=== PATIENT | female | born 2000 | race Caucasian/White ===

== ENCOUNTER 2022-12-23 18:40 | Emergency (ER) | payer OTHER, SELFPAY ==
[2022-12-23 18:44] VITALS: BP 127/81; PULSE 98; RESP 16; TEMP 37.3; O2SAT 99; BMI 20.8
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
[2022-12-23] MEDS: Acetaminophen 325 MG TABLET 975 MG PO (21:08)
[2022-12-23] MEDS: Lidocaine 4 % Patch ADH..PATCH 1 PATCH TRANSDERMA (21:09)
[2022-12-23] MEDS: Ketorolac Tromethamine 15 MG/ML VIAL IM (21:09)
== END 2022-12-23 21:27 | disposition home or self-care (01) ==
PROVIDERS: Emergency Provider Student in an Organized Health Care Education/Training Program
DX: Z04.1 Encounter for examination and observation following transport accident (principal); M62.838 Other muscle spasm; M54.2 Cervicalgia
CPT/HCPCS: 96372; 99283; 99284; J1885

== ENCOUNTER 2023-02-25 17:28 | Emergency (ER) | payer OTHER, SELFPAY ==
[2023-02-25 17:32] VITALS: BP 150/100; PULSE 109; RESP 18; TEMP 36.8; O2SAT 97; BMI 19.0
--- NOTE | 2023-02-25 17:33 | ED.GENADULT ---
HPI - General Adult General Chief complaint: Arrhythmia/Palpitations Stated complaint: tachy, sick since Tuesday Time Seen by Provider: 02/25/23 21:18 Source: patient Mode of arrival: ambulatory Limitations: no limitations History of Present Illness HPI narrative: Patient is a 22 year old assigned female at with a history of POTS presenting to the emergency department today with vomiting. Patient states that over the last week she has had nausea and vomiting. Patient denies any dizziness, lightheadedness, abdominal pain, fever, chills, blurry vision, double vision, loss of vision, chest pain, difficulty breathing, shortness of breath, back pain, night sweats, pain with urination, increased urinary frequency, increased urinary urgency, blood in her urine or stool, syncope or a near syncopal episode, recent trauma or falls, bowel incontinence, bladder incontinence, bowel retention, bladder retention, or any other complaints at this time. Onset (ago): week(s) (1) Severity: mild Severity scale (1-10): 3 Relieving factors: none Exacerbating factors: none Associated symptoms: nausea/vomiting Treatments prior to arrival: none Related Data Previous Rx's Medication Instructions Recorded cyclobenzaprine 5 mg tablet 5 mg PO BEDTIME PRN muscle spasm 12/23/22 #4 tabs ketorolac 10 mg tablet 10 mg PO Q6H PRN pain 5 days #20 12/23/22 tabs ondansetron 4 mg disintegrating 4 mg PO Q8H 3 days #9 tabs 02/25/23 tablet Allergies Allergy/AdvReac Type Severity Reaction Status Date / Time beeswax Allergy Unknown Verified 02/25/23 17:36 haloperidol [From Haldol] Allergy Unknown Verified 02/25/23 17:36 honey Allergy Unknown Verified 02/25/23 17:36 Review of Systems Constitutional: Constitutional: Reports no additional constitutional complaints, Denies chills, Denies fever(s) and Denies night sweats Eyes: Eyes: Reports no additional eye complaints, Denies blurry vision, Denies change in vision, Denies diplopia, Denies eye discharge, Denies loss of vision and Denies eye pain ENT: Denies dizziness Cardiovascular: Cardiovascular: Reports no additional cardiovascular complaints, Denies chest pain, Denies lightheadedness, Denies Loss of Consciousness and Denies dyspnea Respiratory: Respiratory: Reports no additional respiratory complaints and Denies dyspnea Gastrointestinal: Gastrointestinal: Reports no additional gastrointestinal complaints, Denies abdominal pain, Denies melena, Denies hematochezia, Denies change in bowel habits, Denies change in stool character, Reports nausea and Reports vomiting Genitourinary: Genitourinary: Denies hematuria, Denies urinary frequency, Denies dysuria, Denies urinary incontinence, Denies urinary hesitancy and Denies urinary urgency Musculoskeletal: Musculoskeletal: Reports no additional musculoskeletal complaints, Denies numbness and Denies tingling Neurologic: Denies dizziness, Denies loss of vision, Denies numbness and Denies tingling Psychiatric: Psychiatric: Reports no additional psychiatric complaints Endocrine: Endocrine: Reports no additional endocrine complaints Hematologic/Lymphatic: Hematologic/Lymphatic: Reports no additional hematologic/lymphatic complaints Allergic/Immunologic: Allergic/Immunologic: Reports no additional allergic/immunologic complaints PMFSH Past Medical History Attestation statement: The following information was validated with the patient. Source: old records reviewed and nursing notes reviewed Social History Social History Alcohol intake: never Smoked in Last 30 Days: Yes Use of substances other than those prescribed or required for medical reasons: Yes Substance Use Type: Marijuana Advance Directives: No Advance Directives Information Provided: No Patient : No Physical Exam ED Vital Signs: Vital Signs - 24 hr 02/25/23 17:32 02/25/23 19:49 Temperature 98.2 F 97.9 F Pulse Rate 109 H 101 H Respiratory Rate 18 16 Blood Pressure 150/100 H 141/86 H Pulse Oximetry 97 99 Oxygen Delivery Method Room Air Room Air BMI result Body Mass Index 19.0 Const General: cooperative, no acute distress, alert and awake Nutritional Appearance: well nourished Orientation/consciousness: patient oriented x3 Limitations: no limitations HENMT Head: Yes normal to inspection and Yes atraumatic Ears: hearing grossly normal bilaterally and external ears normal General nose exam: Normal external nose present, no nasal discharge noted and no epistaxis Face and sinus: Yes normal facial exam, No abrasion and No laceration Mouth: Normal oral and palatal mucosa present, no drooling and no muffled voice Eyes General: appearance normal, both eyes and all related structures Periorbital: periorbital findings normal Eyelids: Yes eyelids normal Conjunctivae: conjunctivae normal Pupils: Equal, round and reactive pupils present EOM: EOMs intact bilaterally Neck Neck: Yes normal visual inspection, Yes full ROM and Yes no lymphadenopathy Chest Chest palpation & inspection: normal inspection of the chest Resp Effort & Inspection: normal respiratory effort and able to speak in complete sentences GI Inspection: Yes normal to inspection Palpation (GI): Soft to palpation, not firm, nontender and no guarding Neuro General: patient oriented x3 and moves all extremities Cranial nerves: Yes Equal, round and reactive pupils present Cognition (Neuro): normal cognition Motor exam (neuro): 5/5 motor strength present throughout Sensory Exam: Normal double simultaneous stimulation for sensation Coordination: [id number] test normal Extrem General: Yes normal to inspection, Yes full ROM and Yes capillary refill normal Psych Appearance: grossly normal Mental Status: mental status grossly normal Affect: normal affect Attitude: cooperative Thought process: Normal thought process present Thought content: Normal thought content present Insight: Good insight present (Psych) Course Course Course Narrative: This is a rapid medical exam: Additional HPI, ROS, PE not included below will be deferred to primary provider. Patient is a 22-year-old female presenting to the ED with nausea and vomiting for the past week. Also reports some diarrhea. States yesterday she developed palpitations and noted HR to get up to 170. States was recently treated with Macrobid for a UTI and also stating that she has mold in her house. Patient mildly tachycardic in triage at 115. Also complains of shortness of breath, slight chest pain and dizziness. Plan: EKG, labs, UA, swab for flu/covid Medications Administered Discontinued Medications Generic Name Dose Route Start Last Admin Trade Name Jv PRN Reason Stop Dose Admin Ondansetron HCl 4 mg 02/25/23 21:32 02/25/23 21:54 Ondansetron Odt 4 Mg Tab.Rapdis TRANSLINGU 02/25/23 21:33 4 mg ONCE ONE Administration Medical Decision Making Medical Decision Making [facility] Narrative: Patient is a 22 year old assigned female at with a history of POTS presenting to the emergency department today with nausea and vomiting. Patient's physical exam was unremarkable. Patient's blood work was unremarkable. Patient's urine showed a possible infection however, patient has no urinary complaints, will await culture before initiating treatment. Patient's EKG was unremarkable. I explained my physical exam findings as well as all test results to the patient. I answered all questions asked by the patient. Patient received ODT Zofran which she stated helped her symptoms significantly. I stressed the importance of the patient taking her medication as prescribed. I stressed the importance of the patient following up with her primary care provider. I stressed the importance of the patient returning to the emergency department immediately if her symptoms were to worsen or if she were to develop any dizziness, shortness of breath, difficulty breathing, chest pain, blurry vision, loss of vision, nausea, vomiting, abdominal pain, fever, chills, back pain, or any other complaints. Patient verbalized agreement and understanding with this treatment plan and discharge. Differential Diagnosis Differential Diagnoses: The differential diagnosis associated with the presentation includes Viral illness Nausea Vomiting Admission/Observation Consideration of admission/observation: Escalation of care including admission/observation considered Patient would have been admitted to the hospital had her work up had any findings where hospital admission was appropriate and her clinical presentation warranted hospital admission. Lab Data [facility] Lab Attestation statement: I reviewed the patient's lab results. My interpretation of these studies and their corresponding values is that they are grossly normal with the exception of the urine as explained in the [facility] Rationale portion of this note. 02/25/23 17:51 02/25/23 17:51 Labs: Lab Results 02/25/23 02/25/23 Range/Units 17:51 19:47 WBC 9.6 (4.8-10.8) X10*3/uL RBC 5.26 (4.20-5.50) X10*6/uL Hgb 15.6 (12.0-16.0) g/dl Hct 44.8 (37.0-47.0) % MCV 85.2 (80.0-98.0) fL MCH 29.7 (27.0-33.0) pg MCHC 34.8 (31.0-35.0) g/dl RDW 11.9 (11.0-16.0) % Plt Count 403 H (160-400) X10*3/uL MPV 9.5 (9.4-12.3) fL Immature Gran % (Auto) 0.2 (0.0-0.4) % Neut % (Auto) 62.8 (45-73) % Lymph % (Auto) 26.3 (20-40) % [place] % (Auto) 7.1 (2-11) % Eos % (Auto) 3.0 (0-4) % Baso % (Auto) 0.6 (0-2) % Lymph # (Auto) 2.5 (1.2-4.9) X10*3/uL [place] # (Auto) 0.7 (0.1-1.2) X10*3/uL Eos # (Auto) 0.3 (0.0-0.4) X10*3/uL Baso # (Auto) 0.1 (0.0-0.2) X10*3/uL Abs Immat Gran (auto) 0.02 (0.00-0.03) X10*3/uL Absolute Neuts (auto) 6.1 (2.0-8.3) x10*3/uL Absolute Nucleated RBC 0.000 (0.0-0.012) X10*3/uL Nucleated RBC % (auto) 0.0 (0.0-0.2) /100WBC Sodium 139 (135-145) mmol/L Potassium 3.3 (3.3-5.1) mmol/L Chloride 106 (96-108) mmol/L Carbon Dioxide 20 L (22-29) mmol/L Anion Gap 16 (12-20) BUN 17 H (9-16) mg/dL Creatinine 0.75 (0.5-1.4) mg/dL Estim Creat Clear Calc 96.0 Estimated GFR > 60 Random Glucose 106 (60-115) mg/dL Calcium 9.9 (8.4-10.2) mg/dL Total Bilirubin 0.8 (0.0-1.0) mg/dL AST 21 (5-31) U/L ALT 18 (0-31) U/L Alkaline Phosphatase 75 (39-117) U/L Total Protein 8.2 H (6.5-8.0) g/dL Albumin 5.0 (3.5-5.0) g/dL Beta HCG, Quant < 2 mIU/mL Urine Color Yellow Urine Appearance Clear Urine pH 6.0 (5.0-9.0) Ur Specific [place] >= 1.030 H (1.005-1.025) Urine Protein 30 (1+) H (Neg-Trace) mg/dL Urine Glucose (UA) Negative (Negative) mg/dL Urine Ketones >=160 (Negative) mg/dL Urine Blood Moderate (2+) H (Negative) Urine Nitrite Negative (Negative) Ur Leukocyte Esterase Negative (Negative) Urine RBC 11-20 H (0-2) /HPF Urine WBC 0-5 (0-5) /HPF Ur Squamous Epith Cells 6-10 (0-2) /HPF Urine Bacteria Trace (None Seen) Hyaline Casts 0-2 (0-2) /LPF COVID-19 (MARIBELL) Negative (Negative) COVID-19 Clin Com See Note Influenza Type A (BIJU) Negative (Negative) Influenza Type B (BIJU) Negative (Negative) Influenza A & B Note See Note Independent Interpretation I performed an independent interpretation of an: EKG Interpretation: Vent. Rate: 096 BPM Atrial Rate: 096 BPM P-R Int: 118 ms QRS Dur: 094 ms QT Int: 346 ms P-R-T Axes: 076 081 -09 degrees QTc Int: 437 ms Normal sinus rhythm with sinus arrhythmia Incomplete right bundle branch block ST & T wave abnormality, consider inferior ischemia Abnormal ECG No previous ECGs available DD/ 1745 Discharge Plan Discharge Clinical Impression: Nausea & vomiting Patient Disposition: Home, Self-Care Instructions: Acute Nausea and Vomiting (ED) Additional Instructions: Follow up with your primary care provider. Return to the emergency department immediately if your symptoms worsen or if you develop any dizziness, shortness of breath, difficulty breathing, chest pain, blurry vision, loss of vision, nausea, vomiting, abdominal pain, fever, chills, back pain, or any other complaints. Prescriptions: New ondansetron 4 mg tablet,disintegrating 4 mg PO Q8H 3 Days Qty: 9 0RF No Action cyclobenzaprine 5 mg tablet 5 mg PO BEDTIME PRN (Reason: muscle spasm) Qty: 4 0RF ketorolac 10 mg tablet 10 mg PO Q6H PRN (Reason: pain) 5 Days Qty: 20 0RF Rx Instructions: Patient received Toradol in the emergency room. Referrals: [facility] [place] [facility] [Provider Group] (Call to establish and follow up with a primary care provider. If you already have a primary care provider, please follow up with them.) [facility] [place] [facility] [Provider Group] (Call to establish and follow up with a primary care provider. If you already have a primary care provider, please follow up with them.) [facility] [Provider Group] (Call to establish and follow up with a primary care provider. If you already have a primary care provider, please follow up with them.) Stand Alone Forms: Work/School Release Interventions: ED Discharge Assessment Last Done: 02/25/23 22:01 Discharge Date/Time: 02/25/23 22:02 Print Language: Estonian
--- NOTE | 2023-02-25 17:35 | ECG_ITS ---
Test Reason : palpitations Blood Pressure : / mmHG Vent. Rate : 096 BPM Atrial Rate : 096 BPM P-R Int : 118 ms QRS Dur : 094 ms QT Int : 346 ms P-R-T Axes : 076 081 -09 degrees QTc Int : 437 ms Normal sinus rhythm with sinus arrhythmia Incomplete right bundle branch block ST & T wave abnormality, consider inferior ischemia Abnormal ECG No previous ECGs available Referred By: Chiqui Wynn Electronically Signed By:TONA HOWE MD
[2023-02-25 18:09] LABS: MANUAL DIFF FLAG NO
[2023-02-25 18:11] LABS: Basophils Absolute Auto 0.1 X10*3/uL (0.0-0.2); Basophils Percent Auto 0.6 % (0-2); Eosinophils Absolute Auto 0.3 X10*3/uL (0.0-0.4); Hematocrit 44.8 % (37.0-47.0); Hemoglobin 15.6 g/dl (12.0-16.0); Imm Gran Abs Auto 0.02 X10*3/uL (0.00-0.03); Imm Gran Pct Auto 0.2 % (0.0-0.4); Lymphocytes Absolute Auto 2.5 X10*3/uL (1.2-4.9); Lymphocytes Percent Auto 26.3 % (20-40); Mean Corpuscular HGB Conc 34.8 g/dl (31.0-35.0); Mean Corpuscular Hemoglobin 29.7 pg (27.0-33.0); Mean Corpuscular Volume 85.2 fL (80.0-98.0); Mean Platelet Volume 9.5 fL (9.4-12.3); Monocytes Absolute Auto 0.7 X10*3/uL (0.1-1.2); Monocytes Percent Auto 7.1 % (2-11); Neutrophils Absolute Auto 6.1 x10*3/uL (2.0-8.3); Neutrophils Percent Auto 62.8 % (45-73); Platelet Count 403 X10*3/uL (160-400); Red Blood Count 5.26 X10*6/uL (4.20-5.50); Red Cell Distribution Width 11.9 % (11.0-16.0); White Blood Count 9.6 X10*3/uL (4.8-10.8)
[2023-02-25 18:33] LABS: Alanine Aminotransferase 18 U/L (0-31); Alkaline Phosphatase 75 U/L (39-117); Anion Gap 16 (12-20); Aspartate Amino Transferase 21 U/L (5-31); Bilirubin Total 0.8 mg/dL (0.0-1.0); Blood Urea Nitrogen 17 mg/dL (9-16); Calcium 9.9 mg/dL (8.4-10.2); Carbon Dioxide 20 mmol/L (22-29); Chloride 106 mmol/L (96-108); Estimated Glomerular Filt Rate > 60; Glucose Random 106 mg/dL (60-115); Potassium 3.3 mmol/L (3.3-5.1); Sodium 139 mmol/L (135-145); Total Protein 8.2 g/dL (6.5-8.0)
[2023-02-25 18:38] LABS: COVID-19 Test Negative (Negative); IDNOW Serial# 08D9AD1C; IDNOW Serial# BCCEAD1C; Influenza A Negative (Negative); Influenza B2 Negative (Negative)
[2023-02-25 18:40] LABS: HCG Quantitative < 2 mIU/mL
[2023-02-25 19:49] VITALS: BP 141/86; PULSE 101; RESP 16; TEMP 36.6; O2SAT 99
[2023-02-25 19:55] LABS: Appearance Urine Clear; Color Urine Yellow; Glucose Urine UA Negative (Negative); Leukocyte Esterase Urine Negative (Negative); Nitrite Urine Negative (Negative); Specific Gravity - Urine >= 1.030 (1.005-1.025); UMIC TRIGGER UACC YES; Urine Blood Moderate (2+) (Negative); Urine Ketones >=160 mg/dL (Negative); Urine Protein 30 (1+) mg/dL (Neg-Trace)
[2023-02-25 20:07] LABS: Bacteria Urine Trace (None Seen); Hyaline Casts Urine 0-2 /LPF (0-2); WBC Urine 0-5 /HPF (0-5)
[2023-02-25 20:48] VITALS: PULSE 87
--- NOTE | 2023-02-25 20:58 | PC.NURSE ---
Assumed care of pt, pt lying on stretcher, no acute distress at this time. Denies CP. Pt endorsing intermittent N/V/D x 5 days with 5 hours of palpitations. Continuing plan of care.
[2023-02-25] MEDS: Ondansetron ODT 4 MG TAB.RAPDIS TRANSLINGU (21:54)
== END 2023-02-25 22:02 | disposition home or self-care (01) ==
PROVIDERS: Registered Nurse Emergency; Emergency Provider Emergency Medicine
DX: I49.9 Cardiac arrhythmia, unspecified (principal); R00.0 Tachycardia, unspecified; R11.2 Nausea with vomiting, unspecified; Z11.52 Encounter for screening for COVID-19; Z20.822 Contact with and (suspected) exposure to COVID-19; Z79.899 Other long term (current) drug therapy
CPT/HCPCS: 36415; 80053; 81001; 81003; 84702; 85025; 87502; 87635; 93005; 99283; 99285

== ENCOUNTER 2023-05-22 22:01 | Emergency (ER) | payer OTHER, SELFPAY ==
[2023-05-22 22:15] VITALS: BP 120/75; PULSE 85; RESP 14; TEMP 36.8; O2SAT 97; BMI 18.9
[2023-05-22 22:32] LABS: MANUAL DIFF FLAG NO
[2023-05-22 22:34] LABS: Basophils Percent Auto 0.6 % (0-2); Eosinophils Absolute Auto 0.6 X10*3/uL (0.0-0.4); Eosinophils Percent Auto 9.2 % (0-4); Hematocrit 38.5 % (37.0-47.0); Imm Gran Abs Auto 0.01 X10*3/uL (0.00-0.03); Imm Gran Pct Auto 0.1 % (0.0-0.4); Lymphocytes Absolute Auto 2.8 X10*3/uL (1.2-4.9); Mean Corpuscular HGB Conc 33.8 g/dl (31.0-35.0); Mean Corpuscular Hemoglobin 29.5 pg (27.0-33.0); Mean Corpuscular Volume 87.3 fL (80.0-98.0); Mean Platelet Volume 9.6 fL (9.4-12.3); Monocytes Absolute Auto 0.5 X10*3/uL (0.1-1.2); Monocytes Percent Auto 6.6 % (2-11); Neutrophils Absolute Auto 2.9 x10*3/uL (2.0-8.3); Neutrophils Percent Auto 42.5 % (45-73); Platelet Count 319 X10*3/uL (160-400); Red Blood Count 4.41 X10*6/uL (4.20-5.50); Red Cell Distribution Width 12.9 % (11.0-16.0); White Blood Count 6.9 X10*3/uL (4.8-10.8)
[2023-05-22 22:35] LABS: Appearance Urine Turbid; Color Urine RED; Glucose Urine UA Negative (Negative); Leukocyte Esterase Urine Negative (Negative); Nitrite Urine Positive (Negative); PH 6.5 (5.0-9.0); Specific Gravity - Urine >= 1.030 (1.005-1.025); UMIC TRIGGER UACC YES; Urine Blood Moderate (2+) (Negative); Urine Ketones Trace mg/dL (Negative); Urine Protein 100 (2+) mg/dL (Neg-Trace)
[2023-05-22 22:42] LABS: UPreg QC Valid YES; Urine Pregnancy NEGATIVE (NEGATIVE)
[2023-05-22 22:45] LABS: Anion Gap 11 (12-20); Blood Urea Nitrogen 15 mg/dL (9-16); Calcium 9.6 mg/dL (8.4-10.2); Carbon Dioxide 25 mmol/L (22-29); Chloride 109 mmol/L (96-108); Creatinine Clr Calc Pharmacy 81.6; Estimated Glomerular Filt Rate > 60; Glucose Random 89 mg/dL (60-115); Potassium 3.3 mmol/L (3.3-5.1); Sodium 142 mmol/L (135-145)
[2023-05-22 22:46] LABS: Bacteria Urine 2+ (None Seen); Hyaline Casts Urine 0-2 /LPF (0-2); RBC Urine >20 /HPF (0-2); UACC Culture Trigger YES
[2023-05-22 23:46] VITALS: BP 114/67; PULSE 69; RESP 18; O2SAT 98
[2023-05-23] VITALS: BP 112/62; PULSE 62; RESP 18
--- NOTE | 2023-05-23 00:06 | ED.FEMALEGU ---
HPI - Female Genitourinary General Chief complaint: Vaginal Bleeding Stated complaint: Heavy bleeding Time Seen by Provider: 05/22/23 23:45 Source: patient Mode of arrival: ambulatory Limitations: no limitations History of Present Illness HPI Narrative: 22-year-old female with a history of POTS, fibromyalgia, chronic fatigue who presents emergency department for evaluation of abdominal pain, vaginal bleeding, and dizziness. Patient states that she occasionally has irregular menses, but over the last 6 months she has had regular menstrual periods and her last months menstrual period was normal pain. She states that she started to have vaginal bleeding yesterday and this was 5 days later than expected. She states that today she had increased vaginal bleeding larger than usual. She states that over the past 6 hours she soaked through 1 pad per hour. She also complained of significant cramping in her lower abdominal area. She felt lightheaded and dizzy. She took naproxen with no relief for symptoms. She was concerned about the severity for bleeding so she came to the emergency department for evaluation. Related Data Previous Rx's Medication Instructions Recorded cyclobenzaprine 5 mg tablet 5 mg PO BEDTIME PRN muscle spasm 12/23/22 #4 tabs ketorolac 10 mg tablet 10 mg PO Q6H PRN pain 5 days #20 12/23/22 tabs ondansetron 4 mg disintegrating 4 mg PO Q8H 3 days #9 tabs 02/25/23 tablet ondansetron 4 mg disintegrating 4 mg PO Q6-8H PRN nausea and 05/23/23 tablet vomiting #14 tabs Allergies Allergy/AdvReac Type Severity Reaction Status Date / Time beeswax Allergy Unknown Verified 02/25/23 17:36 haloperidol [From Haldol] Allergy Unknown Verified 02/25/23 17:36 honey Allergy Unknown Verified 02/25/23 17:36 Review of Systems Review of Systems: Yes all other systems are reviewed and are negative [facility] Past Medical History [facility] Narrative: Social history: She denies tobacco, alcohol and drug use Social History Social History Alcohol intake: never Smoked in Last 30 Days: Yes Use of substances other than those prescribed or required for medical reasons: Yes Substance Use Type: Marijuana Substance Use Frequency: Chronic Longstanding Advance Directives: No Advance Directives Information Provided: No Patient : No Physical Exam Vital Signs: Vital Signs: Last Vital Signs Temp 98.2 F 05/22/23 22:15 Pulse 69 05/22/23 23:46 Resp 18 05/22/23 23:46 BP 114/67 05/22/23 23:46 Pulse Ox 98 05/22/23 23:46 O2 Del Method Room Air 05/22/23 22:15 BMI result Body Mass Index 18.9 Vital signs were normal Exam: General: Awake, alert in no distress Head: Normocephalic, atraumatic EENT: PERRL, Lids normal, sclera normal, conjunctiva normal, nose normal , ears normal, throat without erythema or exudates Neck: Supple, no adenopathy Lung: breath sounds symmetric, no wheezing, rales or rhonchi Chest: symmetric movement, nontender Heart: regular rate and rhythm, normal S1, S2 no murmurs or rubs Abdomen: soft, moderate suprapubic tenderness, no rebound, no voluntary or involuntary guarding Back: no vertebral tenderness, no CVAT Extremities: no deformities, moves all extremities symmetrically Neuro: Awake, alert, oriented, normal speech, moves all extremities symmetrically Psych: Pleasant, cooperative Medications Administered Discontinued Medications Generic Name Dose Route Start Last Admin Trade Name Freq PRN Reason Stop Dose Admin Sodium Chloride 1,000 mls @ 999 mls/hr 05/23/23 00:05 05/23/23 00:45 Ns IV 05/23/23 01:05 Infused .Q1H1M STA Infusion Ketorolac Tromethamine 15 mg 05/23/23 00:05 05/23/23 00:19 Ketorolac Tromethamine 15 Mg/Ml Vial IVPUSH 05/23/23 00:06 15 mg ONCE STA Administration Ondansetron HCl 4 mg 05/23/23 00:05 05/23/23 00:18 Ondansetron Hcl 4 Mg/2 Ml Vial IVPUSH 05/23/23 00:06 4 mg ONCE ONE Administration Medical Decision Making Medical Decision Making MDM Narrative: 22-year-old female with a history of POTS, fibromyalgia, chronic fatigue who presents emergency department for evaluation of abdominal pain, vaginal bleeding, and dizziness. Patient states that her menstrual period was approximately 5 days late and she had normal bleeding yesterday but today she had unusual large amount of bleeding and was soaking through 1 menstrual pad per hour for the past 6 hours. She felt lightheaded and dizzy and had increased abdominal cramping. Vital signs were normal. Examination did reveal suprapubic tenderness otherwise was unremarkable Differential diagnosis includes but is not limited to vaginal bleeding secondary to , miscarriage, menstrual bleeding, menstrual pain, anemia, electrolyte abnormalities Following evaluation was ordered: CBC, BMP, urine test, urinalysis. Patient was treated with the following: Normal saline x1 L, Toradol 15 mg IV and Zofran 4 mg IV 00:11 My interpretation patient's laboratory evaluation as follows: CBC was normal with an H&H of 13 and 38.5 which is reassuring. BNP was normal . Urine test was negative. Urinalysis was positive for blood and positive for nitrates. Microscopic revealed greater than 20 RBCs, 11-20 WBCs, 11-20 squamous cells and 2+ bacteria-this is not a clean-catch specimen. Patient's laboratory evaluation is reassuring so she has not significantly anemic. Patient's symptoms and presentation are consistent with menstrual bleeding and menstrual cramps. 01:49 Patient is feeling significantly better and will be discharged home with prescription for Zofran ODT to 6 hours as needed for nausea and vomiting and she was advised to continue taking naproxen. Admission/Observation Consideration of admission/observation: Escalation of care including admission/observation considered Lab Data MDM Lab Attestation statement: I reviewed the patient's lab results. 05/22/23 22:26 05/22/23 22:26 Labs: Lab Results 05/22/23 05/22/23 Range/Units 22:26 22:27 WBC 6.9 (4.8-10.8) X10*3/uL RBC 4.41 (4.20-5.50) X10*6/uL Hgb 13.0 (12.0-16.0) g/dl Hct 38.5 (37.0-47.0) % MCV 87.3 (80.0-98.0) fL MCH 29.5 (27.0-33.0) pg MCHC 33.8 (31.0-35.0) g/dl RDW 12.9 (11.0-16.0) % Plt Count 319 (160-400) X10*3/uL MPV 9.6 (9.4-12.3) fL Immature Gran % (Auto) 0.1 (0.0-0.4) % Neut % (Auto) 42.5 L (45-73) % Lymph % (Auto) 41.0 H (20-40) % Mcdonald % (Auto) 6.6 (2-11) % Eos % (Auto) 9.2 H (0-4) % Baso % (Auto) 0.6 (0-2) % Lymph # (Auto) 2.8 (1.2-4.9) X10*3/uL Mcdonald # (Auto) 0.5 (0.1-1.2) X10*3/uL Eos # (Auto) 0.6 H (0.0-0.4) X10*3/uL Baso # (Auto) 0.0 (0.0-0.2) X10*3/uL Abs Immat Gran (auto) 0.01 (0.00-0.03) X10*3/uL Absolute Neuts (auto) 2.9 (2.0-8.3) x10*3/uL Absolute Nucleated RBC 0.000 (0.0-0.012) X10*3/uL Nucleated RBC % (auto) 0.0 (0.0-0.2) /100WBC Sodium 142 (135-145) mmol/L Potassium 3.3 (3.3-5.1) mmol/L Chloride 109 H (96-108) mmol/L Carbon Dioxide 25 (22-29) mmol/L Anion Gap 11 L (12-20) BUN 15 (9-16) mg/dL Creatinine 0.88 (0.5-1.4) mg/dL Estim Creat Clear Calc 81.6 Estimated GFR > 60 Random Glucose 89 (60-115) mg/dL Calcium 9.6 (8.4-10.2) mg/dL Urine Color RED Urine Appearance Turbid Urine pH 6.5 (5.0-9.0) Ur Specific [place] >= 1.030 H (1.005-1.025) Urine Protein 100 (2+) H (Neg-Trace) mg/dL Urine Glucose (UA) Negative (Negative) mg/dL Urine Ketones Trace (Negative) mg/dL Urine Blood Moderate (2+) H (Negative) Urine Nitrite Positive H (Negative) Ur Leukocyte Esterase Negative (Negative) Urine RBC >20 H (0-2) /HPF Urine WBC 11-20 H (0-5) /HPF Ur Squamous Epith Cells 11-20 (0-2) /HPF Urine Bacteria 2+ (None Seen) Hyaline Casts 0-2 (0-2) /LPF Urine Test NEGATIVE (NEGATIVE) Prescription Management I considered prescription management with: Other (Antiemetics) Discharge Plan Discharge Clinical Impression: Vaginal bleeding, Abdominal pain Patient Disposition: Home, Self-Care Additional Instructions: Your blood counts were normal which is reassuring. Your test was negative Continue taking naproxen as prescribed by your provider or you can take ibuprofen 200 mg pills, 2 pills every 6 hours as needed for abdominal pain. Take Zofran ODT 4 mg pills, 1 pill dissolved in your mouth every 8 hours as needed for nausea and vomiting. Follow-up with your doctor in 2 days. Please return to the emergency department if your symptoms get worse or if you develop any symptoms that are concerning to you. Prescriptions: New ondansetron 4 mg tablet,disintegrating 4 mg PO Q6-8H PRN (Reason: nausea and vomiting) Qty: 14 0RF No Action cyclobenzaprine 5 mg tablet 5 mg PO BEDTIME PRN (Reason: muscle spasm) Qty: 4 0RF ketorolac 10 mg tablet 10 mg PO Q6H PRN (Reason: pain) 5 Days Qty: 20 0RF Rx Instructions: Patient received Toradol in the emergency room. ondansetron 4 mg tablet,disintegrating 4 mg PO Q8H 3 Days Qty: 9 0RF
[2023-05-23] MEDS: 0.9 % Sodium Chloride 1,000 ML 999 ML IV (00:18)
[2023-05-23] MEDS: ondansetron HCL 4 MG/2 ML VIAL IVPUSH (00:18)
[2023-05-23] MEDS: Ketorolac Tromethamine 15 MG/ML VIAL IVPUSH (00:19)
== END 2023-05-23 01:58 | disposition home or self-care (01) ==
PROVIDERS: Emergency Provider Emergency Medicine Emergency Medical Services
DX: N93.9 Abnormal uterine and vaginal bleeding, unspecified (principal); R10.9 Unspecified abdominal pain; R42 Dizziness and giddiness
CPT/HCPCS: 36415; 80048; 81001; 81025; 85025; 87086; 96374; 96375; 99284; 99285; J1885; J2405

== ENCOUNTER 2024-02-12 12:06 | Emergency (ER) | payer OTHER, SELFPAY ==
--- NOTE | ~2024-02-12 | XR_ITS ---
EXAMINATION: XR FOOT AND ANKLE, RIGHT CLINICAL INFORMATION: Trauma COMPARISON: None available. TECHNIQUE: 3 views of right foot 2 views of the right ankle FINDINGS: No acute visible fracture or dislocation. Ankle mortise is symmetric. Joint space and alignment are maintained. Soft tissues are unremarkable. XR/XR foot RT min 3V IMPRESSION: No acute visible fracture or dislocation. Electronically signed by: Sam Cao MD 02/12/2024 12:58 PM EDT
--- NOTE | ~2024-02-12 | XR_ITS ---
EXAMINATION: XR FOOT AND ANKLE, RIGHT CLINICAL INFORMATION: Trauma COMPARISON: None available. TECHNIQUE: 3 views of right foot 2 views of the right ankle FINDINGS: No acute visible fracture or dislocation. Ankle mortise is symmetric. Joint space and alignment are maintained. Soft tissues are unremarkable. XR/XR ankle RT min 3V IMPRESSION: No acute visible fracture or dislocation. Electronically signed by: Sam Cao MD 02/12/2024 12:58 PM EDT
[2024-02-12 12:17] VITALS: BP 123/63; PULSE 88; RESP 16; TEMP 36.5; O2SAT 99; BMI 20.3
--- NOTE | 2024-02-12 12:17 | ED_ITS ---
HPI - Extremity Injury (Lower) General Chief Complaint: Extremity Injury, Lower Stated Complaint: R ankle inj Time Seen by Provider: 02/12/24 12:35 Source: patient Mode of arrival: wheelchair Limitations: no limitations History of Present Illness ED Provider: Maite Webb PA-C HPI Narrative: 23 yo female with history of hypermobility presents to the ER for evaluation of right ankle pain after she rolled today while hiking. She reports that she stepped off a platform, in her right ankle rolled outward, causing her to land with all of her weight onto the the side of the ankle. She heard a pop. She has been able to partially bear weight with putting her weight on her toes. She has pain with dorsiflexion and plantar flexion. She states she immediately started developing bruising to the outside of the ankle. No other injuries. complaint: ankle injury Onset (ago): hour(s) Type of Injury: inversion Place: street/outdoors Severity: severe Relieving factors: immobilization and rest Exacerbating factors: weight bearing, movement and palpation Context: walking Associated symptoms: snap/pop sensation and able to partially bear weight Other symptoms: none Related Data Previous Rx's ?Medication ?Instructions ?Recorded cyclobenzaprine 5 mg tablet 5 mg PO BEDTIME PRN muscle spasm 12/23/22 #4 tabs ketorolac 10 mg tablet 10 mg PO Q6H PRN pain 5 days #20 12/23/22 tabs ondansetron 4 mg disintegrating 4 mg PO Q8H 3 days #9 tabs 02/25/23 tablet ondansetron 4 mg disintegrating 4 mg PO Q6-8H PRN nausea and 05/23/23 tablet vomiting #14 tabs Allergies Allergy/AdvReac Type Severity Reaction Status Date / Time beeswax Allergy Unknown Verified 02/12/24 12:19 haloperidol [From Haldol] Allergy Unknown Verified 02/12/24 12:19 honey Allergy Unknown Verified 02/12/24 12:19 Penicillins Allergy Difficulty Verified 02/12/24 12:19 Swallowing Review of Systems Review of Systems: Yes all other systems are reviewed and are negative [facility] Social History Social History Alcohol intake: never Substance Use Type: Marijuana Advance Directives: No Advance Directives Information Provided: Yes Physical Exam Vital Signs: Vital Signs: Last Vital Signs Temp 97.7 F 02/12/24 13:29 Pulse 88 02/12/24 13:29 Resp 16 02/12/24 13:29 BP 123/63 02/12/24 13:29 Pulse Ox 99 02/12/24 13:29 O2 Del Method Room Air 02/12/24 13:29 BMI result Body Mass Index 20.3 Appearance: Alert. Oriented X3. No acute distress. HEENT: normal inspection CVS: Normal heart rate and rhythm. Pulses normal. Respiratory: No respiratory distress. Skin: Skin warm and dry. Normal skin color. Normal skin turgor. No rashes. Extremities: Right lateral ankle with mild generalized swelling, early ecchymosis between the lateral malleolus and the 5th metatarsal with associated tenderness. Pain with plantar flexion and dorsiflexion. Nontender medial malleolus. Foot is warm and well perfused with 2+ DP pulses. No calf tenderness. Achilles tendon is intact Neuro: Oriented X 3. No motor deficit. No sensory deficit. Gait not tested due to pain Course Course Course Narrative: This is a Rapid Medical Examination (RME) performed by Naman Joseph PA-C in triage. Full HPI, ROS, assessment and treatment plan per primary provider in the Main ED. 23 yo female here for eval of right ankle/foot pain after stepping off of a rock and rolling her right ankle while hiking at 0930 today. admits to hearing pop . able to ambulate back to her car. Plan: xr Medical Decision Making Medical Decision Making MDM Narrative: 23-year-old female with history of hypermobility presents to the ER for evaluation of right ankle pain and swelling, bruising after she heard a pop while she stepped off a platform while hiking today. Able to partially bear weight since. Exam. She has no rash we intact. X-ray today does not show any acute fractures. Will treat for ankle sprain. She states she can not use crutches because of her hypermobility and it tends to ?pop out? her shoulders. She is asking for a walking boot. We discussed symptomatic care of sprains including rest, ice, compression, elevation, NSAIDs for pain control. Encouraged outpatient follow-up with her PCP. Stable for discharge home. Differential Diagnosis Differential Diagnoses: The differential diagnosis associated with the presentation includes Ankle sprain, ankle strain, ligamentous injury, ankle fracture Independent Interpretation I performed an independent interpretation of an: Plain X-Ray Interpretation: No evidence of acute fracture, normal appearance of the ankle mortise Radiology Impression Discussion of test interpretation with radiology: I have reviewed the radiologist's reading. Independent Historian Clinical information obtained from an independent historian. History obtained from or confirmed by: Friend External Record Review External record reviewed: Outpatient record and Prior outpatient labs Prescription Management I considered prescription management with: Pain Medication Chronic Conditions Patient?s care impacted by: Other (Hypermobility) Critical Care Time Critical Care Time Critical Care Time: No Discharge Plan Discharge Clinical Impression: Ankle sprain and strain Patient Disposition: Home, Self-Care Instructions: Ankle Sprain (DC) Additional Instructions: Your x-ray today was normal. Rest your ankle and elevate your foot when possible. Recommend QUINTIN wrap for support and compression. Use ice several times per day for the next 48 hours. Wear the walking boot as needed You may bear weight as tolerated. Take Motrin and/or Tylenol as needed for pain. Follow up with your doctor as needed. Prescriptions: No Action cyclobenzaprine 5 mg tablet 5 mg PO BEDTIME PRN (Reason: muscle spasm) Qty: 4 0RF ketorolac 10 mg tablet 10 mg PO Q6H PRN (Reason: pain) 5 Days Qty: 20 0RF Rx Instructions: Patient received Toradol in the emergency room. ondansetron 4 mg tablet,disintegrating 4 mg PO Q8H 3 Days Qty: 9 0RF ondansetron 4 mg tablet,disintegrating 4 mg PO Q6-8H PRN (Reason: nausea and vomiting) Qty: 14 0RF Referrals: o-Carina,Sandra, NEWSP[employer]LIST [Primary Care Provider] - Stand Alone Forms: Work/School Release Interventions: ED Discharge Assessment Last Done: 02/12/24 13:29 Discharge Date/Time: 02/12/24 13:30 Print Language: Scottish
[2024-02-12 13:29] VITALS: BP 123/63; PULSE 88; RESP 16; TEMP 36.5; O2SAT 99
== END 2024-02-12 13:30 | disposition home or self-care (01) ==
PROVIDERS: Emergency Provider Emergency Medicine; PCP Nurse Practitioner Family
DX: S93.401A Sprain of unspecified ligament of right ankle, initial encounter (principal); X50.1XXA Overexertion from prolonged static or awkward postures, initial encounter; Y93.89 Activity, other specified; Y92.89 Other specified places as the place of occurrence of the external cause; Y99.8 Other external cause status
CPT/HCPCS: 73610; 73630; 99283

== ENCOUNTER 2024-05-07 17:37 | Emergency (ER) | payer OTHER, SELFPAY ==
--- NOTE | ~2024-05-07 | CT_ITS ---
CLINICAL HISTORY: new seizures CT head without contrast Comparison: None Findings: No intra-axial mass, midline shift, hydrocephalus, or acute hemorrhage. No significant atrophy-like change or white matter disease. There is no sinus or mastoid fluid. Symmetric irregular appearance of the bilateral lens, may be related to motion artifact, nonspecific. There is no acute fracture. IMPRESSION: 1. No acute intracranial findings This document has been electronically signed by: Rene Conklin MD on 05/07/2024 20:51:49
[2024-05-07 18:12] VITALS: BP 102/72; PULSE 72; RESP 18; TEMP 36.9; O2SAT 100
--- NOTE | 2024-05-07 18:12 | ED_ITS ---
HPI - General Adult General Chief complaint: Seizure Stated complaint: seizure at 1710 Time Seen by Provider: 05/07/24 20:46 Source: patient and family Mode of arrival: ambulatory Limitations: no limitations History of Present Illness ED Provider: HPI narrative: Patient with history of seizures during childhood family history of seizures in the father side comes here for 5 months having seizures off and on lasting only for few minutes with fluttering of the eyes and increased tone in upper extremity patient's has a feeling of having seizure few minutes before tried to sit down no tongue bite no significant anxiety no sleep deprivation no use of Wellbutrin no Tramadol Related Data Previous Rx's ?Medication ?Instructions ?Recorded cyclobenzaprine 5 mg tablet 5 mg PO BEDTIME PRN muscle spasm 12/23/22 #4 tabs ketorolac 10 mg tablet 10 mg PO Q6H PRN pain 5 days #20 12/23/22 tabs ondansetron 4 mg disintegrating 4 mg PO Q8H 3 days #9 tabs 02/25/23 tablet ondansetron 4 mg disintegrating 4 mg PO Q6-8H PRN nausea and 05/23/23 tablet vomiting #14 tabs levetiracetam 500 mg tablet 500 mg PO BID #60 tabs 05/07/24 (Keppra) Allergies Allergy/AdvReac Type Severity Reaction Status Date / Time beeswax Allergy Unknown Verified 05/07/24 18:14 haloperidol [From Haldol] Allergy Unknown Verified 05/07/24 18:14 honey Allergy Unknown Verified 05/07/24 18:14 montelukast Allergy Unknown Verified 05/07/24 18:14 Penicillins Allergy Difficulty Verified 05/07/24 18:14 Swallowing Review of Systems 2 Review of Systems: Yes all other systems are reviewed and are negative [facility] Social History Social History Alcohol intake: never Substance Use Type: Marijuana Advance Directives: No Advance Directives Information Provided: Yes Do you have a plan to hurt others: No Plan Physical Exam ED Vital Signs: Vital Signs - 24 hr 05/07/24 18:12 05/07/24 20:52 Temperature 98.5 F 98.6 F Pulse Rate 72 62 Respiratory Rate 18 14 Blood Pressure 102/72 108/63 Pulse Oximetry 100 99 Oxygen Delivery Method Room Air Room Air BMI result Body Mass Index 20.0 Appearance: Alert. Oriented X3. No acute distress. Eyes: PERRLA, No Nystagmus ENT: Pharynx normal. Oral Mucosa moist no tongue bite Neck: Normal inspection. Neck supple. CVS: Normal heart rate and rhythm. Pulses normal. Respiratory: No respiratory distress. Equal air entry bilateral, no wheezing/rales/rhonchi Abdomen: Soft and nontender. Bowel sounds are present, no mass palpable, no CVA tenderness Skin: Skin warm and dry. Normal skin color. Normal skin turgor. Extremities: No lower extremity edema. No calf tenderness Neuro: Oriented X 3. No motor deficit. Course Course Course Narrative: This is a rapid medical exam performed by Noe Wynn NP: Additional HPI, ROS, PE not included below will be deferred to primary provider. Patient is a 23-year-old female presenting to the ED with complaint of witnessed seizure at home around 5pm tonight. States has been having seizures since having Covid 4-5 mos ago. Has not seen a neurologist yet, was referred to the ED by PCP. Plan: labs, viral serology Medications Administered Discontinued Medications Generic Name Dose Route Start Last Admin Trade Name Freq PRN Reason Stop Dose Admin Levetiracetam 500 mg 05/07/24 21:28 05/07/24 21:42 Levetiracetam 500 Mg Tablet PO 05/07/24 21:29 500 mg ONCE ONE Administration Medical Decision Making Lab Data [facility] Lab Attestation statement: I reviewed the patient's lab results. 05/07/24 18:47 05/07/24 18:47 Labs: Lab Results 05/07/24 Range/Units 18:47 WBC 6.7 (4.8-10.8) X10*3/uL RBC 4.29 (4.20-5.50) X10*6/uL Hgb 13.0 (12.0-16.0) g/dl Hct 38.1 (37.0-47.0) % MCV 88.8 (80.0-98.0) fL MCH 30.3 (27.0-33.0) pg MCHC 34.1 (31.0-35.0) g/dl RDW 12.4 (11.0-16.0) % Plt Count 281 (160-400) X10*3/uL MPV 9.2 L (9.4-12.3) fL Immature Gran % (Auto) 0.1 (0.0-0.4) % Neut % (Auto) 43.6 L (45-73) % Lymph % (Auto) 41.0 H (20-40) % Terrell % (Auto) 7.6 (2-11) % Eos % (Auto) 7.3 H (0-4) % Baso % (Auto) 0.4 (0-2) % Lymph # (Auto) 2.8 (1.2-4.9) X10*3/uL Terrell # (Auto) 0.5 (0.1-1.2) X10*3/uL Eos # (Auto) 0.5 H (0.0-0.4) X10*3/uL Baso # (Auto) 0.0 (0.0-0.2) X10*3/uL Abs Immat Gran (auto) 0.01 (0.00-0.03) X10*3/uL Absolute Neuts (auto) 2.9 (2.0-8.3) x10*3/uL Absolute Nucleated RBC 0.000 (0.0-0.012) X10*3/uL Nucleated RBC % (auto) 0.0 (0.0-0.2) /100WBC PT 10.7 L (10.9-12.4) SEC INR 0.9 (0.9-1.1) Sodium 141 (135-145) mmol/L Potassium 4.3 D (3.3-5.1) mmol/L Chloride 106 (96-108) mmol/L Carbon Dioxide 25 (22-29) mmol/L Anion Gap 14 (12-20) BUN 12 (9-16) mg/dL Creatinine 0.74 (0.5-1.4) mg/dL Estim Creat Clear Calc 101.6 Estimated GFR > 60 Random Glucose 78 (60-115) mg/dL Calcium 9.4 (8.4-10.2) mg/dL Magnesium 1.9 (1.6-2.6) mg/dL Total Bilirubin 0.2 (0.0-1.0) mg/dL AST 28 (5-31) U/L ALT 21 (0-31) U/L Alkaline Phosphatase 66 (39-117) U/L Total Protein 7.2 (6.5-8.0) g/dL Albumin 4.2 (3.5-5.0) g/dL TSH 1.95 (0.32-4.0) uIU/mL Beta HCG, Quant < 2 mIU/mL Ethyl Alcohol < 10 mg/dL Influenza Type A (PCR) NEGATIVE (Negative) Influenza Type B (PCR) NEGATIVE (Negative) RSV RNA Qual (PCR) NEGATIVE (Negative) SARS-CoV-2 RNA (RT-PCR) NEGATIVE (Negative) Independent Interpretation I performed an independent interpretation of an: CT Scan Interpretation: nad Radiology Impression Discussion of test interpretation with radiology: I have reviewed the radiologist's reading. Discharge Plan Discharge Clinical Impression: New onset seizure Patient Disposition: Home, Self-Care Instructions: New-Onset Seizure in Adults (ED) Additional Instructions: Likely you have seizure disorder Start taking Keppra 500 mg twice daily Follow up with neurologist for further management Do not drive until cleared by neurologist Prescriptions: New levetiracetam [Keppra] 500 mg tablet 500 mg PO BID Qty: 60 2RF No Action cyclobenzaprine 5 mg tablet 5 mg PO BEDTIME PRN (Reason: muscle spasm) Qty: 4 0RF ketorolac 10 mg tablet 10 mg PO Q6H PRN (Reason: pain) 5 Days Qty: 20 0RF Rx Instructions: Patient received Toradol in the emergency room. ondansetron 4 mg tablet,disintegrating 4 mg PO Q8H 3 Days Qty: 9 0RF ondansetron 4 mg tablet,disintegrating 4 mg PO Q6-8H PRN (Reason: nausea and vomiting) Qty: 14 0RF Referrals: Aashish Gilman MD [Physician] - 1 week Print Language: Spanish
[2024-05-07 18:51] LABS: MANUAL DIFF FLAG NO
[2024-05-07 18:53] LABS: Basophils Percent Auto 0.4 % (0-2); Eosinophils Absolute Auto 0.5 X10*3/uL (0.0-0.4); Eosinophils Percent Auto 7.3 % (0-4); Hematocrit 38.1 % (37.0-47.0); Imm Gran Abs Auto 0.01 X10*3/uL (0.00-0.03); Imm Gran Pct Auto 0.1 % (0.0-0.4); Lymphocytes Absolute Auto 2.8 X10*3/uL (1.2-4.9); Mean Corpuscular HGB Conc 34.1 g/dl (31.0-35.0); Mean Corpuscular Hemoglobin 30.3 pg (27.0-33.0); Mean Corpuscular Volume 88.8 fL (80.0-98.0); Mean Platelet Volume 9.2 fL (9.4-12.3); Monocytes Absolute Auto 0.5 X10*3/uL (0.1-1.2); Monocytes Percent Auto 7.6 % (2-11); Neutrophils Absolute Auto 2.9 x10*3/uL (2.0-8.3); Neutrophils Percent Auto 43.6 % (45-73); Platelet Count 281 X10*3/uL (160-400); Red Blood Count 4.29 X10*6/uL (4.20-5.50); Red Cell Distribution Width 12.4 % (11.0-16.0); White Blood Count 6.7 X10*3/uL (4.8-10.8)
[2024-05-07 18:58] LABS: INTERNATIONAL NORM RATIO 0.9 (0.9-1.1); Prothrombin Time 10.7 SEC (10.9-12.4)
[2024-05-07 19:06] LABS: Alanine Aminotransferase 21 U/L (0-31); Albumin Level 4.2 g/dL (3.5-5.0); Anion Gap 14 (12-20); Aspartate Amino Transferase 28 U/L (5-31); Bilirubin Total 0.2 mg/dL (0.0-1.0); Blood Urea Nitrogen 12 mg/dL (9-16); Calcium 9.4 mg/dL (8.4-10.2); Carbon Dioxide 25 mmol/L (22-29); Chloride 106 mmol/L (96-108); Creatinine Clr Calc Pharmacy 101.6; Estimated Glomerular Filt Rate > 60; Ethanol < 10 mg/dL; Glucose Random 78 mg/dL (60-115); Magnesium 1.9 mg/dL (1.6-2.6); Potassium 4.3 mmol/L (3.3-5.1); Sodium 141 mmol/L (135-145); Total Protein 7.2 g/dL (6.5-8.0)
[2024-05-07 19:24] LABS: Alkaline Phosphatase 66 U/L (39-117)
[2024-05-07 19:35] LABS: HCG Quantitative < 2 mIU/mL; TSH reflex Free T4 1.95 uIU/mL (0.32-4.0)
[2024-05-07 19:39] LABS: Influenza A PCR NEGATIVE (Negative); Influenza B PCR NEGATIVE (Negative); Resp Syncy Virus RNA Qual PCR NEGATIVE (Negative); SARS COV2 PCR INHOUSE NEGATIVE (Negative)
[2024-05-07 20:52] VITALS: BP 108/63; PULSE 62; RESP 14; TEMP 37; O2SAT 99
--- NOTE | 2024-05-07 20:53 | MHC.EDTECH ---
Seizure pads places on bed railing, patients vitals updated and patient placed on cardiac catheterization technician. Call hand given to pt
[2024-05-07] MEDS: levETIRAcetam 500 MG TABLET PO (21:42)
[2024-05-07 21:57] VITALS: BP 99/64; PULSE 62; RESP 18; TEMP 36.7; O2SAT 99
== END 2024-05-07 22:09 | disposition home or self-care (01) ==
PROVIDERS: Registered Nurse Emergency; Emergency Provider Internal Medicine; PCP Nurse Practitioner Family
DX: G40.909 Epilepsy, unspecified, not intractable, without status epilepticus (principal); Z03.818 Encounter for observation for suspected exposure to other biological agents ruled out
CPT/HCPCS: 0241U; 70450; 80053; 80307; 83735; 84443; 84702; 85025; 85610; 99284

== ENCOUNTER → 2024-05-07 18:15 | Outpatient (BNV) | payer OTHER, SELFPAY | PROVIDERS: Emergency Provider Internal Medicine; PCP Nurse Practitioner Family; Visit Provider Radiology Diagnostic Radiology | DX: R56.9 Unspecified convulsions (principal) | CPT/HCPCS: 70450 ==

== ENCOUNTER 2024-07-06 12:26 | Emergency (ER) | payer OTHER, SELFPAY ==
--- NOTE | ~2024-07-06 | XR_ITS ---
EXAMINATION: XR WRIST 1-2 VIEWS RIGHT HISTORY: dog bite anterior wrist COMPARISON: There are no prior studies available for comparison. FINDINGS: Four views of the right wrist including a scaphoid view are submitted. Osseous mineralization is normal. There is no fracture or dislocation. The joint spaces are preserved. The soft tissues are unremarkable. XR/XR wrist RT 2V IMPRESSION: Unremarkable examination of the right wrist. Electronically signed by: Juni Andersen MD 07/06/2024 01:05 PM EDT
--- NOTE | 2024-07-06 12:29 | ED.ANIMALBIT ---
HPI - Animal Bite General Chief Complaint: Animal Bite Stated Complaint: Dog bite, hand numbness Time Seen by Provider: 07/06/24 15:45 Source: patient Mode of arrival: ambulatory Limitations: no limitations History of Present Illness ED Provider: Jason Colby HPI narrative: 23 yold female presents to the ED for bite on right forearm. Patient states Dog is uptodate with his rabies vaccine. patient states she is uptodate with tdap. Patient denies any numbness, tingling, or paralysis of right forearm. patient. Patient states dog bit her due to her trying to discpline dog( telling dog not to do something) Related Data Previous Rx's ?Medication ?Instructions ?Recorded cyclobenzaprine 5 mg tablet 5 mg PO BEDTIME PRN muscle spasm 12/23/22 #4 tabs ketorolac 10 mg tablet 10 mg PO Q6H PRN pain 5 days #20 12/23/22 tabs ondansetron 4 mg disintegrating 4 mg PO Q8H 3 days #9 tabs 02/25/23 tablet ondansetron 4 mg disintegrating 4 mg PO Q6-8H PRN nausea and 05/23/23 tablet vomiting #14 tabs levetiracetam 500 mg tablet 500 mg PO BID #60 tabs 05/07/24 (Keppra) metronidazole 500 mg tablet 500 mg PO BID 7 days #14 tabs 07/06/24 sulfamethoxazole 800 1 tab PO Q12H 7 days #14 tabs 07/06/24 mg-trimethoprim 160 mg tablet (Bactrim DS) Allergies Allergy/AdvReac Type Severity Reaction Status Date / Time beeswax Allergy Unknown Verified 07/06/24 12:33 haloperidol [From Haldol] Allergy Unknown Verified 07/06/24 12:33 honey Allergy Unknown Verified 07/06/24 12:33 montelukast Allergy Unknown Verified 07/06/24 12:33 Penicillins Allergy Difficulty Verified 07/06/24 12:33 Swallowing Review of Systems Review of Systems: dog bite right fore arm Yes all other systems are reviewed and are negative [facility] Social History Social History Alcohol intake: never Substance Use Type: Marijuana Advance Directives: No Advance Directives Information Provided: No Do you have a plan to hurt others: No Plan Physical Exam ED Vital Signs: Vital Signs - 24 hr 07/06/24 12:30 Temperature 98.0 F Pulse Rate 77 Respiratory Rate 18 Blood Pressure 96/46 L Pulse Oximetry 95 Oxygen Delivery Method Room Air BMI result Body Mass Index 20.0 Const General: cooperative, healthy appearing, comfortable, no acute distress, well developed, alert, awake and Physically active Orientation/consciousness: patient oriented x3 [facility] Head: Yes normal to inspection, Yes No palpable skull fracture present, Yes normocephalic and Yes atraumatic Ears: hearing grossly normal bilaterally, external ears normal, TM's normal bilaterally, TM normal on the right, TM normal on the left, EAC's normal, mastoids normal and no periauricular adenopathy Throat: Yes posterior oropharynx normal, Yes tonsils normal and Yes uvula midline Eyes General: appearance normal, both eyes and all related structures Neck Neck: Yes normal visual inspection, Yes full ROM, Yes no lymphadenopathy, Yes no meningeal signs, Yes trachea midline, Yes supple, No anterior neck swelling and No tender Chest Chest palpation & inspection: normal inspection of the chest and normal palpation of entire chest wall Resp Effort & Inspection: normal respiratory effort and able to speak in complete sentences Auscultation: clear to auscultation bilaterally Cardio Jugular venous distension: no JVD Heart sounds: S1 normal heart sound present and S2 normal heart sound present GI Inspection: Yes normal to inspection Palpation (GI): Soft to palpation, not firm, nontender, no guarding and not rigid General: Yes no CVA tenderness Back/Spine/Pelvis Back: no CVA tenderness and No back tenderness Skin General skin exam: no rashes or lesions noted, elasticity normal and turgor normal Neuro General: patient oriented x3, gait normal, tone normal, moves all extremities, Normal light touch and pain sensation, no meningeal signs, no focal motor deficits, CN's II-XI intact bilaterally and normal sensation to monofilament Extrem General: Yes normal to inspection, Yes full ROM and Yes capillary refill normal Elbow/forearm/wrist images: 1. small puncture wound. negative for active bleeding. negative for signs of tendon nerve injury. no muscle exposure or ecchymosis. rest of extremity is normal. motor, neuro, and vascular exam is intact. 2. small puncture wound. negative for active bleeding. negative for signs of tendon nerve injury. no muscle exposure or ecchymosis. rest of extremity is normal. motor, neuro, and vascular exam is intact. 3. small puncture wound. negative for active bleeding. negative for signs of tendon nerve injury. no muscle exposure or ecchymosis. rest of extremity is normal. motor, neuro, and vascular exam is intact. 4. small puncture wound. negative for active bleeding. negative for signs of tendon nerve injury. no muscle exposure or ecchymosis. rest of extremity is normal. motor, neuro, and vascular exam is intact. Psych Appearance: grossly normal, well kempt and not disheveled Course Course Course Narrative: This is a rapid medical exam performed by Noe Wynn NP: Additional HPI, ROS, PE not included below will be deferred to primary provider. Patient is a 23-year-old right hand dominant female presenting with complaint of dog bite to right wrist. Patient states it was her dog, who is UTD on vaccinations. Last Tdap 3 yrs ago. States she is unable to move her wrist but can move all fingers. Two puncture wounds to anterior wrist. Medications Administered Discontinued Medications Generic Name Dose Route Start Last Admin Trade Name Freq PRN Reason Stop Dose Admin Ibuprofen 400 mg 07/06/24 12:57 07/06/24 13:01 Ibuprofen 400 Mg Tablet PO 07/06/24 12:58 400 mg ONCE ONE Administration Medical Decision Making Medical Decision Making [facility] Narrative: 20-year-old female presents to ED for dog bite to the forearm. Patient's dog is up-to-date with rabies and patient had some up-to-date with tetanus. Patient will be discharged with antibiotics. Patient informed to be compliant with antibiotics to prevent infection. Patient has anaphylaxis reaction to penicillin. We will discharge with antibiotic. Presently no signs of cellulitis, compartment syndrome, DVT, lymphangitis, fracture, dislocation, osteomyelitis, or necrotizing fasciitis. Patient explained worrisome signs and informed to return to the ED immediately Differential Diagnosis Differential Diagnoses: The differential diagnosis associated with the presentation includes (Dog) Admission/Observation Consideration of admission/observation: Escalation of care including admission/observation considered Independent Historian Clinical information obtained from an independent historian. History obtained from or confirmed by: Spouse (Partner) and Other (Patient) Prescription Management I considered prescription management with: Antibiotic Discharge Plan Discharge Clinical Impression: Dog bite Patient Disposition: Home, Self-Care Instructions: Animal Bite (ED) Additional Instructions: Recommend follow-up with primary care provider. Return to the ED immediately pain redness, bluish black discoloration, fever, chills, pus discharge, foul odor, or any other concerning symptoms. EXAMINATION: XR WRIST 1-2 VIEWS RIGHT HISTORY: dog bite anterior wrist COMPARISON: There are no prior studies available for comparison. FINDINGS: Four views of the right wrist including a scaphoid view are submitted. Osseous mineralization is normal. There is no fracture or dislocation. The joint spaces are preserved. The soft tissues are unremarkable. XR/XR wrist RT 2V IMPRESSION: Unremarkable examination of the right wrist. Electronically signed by: Juni Andersen MD 07/06/2024 01:05 PM EDT RP Prescriptions: New sulfamethoxazole-trimethoprim [Bactrim DS] 800-160 mg tablet 1 tab PO Q12H 7 Days Qty: 14 0RF metronidazole 500 mg tablet 500 mg PO BID 7 Days Qty: 14 0RF No Action cyclobenzaprine 5 mg tablet 5 mg PO BEDTIME PRN (Reason: muscle spasm) Qty: 4 0RF ketorolac 10 mg tablet 10 mg PO Q6H PRN (Reason: pain) 5 Days Qty: 20 0RF Rx Instructions: Patient received Toradol in the emergency room. ondansetron 4 mg tablet,disintegrating 4 mg PO Q8H 3 Days Qty: 9 0RF ondansetron 4 mg tablet,disintegrating 4 mg PO Q6-8H PRN (Reason: nausea and vomiting) Qty: 14 0RF levetiracetam [Keppra] 500 mg tablet 500 mg PO BID Qty: 60 2RF Stand Alone Forms: Work/School Release Interventions: ED Discharge Assessment Last Done: 07/06/24 16:51 Discharge Date/Time: 07/06/24 16:52 Print Language: Romansh
[2024-07-06 12:30] VITALS: BP 96/46; PULSE 77; RESP 18; TEMP 36.7; O2SAT 95
[2024-07-06] MEDS: Ibuprofen 400 MG TABLET PO (13:01)
--- OUTSIDE RECORDS SUMMARY | 2024-07-06 16:49 | XMS_ITS | Clinical Summary ---
Author Organization [address] [facility] Address [address] [place] [address] Phone Care Team Providers Care Automobile Technician Name Role Phone Sandra Ridley Primary Care Provider [phone] Allergies Active Allergy Reactions Criticality Noted Date Comments Bee Venom Protein (Honey Bee) 07/04/2024 Grape Anaphylaxis,Hives,It chin g,Dermatitis,Rash High 09/10/2022 Red only Haloperidol Unknown High 06/09/2022 Honey Anaphylaxis,Hives High 03/05/2019 Montelukast 06/09/2022 Penicillins Hives,Shortness of breath High 10/10/2023 Medications albuterol 1.25 mg/3 mL nebulizer solution PLEASE SEE ATTACHED FOR DETAILED DIRECTIONS Active Ventolin HFA 90 mcg/actuation inhaler TAKE 2 PUFFS BY MOUTH EVERY 6 HOURS NEEDED Active calcium carbonate 1,500 mg (600 mg elemental calcium) tablet 1 tablet with meals Orally Twice a day for 30 day(s) Active cetirizine (ZyrTEC) 5 mg tablet TAKE 1-2 TABLETS BY MOUTH EVERY DAY Active cholecalciferol (VITAMIN D-3) 125 mcg (5,000 unit) capsule Take 1 capsule (5,000 Units total) by mouth daily. 024 Active EPINEPHrine (EPIPEN) 0.3 mg/0.3 mL injection INJECT 1 PEN INTRAMUSCULARLY ONCE IF NEEDED Active escitalopram (LEXAPRO) 20 mg tablet 025 Active fluticasone propionate (FLONASE) 50 mcg/actuation nasal spray USE 2 SPRAYS IN NOSTRILS DAILY X1 WEEK THEN 1-2 SPRAYS DAILY. USE LOWEST POSSIBLE DOSE AFTER WEEK 1 Active folic acid (FOLVITE) 400 mcg tablet Take 1 tablet (0.4 mg total) by mouth 1 (one) time each day. Active hydrOXYzine pamoate (VISTARIL) 50 mg capsule TAKE 1 CAPSULE BY MOUTH THREE TIMES A DAY FOR 30 DAYS NEEDED FOR ANXIETY Active levETIRAcetam (KEPPRA) 500 mg tablet Active meloxicam (MOBIC) 15 mg tablet Take 1 tablet (15 mg total) by mouth 1 (one) time each day. with food Active metoclopramide (REGLAN) 5 mg tablet TAKE 1 TABLET BY MOUTH AT BEDTIME FOR NAUSEA AND VOMITING Active midodrine (PROAMATINE) 2.5 mg tablet TAKE 1/2 (ONE-HALF) TABLET BY MOUTH 2 TO 3 TIMES A WEEK TOLERATED. Active multivitamin tablet Take 1 tablet by mouth 1 (one) time each day. Active naproxen (NAPROSYN) 500 mg tablet Take 1 tablet (500 mg total) by mouth every 12 (twelve) hours if needed. for pain Active traZODone (DESYREL) 50 mg tablet TAKE 1/2 (ONE-HALF) TABLET BY MOUTH ONCE DAILY DIRECTED AT BEDTIME Active Vitamins B Complex tablet Take 1 tablet by mouth 1 (one) time each day. Active zinc gluconate 30 mg tablet 1 tablet (30 mg total) 1 (one) time each day at the same time. Active magnesium, amino acid chelate, 133 mg tablet Take 1 tablet (133 mg total) by mouth 2 (two) times a day. Active ondansetron ODT (ZOFRAN-ODT) 8 mg disintegrating tablet Dissolve 1 tablet (8 mg total) on top of the tongue every 8 (eight) hours if needed for nausea or vomiting. 60 tablet 6 Active metoclopramide (REGLAN) 5 mg tablet Take 1 tablet (5 mg total) by mouth 4 (four) times a day. 120 each 11 025 Active DOCOSAHEXAENOIC ACID ORAL 1 capsule. 2024 Discontinued famotidine (PEPCID) 20 mg tablet Take 1 tablet (20 mg total) by mouth 1 (one) time each day. 024 2024 Discontinued omeprazole (PriLOSEC) [address] capsule Take 1 capsule (20 mg total) by mouth 1 (one) time each day. 024 2024 Discontinued ondansetron (ZOFRAN) 8 mg tablet TAKE 1 TABLET BY MOUTH THREE TIMES DAILY NEEDED FOR NAUSEA AND VOMITING 2024 Discontinued simethicone (MYLICON) 80 mg chewable tablet every 6 hours. 07/04 Discontinued Encounters Date Type Department Care Team Description 07/04/2024 9:40 AM EDT Consult Gastroenterology [facility] [address] [id number] Wilfrido Rai PA Nausea and vomiting, unspecified vomiting type (Primary Dx); Decreased appetite; Gastroparesis; Kevin-Danlos syndrome; Dysphagia, unspecified type 04/16/2024 Telephone Gastroenterology [facility] [address] [id number] Tom Brothers MD Appointment from Last 3 Months Family History Medical History Relation Name Comments Esophageal cancer Father's Brother Relation Name Status Comments Father's Brother Alive Social History Tobacco Use Types Packs/Day Years Used Date Smoking Tobacco: Never Smokeless Tobacco: Never Tobacco Cessation:Counseling Given: Not Answered Alcohol Use Standard Drinks/Week Comments Not Currently 0 (1 standard drink = 0.6 oz pur e alcohol) Comments Unknown Sex and Gender Information Value Date Recorded Sex Assigned at Not on file Legal Sex Female 10:32 PM EST Gender Identity Not on file Sexual Orientation Not on file Obstetrics History Last Filed Vital Signs Vital Sign Reading Time Taken Comments Blood Pressure 114/60 07/04/2024 9:45 AM EDT Pulse 92 07/04/2024 9:45 AM EDT Temperature - - Respiratory Rate - - Oxygen Saturation - - Inhaled Oxygen Concentration - - Weight 57.6 kg (127 lb) 07/04/2024 9:45 AM EDT Height 165.1 cm (5' 5 ) 07/04/2024 9:45 AM EDT Body Mass Index 21.13 07/04/2024 9:45 AM EDT Plan of Treatment Health Maintenance Due Date Last Done Comments Gonorrhea/Chlamydia Screening 2000 Meningococcal B Vacine (1 of 2 - Standard) 2016 DTaP,Tdap,and Td Vaccines (1 - Tdap) 12/26/2019 Hepatitis A Vaccines (1 of 2 - Risk 2-dose series) 12/26/2019 Hepatitis B Vaccines (1 of 3 - 19+ 3-dose series) 12/26/2019 Pneumococcal Vaccine: Pediatrics (0 to 5 Years) and At-Risk Patients (6 to 64 Years) (1 of 2 - PCV) 12/26/2019 Cervical Cancer Screening: Pap Smear 2021 Cholesterol Screening (Lipid Panel) 05/24/2023 Depression Screening 05/24/2023 HIV Screening 05/24/2023 Hepatitis C Screening 05/24/2023 Social Influencers of Health Screening 05/24/2023 COVID-19 Vaccine ( season) 2023 04/04/2021, 07/03/2020, 06/11/2020 Influenza Vaccine (#1) 2023 , 03/05/2020, 02/04/2020, Additional history exists Meningococcal ACWY Vaccine Completed 01/02/2018 HPV Vaccines Completed 09/15/2018, 02/24, 01/02/2018 HIB Vaccines Aged Out No longer eligi ble based on patient's age to complete this topic IPV Vaccines Aged Out No longer eligi ble based on patient's age to complete this topic MMR Vaccines Aged Out No longer eligi ble based on patient's age to complete this topic RSV Immunization Patients Under 20 months Aged Out No longer eligible based on patient's age to complete this topic Varicella Vaccines Aged Out No longer eligible based on patient's age to complete this topic Insurance [facility] [place] [address] Care Teams Automobile Technician Relationship Specialty Start Date End Date Sandra Ridley [address] [facility] [address] [place] [id number] PCP - General Family Medicine 03/05/24
--- OUTSIDE RECORDS SUMMARY | 2024-07-06 16:49 | XMS_ITS ---
Author Organization [facility] Address [address] [place] [address] Care Team Providers Care Senior Oracle Developer Name Role Phone SCOTT BRONSON Unavailable Allergies Allergen (clinical drug ingredient) Drug/Non Drug Allergy documented on EMR Reaction Allergy Type Onset Date Status amoxicillin / clavulanate Augmentin anaphylaxis Drug Allergy Active Bees Wax shortness of breath Drug Allergy Active Honey anaphylaxis Drug Allergy Activ e Bee Sting anaphylaxis Allergy Active Reason For Referral Reason eval and treat Diagnosis 1 Medication refill (Z 76.0) Referral Organization [facility] Referring Provider First Name SCOTT Referring Provider Last Name ULI Dale Referring Provider Speciality Family Med icine Referred Provider Specialty Family Pract ice Referral Priority Routine Referral Appointment Date 12/01/2023 REASON FOR VISIT Prescription Refill, Patient requesting service from promotional campaign rx_refill Social History Tobacco Use: Social History Observation Description Date Details (start date - stop date) Current Smoker NA - NA Tobacco Control (Standard) Question Answer Notes Tobacco use: Current smoker How many cigarettes a day do you smoke? 6-10 Vital Signs Height 65 in 12/01/2023 Weight 120 lbs 12/01/2023 BMI 19.97 kg/m2 12/01/2023 Patient Reported Low Blood P resurePatient Reported Low Temperature Encounters Encounter Location Date Provider Diagnosis [facility] [address] [place] [address] 12/01/2023 SCOTT BRONSON Prediabetes R73.03 and Medication refill Z76.0 Assessments Encounter Date Diagnosis (ICD Code) Assessment Notes Treatment Notes Treatment Clinical Notes Section Notes 12/01/2023 Prediabetes (ICD-10 - R73.03) 12/01/2023 Medication refill (ICD-10 - Z76.0) TREATMENT PLAN: MEDICATION DENIED UNABLE TO LOCATE RECORDS Your medication refill request has been denied as we couldn't find documentation confirming your current usage of this medication. To expedite approval, please provide documentation from your prescribing physician outlining your need, supporting test results, and the pharmacy details. Once received, we can provide a limited supply until you're able to consult your regular physician. 12/01/2023 Other Follow the treatment plan as indicated by the provider. Take any medications as prescribed. If you have any questions about your prescription, ask the pharmacist. Call 911 anytime you think you may need emergency care. For example, call if:You have severe trouble breathing.You have a seizure.Call your doctor now or seek immediate medical care if:You have trouble breathing.You have a fever with a stiff neck or a severe headache.You have pain or pressure in your chest or belly.You have a fever or cough that returns after getting better.You feel very sleepy, dizzy, or confused.You are not urinating.You have severe muscle pain.You have severe weakness, or you are unsteady.You have medical conditions that are getting worse.Watch closely for changes in your health, and be sure to contact your doctor if:You do not get better as expected.You are having a problem with your medicine., Prediabetes: Care Instructions material was published You participated in a Fasttrack Rx request, considered an asynchronous visit where you provide your symptoms and medical history, and a treatment plan is formulated based on your submission. A treatment plan and patient education were provided based on your submission. If symptoms persist or worsen, you should seek in-person care or call 911 immediately for further evaluation. Plan Of Treatment Treatment Notes Assessment Notes Medication refill TREATMENT PLAN: MEDICATION DENIED UNABLE TO LOCATE RECORDS Your medication refill request has been denied as we couldn't find documentation confirming your current usage of this medication. To expedite approval, please provide documentation from your prescribing physician outlining your need, supporting test results, and the pharmacy details. Once received, we can provide a limited supply until you're able to consult your regular physician. Other Follow the treatment plan as indicated by the provider. Take any medications as prescribed. If you have any questions about your prescription, ask the pharmacist. Call 911 anytime you think you may need emergency care. For example, call if:You have severe trouble breathing.You have a seizure.Call your doctor now or seek immediate medical care if:You have trouble breathing.You have a fever with a stiff neck or a severe headache.You have pain or pressure in your chest or belly.You have a fever or cough that returns after getting better.You feel very sleepy, dizzy, or confused.You are not urinating.You have severe muscle pain.You have severe weakness, or you are unsteady.You have medical conditions that are getting worse.Watch closely for changes in your health, and be sure to contact your doctor if:You do not get better as expected.You are having a problem with your medicine., Prediabetes: Care Instructions material was published Referrals Referral Date Details 12/01/2023 12/01/2023, eval and treat Next Appt Details Follow Up: PCP, 2W, Reason: Progress Notes * Rosaline ALVESOB: [birth year] (22 yo F)Acc No.[id number]:12/01/2023 Patient:?Abby ALVES Provider:?SCOTT BRONSON MD :2000???Age:22 Y???Sex:Female D ate:12/01/2023 Phone: Address:[address] [place], [place] [id number] Subjective: * Chief Complaints: * ???Prescription RefillPatien t requesting service from promotional campaign rx_refill * HPI: ???TeleHealth Complaint History:? Reason for visit:. ? Allergies: Augmentin: Anaphylaxis? ?and Honey: Anaphylaxis? ?and Beeswax: Hives and shortness of breath? and Bee Sting: Anaphylaxis Medication RequestRequested: ? Bhupendra alvarez cgm, 14 day, 90 days Reason: ? Pre-diabetes How Long: ? 2 months Side Effects: Prescriber: ? Dr. Morgan. * ROS:?All Other Systems:?Review of Systems (ROS)?See HPI for details.? * Medical History:? * Surgical History:?Denies Pas t Surgical History * Hospitalization/Major Diagno stic Procedure:?Denies Past Hospitalization * Family History:? Type 2 diabetes : Grandparent? and Depression : Parent? and Chronic fatigue : Aunt. * Social History:?Tobacco Use:?Tobacco Control (Standard)?Tobacco use:?Current smoker,?How many cigarettes a day do you smoke??6-10.?Drugs/Alcohol:?Do you drink alcohol?: No. * Medications:? * Allergies:?Augmentin: anaphy laxisHoney: anaphylaxisBees Wax: shortness of breathBee Sting: anaphylaxisno[Allergies Verified] Objective: * Vitals:?Ht: 65 in, Wt:120lbs , BMI:19.97Index. Patient Reported Low Blood Presure Patient Reported Low Temperature. * Physical Examination:?Asynchronous visit, unable to assess. Assessment: * Assessment: 1.?Prediabetes - R73.03 (Cynthia zarate)???2.?Medication refill - Z76.0??? Plan: * Treatment: 2.?Others? Notes: Follow the treatment plan as indicated by the provider. Take any medications as prescribed. If you have any questions about your prescription, ask the pharmacist. [id number] you think you may need emergency care. For example, call if:You have severe trouble breathing.You have a seizure.Call your doctor nowor seek immediate medical care if:You have trouble breathing.You have a fever with a stiff neck or a severe headache.You have pain or pressure in your chest or belly.You have a fever or cough that returns after getting better.You feel very sleepy, dizzy, or confused.You are not urinating.You have severe muscle pain.You have severe weakness, or you are unsteady.You have medical conditions that are getting worse.Watch closely for changes in your health, and be sure to contact your doctor if:You do not get better as expected.You are having a problem with your medicine., Prediabetes: Care Instructions material was published?? Clinical Notes:You participated in a Fasttrack Rx request, considered an asynchronous visit where you provide your symptoms and medical history, and a treatment plan is formulated based on your submission. A treatment plan and patient education were provided based on your submission. If symptoms persist or worsen, you should seek in-person care or call 911 immediately for further evaluation. ?? * Procedure Codes:?S9088 SERVI PANCHO PROV AN [facility] CARE CENTERMPFEE Merchant / CC Processing [id number] Office Visit, Est Pt., Level 3, delivered asynchronous, Modifiers: GQ * Follow Up:?PCP, 2W * Billing Information: * Visit Code:? * Procedure Codes:? S9088 SERVICES [facility]. MPFEE Merchant / CC Processing Fee. [id number] Office Visit, Est Pt., Level 3, delivered asynchronous. Modifiers: GQ * Sign off status: Completed true * Provider:?SCOTT BRONSON MD Da te:?12/01/2023 Generated for Printi ng/Sedag/eTransmitting on:?07/06/2024 04:49 PM EDT History and Physical Notes * HPI (History of Present Illness) Category Sub-Category Detail Notes Category Not es TeleHealth Complaint History Allergies: Augmentin: Anaphylaxis and Honey: Anaphylaxis and Beeswax: Hives and shortness of breath and Bee Sting: Anaphylaxis Medication RequestRequested: Freestyle antonio cgm, 14 day, 90 days Reason: Pre-diabetes How Lon months Side Effects: Prescriber: Dr. Morgan Physical Examination Category Sub-Category Detail Notes Section Note s Asynchronous vi sit, unable to assess Consultation Request Notes Referral Date Referring Provider Referred Provider Not es 12/01/2023 SCOTT BRONSON eval and treat
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
--- OUTSIDE RECORDS SUMMARY | 2024-07-06 16:50 | XMS_ITS | Patient Health Record ---
Author Organization [facility] Address [address] [place] [address] Care Team Providers Care Legal Practice Manager Name Role Phone SCOTT BRONSON Unavailable [phone] Allergies Allergen (clinical drug ingredient) Drug/Non Drug Allergy documented on EMR Reaction Allergy Type Onset Date Status amoxicillin / clavulanate Augmentin anaphylaxis Drug Allergy Active Bees Wax shortness of breath Drug Allergy Active Honey anaphylaxis Drug Allergy Activ e Bee Sting anaphylaxis Allergy Active Reason For Referral Reason eval and treat Diagnosis 1 Medication refill (Z 76.0) Referral Organization [facility] Referring Provider First Name SCOTT Referring Provider Last Name ULI Dale Referring Provider Speciality Family Med icine Referred Provider Specialty Family Pract ice Referral Priority Routine Referral Appointment Date 12/01/2023 Social History Tobacco Use: Social History Observation Description Date Details (start date - stop date) Current Smoker NA - NA Tobacco Control (Standard) Question Answer Notes Tobacco use: Current smoker How many cigarettes a day do you smoke? 6-10 Vital Signs Height 65 in 12/01/2023 Patient Reported Low Blood Presure Patient Reported Low Temperature Weight 120 lbs 12/01/2023 Patient Reported Low Blood Presure Patient Reported Low Temperature BMI 19.97 kg/m2 12/01/2023 Patient Reported Low Blood Presure Patient Reported Low Temperature Encounters Encounter Location Date Provider Diagnosis [facility] [address] [place] [address] 12/01/2023 SCOTT BRONSON Prediabetes R73.03 and Medication [...] immediately for further evaluation. Plan Of Treatment No Information Insurance Providers Payer Name Payer Address Payer Phone Subscriber Number Group Number Insured Name Patient Relationship to Insured Coverage Start Date Coverage End Date [employer] of [place] [address] [place] [id number] Abby Alves Self - patient is the insured Medical (General) History Medical History History ICD Code Postural orthostatic tachycardia syndrom e 2020 Chronic fatigue syndrome 2018 Hypermobile 2018 Fibromyalgia 2019 Asthma 2006 Depression 2012 Generalized anxiety disorder 2012 Borderline Personality disorder 2017
--- OUTSIDE RECORDS SUMMARY | 2024-07-06 16:50 | XMS_ITS | Encounter Summary ---
Author Organization [facility] Address [address] [place] [address] Care Team Providers Care Worker'S Compensation Claims Examiner Name Role Phone Sandra Ridley Primary Care Provider [phone] Reason for Visit * Reason Comments Establish Care Nausea Vomiting Encounter Details Date Type Department Care Team (Late st Contact Info) Description 07/04/2024 9:40 AM EDT Consult Gastroenterology - [place] [address] [place] [id number] Wilfrido Rai PA [address] [place] [address] Nausea and vomiting, unspecified vomiting type (Primary Dx); Decreased appetite; Gastroparesis; Kevin-Danlos syndrome; Dysphagia, unspecified type Social History Tobacco Use Types Packs/Day Years [...] on file Sexual Orientation Not on file documented as of this encounter Last Filed Vital Signs Vital Sign Reading [...] Mass Index 21.13 07/04/2024 9:45 AM EDT documented in this encounter Patient Instructions * Attachments The following attachments cannot be sent through Care Everywhere. * Dysphagia: General Info ([place]err[place]ian) * Swallowing: Exercises ([place]) * VFSS: Videofluorographic Swallowing Study ([place]) * Gastroparesis ([place]ian) * Nausea and Vomiting ([place]ian) documented in this encounter Ordered Prescriptions Prescription Sig Dispense Quantity Refills Last Filled Start Date End Date metoclopramide (REGLAN) 5 mg tablet Take 1 tablet (5 mg total) by mouth 4 (four) times a day. 120 each 11 07/04/2024 ondansetron ODT (ZOFRAN-ODT) 8 mg disintegrating tablet Dissolve 1 tablet (8 mg total) on top of the tongue every 8 (eight) hours if needed for nausea or vomiting. 60 tablet 6 07/04/2024 documented in this encounter Progress Notes * RADHA Meneses - 07/04/2024 9:40 AM EDT Patient seen for further discussion regarding nausea, vomiting, decreased appetite, dysphagia and gastroparesis. Patient remarks that she has had issues with food intake since childhood and has had anumber of studies to further evaluate her gastric issues. States that she did have a gastric emptying study performed in 2020 and has been rxd reglan that she takes twice daily. States that she may eat 1-2 meals or snacks daily. Patient also is having issues with swallowing and will be scheduled for a barium swallow- states that the issues with swallowing have been oing for a couple of years. Patient will be informed of results and may need to be considered for any egd. Patient will continue with medications as directed for the reglan and zofran. Patient to contact office with any questions or concerns. * RADHA Meneses - 07/04/2024 9:40 AM EDT CONSULT REQUEST: Abby Alves is a 23 y.o. female referred by Sandra Ridley, SAFETY SEALER for evaluation of nausea, vomiting, decreased appetite dysphagia as well as gastroparesis HPI: 23-year-old female seen for further discussion regarding nausea, vomiting, decreased appetite, dysphagia and gastroparesis. Is accompanied by her boyfriend. Patient remarks that she has had issues with food intake since childhood and has had a number of studies over the years to further evaluate her gastric issues as well as issues with her appetite. States that she did have a gastric emptying study performed in 2020 and has been rxd reglan that she takes twice daily. States that she may eat 1-2 meals or snacks daily. Patient also is having issues with swallowing and will be scheduled for a barium swallow- states that the issues with swallowing have been going for a couple of years. Patient will be informed of results and may need to be considered for any egd. Patient will continue with medications as directed for the reglan and zofran. Patient to contact office with any questions or concerns. ROS: GENERAL: No malaise, significant weight loss or fever HEENT: No changes in hearing or vision, nose bleeds or swallowing problems NECK: No lumps, goiter, pain or significant neck swelling RESPIRATORY: No cough, wheezing or shortness of breath CARDIOVASCULAR: No chest pain, leg swelling or palpitations GI: Positive for decreased appetite, dysphagia, gastroparesis, nausea and vomiting, dyspepsia colon, gastric, esophageal cancer MUSCULOSKELETAL: No joint pain or swelling, back pain, or muscle pain. SKIN: No lesions, rash or itching The remainder of the review of systems is reviewed and negative. PAST MEDICAL HISTORY: There is no problem list on file for this patient. PAST SURGICAL HISTORY: No past surgical history on file. SOCIAL HISTORY: Social History Tobacco Use Smoking status: Never Smokeless tobacco: Never Vaping Use Vaping status: Every Day Substance Use Topics Alcohol use: Not Currently Drug use: Yes Types: Marijuana/Cannabis FAMILY HISTORY: Family History Problem Relation Name Age of Onset Esophageal cancer Father's Brother Family History is negative for colon, gastric, esophageal cancer in first and second degree relatives MEDICATIONS: Outpatient Medications Marked as Taking for the 07/04/24 encounter (Consult) with RADHA Meneses Medication Sig Dispense Refill albuterol 1.25 mg/3 mL nebulizer solution PLEASE SEE ATTACHED FOR DETAILED DIRECTIONS calcium carbonate 1,500 mg (600 mg elemental calcium) tablet 1 tablet with meals Orally Twice a dayfor 30 day(s) cetirizine (ZyrTEC) 5 mg tablet TAKE 1-2 TABLETS BY MOUTH EVERY DAY cholecalciferol (VITAMIN D-3) 125 mcg (5,000 unit) capsule Take 1 capsule (5,000 Units total) by mouth daily. EPINEPHrine (EPIPEN) 0.3 mg/0.3 mL injection INJECT 1 PEN INTRAMUSCULARLY ONCE IF NEEDED escitalopram (LEXAPRO) 20 mg tablet fluticasone propionate (FLONASE) 50 mcg/actuation nasal spray USE 2 SPRAYS IN NOSTRILS DAILY X1 WEEK THEN 1-2 SPRAYS DAILY. USE LOWEST POSSIBLE DOSE AFTER WEEK 1 folic acid (FOLVITE) 400 mcg tablet Take 1 tablet (0.4 mg total) by mouth 1 (one) time each day. hydrOXYzine pamoate (VISTARIL) 50 mg capsule TAKE 1 CAPSULE BY MOUTH THREE TIMES A DAY FOR 30 DAYS NEEDED FOR ANXIETY levETIRAcetam (KEPPRA) 500 mg tablet magnesium, amino acid chelate, 133 mg tablet Take 1 tablet (133 mg total) by mouth 2 (two) times a day. meloxicam (MOBIC) 15 mg tablet Take 1 tablet (15 mg total) by mouth 1 (one) time each day. with food metoclopramide (REGLAN) 5 mg tablet TAKE 1 TABLET BY MOUTH AT BEDTIME FOR NAUSEA AND VOMITING midodrine (PROAMATINE) 2.5 mg tablet TAKE 1/2 (ONE-HALF) TABLET BY MOUTH 2 TO 3 TIMES A WEEK TOLERATED. multivitamin tablet Take 1 tablet by mouth 1 (one) time each day. naproxen (NAPROSYN) 500 mg tablet Take 1 tablet (500 mg total) by mouth every 12 (twelve) hours if needed. for pain traZODone (DESYREL) 50 mg tablet TAKE 1/2 (ONE-HALF) TABLET BY MOUTH ONCE DAILY DIRECTED AT BEDTIME Ventolin HFA 90 mcg/actuation inhaler TAKE 2 PUFFS BY MOUTH EVERY 6 HOURS NEEDED Vitamins B Complex tablet Take 1 tablet by mouth 1 (one) time each day. zinc gluconate 30 mg tablet 1 tablet (30 mg total) 1 (one) time each day at the same time. [DISCONTINUED] DOCOSAHEXAENOIC ACID ORAL 1 capsule. [DISCONTINUED] famotidine (PEPCID) 20 mg tablet Take 1 tablet (20 mg total) by mouth 1 (one) time each day. [DISCONTINUED] omeprazole (PriLOSEC) [address] capsule Take 1 capsule (20 mg total) by mouth 1 (one)time each day. [DISCONTINUED] ondansetron (ZOFRAN) 8 mg tablet TAKE 1 TABLET BY MOUTH THREE TIMES DAILY NEEDED FOR NAUSEA AND VOMITING [DISCONTINUED] simethicone (MYLICON) 80 mg chewable tablet every 6 hours. ALLERGIES: @ALL@ PHYSICAL EXAM: Visit Vitals BP 114/60 Pulse 92 Ht 1.651 m (65 ) Wt 57.6 kg (127 lb) BMI 21.13 kg/m?? Smoking Status Never BSA 1.63 m?? APPEARANCE: Alert and in no acute distress EYES: PERRLA, conjunctiva and sclera normal. NECK: Neck supple, no adenopathy HEART: RRR with normal S1 and S2, no murmurs appreciated LUNG: clear to auscultation LYMPH NODES: grossly normal ABDOMEN: Soft, nontender, normal active bowel sound throughout, no organomegaly RECTAL: Exam deferred EXTREMITIES: Extremities warm and well perfused NEURO: Awake, alert and oriented x 3 SKIN: Skin color, texture, turgor normal. LABS: No results found for: WBC , HGB , HCT , MCV , PLT , NA , K , CL , CO2 , GLUCOSE , BUN , CREATININE , CALCIUM , PROT , ALBUMIN , BILITOT , AST , ALT , URICACID , PHOS , MG , ALKPHOS , EGFR No results found for: SEDRATE , CRP , IRON , FERRITIN , CDIFFTOX , HPYLORI , STOOLCX , LIPASE , APTT , PT , INR , CELIAC , TTGIGA , GLIADINIGA , OCCULTBLD , CALPROTECTIN IMAGING: DR AVALOS [facility] Diagnostic Imaging Department [address] [place] [address] [id number] Patient: ABBY ALVES/Age/Sex: 2000 - - F Unit#: [id number] Location/Status: SPER/REG ER Mnemonic/Ordering Site: [facility] Ordering Physician: JENN SOMMER DR Chest PORTABLE - 11/24/22 - 1634 Report Status:Signed History: Dyspnea. Comparison: No comparison imaging at this institution. Findings: Portable AP upright chest at 4:30 PM. The cardiomediastinal silhouette, hilar contours and pulmonary vascularity are within normal limits. The lungs are fully expanded and clear. The costophrenic angles are sharp. Impression: Clear lungs. [id number] Dictating Physician: DHRUV RUDOLPH MD Electronically Signed by: DHRUV RUDOLPH MD Dic Date/Time: 11/24/221709 Sign date/Time: 11/24/221713 IMPRESSION: 1. Nausea and vomiting, unspecified vomiting type 2. Decreased appetite 3. Gastroparesis 4. Kevin-Danlos syndrome 5. Dysphagia, unspecified type PLAN: 1. Nausea and vomiting, decreased appetite, history of gastroparesis, dysphagia, Kevin-Danlos syndrome Patient states that she is had issues with her digestive system since she was a child. Had been evaluated for failure to thrive when she was a youngster and has not ever had a good appetite. She states that she has nausea and vomiting quite frequently because she has upset stomach and does not feellike eating. Had been diagnosed with gastroparesis in 2020 and was taking Reglan once or twice a day. She is aware that the Reglan needs to be taken before each meal or snack and see if that will help increase her appetite. She does have some issues with swallowing solids or she at least has a globus sensation and we willbe scheduling a barium swallow for further evaluation. At some point patient may also need to have an endoscopy for further evaluation. Patient is aware to contact office with any questions or concerns Total time of today's encounter is 48 minutes in preparing to see the patient, reviewing labs, diagnostic studies as well as other provider notes, documenting in charting, creating an HPI, performinga medically appropriate exam, counseling patient at length in regards to decreased appetite, heartburn, nausea and vomiting, gastroparesis, dysphagia as well as prescribing medication. There was documentation in EMR after visit. None of which time was spent performing separately billable proceduresor ancillary services. Many thanks for allowing us to participate in patient's care No orders of the defined types were placed in this encounter. None RADHA Meneses cc: Khai, Sandra, SAFETY SEALER Answers submitted by the patient for this visit: Abdominal Pain Questionnaire (Submitted on 07/03/2024) Chief Complaint: Abdominal pain Chronicity: chronic Onset: more than 1 year ago Onset quality: undetermined Frequency: 2 to 4 times per day Episode duration: 4 Hours Progression since onset: waxing and waning Pain location: generalized abdominal region Pain - numeric: 7/10 Pain quality: aching, cramping, a sensation of fullness Radiates to: pelvis anorexia: Yes arthralgias: Yes constipation: Yes diarrhea: Yes dysuria: No fever: No flatus: No frequency: Yes headaches: Yes hematochezia: No hematuria: No melena: No myalgias: Yes nausea: Yes weight loss: Yes vomiting: Yes Aggravated by: certain positions, eating Relieved by: certain positions, recumbency, vomiting documented in this encounter Plan of Treatment Not on file documented as of this encounter Visit Diagnoses Diagnosis Nausea and vomiting, unspecified vomiting type- Primary Decreased appetite Anorexia Gastroparesis Kevin-Danlos syndrome Dysphagia, unspecified type documented in this encounter Discontinued Medications Medication Sig Discontinue Reason Start Date End Da te omeprazole (PriLOSEC) [address] capsule Take 1 capsule (20 mg total) by mouth 1 (one) time each day. 04/14/2024 07/04/2024 ondansetron (ZOFRAN) 8 mg tablet TAKE 1 TABLET BY MOUTH THREE TIMES DAILY NEEDED FOR NAUSEA AND VOMITING 04/17/2024 07/04/2024 simethicone (MYLICON) 80 mg chewable tablet every 6 hours. 07/04/2024 DOCOSAHEXAENOIC ACID ORAL 1 capsule. 07/04/2024 famotidine (PEPCID) 20 mg tablet Take 1 tablet (20 mg total) by mouth 1 (one) time each day. 07/20/2023 07/04/2024 documented as of this encounter Historical Medications * This list may reflect changes made after this encounter. magnesium, amino acid chelate, 133 mg tablet Take 1 tablet (133 mg total) by mouth 2 (two) times a day. zinc gluconate 30 mg tablet 1 tablet (30 mg total) 1 (one) time each day at the same time. Vitamins B Complex tablet Take 1 tablet by mouth 1 (one) time each day. 02/04/2024 traZODone (DESYREL) 50 mg tablet TAKE 1/2 (ONE-HALF) TABLET BY MOUTH ONCE DAILY DIRECTED AT BEDTIME 06/13/2024 naproxen (NAPROSYN) 500 mg tablet Take 1 tablet (500 mg total) by mouth every 12 (twelve) hours if needed. for pain 06/17/2024 multivitamin tablet Take 1 tablet by mouth 1 (one) time each day. 04/14/2024 midodrine (PROAMATINE) 2.5 mg tablet TAKE 1/2 (ONE-HALF) TABLET BY MOUTH 2 TO 3 TIMES A WEEK TOLERATED. 03/30/2024 metoclopramide (REGLAN) 5 mg tablet TAKE 1 TABLET BY MOUTH AT BEDTIME FOR NAUSEA AND VOMITING 02/05/2024 meloxicam (MOBIC) 15 mg tablet Take 1 tablet (15 mg total) by mouth 1 (one) time each day. with food 07/12/2023 levETIRAcetam (KEPPRA) 500 mg tablet 06/05/2024 hydrOXYzine pamoate (VISTARIL) 50 mg capsule TAKE 1 CAPSULE BY MOUTH THREE TIMES A DAY FOR 30 DAYS NEEDED FOR ANXIETY folic acid (FOLVITE) 400 mcg tablet Take 1 tablet (0.4 mg total) by mouth 1 (one) time each day. 04/14/2024 fluticasone propionate (FLONASE) 50 mcg/actuation nasal spray USE 2 SPRAYS IN NOSTRILS DAILY X1 WEEK THEN 1-2 SPRAYS DAILY. USE LOWEST POSSIBLE DOSE AFTER WEEK 1 escitalopram (LEXAPRO) 20 mg tablet 06/12/2024 EPINEPHrine (EPIPEN) 0.3 mg/0.3 mL injection INJECT 1 PEN INTRAMUSCULARLY ONCE IF NEEDED cholecalciferol (VITAMIN D-3) 125 mcg (5,000 unit) capsule Take 1 capsule (5,000 Units total) by mouth daily. 11/16/2023 cetirizine (ZyrTEC) 5 mg tablet TAKE 1-2 TABLETS BY MOUTH EVERY DAY 06/12/2023 calcium carbonate 1,500 mg (600 mg elemental calcium) tablet 1 tablet with meals Orally Twice a day for 30 day(s) Ventolin HFA 90 mcg/actuation inhaler TAKE 2 PUFFS BY MOUTH EVERY 6 HOURS NEEDED 01/18/2024 albuterol 1.25 mg/3 mL nebulizer solution PLEASE SEE ATTACHED FOR DETAILED DIRECTIONS 01/18/2024 simethicone (MYLICON) 80 mg chewable tablet every 6 hours. 07/04 25 ondansetron (ZOFRAN) 8 mg tablet TAKE 1 TABLET BY MOUTH THREE TIMES DAILY NEEDED FOR NAUSEA AND VOMITING 04/17/2024 07/05/19 25 omeprazole (PriLOSEC) [address] capsule Take 1 capsule (20 mg total) by mouth 1 (one) time each day. 04/14/2024 0 25 famotidine (PEPCID) 20 mg tablet Take 1 tablet (20 mg total) by mouth 1 (one) time each day. 07/20/2023 0 25 DOCOSAHEXAENOIC ACID ORAL 1 capsule. 07/05/19 25 added in this encounter Care Teams Worker'S Compensation Claims Examiner Relationship Specialty Start Date End Date [place] [address] [facility] [address] [place] [id number] PCP - General Family Medicine 03/05/24 documented as of this encounter
--- OUTSIDE RECORDS SUMMARY | 2024-07-06 16:50 | XMS_ITS | Patient Health Record ---
Author Organization [facility] Address [address] [place] [address] Care Team Providers Care Showroom Manager Name Role Phone JEANCARLOS STILES Unavailable [phone] Allergies No Known Allergies Reason For Referral No Information Medications Medication SIG (Take, Route, Frequency, Duration) Notes Start Date End Date Status Simethicone 80 MG 1 tablet after meals and at bedtime as needed Orally Four times a day Active Vitamin D3 1.25 MG (20743 UT) 1 capsule Orally for 30 day(s) Active Tranexamic Acid 650 MG 2 tablets Orally three times daily for 5 days 09/15/2021 Active Zinc Gluconate 30 MG 1 tablet Orally Once a day for 30 day(s) Active Symbicort 160-4.5 MCG/ACT 2 puffs Inhalation Not-Takin g Kyleena 19.5 MG as directed Intrauterine Inserted 02/25/2020 - removed 01/2021 due to severe cramping (at [facility]) 02/25/2020 Not-Taking [place] 3 1000 MG 1 capsule Orally Once a day for 30 day(s) Active EpiPen Active Multi Vitamin - 1 tablet Orally Once a day for 30 day(s) Active hydrOXYzine HCl 50 MG 1 tablet as needed Orally Active Albuterol Sulfate HFA 1 puff as needed Inhalation prn Active FLUoxetine HCl 20 MG 1 capsule Orally bid Active Calcium 600 MG 1 tablet with meals Orally Twice a day for 30 day(s) Active Social History Tobacco Use: Social History Observation Description Date Details (start date - stop date) Never Smoker NA - NA Tobacco Use/Smoking Question Answer Notes Are you a nonsmoker Alcohol Screen (Audit-C) Question Answer Notes Did you have a drink containing alcohol in the p ast year? No Points 0 Interpretation Negative Problems Problem Type SNOMED Code ICD Code Onset Dates Problem Status W/U Status Risk Notes Problem Major depression, single episode (99249218) Major depressive disorder, single episode, unspecified (F32.9) Active confirmed Problem Anxiety disorder (660450080) Anxiety disorder, unspecified (F41.9) Active confirmed Problem Posttraumatic stress disorder (43723264) Post-traumatic stress disorder, chronic (F43.12) Active confirmed Problem Migraine with aura (7908921) Migraine with aura, not intractable, with status migrainosus (G43.101) Active confirmed Problem Uncomplicated asthma (disorder) (634605640) Unspecified asthma, uncomplicated (J45.909) Active confirmed Problem Fibromyalgia (315721130) Fibromyalgia (M79.7) Active confirmed Problem Abnormal uterine bleeding (30178780200884) Abnormal uterine and vaginal bleeding, unspecified (N93.9) Active confirmed Problem Chronic fatigue syndrome (disorder) (95512483) Chronic fatigue, unspecified (R53.82) Active confirmed Plan Of Treatment Pending Test Test Name Order Date Test, Urine 02/25/2020 Test, Urine 09/15/2021 ULTRASOUND: PELVIC W/TRANSVAGINAL 2019 Insurance Providers Payer Name Payer Address Payer Phone Subscriber Number Group Number Insured Name Patient Relationship to Insured Coverage Start Date Coverage End Date [facility] [address] [address] [place] [address] [id number] CHRIS AGARWAL Self - patient is the insured Medical (General) History Medical History History ICD Code Unspecified asthma, uncomplicated J45.90 9 Encounter for screening for depression Z 13.31 Anxiety disorder, unspecified F41.9 Migraine with aura, not intractable, wit h status migrainosus G43.101 Surgical History Surgery Date(Month/Year) Tonsils and Adenoids 2007
--- OUTSIDE RECORDS SUMMARY | 2024-07-06 16:50 | XMS_ITS ---
Author Name [facility] Organization Unknown Care Team Organization Name Specialty Phone Email Start Date End Da te [facility] NO PROVIDER Primary Care 05/15/2023 [facility]
[2024-07-06 16:51] VITALS: BP 96/46; PULSE 77; RESP 18; TEMP 36.7; O2SAT 95
== END 2024-07-06 16:52 | disposition home or self-care (01) ==
PROVIDERS: Emergency Provider Emergency Medicine; PCP Nurse Practitioner Family
DX: S51.851A Open bite of right forearm, initial encounter (principal); M25.531 Pain in right wrist; W54.0XXA Bitten by dog, initial encounter; Y93.9 Activity, unspecified; Y92.9 Unspecified place or not applicable; Y99.8 Other external cause status
CPT/HCPCS: 73100; 99283

== ENCOUNTER → 2024-07-06 12:49 | Outpatient (BNV) | payer OTHER, SELFPAY | PROVIDERS: Visit Provider Radiology Diagnostic Radiology | DX: M25.531 Pain in right wrist (principal); W54.0XXA Bitten by dog, initial encounter | CPT/HCPCS: 73100 ==

== ENCOUNTER 2024-10-04 23:38 | Emergency (ER) | payer OTHER, SELFPAY ==
--- NOTE | 2024-10-04 | ECG_ITS ---
Test Reason : NAUSEA/VOMITING Blood Pressure : */* mmHG Vent. Rate : 58 BPM Atrial Rate : * BPM P-R Int : * ms QRS Dur : 102 ms QT Int : 424 ms P-R-T Axes : * 77 60 degrees QTcB Int : 416 ms Normal sinus rhythm Nonspecific ST abnormality Abnormal ECG When compared with ECG of 25-Feb-2023 17:45, Vent. rate has decreased by 38 bpm Incomplete right bundle branch block is no longer Present T wave inversion no longer evident in Inferior leads Referred By: Generic ED Physician Electronically Signed By: ELVI SANDOVAL MD
[2024-10-04 23:39] VITALS: BP 120/67; PULSE 82; RESP 17; TEMP 37.1; O2SAT 98; BMI 18.9
[2024-10-05 00:05] LABS: MANUAL DIFF FLAG NO
[2024-10-05 00:11] VITALS: BP 94/54; PULSE 64; RESP 16; TEMP 36.9; O2SAT 98
[2024-10-05 00:12] LABS: Basophils Absolute Auto 0.1 X10*3/uL (0.0-0.2); Basophils Percent Auto 0.7 % (0-2); Eosinophils Absolute Auto 0.5 X10*3/uL (0.0-0.4); Eosinophils Percent Auto 6.3 % (0-4); Hematocrit 36.2 % (37.0-47.0); Hemoglobin 12.3 g/dl (12.0-16.0); Imm Gran Abs Auto 0.02 X10*3/uL (0.00-0.03); Imm Gran Pct Auto 0.3 % (0.0-0.4); Lymphocytes Absolute Auto 3.2 X10*3/uL (1.2-4.9); Lymphocytes Percent Auto 41.9 % (20-40); Mean Corpuscular Hemoglobin 30.5 pg (27.0-33.0); Mean Corpuscular Volume 89.8 fL (80.0-98.0); Mean Platelet Volume 10.1 fL (9.4-12.3); Monocytes Absolute Auto 0.6 X10*3/uL (0.1-1.2); Monocytes Percent Auto 8.1 % (2-11); Neutrophils Absolute Auto 3.3 x10*3/uL (2.0-8.3); Neutrophils Percent Auto 42.7 % (45-73); Platelet Count 299 X10*3/uL (160-400); Red Blood Count 4.03 X10*6/uL (4.20-5.50); Red Cell Distribution Width 12.5 % (11.0-16.0); White Blood Count 7.7 X10*3/uL (4.8-10.8)
[2024-10-05 00:22] LABS: Appearance Urine Cloudy; Color Urine Dark Yellow; Glucose Urine UA Negative (Negative); Leukocyte Esterase Urine Trace (Negative); Nitrite Urine Negative (Negative); Specific Gravity - Urine >= 1.030 (1.005-1.025); UMIC TRIGGER UACC YES; Urine Blood Small (1+) (Negative); Urine Ketones 15 mg/dL (Negative); Urine Protein Trace mg/dL (Neg-Trace)
[2024-10-05 00:24] VITALS: BP 112/53; PULSE 65
[2024-10-05 00:25] VITALS: BP 104/63; BP 119/78; PULSE 62; PULSE 71
[2024-10-05 00:27] LABS: Alanine Aminotransferase 16 U/L (0-31); Albumin Level 4.2 g/dL (3.5-5.0); Alkaline Phosphatase 60 U/L (39-117); Anion Gap 10 (12-20); Aspartate Amino Transferase 24 U/L (5-31); Bilirubin Total 0.4 mg/dL (0.0-1.0); Blood Urea Nitrogen 11 mg/dL (9-16); Carbon Dioxide 26 mmol/L (22-29); Chloride 109 mmol/L (96-108); Creatinine Clr Calc Pharmacy 87.6; Estimated Glomerular Filt Rate > 60; Glucose Random 104 mg/dL (60-115); Lipase 18 U/L (8-78); Magnesium 1.9 mg/dL (1.6-2.6); Potassium 3.5 mmol/L (3.3-5.1); Sodium 141 mmol/L (135-145); Total Protein 6.5 g/dL (6.5-8.0)
--- NOTE | 2024-10-05 00:27 | MHC.EDTECH ---
This pct just assumed care of Patient ,ekg taken and was read by Provider ,Orthostatics vitals taken ,urine sample collected and sent to lab ,Patient boy friend at bedside .
[2024-10-05 00:28] LABS: Troponin-I High Sensitivity < 2.7 ng/L (<3.5-17.0)
--- OUTSIDE RECORDS SUMMARY | 2024-10-05 00:33 | XMS_ITS | Clinical Summary ---
Author Organization [facility] Address [address] [place] [address] Phone Care Team Providers Care Vp Securities Name Role Phone Sandra Ridley Primary Care Provider [phone] Allergies Active Allergy Reactions Criticality Noted Date Comments Bee Venom Protein (Honey Bee) 07/04/2024 Grape Anaphylaxis,Hives,It chin g,Dermatitis,Rash High 09/10/2022 Red only Haloperidol Unknown High 06/09/2022 Honey Anaphylaxis,Hives High 03/05/2019 Montelukast 06/09/2022 Penicillins Hives,Shortness of breath High 10/10/2023 Medications albuterol 1.25 mg/3 mL nebulizer solution PLEASE SEE ATTACHED FOR DETAILED DIRECTIONS 01/18/20 24 Active Ventolin HFA 90 mcg/actuation inhaler TAKE 2 PUFFS BY MOUTH EVERY 6 HOURS NEEDED 01/18/20 24 Active calcium carbonate 1,500 mg (600 mg elemental calcium) tablet 1 tablet with meals Orally Twice a day for 30 day(s) Active cetirizine (ZyrTEC) 5 mg tablet TAKE 1-2 TABLETS BY MOUTH EVERY DAY 06/12/19 24 Active cholecalciferol (VITAMIN D-3) 125 mcg (5,000 unit) capsule Take 1 capsule (5,000 Units total) by mouth daily. 11/16/19 24 Active EPINEPHrine (EPIPEN) 0.3 mg/0.3 mL injection INJECT 1 PEN INTRAMUSCULARLY ONCE IF NEEDED Active escitalopram (LEXAPRO) 20 mg tablet 06/12/19 25 Active fluticasone propionate (FLONASE) 50 mcg/actuation nasal spray USE 2 SPRAYS IN NOSTRILS DAILY X1 WEEK THEN 1-2 SPRAYS DAILY. USE LOWEST POSSIBLE DOSE AFTER WEEK 1 Active folic acid (FOLVITE) 400 mcg tablet Take 1 tablet (0.4 mg total) by mouth 1 (one) time each day. 04/14/20 24 Active hydrOXYzine pamoate (VISTARIL) 50 mg capsule TAKE 1 CAPSULE BY MOUTH THREE TIMES A DAY FOR 30 DAYS NEEDED FOR ANXIETY Active levETIRAcetam (KEPPRA) 500 mg tablet 06/05/19 25 Active meloxicam (MOBIC) 15 mg tablet Take 1 tablet (15 mg total) by mouth 1 (one) time each day. with food 07/12/19 24 Active metoclopramide (REGLAN) 5 mg tablet TAKE 1 TABLET BY MOUTH AT BEDTIME FOR NAUSEA AND VOMITING 02/05/20 24 Active midodrine (PROAMATINE) 2.5 mg tablet TAKE 1/2 (ONE-HALF) TABLET BY MOUTH 2 TO 3 TIMES A WEEK TOLERATED. 03/30/20 24 Active multivitamin tablet Take 1 tablet by mouth 1 (one) time each day. 04/14/20 24 Active naproxen (NAPROSYN) 500 mg tablet Take 1 tablet (500 mg total) by mouth every 12 (twelve) hours if needed. for pain 06/17/19 25 Active traZODone (DESYREL) 50 mg tablet TAKE 1/2 (ONE-HALF) TABLET BY MOUTH ONCE DAILY DIRECTED AT BEDTIME 06/13/19 25 Active Vitamins B Complex tablet Take 1 tablet by mouth 1 (one) time each day. 02/04/20 24 Active zinc gluconate 30 mg tablet 1 [...] for nausea or vomiting. 60 tablet 6 07/05/19 25 Active metoclopramide (REGLAN) 5 mg tablet Take 1 tablet (5 mg total) by mouth 4 (four) times a day. 120 each 11 07/05/19 25 Active Family History Medical History Relation Name Comments [...] Done Comments Gonorrhea/Chlamydia Screening 2000 Meningococcal B Vaccine (1 of 2 - Standard) 2016 DTaP,Tdap,and Td Vaccines (1 - Tdap) 12/26/2019 Hepatitis B Vaccines (1 of 3 [...] season) 2023 04/04/2021, 07/03/2020, 06/11/2020 Influenza Vaccine (Season Ended) 2024 02/10/2021, 03/05/2020, 02/04/2020, Additional history exists Meningococcal ACWY Vaccine Completed 01/02/2018 HPV Vaccines Completed 09/15/2018, 02/24, 01/02/2018 HIB Vaccines Aged Out No longer eligi ble based on patient's age to complete this topic Hepatitis A Vaccines Aged Out No long er eligible based on patient's age to complete [...] patient's age to complete this topic Insurance [facility] Care Teams Vp Securities Relationship Specialty Start Date End Date Sandra Ridley [address] [place] [address] PCP - General Family Medicine 03/05/24
[2024-10-05 00:37] LABS: Bacteria Urine 2+ (None Seen); Hyaline Casts Urine 0-2 /LPF (0-2); RBC Urine 0-2 /HPF (0-2); Squamous Epithelial Cell Urine >20 /HPF (0-2); WBC Urine 0-5 /HPF (0-5)
--- NOTE | 2024-10-05 00:54 | ED.NAVMDI ---
HPI - Nausea/Vomiting/Diarrhea General Chief complaint: Nausea/Vomiting/Diarrhea Stated complaint: BP low Time Seen by Provider: 10/05/24 00:14 Source: patient Mode of arrival: ambulatory Limitations: no limitations History of Present Illness ED Provider: joaquin quintana np HPI Narrative: Patient is a 23-year-old female who presents emergency department for evaluation. She reports a history of POTS, states over the past week she has felt that her symptoms have been occurring in a greater intensity which is not uncommon for her. Typically she experiences dizziness, presyncope, nausea, vomiting, palpitations. This evening at approximately 23:30 she reports that she awoke from sleep and was feeling ?foggy and out of it?, significant other decided to the sister to check her blood pressure, it was low at 90/54. She was feeling palpitations at that time had nausea and then had a single episode of vomiting. Checked her blood pressure just following and states blood pressure 103/70. Upon arrival to the emergency department, she reports that she is actually feeling much improved, states her symptoms have almost completely resolved which ?always happens?. She was however concerned that she was feeling foggy and out of it? and felt better to seek evaluation in the emergency department. She denies any recent head injury, fevers or chills, neck pain or neck stiffness, chest pain, shortness of breath, numbness or tingling of the extremities, genitourinary symptoms, concern for Related Data Previous Rx's ?Medication ?Instructions ?Recorded cyclobenzaprine 5 mg tablet 5 mg PO BEDTIME PRN muscle spasm 12/23/22 #4 tabs ketorolac 10 mg tablet 10 mg PO Q6H PRN pain 5 days #20 12/23/22 tabs ondansetron 4 mg disintegrating 4 mg PO Q8H 3 days #9 tabs 02/25/23 tablet ondansetron 4 mg disintegrating 4 mg PO Q6-8H PRN nausea and 05/23/23 tablet vomiting #14 tabs levetiracetam 500 mg tablet 500 mg PO BID #60 tabs 05/07/24 (Keppra) metronidazole 500 mg tablet 500 mg PO BID 7 days #14 tabs 07/06/24 sulfamethoxazole 800 1 tab PO Q12H 7 days #14 tabs 07/06/24 mg-trimethoprim 160 mg tablet (Bactrim DS) Allergies Allergy/AdvReac Type Severity Reaction Status Date / Time beeswax Allergy Unknown Verified 10/04/24 23:41 haloperidol [From Haldol] Allergy Unknown Verified 10/04/24 23:41 honey Allergy Unknown Verified 10/04/24 23:41 montelukast Allergy Unknown Verified 10/04/24 23:41 Penicillins Allergy Difficulty Verified 10/04/24 23:41 Swallowing Review of Systems Review of Systems: Yes all other systems are reviewed and are negative [facility] Past Medical History Attestation statement: The following information was validated with the patient. Source: old records reviewed Social History Social History Alcohol intake: never Smoked in Last 30 Days: No Use of substances other than those prescribed or required for medical reasons: No Substance Use Type: Marijuana Advance Directives: No Do you have a plan to hurt others: No Plan Patient : No Physical Exam Vital Signs: Vital Signs: Last Vital Signs Temp 98.4 F 10/05/24 00:11 Pulse 71 10/05/24 00:25 Resp 16 10/05/24 00:11 BP 119/78 10/05/24 00:25 Pulse Ox 98 10/05/24 00:11 O2 Del Method Room Air 10/05/24 00:11 BMI result Body Mass Index 18.9 Appearance: Alert.?Oriented to person, place and time. No acute distress.?Normal affect. Eyes: Pupils equal, round and reactive to light.? EOMI. No nystagmus ENT: Pharynx normal.?? Neck: Normal inspection.? Neck supple.??No nuchal rigidity CVS: Heart sounds normal. Normal heart rate and rhythm.? Pulses normal.?? Respiratory: No respiratory distress.? Lung sounds clear to auscultation bilaterally?? Abdomen: Soft and non-tender. Normoactive bowel sounds. No CVA tenderness? Skin: Skin warm and dry.? Normal skin color.? Extremities: No lower extremity edema.? No calf ttp? Neuro: Moves all extremities spontaneously. Sensation intact bilaterally. No focal neuro deficits. Ambulates with normal steady gait. Medical Decision Making Medical Decision Making MDM Narrative: Patient is a 23-year-old female with reported past medical history of seizure disorder as a child, hypermobility, POTS, gastroparesis who presents emergency department for evaluation. As per HPI she awoke during the night feeling ?foggy and out of it? was experiencing symptoms that are typical for her with her POTS; palpitations, nausea, an episode of vomiting, and had low blood pressure. By arrival to emergency department her symptoms have resolved. She is feeling otherwise at her baseline. She denies any nausea is not interested in receiving any antiemetics. She arrived normotensive, without tachycardia, no respiratory distress. She is afebrile. She is speaking clear full sentences. She is a benign abdominal examination. She has no focal neurological deficits. Serum labs were obtained from nursing triage CBC is without leukocytosis, has no significant anemia or thrombocytopenia. No significant electrolyte derangement. No NOHEMI. High sensitive troponin below detectable limits. LFTs and lipase are normal. HCG is negative. Urinalysis is concentrated but without group helping signs of infection, there squamous epithelial cells present and 2+ urine bacteria she is without symptoms I suspect this is urogenital contamination. She is tolerating oral intake, feel she is stable for discharge home at this time. Differential Diagnosis Differential Diagnoses: The differential diagnosis associated with the presentation includes (POTS, gastroenteritis, viral syndrome, arrhythmia, anemia, electrolyte derangement) Admission/Observation Consideration of admission/observation: Escalation of care including admission/observation considered Lab Data MDM Lab Attestation statement: I reviewed the patient's lab results. (See narrative above) 10/04/24 23:50 10/04/24 23:50 Labs: Lab Results 10/04/24 10/05/24 Range/Units 23:50 00:15 WBC 7.7 (4.8-10.8) X10*3/uL RBC 4.03 L (4.20-5.50) X10*6/uL Hgb 12.3 (12.0-16.0) g/dl Hct 36.2 L (37.0-47.0) % MCV 89.8 (80.0-98.0) fL MCH 30.5 (27.0-33.0) pg MCHC 34.0 (31.0-35.0) g/dl RDW 12.5 (11.0-16.0) % Plt Count 299 (160-400) X10*3/uL MPV 10.1 (9.4-12.3) fL Immature Gran % (Auto) 0.3 (0.0-0.4) % Neut % (Auto) 42.7 L (45-73) % Lymph % (Auto) 41.9 H (20-40) % [place] % (Auto) 8.1 (2-11) % Eos % (Auto) 6.3 H (0-4) % Baso % (Auto) 0.7 (0-2) % Lymph # (Auto) 3.2 (1.2-4.9) X10*3/uL [place] # (Auto) 0.6 (0.1-1.2) X10*3/uL Eos # (Auto) 0.5 H (0.0-0.4) X10*3/uL Baso # (Auto) 0.1 (0.0-0.2) X10*3/uL Abs Immat Gran (auto) 0.02 (0.00-0.03) X10*3/uL Absolute Neuts (auto) 3.3 (2.0-8.3) x10*3/uL Absolute Nucleated RBC 0.000 (0.0-0.012) X10*3/uL Nucleated RBC % (auto) 0.0 (0.0-0.2) /100WBC Sodium 141 (135-145) mmol/L Potassium 3.5 (3.3-5.1) mmol/L Chloride 109 H (96-108) mmol/L Carbon Dioxide 26 (22-29) mmol/L Anion Gap 10 L (12-20) BUN 11 (9-16) mg/dL Creatinine 0.81 (0.5-1.4) mg/dL Estim Creat Clear Calc 87.6 Estimated GFR > 60 Random Glucose 104 (60-115) mg/dL Calcium 9.0 (8.4-10.2) mg/dL Magnesium 1.9 (1.6-2.6) mg/dL Total Bilirubin 0.4 (0.0-1.0) mg/dL AST 24 (5-31) U/L ALT 16 (0-31) U/L Alkaline Phosphatase 60 (39-117) U/L Troponin I High Sens < 2.7 (<3.5-17.0) ng/L Total Protein 6.5 (6.5-8.0) g/dL Albumin 4.2 (3.5-5.0) g/dL Lipase 18 (8-78) U/L Beta HCG, Quant < 2 mIU/mL Urine Color Dark Yellow Urine Appearance Cloudy Urine pH 5.0 (5.0-9.0) Ur Specific [place] >= 1.030 H (1.005-1.025) Urine Protein Trace (Neg-Trace) mg/dL Urine Glucose (UA) Negative (Negative) mg/dL Urine Ketones 15 (Negative) mg/dL Urine Blood Small (1+) H (Negative) Urine Nitrite Negative (Negative) Ur Leukocyte Esterase Trace H (Negative) Urine RBC 0-2 (0-2) /HPF Urine WBC 0-5 (0-5) /HPF Ur Squamous Epith Cells >20 (0-2) /HPF Urine Bacteria 2+ (None Seen) Hyaline Casts 0-2 (0-2) /LPF Independent Interpretation I performed an independent interpretation of an: EKG Independent Historian Clinical information obtained from an independent historian. History obtained from or confirmed by: Spouse External Record Review External record reviewed: Outpatient record Chronic Conditions Patient?s care impacted by: Other (See narrative above) Discharge Plan Discharge Clinical Impression: Palpitations, Dizziness Patient Disposition: Home, Self-Care Instructions: Heart Palpitations (ED), Dizziness (ED) Additional Instructions: Workup today was very reassuring, your symptoms had essentially resolved by the time you were in the emergency department. Your blood work today was very reassuring. Does not show signs of an infection, anemia, electrolyte abnormalities, abnormal kidney function, abnormal liver function. testing is negative. It is recommended that you follow-up with your PCP/director of clinical education. You may return back to emergency department any new or worsening symptoms or concerns. Prescriptions: No Action sulfamethoxazole-trimethoprim [Bactrim DS] 800-160 mg tablet 1 tab PO Q12H 7 Days Qty: 14 0RF metronidazole 500 mg tablet 500 mg PO BID 7 Days Qty: 14 0RF cyclobenzaprine 5 mg tablet 5 mg PO BEDTIME PRN (Reason: muscle spasm) Qty: 4 0RF ketorolac 10 mg tablet 10 mg PO Q6H PRN (Reason: pain) 5 Days Qty: 20 0RF Rx Instructions: Patient received Toradol in the emergency room. ondansetron 4 mg tablet,disintegrating 4 mg PO Q8H 3 Days Qty: 9 0RF ondansetron 4 mg tablet,disintegrating 4 mg PO Q6-8H PRN (Reason: nausea and vomiting) Qty: 14 0RF levetiracetam [Keppra] 500 mg tablet 500 mg PO BID Qty: 60 2RF Referrals: Madison-Carina,Sandra, [facility] [Primary Care Provider] - Print Language: Sami
[2024-10-05 01:08] LABS: HCG Quantitative < 2 mIU/mL
[2024-10-05 02:09] VITALS: BP 95/53; PULSE 66; RESP 16; TEMP 37.2; O2SAT 97
[2024-10-05 02:18] VITALS: BP 95/53; PULSE 66; RESP 16; TEMP 37.2; O2SAT 97
== END 2024-10-05 02:18 | disposition home or self-care (01) ==
PROVIDERS: Nurse Practitioner Family; Emergency Provider Emergency Medicine; PCP Nurse Practitioner Family
DX: R00.2 Palpitations (principal); R11.2 Nausea with vomiting, unspecified; R42 Dizziness and giddiness; G90.A Postural orthostatic tachycardia syndrome [POTS]
CPT/HCPCS: 36415; 80053; 81001; 83690; 83735; 84484; 84702; 85025; 93005; 99283; 99285

== ENCOUNTER → 2024-10-04 | Outpatient (BNV) | payer OTHER, SELFPAY | PROVIDERS: Emergency Provider Emergency Medicine; PCP Nurse Practitioner Family; Visit Provider Internal Medicine Cardiovascular Disease | DX: R94.31 Abnormal electrocardiogram [ECG] [EKG] (principal); R11.2 Nausea with vomiting, unspecified | CPT/HCPCS: 93010 ==

== ENCOUNTER 2024-10-07 20:12 | Emergency (ER) | payer OTHER, SELFPAY ==
--- NOTE | ~2024-10-07 | XR_ITS ---
CLINICAL HISTORY: pain after hiking 3 view, pelvis and left hip Comparison: None Findings: No displaced fracture or dislocation of the left hip. No displaced fracture of the imaged pelvis bifrontal radiographs. Foci of sclerosis appear nonaggressive and likely due to bone islands including left acetabulum. No radiopaque retained foreign body. IMPRESSION: No acute fracture or dislocation. This document has been electronically signed by: Aden Posadas MD on 10/07/2024 21:22:16
--- NOTE | 2024-10-07 20:25 | ED_ITS ---
HPI - Extremity Injury (Lower) General Chief Complaint: Extremity Problem Stated Complaint: left hip pain Time Seen by Provider: 10/07/24 21:49 History of Present Illness ED Provider: Giovanna RANDLE Narrative: The patient is a 23-year-old female who says that she has a history of Kevin- Danlos syndrome. She in her boyfriend went on an uphill hike on [place] today. This was at around 3:00 PM in the afternoon today. She was apparently walking up hill on gravel and had her cane with her. There was no injury during the hike but afterwards she started to experience a great deal of pain in her left hip. She has had similar pain in the past which she has a attributed to her Kevin-Danlos syndrome. However she says that the pain is worse than usual and therefore came to the emergency room. No fever, sweats, chills. No injury. She feels the pain primarily in her left groin. She has no abdominal pain however. She is quite certain that she is not . She recently had a miscarriage and she is currently menstruating. She is not on any control. She uses condoms and spermicide for contraception. Related Data Previous Rx's ?Medication ?Instructions ?Recorded cyclobenzaprine 5 mg tablet 5 mg PO BEDTIME PRN muscle spasm 12/23/22 #4 tabs ketorolac 10 mg tablet 10 mg PO Q6H PRN pain 5 days #20 12/23/22 tabs ondansetron 4 mg disintegrating 4 mg PO Q8H 3 days #9 tabs 02/25/23 tablet ondansetron 4 mg disintegrating 4 mg PO Q6-8H PRN nausea and 05/23/23 tablet vomiting #14 tabs levetiracetam 500 mg tablet 500 mg PO BID #60 tabs 05/07/24 (Keppra) metronidazole 500 mg tablet 500 mg PO BID 7 days #14 tabs 07/06/24 sulfamethoxazole 800 1 tab PO Q12H 7 days #14 tabs 07/06/24 mg-trimethoprim 160 mg tablet (Bactrim DS) acetaminophen 325 mg capsule 650 mg (2 x 325 mg) PO Q6H PRN 10/07/24 pain #14 caps cyclobenzaprine 5 mg tablet 5 mg PO TID PRN muscle spasm #12 10/07/24 tabs ibuprofen 400 mg tablet 400 mg PO Q6H PRN pain #14 tabs 10/07/24 Allergies Allergy/AdvReac Type Severity Reaction Status Date / Time beeswax Allergy Unknown Verified 10/07/24 20:27 haloperidol [From Haldol] Allergy Unknown Verified 10/07/24 20:27 honey Allergy Unknown Verified 10/07/24 20:27 montelukast Allergy Unknown Verified 10/07/24 20:27 Penicillins Allergy Difficulty Verified 10/07/24 20:27 Swallowing Review of Systems Review of Systems: Yes all other systems are reviewed and are negative [facility] Social History Social History Alcohol intake: never Substance Use Type: Marijuana Advance Directives: No Advance Directives Information Provided: Yes Physical Exam Vital Signs: Vital Signs: Last Vital Signs Temp 98.2 F 10/07/24 23:07 Pulse 58 10/07/24 23:07 Resp 14 10/07/24 23:07 BP 92/51 L 10/07/24 23:07 Pulse Ox 97 10/07/24 23:07 O2 Del Method Room Air 10/07/24 23:07 BMI result Body Mass Index 18.9 Const: Other: The patient is awake and alert in his not appear in obvious distress. HEENT: Other: Face is symmetrical, mucous membranes moist Eyes: General: appearance normal, both eyes and all related structures Resp: Effort & Inspection: normal respiratory effort Auscultation: clear to auscultation bilaterally Cardio: Rate: regular rate Rhythm: regular rhythm Heart sounds: S1 normal heart sound present and S2 normal heart sound present GI: Other: The abdomen is flat, soft, nontender. Back/Spine/Pelvis: Other: No midline vertebral tenderness in the back. Skin: Other: Skin is dry and unremarkable Neuro: Other: The patient is awake and alert with a normal mental status. Cranial nerves are intact. She seems to have intact strength and sensation in her extremities. Extrem: Other: The patient has good pulses in both feet. I am able to put the hips and knees through an excellent range of motion bilaterally. Course Course Course Narrative: Cortney Barragan APRN This is a rapid medical exam. Deferred additional HPI, ROS, PE to primary provider. 23 yo female Kevin danslow syndrome, POTS, seizure disorder on keppra here with complaints of left hip pain after going on a hike today. Will check x- rays. 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 She developed left pain/groin pain after going for a short hike up [facility] [place]. Clinically the patient looks fairly well. A hip x-ray has been ordered at triage that is negative. Clinically my suspicion for an acutely dangerous process is very low. She will be discharged with a prescriptions for acetaminophen, ibuprofen, and cyclobenzaprine. She should follow up with her PCP. Discharge Plan Discharge Clinical Impression: Acute pain of left hip Patient Disposition: Home, Self-Care Additional Instructions: Please take the medications prescribed as needed for pain. No driving on cyclobenzaprine. Please take it easy over the next couple of days. My hope is that you will feel better soon. Please follow up soon with your regular doctor if not improving. Return to the emergency room if significantly worse. Prescriptions: New ibuprofen 400 mg tablet 400 mg PO Q6H PRN (Reason: pain) Qty: 14 0RF cyclobenzaprine 5 mg tablet 5 mg PO TID PRN (Reason: muscle spasm) Qty: 12 0RF acetaminophen 325 mg capsule 650 mg PO Q6H PRN (Reason: pain) Qty: 14 0RF No Action sulfamethoxazole-trimethoprim [Bactrim DS] 800-160 mg tablet 1 tab PO Q12H 7 Days Qty: 14 0RF metronidazole 500 mg tablet 500 mg PO BID 7 Days Qty: 14 0RF cyclobenzaprine 5 mg tablet 5 mg PO BEDTIME PRN (Reason: muscle spasm) Qty: 4 0RF ketorolac 10 mg tablet 10 mg PO Q6H PRN (Reason: pain) 5 Days Qty: 20 0RF Rx Instructions: Patient received Toradol in the emergency room. ondansetron 4 mg tablet,disintegrating 4 mg PO Q8H 3 Days Qty: 9 0RF ondansetron 4 mg tablet,disintegrating 4 mg PO Q6-8H PRN (Reason: nausea and vomiting) Qty: 14 0RF levetiracetam [Keppra] 500 mg tablet 500 mg PO BID Qty: 60 2RF Referrals: Sandra Ridley, [employer] [Primary Care Provider] - (Left hip pain) Interventions: ED Discharge Assessment Last Done: 10/07/24 23:07 Discharge Date/Time: 10/07/24 23:20 Print Language: Mongolian
[2024-10-07 20:26] VITALS: BP 104/56; PULSE 68; RESP 14; TEMP 36.7; O2SAT 98; BMI 18.9
[2024-10-07] MEDS: Acetaminophen 325 MG TABLET 975 MG PO (22:10)
[2024-10-07] MEDS: Ketorolac Tromethamine 30 MG/ML VIAL 20 MG IM (22:10)
[2024-10-07 23:07] VITALS: BP 92/51; PULSE 58; RESP 14; TEMP 36.8; O2SAT 97
== END 2024-10-07 23:20 | disposition home or self-care (01) ==
PROVIDERS: Emergency Provider Emergency Medicine; PCP Nurse Practitioner Family
DX: M25.552 Pain in left hip (principal)
CPT/HCPCS: 73502; 96361; 96374; 99283; 99284; J1885

== ENCOUNTER → 2024-10-07 20:27 | Outpatient (BNV) | payer OTHER, SELFPAY | PROVIDERS: Emergency Provider Emergency Medicine; PCP Nurse Practitioner Family; Visit Provider Radiology Neuroradiology | DX: M25.552 Pain in left hip (principal) | CPT/HCPCS: 73502 ==

== ENCOUNTER 2024-10-14 20:16 | Emergency (ER) | payer OTHER, SELFPAY ==
--- NOTE | ~2024-10-14 | XR_ITS ---
CLINICAL HISTORY: coughing. 1 view chest x-ray Comparison: None provided Findings: The lungs are clear. Heart size is normal. No acute fracture. IMPRESSION: 1. No acute findings. This document has been electronically signed by: Ewa Celaya MD on 10/14/2024 21:43:16
[2024-10-14 20:40] VITALS: BP 109/64; PULSE 77; RESP 16; TEMP 36.7; O2SAT 99; BMI 17.8
--- NOTE | 2024-10-14 21:05 | ED_ITS ---
HPI - General Adult General Chief complaint: Upper Respiratory Symptoms Stated complaint: sob since last 10/10 went to /[facility] not working Time Seen by Provider: 10/14/24 23:49 Source: patient Mode of arrival: ambulatory Limitations: no limitations History of Present Illness ED Provider: Talita Baxter PA-C HPI narrative: Patient is a 23 year old assigned female at with a history of asthma presenting to the emergency department today with continued coughing and requesting a nebulizer refill. Patient states that she has had a cough since 10/10/2024 and was prescribed an antibiotic and steroids on 10/13/2024 but she was not given a refill of her home nebulizer medication. Patient denies any dizziness, lightheadedness, abdominal pain, nausea, vomiting, fever, chills, blurry vision, double vision, loss of vision, chest pain, difficulty breathing, shortness of breath, back pain, night sweats, pain with urination, increased urinary frequency, increased urinary urgency, blood in her urine or stool, syncope or a near syncopal episode, recent trauma or falls, bowel incontinence, bladder incontinence, or any other complaints at this time. Relieving factors: none Exacerbating factors: none Associated symptoms: cough Treatments prior to arrival: other (Azithromycin + Prednisone) Related Data Previous Rx's ?Medication ?Instructions ?Recorded cyclobenzaprine 5 mg tablet 5 mg PO BEDTIME PRN muscle spasm 12/23/22 #4 tabs ketorolac 10 mg tablet 10 mg PO Q6H PRN pain 5 days #20 12/23/22 tabs ondansetron 4 mg disintegrating 4 mg PO Q8H 3 days #9 tabs 02/25/23 tablet ondansetron 4 mg disintegrating 4 mg PO Q6-8H PRN naus ea and 05/23/23 tablet vomiting #14 tabs levetiracetam 500 mg tablet 500 mg PO BID #60 tabs (Keppra) metronidazole 500 mg tablet 500 mg PO BID 7 days #14 t abs 07/06/24 sulfamethoxazole 800 1 tab PO Q12H 7 days #14 tab s 07/06/24 mg-trimethoprim 160 mg tablet (Bactrim DS) acetaminophen 325 mg capsule 650 mg (2 x 325 mg) PO Q6 H PRN 10/07/24 pain #14 caps cyclobenzaprine 5 mg tablet 5 mg PO TID PRN muscle spa sm #12 10/07/24 tabs ibuprofen 400 mg tablet 400 mg PO Q6H PRN pain #14 t abs 10/07/24 albuterol sulfate 0.63 mg/3 mL 0.63 mg (3 mL) inhalati on Q8H PRN 10/14/24 solution for nebulization shortness of breath or wheez ing #90 mL Allergies Allergy/AdvReac Type Severity Reaction Status Date / Time beeswax Allergy Unknown Verified 10/14/24 20:45 haloperidol (From Haldol) Allergy Unknown Verified 10/14/24 20:45 honey Allergy Unknown Verified 10/14/24 20:45 montelukast Allergy Unknown Verified 10/14/24 20:45 Penicillins Allergy Difficulty Verified 10/14/24 20:45 Swallowing Review of Systems Constitutional: Constitutional: Reports no additional constitutional complaints, Denies chills, Denies fever(s) and Denies night sweats Eyes: Eyes: Reports no additional eye complaints, Denies blurry vision, Denies change in vision, Denies diplopia, Denies eye discharge, Denies loss of vision and Denies eye pain ENT: Denies dizziness Cardiovascular: Cardiovascular: Reports no additional cardiovascular complaints, Denies chest pain, Denies lightheadedness, Denies Loss of Consciousness and Denies dyspnea Respiratory: Respiratory: Reports no additional respiratory complaints, Reports cough and Denies dyspnea Gastrointestinal: Gastrointestinal: Reports no additional gastrointestinal complaints, Denies abdominal pain, Denies melena, Denies hematochezia, Denies change in bowel habits and Denies change in stool character Genitourinary: Genitourinary: Denies hematuria, Denies urinary frequency, Denies dysuria, Denies urinary incontinence, Denies urinary hesitancy and Denies urinary urgency Musculoskeletal: Musculoskeletal: Reports no additional musculoskeletal complaints, Denies numbness and Denies tingling Neurologic: Denies dizziness, Denies loss of vision, Denies numbness and Denies tingling Psychiatric: Psychiatric: Reports no additional psychiatric complaints Endocrine: Endocrine: Reports no additional endocrine complaints Hematologic/Lymphatic: Hematologic/Lymphatic: Reports no additional hematologic/lymphatic complaints Allergic/Immunologic: Allergic/Immunologic: Reports no additional allergic/immunologic complaints PMFSH Past Medical History Attestation statement: The following information was validated with the patient. Source: old records reviewed and nursing notes reviewed Social History Social History Alcohol intake: never Substance Use Type: Marijuana Advance Directives: No Advance Directives Information Provided: No Do you have a plan to hurt others: No Plan Physical Exam ED Vital Signs: Vital Signs - 24 hr 10/14/24 20:40 10/15/24 00:10 Temperature 98.1 F Pulse Rate 77 68 Respiratory Rate 16 16 Blood Pressure 109/64 Pulse Oximetry 99 Oxygen Delivery Method Room Air BMI result Body Mass Index 17.8 Const General: cooperative, no acute distress, alert and awake Nutritional Appearance: well nourished Orientation/consciousness: patient oriented x3 HENMT Head: Yes normal to inspection and Yes atraumatic Ears: hearing grossly normal bilaterally and external ears normal General nose exam: Normal external nose present, no nasal discharge noted and no epistaxis Face and sinus: Yes normal facial exam, No abrasion and No laceration Mouth: Normal oral and palatal mucosa present, no drooling and no muffled voice Eyes General: appearance normal, both eyes and all related structures Periorbital: periorbital findings normal Eyelids: Yes eyelids normal Conjunctivae: conjunctivae normal Pupils: Equal, round and reactive pupils present EOM: EOMs intact bilaterally Neck Neck: Yes normal visual inspection, Yes full ROM and Yes no lymphadenopathy Resp Effort & Inspection: normal respiratory effort and able to speak in complete sentences Neuro General: patient oriented x3, moves all extremities and CN's II-XI intact bilaterally Cranial nerves: Yes Equal, round and reactive pupils present Cognition (Neuro): normal cognition Extrem General: Yes normal to inspection, Yes full ROM and Yes capillary refill normal Psych Appearance: grossly normal Mental Status: mental status grossly normal Affect: normal affect Attitude: cooperative Thought process: Normal thought process present Thought content: Normal thought content present Insight: Good insight present (Psych) Course Course Course Narrative: RME: 22 year female presents to ED coughing with wheezing and congestion. Patient tested negative for COVID flu at urgent care. Patient given Z-Berto and prednisone but still symptomatic. Chest x-ray steroids ordered. positive wheezing Medications Administered Discontinued Medications Generic Name Dose Route Start Last Admin Trade Name Freq PRN Reason Stop Dose Admin Albuterol/Ipratropium 3 ml 10/15/24 00:04 10/15/24 00:06 Albuterol/Iprat 2.5/0.5mg 3 Ml Ampul.Neb INHALE 10/15/24 00:05 3 ml ONCE ONE Administration Medical Decision Making Medical Decision Making [facility] Narrative: Patient is a 23 year old assigned female at with a history of asthma presenting to the emergency department today with continued coughing and requesting a nebulizer refill. Patient's physical exam was unremarkable. Patient's COVID-19, influenza, and RSV testing was negative. Patient's chest x- ray showed no acute process. I explained my physical exam findings as well as all test results to the patient. I answered all questions asked by the patient. Patient received a breathing treatment which she stated helped her symptoms. I stressed the importance of the patient taking her medication as directed (either prescribed or as the over the counter packaging recommends). I stressed the importance of the patient following up with her primary care provider. I stressed the importance of the patient returning to the emergency department immediately if her symptoms were to worsen or if she were to develop any dizziness, shortness of breath, difficulty breathing, chest pain, blurry vision, loss of vision, nausea, vomiting, abdominal pain, fever, chills, back pain, or any other complaints. Patient verbalized agreement and understanding with this treatment plan and discharge. Differential Diagnosis Differential Diagnoses: The differential diagnosis associated with the presentation includes Asthma exacerbation Cough Admission/Observation Consideration of admission/observation: Escalation of care including admission/observation considered Patient would have been admitted to the hospital had her work up had any findings where hospital admission was appropriate and her clinical presentation warranted hospital admission. Lab Data [facility] Lab Attestation statement: I reviewed the patient's lab results. My interpretation of these results are in the [facility] Rationale portion of this note. Labs: Lab Results 10/14/24 Range/Units 22:40 Influenza Type A (PCR) NEGATIVE (Negative) Influenza Type B (PCR) NEGATIVE (Negative) RSV RNA Qual (PCR) NEGATIVE (Negative) SARS-CoV-2 RNA (RT-PCR) NEGATIVE (Negative) S. pyogenes GrpA BIJU Negative (Negative) Independent Interpretation I performed an independent interpretation of an: Plain X-Ray Interpretation: My interpretation is in agreement with the radiologist's impression of this imaging study. CLINICAL HISTORY: coughing. 1 view chest x-ray Comparison: None provided Findings: The lungs are clear. Heart size is normal. No acute fracture. IMPRESSION: 1. No acute findings. This document has been electronically signed by: Ewa Celaya MD on 10/14/2024 21:43:16 Dictated By: Ewa Celaya MD Signed By: Electronically signed by Ewa Celaya MD 10/14/24 [id number] Radiology Impression Discussion of test interpretation with radiology: I have reviewed the radiologist's reading. Discharge Plan Discharge Clinical Impression: Asthma exacerbation Qualifiers: Asthma severity: mild Asthma persistence: unspecified Qualified Code(s): J45.901 - Unspecified asthma with (acute) exacerbation Patient Disposition: Home, Self-Care Instructions: Asthma (DC) Additional Instructions: Your chest x-ray showed no evidence of pneumonia. Continue taking your medication as previously prescribed. Follow up with your primary care provider. Return to the emergency department immediately if your symptoms worsen or if you develop any numbness, tingling, dizziness, shortness of breath, difficulty breathing, chest pain, blurry vision, loss of vision, nausea, vomiting, abdominal pain, fever, chills, back pain, or any other complaints. Please see the information below about our Patient Portal. If you are not yet enrolled in the [facility] Patient Portal, you will receive an enrollment email invitation following your visit to any [facility] setting. You may also self-enroll in the Patient Portal by visiting our website: [email or web address] The following information is required to access the Patient Portal: - Your [facility] Medical Record Number - Your personal home email address (must match what is in your electronic medical record, Registration staff can assist with this) - Name - Date of Capabilities of the Patient Portal: - Message some providers - View upcoming appointments - Access your health summary, medical history, and visit history - View current conditions and allergies - View procedure and lab results - View your medications, including guidelines, side effects, and precautions - Complete pre-appointment questionnaires requested by your provider - Ready summary reports of your office visits and procedures To access the Patient Portal Mobile Quan, follow these directions: - Search [employer] in the Quan Store or [employer] Store - Download the Quan - Search for [facility] - Enter your login/password Prescriptions: New albuterol sulfate 0.63 mg/3 mL solution for nebulization 0.63 mg inhalation Q8H PRN (Reason: shortness of breath or wheezing) Qty: 90 0RF No Action sulfamethoxazole-trimethoprim [Bactrim DS] 800-160 mg tablet 1 tab PO Q12H 7 Days Qty: 14 0RF metronidazole 500 mg tablet 500 mg PO BID 7 Days Qty: 14 0RF ibuprofen 400 mg tablet 400 mg PO Q6H PRN (Reason: pain) Qty: 14 0RF cyclobenzaprine 5 mg tablet 5 mg PO TID PRN (Reason: muscle spasm) Qty: 12 0RF acetaminophen 325 mg capsule 650 mg PO Q6H PRN (Reason: pain) Qty: 14 0RF cyclobenzaprine 5 mg tablet 5 mg PO BEDTIME PRN (Reason: muscle spasm) Qty: 4 0RF ketorolac 10 mg tablet 10 mg PO Q6H PRN (Reason: pain) 5 Days Qty: 20 0RF Rx Instructions: Patient received Toradol in the emergency room. ondansetron 4 mg tablet,disintegrating 4 mg PO Q8H 3 Days Qty: 9 0RF ondansetron 4 mg tablet,disintegrating 4 mg PO Q6-8H PRN (Reason: nausea and vomiting) Qty: 14 0RF levetiracetam [Keppra] 500 mg tablet 500 mg PO BID Qty: 60 2RF Referrals: o-Carina,Sandra, OPERATIONS VOCATIONAL INSTRUCTOR [Primary Care Provider, Nursing] Print Language: Latvian
[2024-10-14 23:06] LABS: IDNOW Serial# 55D5AD1C; Strep A Nucleic Acid Negative (Negative)
[2024-10-14 23:23] LABS: Influenza A PCR NEGATIVE (Negative); Influenza B PCR NEGATIVE (Negative); Resp Syncy Virus RNA Qual PCR NEGATIVE (Negative); SARS COV2 PCR INHOUSE NEGATIVE (Negative)
[2024-10-15] MEDS: Albuterol/Iprat 2.5/0.5MG 3 ML AMPUL.NEB INHALE (00:06)
[2024-10-15 00:10] VITALS: PULSE 68; RESP 16; O2SAT 98
[2024-10-15 00:25] VITALS: BP 101/51; PULSE 76; RESP 16; O2SAT 96
[2024-10-15 00:31] VITALS: BP 107/56; PULSE 76; RESP 16; TEMP 36.6; O2SAT 98
[2024-10-15 00:32] VITALS: BP 107/56; PULSE 76; RESP 16; TEMP 36.6; O2SAT 98
== END 2024-10-15 00:32 | disposition home or self-care (01) ==
PROVIDERS: Emergency Provider Emergency Medicine Emergency Medical Services; PCP Nurse Practitioner Family
DX: J45.901 Unspecified asthma with (acute) exacerbation (principal); R06.02 Shortness of breath; R05.9 Cough, unspecified; Z03.818 Encounter for observation for suspected exposure to other biological agents ruled out
CPT/HCPCS: 0241U; 71045; 87651; 99284

== ENCOUNTER → 2024-10-14 21:03 | Outpatient (BNV) | payer OTHER, SELFPAY | PROVIDERS: PCP Nurse Practitioner Family; Visit Provider Student in an Organized Health Care Education/Training Program | DX: R05.9 Cough, unspecified (principal) | CPT/HCPCS: 71045 ==

== ENCOUNTER 2024-10-20 19:08 | Emergency (ER) | payer OTHER, SELFPAY ==
--- NOTE | 2024-10-20 19:10 | ED.GENADULT ---
HPI - General Adult General Chief complaint: Nausea/Vomiting/Diarrhea Stated complaint: dr sent in for dehydration symptoms Time Seen by Provider: 10/20/24 21:17 Related Data Previous Rx's ?Medication ?Instructions ?Recorded cyclobenzaprine 5 mg tablet 5 mg PO BEDTIME PRN muscle spasm 12/23/22 #4 tabs ketorolac 10 mg tablet 10 mg PO Q6H PRN pain 5 days #20 12/23/22 tabs ondansetron 4 mg disintegrating 4 mg PO Q8H 3 days #9 tabs 02/25/23 tablet ondansetron 4 mg disintegrating 4 mg PO Q6-8H PRN nausea and 05/23/23 tablet vomiting #14 tabs levetiracetam 500 mg tablet 500 mg PO BID #60 tabs 05/07/24 (Keppra) metronidazole 500 mg tablet 500 mg PO BID 7 days #14 tabs 07/06/24 sulfamethoxazole 800 1 tab PO Q12H 7 days #14 tabs 07/06/24 mg-trimethoprim 160 mg tablet (Bactrim DS) acetaminophen 325 mg capsule 650 mg (2 x 325 mg) PO Q6H PRN 10/07/24 pain #14 caps cyclobenzaprine 5 mg tablet 5 mg PO TID PRN muscle spasm #12 10/07/24 tabs ibuprofen 400 mg tablet 400 mg PO Q6H PRN pain #14 tabs 10/07/24 albuterol sulfate 0.63 mg/3 mL 0.63 mg (3 mL) inhalation Q8H PRN 10/14/24 solution for nebulization shortness of breath or wheezing #90 mL Allergies Allergy/AdvReac Type Severity Reaction Status Date / Time beeswax Allergy Unknown Verified 10/20/24 19:15 haloperidol (From Haldol) Allergy Unknown Verified 10/20/24 19:15 honey Allergy Unknown Verified 10/20/24 19:15 montelukast Allergy Unknown Verified 10/20/24 19:15 Penicillins Allergy Difficulty Verified 10/20/24 19:15 Swallowing PMFSH Social History Social History Alcohol intake: never Smoked in Last 30 Days: Yes Use of substances other than those prescribed or required for medical reasons: Yes Substance Use Type: Marijuana Advance Directives: No Advance Directives Information Provided: No Patient : No Physical Exam ED Vital Signs: Vital Signs - 24 hr 10/20/24 19:11 10/20/24 19:44 10/20/24 20:00 Temperature 98.2 F 98.2 F 97.3 F Pulse Rate 78 78 80 Respiratory Rate 20 20 16 Blood Pressure 123/61 123/61 92/50 L Pulse Oximetry 98 98 97 Oxygen Delivery Method Room Air Room Air Room Air BMI result Body Mass Index 17.8 Course Course Course Narrative: Cortney Barragan APRN This is a rapid medical exam. Deferred additional HPI, ROS, PE to primary provider. 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 Also chest heaviness x 2 hours. LMP 2 weeks ago. Will obtain labs, UA, EKG. VSS Medical Decision Making Medical Decision Making MDM Narrative: pt eloped Lab Data 10/20/24 19:34 10/20/24 19:34 Labs: Lab Results 10/20/24 10/20/24 10/20/24 Range/Units 19:34 20:37 20:38 WBC 10.2 (4.8-10.8) X10*3/uL RBC 4.03 L (4.20-5.50) X10*6/uL Hgb 12.4 (12.0-16.0) g/dl Hct 35.5 L (37.0-47.0) % MCV 88.1 (80.0-98.0) fL MCH 30.8 (27.0-33.0) pg MCHC 34.9 (31.0-35.0) g/dl RDW 12.9 (11.0-16.0) % Plt Count 313 (160-400) X10*3/uL MPV 9.9 (9.4-12.3) fL Immature Gran % (Auto) 0.6 H (0.0-0.4) % Neut % (Auto) 50.5 (45-73) % Lymph % (Auto) 37.8 (20-40) % [place] % (Auto) 6.5 (2-11) % Eos % (Auto) 4.2 H (0-4) % Baso % (Auto) 0.4 (0-2) % Lymph # (Auto) 3.8 (1.2-4.9) X10*3/uL [place] # (Auto) 0.7 (0.1-1.2) X10*3/uL Eos # (Auto) 0.4 (0.0-0.4) X10*3/uL Baso # (Auto) 0.0 (0.0-0.2) X10*3/uL Abs Immat Gran (auto) 0.06 H (0.00-0.03) X10*3/uL Absolute Neuts (auto) 5.1 (2.0-8.3) x10*3/uL Absolute Nucleated RBC 0.000 (0.0-0.012) X10*3/uL Nucleated RBC % (auto) 0.0 (0.0-0.2) /100WBC Sodium 143 (135-145) mmol/L Potassium 3.3 (3.3-5.1) mmol/L Chloride 106 (96-108) mmol/L Carbon Dioxide 30 H (22-29) mmol/L Anion Gap 10 L (12-20) BUN 21 H (9-16) mg/dL Creatinine 0.69 (0.5-1.4) mg/dL Estim Creat Clear Calc 97.1 Estimated GFR > 60 Random Glucose 86 (60-115) mg/dL Calcium 8.7 (8.4-10.2) mg/dL Total Bilirubin 0.2 (0.0-1.0) mg/dL Direct Bilirubin < 0.2 (0.0-0.5) mg/dL AST 23 (5-31) U/L ALT 22 (0-31) U/L Alkaline Phosphatase 59 (39-117) U/L Troponin I High Sens < 2.7 (<3.5-17.0) ng/L Total Protein 5.9 L (6.5-8.0) g/dL Albumin 3.9 (3.5-5.0) g/dL Lipase 47 (8-78) U/L Urine Color Yellow Urine Appearance Turbid Urine pH 7.0 (5.0-9.0) Ur Specific [place] >= 1.030 H (1.005-1.025) Urine Protein Trace (Neg-Trace) mg/dL Urine Glucose (UA) Negative (Negative) mg/dL Urine Ketones Trace (Negative) mg/dL Urine Blood Negative (Negative) Urine Nitrite Negative (Negative) Ur Leukocyte Esterase Trace H (Negative) Urine RBC 0-2 (0-2) /HPF Urine WBC 6-10 H (0-5) /HPF Ur Squamous Epith Cells 6-10 (0-2) /HPF Urine Bacteria 3+ (None Seen) Hyaline Casts 3-5 (0-2) /LPF Urine Test NEGATIVE (NEGATIVE) Discharge Plan Discharge Clinical Impression: Dehydration Patient Disposition: Left W/O Completing Treatment Prescriptions: No Action sulfamethoxazole-trimethoprim [Bactrim DS] 800-160 mg tablet 1 tab PO Q12H 7 Days Qty: 14 0RF metronidazole 500 mg tablet 500 mg PO BID 7 Days Qty: 14 0RF ibuprofen 400 mg tablet 400 mg PO Q6H PRN (Reason: pain) Qty: 14 0RF cyclobenzaprine 5 mg tablet 5 mg PO TID PRN (Reason: muscle spasm) Qty: 12 0RF acetaminophen 325 mg capsule 650 mg PO Q6H PRN (Reason: pain) Qty: 14 0RF albuterol sulfate 0.63 mg/3 mL solution for nebulization 0.63 mg inhalation Q8H PRN (Reason: shortness of breath or wheezing) Qty: 90 0RF cyclobenzaprine 5 mg tablet 5 mg PO BEDTIME PRN (Reason: muscle spasm) Qty: 4 0RF ketorolac 10 mg tablet 10 mg PO Q6H PRN (Reason: pain) 5 Days Qty: 20 0RF Rx Instructions: Patient received Toradol in the emergency room. ondansetron 4 mg tablet,disintegrating 4 mg PO Q8H 3 Days Qty: 9 0RF ondansetron 4 mg tablet,disintegrating 4 mg PO Q6-8H PRN (Reason: nausea and vomiting) Qty: 14 0RF levetiracetam [Keppra] 500 mg tablet 500 mg PO BID Qty: 60 2RF Discharge Date/Time: 10/20/24 21:48
[2024-10-20 19:11] VITALS: BP 123/61; PULSE 78; RESP 20; TEMP 36.8; O2SAT 98; BMI 17.8
--- NOTE | 2024-10-20 19:12 | ECG_ITS ---
Test Reason : chest heaviness Blood Pressure : */* mmHG Vent. Rate : 72 BPM Atrial Rate : 72 BPM P-R Int : 122 ms QRS Dur : 96 ms QT Int : 402 ms P-R-T Axes : 66 66 33 degrees QTcB Int : 440 ms Normal sinus rhythm with sinus arrhythmia Low voltage QRS Incomplete right bundle branch block Borderline ECG When compared with ECG of 05-Oct-2024 00:02, Nonspecific T wave abnormality now evident in Anterior leads Referred By: Cortney Barragan Electronically Signed By: BAILEE OLSEN
[2024-10-20 19:44] VITALS: BP 123/61; PULSE 78; RESP 20; TEMP 36.8; O2SAT 98
--- OUTSIDE RECORDS SUMMARY | 2024-10-20 19:48 | XMS_ITS | Clinical Summary ---
Author Organization [address] [facility] Address [address] [place] [address] Phone Care Team Providers Care Industrial Engineering Manager Name Role Phone Sandra Ridley Primary Care Provider [phone] Allergies Active Allergy Reactions Criticality Noted Date [...] 07/04/2024 9:45 AM EDT Plan of Treatment Upcoming Encounters Date Type Department Care Team (Late st Contact Info) Description 12/10/2024 2:40 PM EDT Consult Gastroenterology - [address] [facility] [address] [place] [id number] Lizzette Padgett PA [address] [facility] [address] [place] [address] Health Maintenance Due Date Last Done Comments [...] patient's age to complete this topic Insurance [facility] Care Teams Industrial Engineering Manager Relationship Specialty Start Date End Date [place]-Sandra Lim [address] [place] [address] PCP - General Family Medicine 03/05/24
[2024-10-20 19:50] LABS: MANUAL DIFF FLAG NO
[2024-10-20 20:00] VITALS: BP 92/50; PULSE 80; RESP 16; TEMP 36.3; O2SAT 97
[2024-10-20 20:04] LABS: Alanine Aminotransferase 22 U/L (0-31); Albumin Level 3.9 g/dL (3.5-5.0); Alkaline Phosphatase 59 U/L (39-117); Anion Gap 10 (12-20); Aspartate Amino Transferase 23 U/L (5-31); Bilirubin Direct < 0.2 mg/dL (0.0-0.5); Bilirubin Total 0.2 mg/dL (0.0-1.0); Blood Urea Nitrogen 21 mg/dL (9-16); Calcium 8.7 mg/dL (8.4-10.2); Carbon Dioxide 30 mmol/L (22-29); Chloride 106 mmol/L (96-108); Creatinine Clr Calc Pharmacy 97.1; Estimated Glomerular Filt Rate > 60; Glucose Random 86 mg/dL (60-115); Lipase 47 U/L (8-78); Potassium 3.3 mmol/L (3.3-5.1); Sodium 143 mmol/L (135-145); Total Protein 5.9 g/dL (6.5-8.0)
[2024-10-20 20:10] LABS: Basophils Percent Auto 0.4 % (0-2); Eosinophils Absolute Auto 0.4 X10*3/uL (0.0-0.4); Eosinophils Percent Auto 4.2 % (0-4); Hematocrit 35.5 % (37.0-47.0); Hemoglobin 12.4 g/dl (12.0-16.0); Imm Gran Abs Auto 0.06 X10*3/uL (0.00-0.03); Imm Gran Pct Auto 0.6 % (0.0-0.4); Lymphocytes Absolute Auto 3.8 X10*3/uL (1.2-4.9); Lymphocytes Percent Auto 37.8 % (20-40); Mean Corpuscular HGB Conc 34.9 g/dl (31.0-35.0); Mean Corpuscular Hemoglobin 30.8 pg (27.0-33.0); Mean Corpuscular Volume 88.1 fL (80.0-98.0); Mean Platelet Volume 9.9 fL (9.4-12.3); Monocytes Absolute Auto 0.7 X10*3/uL (0.1-1.2); Monocytes Percent Auto 6.5 % (2-11); Neutrophils Absolute Auto 5.1 x10*3/uL (2.0-8.3); Neutrophils Percent Auto 50.5 % (45-73); Platelet Count 313 X10*3/uL (160-400); Red Blood Count 4.03 X10*6/uL (4.20-5.50); Red Cell Distribution Width 12.9 % (11.0-16.0); White Blood Count 10.2 X10*3/uL (4.8-10.8)
[2024-10-20 20:12] LABS: Troponin-I High Sensitivity < 2.7 ng/L (<3.5-17.0)
[2024-10-20 20:52] LABS: UPreg QC Valid YES; Urine Pregnancy NEGATIVE (NEGATIVE)
[2024-10-20 20:52] LABS: Appearance Urine Turbid; Color Urine Yellow; Glucose Urine UA Negative (Negative); Leukocyte Esterase Urine Trace (Negative); Nitrite Urine Negative (Negative); Specific Gravity - Urine >= 1.030 (1.005-1.025); UMIC TRIGGER UACC YES; Urine Blood Negative (Negative); Urine Ketones Trace mg/dL (Negative); Urine Protein Trace mg/dL (Neg-Trace)
[2024-10-20 20:58] LABS: Bacteria Urine 3+ (None Seen); RBC Urine 0-2 /HPF (0-2); UACC Culture Trigger YES
--- NOTE | 2024-10-20 21:44 | PC.NURSE ---
While with another patient, this patient reported to r and d lab technician that she did not want to wait anymore and was seen leaving the department. Dr black
== END 2024-10-20 21:48 | disposition left against medical advice (07) ==
PROVIDERS: Nurse Practitioner Family; Emergency Provider Internal Medicine; PCP Nurse Practitioner Family
DX: E86.0 Dehydration (principal); R11.2 Nausea with vomiting, unspecified; I49.8 Other specified cardiac arrhythmias; I45.10 Unspecified right bundle-branch block; Q79.60 Ehlers-Danlos syndrome, unspecified; R10.2 Pelvic and perineal pain; Z79.899 Other long term (current) drug therapy
CPT/HCPCS: 36415; 80048; 80076; 81001; 81025; 83690; 84484; 85025; 87086; 93005; 99283; 99284

== ENCOUNTER → 2024-10-20 19:12 | Outpatient (BNV) | payer OTHER, SELFPAY | PROVIDERS: Emergency Provider Internal Medicine; PCP Nurse Practitioner Family; Visit Provider Internal Medicine | DX: I45.10 Unspecified right bundle-branch block (principal); I49.9 Cardiac arrhythmia, unspecified | CPT/HCPCS: 93010 ==

== ENCOUNTER 2024-10-27 18:00 | Emergency (ER) | payer OTHER, SELFPAY ==
--- NOTE | ~2024-10-27 | US_ITS ---
CLINICAL HISTORY: right pelvic pain, torsion vs TOA --- Additional Notes or Special Instructions: hx cysts US pelvis transabdominal and transvaginal Doppler Comparison: None provided Findings: Transvaginal and transabdominal scanning performed. Anteverted uterus is 7.1 cm length. Normal myometrium. No endometrial lesion, 7 mm thickness. Right ovary 4.3 x 2.1 x 1.7 cm. Left ovary 3.5 x 2.4 x 1.9 cm. Complex left ovarian cyst measuring 1.3 x 1 x 1.3 cm, avascular likely hemorrhagic cyst. Normal color Doppler of both ovaries. Trace free fluid. IMPRESSION: No evidence of ovarian torsion. Suspect ruptured left ovarian hemorrhagic cyst with trace free pelvic fluid. This document has been electronically signed by: Rene Conklin MD on 10/27/2024 20:34:34
--- NOTE | 2024-10-27 18:03 | ED_ITS ---
HPI - General Adult General Chief complaint: Urogenital-Female Stated complaint: vaginal discharge.fever,cramping Time Seen by Provider: 10/27/24 18:56 Source: patient Limitations: no limitations History of Present Illness ED Provider: Charlene Romano PA-C HPI narrative: 23-year-old female with a history of ovarian cysts presents with abdominal cramping x3 days. Patient states she had a miscarriage on July 07. Over the past 3 days, she has developed pelvic cramping, right greater than left, with the associated white ?stringy? discharge. Denies dysuria, hematuria, history of kidney stones. Denies nausea or vomiting. Patient states she had a low-grade temperature at home today of 100.2. Denies risk for STD. Related Data Previous Rx's ?Medication ?Instructions ?Recorded cyclobenzaprine 5 mg tablet 5 mg PO BEDTIME PRN muscle spasm 12/23/22 #4 tabs ketorolac 10 mg tablet 10 mg PO Q6H PRN pain 5 days #20 12/23/22 tabs ondansetron 4 mg disintegrating 4 mg PO Q8H 3 days #9 tabs 02/25/23 tablet ondansetron 4 mg disintegrating 4 mg PO Q6-8H PRN naus ea and 05/23/23 tablet vomiting #14 tabs levetiracetam 500 mg tablet 500 mg PO BID #60 tabs (Keppra) metronidazole 500 mg tablet 500 mg PO BID 7 days #14 t abs 07/06/24 sulfamethoxazole 800 1 tab PO Q12H 7 days #14 tab s 07/06/24 mg-trimethoprim 160 mg tablet (Bactrim DS) acetaminophen 325 mg capsule 650 mg (2 x 325 mg) PO Q6 H PRN 10/07/24 pain #14 caps cyclobenzaprine 5 mg tablet 5 mg PO TID PRN muscle spa sm #12 10/07/24 tabs ibuprofen 400 mg tablet 400 mg PO Q6H PRN pain #14 t abs 10/07/24 albuterol sulfate 0.63 mg/3 mL 0.63 mg (3 mL) inhalati on Q8H PRN 10/14/24 solution for nebulization shortness of breath or wheez ing #90 mL ketorolac 10 mg tablet 10 mg PO Q6H PRN pain #20 ta bs 10/27/24 Allergies Allergy/AdvReac Type Severity Reaction Status Date / Time beeswax Allergy Unknown Verified 10/27/24 18:06 haloperidol (From Haldol) Allergy Unknown Verified 10/27/24 18:06 honey Allergy Unknown Verified 10/27/24 18:06 montelukast Allergy Unknown Verified 10/27/24 18:06 Penicillins Allergy Difficulty Verified 10/27/24 18:06 Swallowing Review of Systems 2 Review of Systems: Yes all other systems are reviewed and are negative Constitutional: Constitutional: Denies fatigue and Reports fever(s) Cardiovascular: Cardiovascular: Denies chest pain and Denies dyspnea Respiratory: Respiratory: Denies cough and Denies dyspnea Gastrointestinal: Gastrointestinal: Reports abdominal pain, Denies nausea and Denies vomiting Genitourinary: Genitourinary: Denies dysuria, Reports pelvic pain, Reports vaginal discharge and Denies vaginal odor Musculoskeletal: Musculoskeletal: Denies back pain Endocrine: Endocrine: Denies fatigue PMFSH Past Medical History Attestation statement: The following information was validated with the patient. Social History Social History Alcohol intake: never Smoked in Last 30 Days: No Use of substances other than those prescribed or required for medical reasons: No Substance Use Type: Marijuana Advance Directives: No Advance Directives Information Provided: No Physical Exam ED Vital Signs: Vital Signs - 24 hr 10/27/24 18:04 10/27/24 19:28 Temperature 98.4 F 98.8 F Pulse Rate 81 72 Respiratory Rate 18 13 Blood Pressure 122/78 111/60 Pulse Oximetry 97 98 Oxygen Delivery Method Room Air Room Air BMI result Body Mass Index 18.5 Const Other: Alert Orientation/consciousness: patient oriented x3 Resp Effort & Inspection: normal respiratory effort Cardio Other: Normal peripheral perfusion GI Other: Abdomen is soft, nondistended, mild tenderness across bilateral pelvic region, right greater than left Other: Normal external genitalia, cervix is pink and non friable, scant amount of white, textured discharge noted no smell, no CMT no adnexal tenderness Skin Other: Warm dry no rash Neuro General: patient oriented x3, gait normal, no focal motor deficits and CN's II- XI intact bilaterally Psych Other: Cooperative Course Course Course Narrative: RME performed by Talita Baxter, PA-C. Patient is a 23 year old assigned female at presenting to the emergency department with lower abdominal cramping, fever, and vaginal discharge. Patient states that she had a miscarriage in June. Detailed physical exam and review of systems are deferred to the virtual assistant for advertisers. Labs ordered. Patient placed back in the waiting room pending room availability and results. Medications Administered Discontinued Medications Generic Name Dose Route Start Last Admin Trade Name Jv PRN Reason Stop Dose Admin Ketorolac Tromethamine 15 mg 10/27/24 19:24 10/27/24 19:49 Ketorolac Tromethamine 15 Mg/Ml Vial IM 10/27/24 19:25 15 mg ONCE ONE Administration Medical Decision Making Medical Decision Making MDM Narrative: 23-year-old female with a history of ovarian cysts presents with abdominal cramping x3 days. Patient states she had a miscarriage on July 07. Over the past 3 days, she has developed pelvic cramping, right greater than left, with the associated white ?stringy? discharge. Denies dysuria, hematuria, history of kidney stones. Denies nausea or vomiting. Patient states she had a low-grade temperature at home today of 100.2. Denies risk for STD. No chronic issues History: Per patient I have considered the following differential diagnoses: Ectopic, torsion, TOA, retained products of conception, endometritis, Plan: I am most concerned for torsion, the patient does have a history of ovarian cysts, her pain is colicky in nature at this time. We will obtain a transvaginal ultrasound. Given Toradol for her discomfort. Screening labs were already obtained, her serum quant is 7, also considering ectopic, although I would think her quant would be higher. She has been having irregular periods since her miscarriage. The miscarriage was several months ago, retained products of conception would be less likely, with the new discharge, I am considering other potential infections, IE TOA versus endometritis, she does state she had a low-grade temperature today. I have independently reviewed the following tests: Labs: No leukocytosis, not anemic, no electrolyte abnormality, quant 7, urine not infected, Transvaginal ultrasound:Findings: Transvaginal and transabdominal scanning performed. Anteverted uterus is 7.1 cm length. Normal myometrium. No endometrial lesion, 7 mm thickness. Right ovary 4.3 x 2.1 x 1.7 cm. Left ovary 3.5 x 2.4 x 1.9 cm. Complex left ovarian cyst measuring 1.3 x 1 x 1.3 cm, avascular likely hemorrhagic cyst. Normal color Doppler of both ovaries. Trace free fluid. IMPRESSION: No evidence of ovarian torsion. Suspect ruptured left ovarian hemorrhagic cyst with trace free pelvic fluid. Lab Data 10/27/24 18:21 10/27/24 18:21 Labs: Lab Results 10/27/24 Range/Units 18:21 WBC 10.5 (4.8-10.8) X10*3/uL RBC 4.05 L (4.20-5.50) X10*6/uL Hgb 12.6 (12.0-16.0) g/dl Hct 36.0 L (37.0-47.0) % MCV 88.9 (80.0-98.0) fL MCH 31.1 (27.0-33.0) pg MCHC 35.0 (31.0-35.0) g/dl RDW 13.0 (11.0-16.0) % Plt Count 255 (160-400) X10*3/uL MPV 9.5 (9.4-12.3) fL Immature Gran % (Auto) 0.3 (0.0-0.4) % Neut % (Auto) 62.5 (45-73) % Lymph % (Auto) 26.5 (20-40) % [place] % (Auto) 5.6 (2-11) % Eos % (Auto) 4.6 H (0-4) % Baso % (Auto) 0.5 (0-2) % Lymph # (Auto) 2.8 (1.2-4.9) X10*3/uL [place] # (Auto) 0.6 (0.1-1.2) X10*3/uL Eos # (Auto) 0.5 H (0.0-0.4) X10*3/uL Baso # (Auto) 0.1 (0.0-0.2) X10*3/uL Abs Immat Gran (auto) 0.03 (0.00-0.03) X10*3/uL Absolute Neuts (auto) 6.5 (2.0-8.3) x10*3/uL Absolute Nucleated RBC 0.000 (0.0-0.012) X10*3/uL Nucleated RBC % (auto) 0.0 (0.0-0.2) /100WBC Sodium 141 (135-145) mmol/L Potassium 4.2 D (3.3-5.1) mmol/L Chloride 109 H (96-108) mmol/L Carbon Dioxide 23 (22-29) mmol/L Anion Gap 13 (12-20) BUN 18 H (9-16) mg/dL Creatinine 0.80 (0.5-1.4) mg/dL Estim Creat Clear Calc 87.1 Estimated GFR > 60 Random Glucose 86 (60-115) mg/dL Calcium 8.9 (8.4-10.2) mg/dL Magnesium 2.0 (1.6-2.6) mg/dL Total Bilirubin 0.3 (0.0-1.0) mg/dL AST 21 (5-31) U/L ALT 14 (0-31) U/L Alkaline Phosphatase 60 (39-117) U/L Total Protein 6.6 (6.5-8.0) g/dL Albumin 4.2 (3.5-5.0) g/dL Beta HCG, Quant 7 mIU/mL Urine Color Dark Yellow Urine Appearance Clear Urine pH 5.5 (5.0-9.0) Ur Specific [place] >= 1.030 H (1.005-1.025) Urine Protein 30 (1+) H (Neg-Trace) mg/dL Urine Glucose (UA) Negative (Negative) mg/dL Urine Ketones Trace (Negative) mg/dL Urine Blood Trace H (Negative) Urine Nitrite Negative (Negative) Ur Leukocyte Esterase Negative (Negative) Urine RBC 0-2 (0-2) /HPF Urine WBC 6-10 H (0-5) /HPF Ur Squamous Epith Cells 6-10 (0-2) /HPF Urine Bacteria Trace (None Seen) Hyaline Casts 3-5 (0-2) /LPF Discharge Plan Discharge Clinical Impression: Ruptured ovarian cyst, Vaginitis Patient Disposition: Home, Self-Care Instructions: Ovarian Cyst (ED), Vaginal Discharge (ED) Additional Instructions: The ultrasound revealed that you ruptured a small hemorrhagic ovarian cysts. You need to follow up with your police communications operator. They will likely repeat the ultrasound within the next 2 weeks. Call to make an appointment. Your screening labs were overall normal, you were not . You do have several vaginal cultures pending, they should result by tomorrow. If you were found to have an infection, you will be contacted by one of the providers at our facility, and a prescription will be sent to your pharmacy. Use the ketorolac as needed for your abdominal discomfort. Take it with food. Prescriptions: New ketorolac 10 mg tablet 10 mg PO Q6H PRN (Reason: pain) Qty: 20 0RF Rx Instructions: maximum total duration of 5 days from all oral, intranasal, or parenteral formulations. The patient received an intramuscular dose of Toradol here in the emergency room No Action sulfamethoxazole-trimethoprim [Bactrim DS] 800-160 mg tablet 1 tab PO Q12H 7 Days Qty: 14 0RF metronidazole 500 mg tablet 500 mg PO BID 7 Days Qty: 14 0RF ibuprofen 400 mg tablet 400 mg PO Q6H PRN (Reason: pain) Qty: 14 0RF cyclobenzaprine 5 mg tablet 5 mg PO TID PRN (Reason: muscle spasm) Qty: 12 0RF acetaminophen 325 mg capsule 650 mg PO Q6H PRN (Reason: pain) Qty: 14 0RF albuterol sulfate 0.63 mg/3 mL solution for nebulization 0.63 mg inhalation Q8H PRN (Reason: shortness of breath or wheezing) Qty: 90 0RF cyclobenzaprine 5 mg tablet 5 mg PO BEDTIME PRN (Reason: muscle spasm) Qty: 4 0RF ketorolac 10 mg tablet 10 mg PO Q6H PRN (Reason: pain) 5 Days Qty: 20 0RF Rx Instructions: Patient received Toradol in the emergency room. ondansetron 4 mg tablet,disintegrating 4 mg PO Q8H 3 Days Qty: 9 0RF ondansetron 4 mg tablet,disintegrating 4 mg PO Q6-8H PRN (Reason: nausea and vomiting) Qty: 14 0RF levetiracetam [Keppra] 500 mg tablet 500 mg PO BID Qty: 60 2RF Print Language: Slovak
[2024-10-27 18:04] VITALS: BP 122/78; PULSE 81; RESP 18; TEMP 36.9; O2SAT 97; BMI 18.5
[2024-10-27 18:27] LABS: MANUAL DIFF FLAG NO
[2024-10-27 18:28] LABS: Hematocrit 36.0 % (37.0-47.0); Hemoglobin 12.6 g/dl (12.0-16.0); Imm Gran Abs Auto 0.03 X10*3/uL (0.00-0.03); Imm Gran Pct Auto 0.3 % (0.0-0.4); Lymphocytes Absolute Auto 2.8 X10*3/uL (1.2-4.9); Mean Corpuscular HGB Conc 35.0 g/dl (31.0-35.0); Mean Corpuscular Hemoglobin 31.1 pg (27.0-33.0); Mean Corpuscular Volume 88.9 fL (80.0-98.0); NRBC Abs Auto 0.000 X10*3/uL (0.0-0.012); NRBC Pct Auto 0.0 /100WBC (0.0-0.2); Platelet Count 255 X10*3/uL (160-400); Red Blood Count 4.05 X10*6/uL (4.20-5.50); White Blood Count 10.5 X10*3/uL (4.8-10.8)
[2024-10-27 18:30] LABS: Appearance Urine Clear; Glucose Urine UA Negative (Negative); PH 5.5 (5.0-9.0); Specific Gravity - Urine >= 1.030 (1.005-1.025); UMIC TRIGGER UACC YES
[2024-10-27 18:45] LABS: UACC Culture Trigger YES
[2024-10-27 18:52] LABS: Alanine Aminotransferase 14 U/L (0-31); Albumin Level 4.2 g/dL (3.5-5.0); Alkaline Phosphatase 60 U/L (39-117); Anion Gap 13 (12-20); Aspartate Amino Transferase 21 U/L (5-31); Blood Urea Nitrogen 18 mg/dL (9-16); Calcium 8.9 mg/dL (8.4-10.2); Carbon Dioxide 23 mmol/L (22-29); Chloride 109 mmol/L (96-108); Creatinine Clr Calc Pharmacy 87.1; Estimated Glomerular Filt Rate > 60; Magnesium 2.0 mg/dL (1.6-2.6); Potassium 4.2 mmol/L (3.3-5.1); Sodium 141 mmol/L (135-145); Total Protein 6.6 g/dL (6.5-8.0)
[2024-10-27 19:28] VITALS: BP 111/60; PULSE 72; RESP 13; TEMP 37.1; O2SAT 98
[2024-10-27 22:42] VITALS: BP 107/67; PULSE 62; RESP 18; TEMP 36.8; O2SAT 99
[2024-10-27 22:51] VITALS: BP 107/67; PULSE 62; RESP 18; TEMP 36.8; O2SAT 99
[2024-10-28 09:27] LABS: Bacterial Vaginosis PCR NEGATIVE (Negative); Candida Group PCR NOT DETECTED (Not Detect); Candida glab krusei PCR NOT DETECTED (Not Detect); Trichomonas vaginalis PCR NOT DETECTED (Not Detect)
[2024-10-28 09:59] LABS: CT PCR NOT DETECTED (Not Detect.); NG PCR NOT DETECTED (Not Detect.)
== END 2024-10-27 22:52 | disposition home or self-care (01) ==
PROVIDERS: Physician Assistant Medical; Emergency Provider Emergency Medicine; PCP Nurse Practitioner Family
DX: N83.8 Other noninflammatory disorders of ovary, fallopian tube and broad ligament (principal); N76.0 Acute vaginitis; R10.2 Pelvic and perineal pain; N94.89 Other specified conditions associated with female genital organs and menstrual cycle; R10.9 Unspecified abdominal pain
CPT/HCPCS: 36415; 76830; 76856; 80053; 81001; 81515; 83735; 84702; 85025; 87086; 87491; 87591; 93975; 96372; 99284; J1885

== ENCOUNTER → 2024-10-27 19:24 | Outpatient (BNV) | payer OTHER, SELFPAY | PROVIDERS: PCP Nurse Practitioner Family; Visit Provider Radiology Diagnostic Radiology | DX: R10.2 Pelvic and perineal pain (principal) | CPT/HCPCS: 76830; 76856 ==

== ENCOUNTER 2024-11-08 17:37 | Emergency (ER) | payer OTHER, SELFPAY ==
--- NOTE | ~2024-11-08 | XR_ITS ---
CLINICAL HISTORY: ? dislocation 4 view left wrist Comparison: CR/SR - XR WRIST 1-2 VIEWS RIGHT - 07/06/24 12:55 EDT Findings: No fractures. On the AP view, the pisiform appears low in position. No significant arthritic change or erosions. No radiopaque foreign body. IMPRESSION: No evidence of acute fracture. On the AP view, the pisiform appears low in position. Clinical correlation is recommended to exclude pisiform subluxation/dislocation. Further evaluation by MRI or CT as indicated. This document has been electronically signed by: Alvaro Maurice MD on 11/08/2024 18:25:47
[2024-11-08 17:47] VITALS: BP 101/63; PULSE 78; RESP 16; TEMP 36.6; O2SAT 97; BMI 18.1
--- NOTE | 2024-11-08 17:47 | ED_ITS ---
<Statement entered by Maurizio Bearden MD - 11/14/24 23:26> Duplicate chart HPI - General Adult General Chief complaint: Extremity Injury, Upper Stated complaint: left wrist injury Time Seen by Provider: 11/08/24 19:52 Related Data Previous Rx's ?Medication ?Instructions ?Recorded cyclobenzaprine 5 mg tablet 5 mg PO BEDTIME PRN muscle spasm 12/23/22 #4 tabs ketorolac 10 mg tablet 10 mg PO Q6H PRN pain 5 days #20 12/23/22 tabs ondansetron 4 mg disintegrating 4 mg PO Q8H 3 days #9 tabs 02/25/23 tablet ondansetron 4 mg disintegrating 4 mg PO Q6-8H PRN naus ea and 05/23/23 tablet vomiting #14 tabs levetiracetam 500 mg tablet 500 mg PO BID #60 tabs (Keppra) metronidazole 500 mg tablet 500 mg PO BID 7 days #14 t abs 07/06/24 sulfamethoxazole 800 1 tab PO Q12H 7 days #14 tab s 07/06/24 mg-trimethoprim 160 mg tablet (Bactrim DS) acetaminophen 325 mg capsule 650 mg (2 x 325 mg) PO Q6 H PRN 10/07/24 pain #14 caps cyclobenzaprine 5 mg tablet 5 mg PO TID PRN muscle spa sm #12 10/07/24 tabs ibuprofen 400 mg tablet 400 mg PO Q6H PRN pain #14 t abs 10/07/24 albuterol sulfate 0.63 mg/3 mL 0.63 mg (3 mL) inhalati on Q8H PRN 10/14/24 solution for nebulization shortness of breath or wheez ing #90 mL ketorolac 10 mg tablet 10 mg PO Q6H PRN pain #20 ta bs 10/27/24 ibuprofen 400 mg tablet 400 mg PO Q8H PRN pain #30 t abs 11/08/24 Allergies Allergy/AdvReac Type Severity Reaction Status Date / Time beeswax Allergy Unknown Verified 11/09/24 09:53 haloperidol (From Haldol) Allergy Unknown Verified 11/09/24 09:53 honey Allergy Unknown Verified 11/09/24 09:53 montelukast Allergy Unknown Verified 11/09/24 09:53 Penicillins Allergy Difficulty Verified 11/09/24 09:53 Swallowing PMFSH Social History Social History Alcohol intake: never Substance Use Type: Marijuana Advance Directives: No Advance Directives Information Provided: Yes Do you have a plan to hurt others: No Plan Physical Exam ED Vital Signs: BMI result Body Mass Index 18.1 Course Course Course Narrative: This is a rapid medical exam performed by Noe Wynn NP: Additional HPI, ROS, PE not included below will be deferred to primary provider. 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 States it popped out the other day, has been having pain since. Plan: xray Medications Administered Discontinued Medications Generic Name Dose Route Start Last Admin Trade Name Freq PRN Reason Stop Dose Admin Ketorolac Tromethamine 30 mg 11/08/24 20:00 11/08/24 20:34 Ketorolac Tromethamine 30 Mg/Ml Vial IM 11/08/24 20:01 30 mg ONCE ONE Administration Discharge Plan Discharge Clinical Impression: Sprain and strain of wrist Patient Disposition: Home, Self-Care Instructions: Wrist Sprain (ED) Additional Instructions: Take Tylenol/Motrin for pain wear the splint for support No fracture or dislocation seen Prescriptions: New ibuprofen 400 mg tablet 400 mg PO Q8H PRN (Reason: pain) Qty: 30 0RF No Action sulfamethoxazole-trimethoprim [Bactrim DS] 800-160 mg tablet 1 tab PO Q12H 7 Days Qty: 14 0RF metronidazole 500 mg tablet 500 mg PO BID 7 Days Qty: 14 0RF ibuprofen 400 mg tablet 400 mg PO Q6H PRN (Reason: pain) Qty: 14 0RF cyclobenzaprine 5 mg tablet 5 mg PO TID PRN (Reason: muscle spasm) Qty: 12 0RF acetaminophen 325 mg capsule 650 mg PO Q6H PRN (Reason: pain) Qty: 14 0RF albuterol sulfate 0.63 mg/3 mL solution for nebulization 0.63 mg inhalation Q8H PRN (Reason: shortness of breath or wheezing) Qty: 90 0RF ketorolac 10 mg tablet 10 mg PO Q6H PRN (Reason: pain) Qty: 20 0RF Rx Instructions: maximum total duration of 5 days from all oral, intranasal, or parenteral formulations. The patient received an intramuscular dose of Toradol here in the emergency room cyclobenzaprine 5 mg tablet 5 mg PO BEDTIME PRN (Reason: muscle spasm) Qty: 4 0RF ketorolac 10 mg tablet 10 mg PO Q6H PRN (Reason: pain) 5 Days Qty: 20 0RF Rx Instructions: Patient received Toradol in the emergency room. ondansetron 4 mg tablet,disintegrating 4 mg PO Q8H 3 Days Qty: 9 0RF ondansetron 4 mg tablet,disintegrating 4 mg PO Q6-8H PRN (Reason: nausea and vomiting) Qty: 14 0RF levetiracetam [Keppra] 500 mg tablet 500 mg PO BID Qty: 60 2RF Interventions: ED Discharge Assessment Last Done: 11/08/24 20:36 Discharge Date/Time: 11/08/24 20:37 Print Language: Cymraes
--- NOTE | 2024-11-08 20:04 | ED.EXTPRO ---
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 2 days ago since then been having pain at the base of the wrist no swelling no other injuries Related Data Previous Rx's ?Medication ?Instructions ?Recorded cyclobenzaprine 5 mg tablet 5 mg PO BEDTIME PRN muscle spasm 12/23/22 #4 tabs ketorolac 10 mg tablet 10 mg PO Q6H PRN pain 5 days #20 12/23/22 tabs ondansetron 4 mg disintegrating 4 mg PO Q8H 3 days #9 tabs 02/25/23 tablet ondansetron 4 mg disintegrating 4 mg PO Q6-8H PRN nausea and 05/23/23 tablet vomiting #14 tabs levetiracetam 500 mg tablet 500 mg PO BID #60 tabs 05/07/24 (Keppra) metronidazole 500 mg tablet 500 mg PO BID 7 days #14 tabs 07/06/24 sulfamethoxazole 800 1 tab PO Q12H 7 days #14 tabs 07/06/24 mg-trimethoprim 160 mg tablet (Bactrim DS) acetaminophen 325 mg capsule 650 mg (2 x 325 mg) PO Q6H PRN 10/07/24 pain #14 caps cyclobenzaprine 5 mg tablet 5 mg PO TID PRN muscle spasm #12 10/07/24 tabs ibuprofen 400 mg tablet 400 mg PO Q6H PRN pain #14 tabs 10/07/24 albuterol sulfate 0.63 mg/3 mL 0.63 mg (3 mL) inhalation Q8H PRN 10/14/24 solution for nebulization shortness of breath or wheezing #90 mL ketorolac 10 mg tablet 10 mg PO Q6H PRN pain #20 tabs 10/27/24 ibuprofen 400 mg tablet 400 mg PO Q8H PRN pain #30 tabs 11/08/24 Allergies Allergy/AdvReac Type Severity Reaction Status Date / Time beeswax Allergy Unknown Verified 11/08/24 17:48 haloperidol (From Haldol) Allergy Unknown Verified 11/08/24 17:48 honey Allergy Unknown Verified 11/08/24 17:48 montelukast Allergy Unknown Verified 11/08/24 17:48 Penicillins Allergy Difficulty Verified 11/08/24 17:48 Swallowing Review of Systems Review of Systems: Yes all other systems are reviewed and are negative [facility] Social History Social History Alcohol intake: never Smoked in Last 30 Days: Yes Use of substances other than those prescribed or required for medical reasons: Yes Substance Use Type: Marijuana Advance Directives: No Advance Directives Information Provided: No Do you have a plan to hurt others: No Plan Patient : No Physical Exam Vital Signs: Vital Signs: Last Vital Signs Temp 97.8 F 11/08/24 17:47 Pulse 78 11/08/24 17:47 Resp 16 11/08/24 17:47 BP 101/63 11/08/24 17:47 Pulse Ox 97 11/08/24 17:47 O2 Del Method Room Air 11/08/24 17:47 BMI result Body Mass Index 18.1 Extrem: Hand/finger images:  1. Diffuse tenderness without any obvious deformity neurovascular intact Medical Decision Making Medical Decision Making MDM Narrative: Patient with clinically left wrist sprain will give her a wrist splint and ibuprofen for pain x-ray showed possible pisiform bone displacement patient does not have any significant pain at the location Independent Interpretation I performed an independent interpretation of an: Plain X-Ray Radiology Impression Discussion of test interpretation with radiology: I have reviewed the radiologist's reading. Discharge Plan Discharge Clinical Impression: Sprain and strain of wrist Patient Disposition: Home, Self-Care Instructions: Wrist Sprain (ED) Additional Instructions: Take Tylenol/Motrin for pain wear the splint for support No fracture or dislocation seen Prescriptions: New ibuprofen 400 mg tablet 400 mg PO Q8H PRN (Reason: pain) Qty: 30 0RF No Action sulfamethoxazole-trimethoprim [Bactrim DS] 800-160 mg tablet 1 tab PO Q12H 7 Days Qty: 14 0RF metronidazole 500 mg tablet 500 mg PO BID 7 Days Qty: 14 0RF ibuprofen 400 mg tablet 400 mg PO Q6H PRN (Reason: pain) Qty: 14 0RF cyclobenzaprine 5 mg tablet 5 mg PO TID PRN (Reason: muscle spasm) Qty: 12 0RF acetaminophen 325 mg capsule 650 mg PO Q6H PRN (Reason: pain) Qty: 14 0RF albuterol sulfate 0.63 mg/3 mL solution for nebulization 0.63 mg inhalation Q8H PRN (Reason: shortness of breath or wheezing) Qty: 90 0RF ketorolac 10 mg tablet 10 mg PO Q6H PRN (Reason: pain) Qty: 20 0RF Rx Instructions: maximum total duration of 5 days from all oral, intranasal, or parenteral formulations. The patient received an intramuscular dose of Toradol here in the emergency room cyclobenzaprine 5 mg tablet 5 mg PO BEDTIME PRN (Reason: muscle spasm) Qty: 4 0RF ketorolac 10 mg tablet 10 mg PO Q6H PRN (Reason: pain) 5 Days Qty: 20 0RF Rx Instructions: Patient received Toradol in the emergency room. ondansetron 4 mg tablet,disintegrating 4 mg PO Q8H 3 Days Qty: 9 0RF ondansetron 4 mg tablet,disintegrating 4 mg PO Q6-8H PRN (Reason: nausea and vomiting) Qty: 14 0RF levetiracetam [Keppra] 500 mg tablet 500 mg PO BID Qty: 60 2RF Print Language: Luxembourgish
--- OUTSIDE RECORDS SUMMARY | 2024-11-08 20:05 | XMS_ITS | Patient Health Record ---
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 [employer] Name Role Phone JEANCARLOS STILES Unavailable [phone] Allergies No Known Allergies Reason For Referral No Information Medications Medication SIG (Take, Route, Frequency, Duration) Notes Start Date End Date Status Simethicone 80 MG 1 tablet after meals and at bedtime as needed Orally Four times a day Active Vitamin D3 1.25 MG (71996 UT) 1 capsule Orally; Duration: 30 day(s) Active Tranexamic Acid 650 MG 2 tablets Orally three times daily; Duration: 5 days 09/15/2021 Active Zinc Gluconate 30 MG 1 tablet Orally Once a day; Duration: 30 day(s) Active Symbicort 160-4.5 MCG/ACT 2 puffs Inhalation Not-Takin g Kyleena 19.5 MG as directed Intrauterine Inserted 02/25/2020 - removed 01/2021 due to severe cramping (at [facility]) 02/25/2020 Not-Taking [place] 3 1000 MG 1 capsule Orally Once a day; Duration: 30 day(s) Active EpiPen Active Multi Vitamin - 1 tablet Orally Once a day; Duration: 30 day(s) Active hydrOXYzine HCl 50 MG 1 tablet as needed Orally Active Albuterol Sulfate HFA 1 puff as needed Inhalation prn Active FLUoxetine HCl 20 MG 1 capsule Orally bid Active Calcium 600 MG 1 tablet with meals Orally Twice a day; Duration: 30 day(s) Active Social History Tobacco Use: [...] Risk Notes Problem Major depression, single episode (73322160) Major depressive disorder, single episode, unspecified (F32.9) Active confirmed Problem Anxiety disorder (213821184) Anxiety disorder, unspecified (F41.9) Active confirmed Problem Posttraumatic stress disorder (91338502) Post-traumatic stress disorder, chronic (F43.12) Active confirmed Problem Migraine with aura (0561822) Migraine with aura, not intractable, with status migrainosus (G43.101) Active confirmed Problem Uncomplicated asthma (disorder) (608736225) Unspecified asthma, uncomplicated (J45.909) Active confirmed Problem Fibromyalgia (511719747) Fibromyalgia (M79.7) Active confirmed Problem Abnormal uterine bleeding (56630858186655) Abnormal uterine and vaginal bleeding, unspecified (N93.9) Active confirmed Problem Chronic fatigue syndrome (disorder) (38187879) Chronic fatigue, unspecified (R53.82) Active confirmed Plan Of Treatment Pending Test Test Name Order Date Test, Urine 02/25/2020 Test, Urine 09/15/2021 ULTRASOUND: PELVIC W/TRANSVAGINAL 2019 Insurance Providers Payer Name Payer Address Payer Phone Subscriber Number Group Number Insured Name Patient Relationship to Insured Coverage Start Date Coverage End Date [facility] [address] [address] [place] [id number] CHRIS AGARWAL Self - patient is the insured Medical (General) History Medical History History ICD Code Unspecified asthma, uncomplicated J45.90 9 Encounter for screening for depression Z 13.31 Anxiety disorder, unspecified F41.9 Migraine with aura, not intractable, wit h status migrainosus G43.101 Surgical History Surgery Date(Month/Year) Tonsils and Adenoids 2007
--- OUTSIDE RECORDS SUMMARY | 2024-11-08 20:05 | XMS_ITS | Clinical Summary ---
Author Organization [facility] Address [address] [place] [address] Phone Care Team Providers Care Ui Application Developer Name Role Phone Sandra Ridley Primary Care Provider [phone] Allergies Active Allergy Reactions Criticality Noted Date [...] EDT Consult Gastroenterology - [address] [facility] [address] [place] [id number] Lizzette Padgett PA [address] [place] [address] Health Maintenance Due Date Last Done Comments Gonorrhea/Chlamydia Screening 2000 Meningococcal B Vaccine (1 of 2 - Standard) 2016 DTaP,Tdap,and Td Vaccines (1 - Tdap) 12/26/2019 Hepatitis B Vaccines (1 of 3 - 19+ 3-dose series) 12/26/2019 Pneumococcal Vaccine: Pediatrics (0 to 5 Years) and At-Risk Patients (6 to 49 Years) (1 of 2 - PCV) 12/26/2019 Cervical Cancer Screening: Pap Smear 2021 Cholesterol Screening (Lipid Panel) 05/24/2023 HIV Screening 05/24/2023 Hepatitis C Screening 05/24/2023 Social Influencers of Health Screening 05/24/2023 COVID-19 Vaccine ( season) 2023 04/04/2021, 07/03/2020, 06/11/2020 Depression Screening 04/25/2024 Influenza Vaccine (#1) 2024 , 03/05/2020, 02/04/2020, Additional history exists Meningococcal [...] patient's age to complete this topic Insurance [facility] Care Teams Ui Application Developer Relationship Specialty Start Date End Date [place]-Sandra Lim [address] [place] [address] PCP - General Family Medicine 03/05/24
--- OUTSIDE RECORDS SUMMARY | 2024-11-08 20:05 | XMS_ITS | Patient Health Record ---
Author Organization [facility] Address [address] [place] [address] Care Team Providers Care Felt Carbonizer Name Role Phone SCOTT BRONSON Unavailable [phone] Allergies Allergen (clinical drug ingredient) Drug/Non Drug Allergy documented on EMR Reaction Allergy Type Onset Date Status amoxicillin / clavulanate Augmentin anaphylaxis Drug Allergy Active Bees Wax shortness of breath Drug Allergy Active Honey anaphylaxis Drug Allergy Activ e Bee Sting anaphylaxis Allergy Active Reason For Referral Reason eval and treat Diagnosis 1 Medication refill (Z 76.0) Referral Organization [facility] Referring Provider First [...] Temperature Encounters Encounter Location Date Provider Diagnosis [facility] [address] [place] [address] 12/01/2023 SCOTT BRONSON Prediabetes R73.03 and Medication [...] of [place] [address] [place] [address] [id number] Abby Alves Self - patient is the insured Medical (General) History Medical History History ICD Code Postural orthostatic tachycardia syndrom e 2020 Chronic fatigue syndrome 2018 Hypermobile 2018 Fibromyalgia 2019 Asthma 2006 Depression 2012 Generalized anxiety disorder 2012 Borderline Personality disorder 2017
--- OUTSIDE RECORDS SUMMARY | 2024-11-08 20:05 | XMS_ITS ---
Author Name [facility] Organization Unknown Care Team Organization Name Specialty Phone Email Start Date End Da te [facility] NO PROVIDER Primary Care 05/15/2023 [facility]23 [facility]
--- OUTSIDE RECORDS SUMMARY | 2024-11-08 20:05 | XMS_ITS | Data Portability ---
Author Organization [place] [facility], [address] Address [address] [place] [address] Assessment No assessment recorded. Plan of Treatment Reminders Order Date Submit Date Provider Last Modified By Organization Details Last Modified Time Details Appointments None recorded. Lab None recorded. Referral emergency medicine referral 2022 023 [email or web address] [facility], [address] [place], [address], 18:59:30 Procedures None recorded. Surgeries None recorded. Imaging None recorded. Medication Orders None recorded. Patient TargetsNo targets recorded. Patient Instructions Encounter Date Encounter Id Patient Instructions Last Modified By Organization Details Last Modified Time 02/15/2023 [id number] Your history and physical exam suggests that you may have a fracture in your hand and or wrist. Since xrays are not available today at [facility] you are being referred to the Emergency Department for xrays and potential splinting. [facility] ER has been advised of your impending arrival. Go directly to [facility] ER after leaving [facility]. Not available 02/15/2023 18:53:49 Reason for Referral Emergency Medicine Referral for Pain of right wrist r/o right hand/wrist fracture Referring Physician: Nuvia Wellington, Urgent Care, Encounter Date: 02/15/2023 Problems Name Problem SNOMED Code Status Onset Date Resolution Date Notes Provider Name and Address Organization Details Recorded Time Anxiety 85161194 Active Katty Mabel null, [place] - [facility] 17:57:02 Asthma 718771070 Active Katty Mabel null, PA - [facility] 10/24/202 3 17:57:15 Postural orthostatic tachycardia syndrome 789123436 Active Katty Mabel null, PA - [facility] 3 17:58:07 Chronic fatigue syndrome 18270897 Active Katty Mabel null, PA - [facility] 3 17:58:24 Fibromyalgia 382760970 Active Katty Mabel null, [facility] - [facility] [...] saturation in Arterial blood by Pulse oximetry Heart rate Respiratory rate Body temperature Systolic And Diastolic Provider Name and Address Organization Details Last Updated DateTime 165.1 cm 21.3 kg/m2 55319.8 2 g 99 % 99 % 77 /min 15 /min 98.8 [degF] 117/65 mm[Hg] Katty Monroe PA - [facility] 18:57:00 Social History Question Answer Notes LastModified by Audioairat ion Details LastModified Time Tobacco Smoking Status Never Smoker Katty cee [place] - [facility] 02/15/2023 18:00:44 Which Illicit Or Recreational Drugs Have You Used? Marijuana Information not available 02/15/2023 Have You Had A Flu Shot This Season? No Information not available 02/15/2023 Have You Had Direct Contact, Or Contact During Intimacy, With Monkeypox Rash, Scabs, Or Body Fluids From A Person With Monkeypox? No Information not available 02/15/2023 What Was The Date Of Your Most Recent Tobacco Screening? 02/15/2023 Information not available 02/15/2023 Have You Recently Traveled Abroad? No Information not available 02/15/2023 Sex: Unknown Functional Status Question Answer Note LastModified by Organizat ion Details LastModified Time Do you use any illicit or recreational drugs? Yes Information not available 02/15/2023 Do you or have you ever used any other forms of tobacco or nicotine? Yes Information not available 02/15/2023 What is your level of alcohol consumption? None Information not available 02/15/2023 Do you or have you ever used e-cigarettes or vape? Current user of electronic cigarettes Information not available 02/15/2023 Mental Status None recorded. Family History Relationship [...] SNOMED-CT Code Diagnosis ICD10 Code Diagnosis Note [id number] [place] [address] [place] [address] 02/15/2023 17:31:38 02/15/2023 18:59:30 Pain of right wrist 4054293131 53011 M25.531 Pain in right hand 78706 56849 89453 M79.641 Health Concerns Section Related Observation LastModified by Organization Detai ls LastModified Time None Recorded Concern Status LastModified by Organization Details LastModified Time None Recorded Advance Directives Directive None Recorded Payers Insurance Date Sequence Insurance Name Policy Number Policy Duffy Covered Member ID Duffy Member ID Guarantor Name 11/14/2023 1 [facility] [id number] Abby Alves [id number] Abby Alves Notes Date Note Type Note Provider Name [...] Nuvia Wellington MD [address] [place], [address], [place] - [facility] 02/15/2023 19:16:43 OBGyn Episode No OBEpisode recorded.
[2024-11-08 20:36] VITALS: BP 101/63; PULSE 78; RESP 16; TEMP 36.6; O2SAT 97
== END 2024-11-08 20:37 | disposition home or self-care (01) ==
PROVIDERS: Emergency Provider Internal Medicine
DX: S63.502A Unspecified sprain of left wrist, initial encounter (principal); Q79.60 Ehlers-Danlos syndrome, unspecified; M25.532 Pain in left wrist; X50.9XXA Other and unspecified overexertion or strenuous movements or postures, initial encounter; Y93.9 Activity, unspecified; Y92.9 Unspecified place or not applicable; Y99.9 Unspecified external cause status
CPT/HCPCS: 73100; 96372; 99284; J1885

== ENCOUNTER → 2024-11-08 17:48 | Outpatient (BNV) | payer OTHER, SELFPAY | PROVIDERS: Visit Provider Nuclear Medicine | DX: M25.532 Pain in left wrist (principal) | CPT/HCPCS: 73100 ==

== ENCOUNTER 2024-11-09 09:45 | Emergency (ER) | payer OTHER, SELFPAY ==
[2024-11-09 09:52] VITALS: BP 103/66; PULSE 66; RESP 16; TEMP 36.3; O2SAT 98; BMI 19.0
--- NOTE | 2024-11-09 10:05 | ED.EXTPRO ---
HPI - Extremity Problem General Chief complaint: Extremity Injury, Upper Stated complaint: thumb is numb Time Seen by Provider: 11/09/24 09:58 Source: patient Mode of arrival: ambulatory Limitations: no limitations History of Present Illness ED Provider: joaquin quintana np HPI Narrative: Patient is a 20-year-old female who presents emergency department for evaluation. She reports an injury to her left wrist a couple of days ago. Was seen in the emergency department last night had an x-ray performed and was advised that she had a sprain. She states that she has been wearing the splint as provided. She awoke today and her left thumb has pins and needles sensation Related Data Previous Rx's ?Medication ?Instructions ?Recorded cyclobenzaprine 5 mg tablet 5 mg PO BEDTIME PRN muscle spasm 12/23/22 #4 tabs ketorolac 10 mg tablet 10 mg PO Q6H PRN pain 5 days #20 12/23/22 tabs ondansetron 4 mg disintegrating 4 mg PO Q8H 3 days #9 tabs 02/25/23 tablet ondansetron 4 mg disintegrating 4 mg PO Q6-8H PRN nausea and 05/23/23 tablet vomiting #14 tabs levetiracetam 500 mg tablet 500 mg PO BID #60 tabs 05/07/24 (Keppra) metronidazole 500 mg tablet 500 mg PO BID 7 days #14 tabs 07/06/24 sulfamethoxazole 800 1 tab PO Q12H 7 days #14 tabs 07/06/24 mg-trimethoprim 160 mg tablet (Bactrim DS) acetaminophen 325 mg capsule 650 mg (2 x 325 mg) PO Q6H PRN 10/07/24 pain #14 caps cyclobenzaprine 5 mg tablet 5 mg PO TID PRN muscle spasm #12 10/07/24 tabs ibuprofen 400 mg tablet 400 mg PO Q6H PRN pain #14 tabs 10/07/24 albuterol sulfate 0.63 mg/3 mL 0.63 mg (3 mL) inhalation Q8H PRN 10/14/24 solution for nebulization shortness of breath or wheezing #90 mL ketorolac 10 mg tablet 10 mg PO Q6H PRN pain #20 tabs 10/27/24 ibuprofen 400 mg tablet 400 mg PO Q8H PRN pain #30 tabs 11/08/24 Allergies Allergy/AdvReac Type Severity Reaction Status Date / Time beeswax Allergy Unknown Verified 11/09/24 09:53 haloperidol (From Haldol) Allergy Unknown Verified 11/09/24 09:53 honey Allergy Unknown Verified 11/09/24 09:53 montelukast Allergy Unknown Verified 11/09/24 09:53 Penicillins Allergy Difficulty Verified 11/09/24 09:53 Swallowing Review of Systems Review of Systems: Yes all other systems are reviewed and are negative [facility] Past Medical History Attestation statement: The following information was validated with the patient. Source: old records reviewed Social History Social History Alcohol intake: never Substance Use Type: Marijuana Do you have a plan to hurt others: No Plan Physical Exam Exam: Exam: Appearance: Alert.?Oriented to person, place and time. No acute distress.?Normal affect. CVS: Heart sounds normal. Normal heart rate and rhythm.? Pulses normal.?? Respiratory: No respiratory distress.? Lung sounds clear to auscultation bilaterally?? Skin: Skin warm and dry.? Normal skin color.? No rashes or lesions Extremities: No lower extremity edema.? Mild decreased AROM to the left wrist. 2+ radial pulse. Neuro: Moves all extremities spontaneously. Sensation intact bilaterally. Ambulates with normal steady gait. Vital Signs: Vital Signs: Last Vital Signs Temp 97.4 F 11/09/24 09:52 Pulse 66 11/09/24 09:52 Resp 16 11/09/24 09:52 BP 103/66 11/09/24 09:52 Pulse Ox 98 11/09/24 09:52 O2 Del Method Room Air 11/09/24 09:52 BMI result Body Mass Index 19.0 Medical Decision Making Medical Decision Making MDM Narrative: Patient is a 22-year-old female presents emergency department for evaluation of numbness to the left thumb as per HPI in the setting of a recent sprain. Extremity is neurovascularly intact distally on evaluation. There is no erythema or warmth. No deformity. Has full range of motion to the thumb. No snuffbox tenderness to suggest scaphoid fracture. Suspect that this is secondary to inflammation resulting in pressure on the radial nerve. She has not used any anti-inflammatories. I have suggested the use of this. Who additional paresthesias. With a severe that she is stable for discharge, outpatient follow-up PCP. Differential Diagnosis Differential Diagnoses: The differential diagnosis associated with the presentation includes (See narrative above) Independent Historian Clinical information obtained from an independent historian. History obtained from or confirmed by: Spouse External Record Review External record reviewed: Outpatient record Prescription Management I considered prescription management with: Pain Medication (Acetaminophen/ibuprofen) Discharge Plan Discharge Clinical Impression: Sprain and strain of wrist Patient Disposition: Home, Self-Care Instructions: Wrist Sprain (ED) Additional Instructions: Be sure to rest over the next few days. Apply ice for 10-15 minutes 4-6 times daily. Wear the wrist splint as previously provided. You can take ibuprofen 200 mg, 3 tablets (600mg) every 6-8 hours as needed for pain, in addition to Tylenol 500 mg, 2 tablets (1,000mg) every 4-6 hours as needed for pain, but not to exceed 3 doses daily (3,000mg).? Prescriptions: No Action sulfamethoxazole-trimethoprim [Bactrim DS] 800-160 mg tablet 1 tab PO Q12H 7 Days Qty: 14 0RF metronidazole 500 mg tablet 500 mg PO BID 7 Days Qty: 14 0RF ibuprofen 400 mg tablet 400 mg PO Q6H PRN (Reason: pain) Qty: 14 0RF cyclobenzaprine 5 mg tablet 5 mg PO TID PRN (Reason: muscle spasm) Qty: 12 0RF acetaminophen 325 mg capsule 650 mg PO Q6H PRN (Reason: pain) Qty: 14 0RF albuterol sulfate 0.63 mg/3 mL solution for nebulization 0.63 mg inhalation Q8H PRN (Reason: shortness of breath or wheezing) Qty: 90 0RF ketorolac 10 mg tablet 10 mg PO Q6H PRN (Reason: pain) Qty: 20 0RF Rx Instructions: maximum total duration of 5 days from all oral, intranasal, or parenteral formulations. The patient received an intramuscular dose of Toradol here in the emergency room cyclobenzaprine 5 mg tablet 5 mg PO BEDTIME PRN (Reason: muscle spasm) Qty: 4 0RF ketorolac 10 mg tablet 10 mg PO Q6H PRN (Reason: pain) 5 Days Qty: 20 0RF Rx Instructions: Patient received Toradol in the emergency room. ondansetron 4 mg tablet,disintegrating 4 mg PO Q8H 3 Days Qty: 9 0RF ondansetron 4 mg tablet,disintegrating 4 mg PO Q6-8H PRN (Reason: nausea and vomiting) Qty: 14 0RF levetiracetam [Keppra] 500 mg tablet 500 mg PO BID Qty: 60 2RF ibuprofen 400 mg tablet 400 mg PO Q8H PRN (Reason: pain) Qty: 30 0RF Referrals: Physician,Unknown J [Primary Care Provider, Medical] Print Language: Faroese
[2024-11-09 10:25] VITALS: BP 103/66; PULSE 66; RESP 16; TEMP 36.3; O2SAT 98
--- OUTSIDE RECORDS SUMMARY | 2024-11-09 10:37 | XMS_ITS | Clinical Summary ---
Author Organization [facility] Address [email or web address] [facility] [address] [place] [id number] Phone Care Team Providers Care Sales Contracts Analyst Name Role Phone Sandra Guadalupe BOTTLE CAPPER Primary Care Provider [phone] Allergies Active Allergy Reactions Criticality Noted Date Comments Amoxicillin-Pot Clavulanate Hives,Shortness Of Breath High 10/10/2023 Bee Pollen Hives,Itching,Shortn ess Of Breath,Throat Tightness High 06/09/2022 Haloperidol 06/09/2022 Honey Hives 03/05/2019 Montelukast 06/09/2022 Medications therapeutic multivitamin tablet Take 1 tablet by mouth daily. Active ibuprofen (ADVIL,MOTRIN) 200 MG tablet Take 400 mg by mouth every 6 (six) hours as needed for pain (specific location in comments). Active ARNICA TOP by Topical (Top) route. Active hydrOXYzine (ATARAX) 50 MG tablet Take 50 mg by mouth daily as needed. Active EPINEPHrine 0.3 mg/0.3 mL auto-injector 3 Active escitalopram oxalate (LEXAPRO) 10 MG tablet Take 10 mg by mouth daily. 4 Active omega 1-fse-ghu-fish oil 1,000 mg (250 mg-750 mg)/5 mL Liqd 1 capsule. Active ondansetron (ZOFRAN-ODT) 4 MG disintegrating tablet TAKE 1 TABLET BY MOUTH EVERY 6-8 HOURS NEEDED FOR NAUSEA/VOMITIN G 4 Active cholecalciferol (VITAMIN D3) 5,000 unit capsuleIndications :Vitamin D deficiency, unspecified take 1 capsule by mouth every day 90 capsule 1 4 Active albuterol (ACCUNEB) 1.25 mg/3 mL nebulizer solution USE 3 ML (1 VIAL) INHALATION 3 TIMES A DAY NEEDED FOR WHEEZING 3 mL 4 Active SYMBICORT 160-4.5 mcg/actuation inhaler USE 2 PUFFS INHALATION 2 TIMES A DAY 10.2 g 4 Active albuterol 90 mcg/actuation inhaler Inhale 2 puffs into the lungs every 6 (six) hours as needed. 6.7 g 2 4 Active Active Problems Problem Noted Date Diagnosed Date Vitamin D insufficiency 10/10/2023 Assessment & Plan (10/16/2023 8:30 PM EDT): Continue daily supplementation to keep it in optimal range: 40-45 ng/ml. Nausea 06/09/2023 Assessment & Plan (06/12/2023 7:07 PM EST): Keep diary of symptoms and modifiers to look for patterns and triggers. Eat well-balanced nutritionally diet in 4-6 smaller meals daily no longer than 3 hours apart. Follow-up with PCP and shipping helper if not better or worse Underweight 06/09/2023 Assessment & Plan (06/12/2023 7:10 PM EST): I have explained to her importance of achieving optimal body weight for her height in reducing the risk of infection (s) and achieving maximal bone density by the age of 30. 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 Remember to take it always with food. Favor topical over oral preparations. I have previously educated her that taking 2 different nonsteroidal anti- inflammatory medications increases risk of complications/side effects such as esophageal, gastric, duodenal or intestinal bleed, electrolyte abnormalities, renal dysfunction etc. Assessment & Plan (06/12/2023 7:06 PM EST): Take the lowest dose, with least frequency, for shortest time. Remember to take it always with food. Favor topical over oral preparations. I had a few minutes discussion regarding naproxen and ibuprofen on the list of her medications & educated her not to take both medications but stick with naproxen 440 mg that she prefers for acute pain because it works better. I explained to her that taking 2 different nonsteroidal anti-inflammatory medications increases risk of complications/side effects such as esophageal, gastric, duodenal or intestinal bleed, electrolyte abnormalities, renal dysfunction etc. Assessment & Plan (08/10/2020 8:25 PM EDT): Take the lowest dose, with least frequency, for shortest time. Remember to take it always with food. Favor topical over oral preparations. SSRI (selective serotonin re uptake inhibitor) causing adverse effect in therapeutic use 08/04/2020 Assessment & Plan (08/10/2020 8:25 PM EDT): Monitor for mood swings, increased muscle rigidity and temperature intolerance. Carpal tunnel syndrome of left wrist 08/04/2020 Assessment & Plan (08/10/2020 8:23 PM EDT): Avoid prolonged work particularly repetitive motion. Use supportive wrist for nighttime and extended activities. Raynaud's disease without gangrene 02/04/2020 Assessment & Plan (10/16/2023 8:28 PM EDT): Keep warm, dress in layers. Optimize stress management strategies. Avoid vasoconstrictors in OTC products for cold/flu and sinus. Assessment & Plan (06/12/2023 7:09 PM EST): Keep warm, dress in layers. Optimize stress management strategies. Avoid vasoconstrictors in OTC products for cold/flu and sinus. Assessment & Plan (08/10/2020 8:22 PM EDT): Keep warm, dress in layers. Optimize stress management strategies. Avoid vasoconstrictors in OTC products for cold/flu and sinus. Assessment & Plan (04/04/2020 8:07 AM EST): Keep warm, dress in layers. Optimize stress management strategies. Avoid vasoconstrictors in OTC products for cold/flu and sinus. Assessment & Plan (02/05/2020 8:46 PM EDT): Keep warm, dress in layers. Optimize stress management strategies. Avoid vasoconstrictors in OTC products for cold/flu and sinus. Weight loss 06/06/2019 Assessment & Plan (06/06/2019 12:45 PM EST): Despite regular , well balanced nutritionally meals Abby lost 18 lbs since last visit on 03/05/19. Consider GI/ tar pot man/ dietitian consult Other insomnia 06/06/2019 Assessment & Plan (06/12/2023 7:08 PM EST): Due to ongoing problems with getting asleep & keeping asleep despite using melatonin 1- 5 mg nightly & following sleep hygiene Listen to relaxation tapes nightly and every time she wakes up x 3-4 mths. Consider formal sleep study particularly if waking up gasping for air. Assessment & Plan (08/10/2020 8:23 PM EDT): Due to ongoing problems with getting asleep & keeping asleep despite using melatonin 1- 5 mg nightly & following sleep hygiene Suggest carefully increasing nightly dose of fluoxetine from 20 mg to 30 mg if no contraindications by ticket clerk Consider formal sleep study Assessment & Plan (06/06/2019 1:03 PM EST): Due to ongoing problems with getting asleep & keeping asleep despite using melatonin 1- 5 mg nightly & following sleep hygiene Suggest carefully increasing nightly dose of fluoxetine from 20 mg to 30 mg if no contraindications by ticket clerk Consider formal sleep study Chronic fatigue 03/05/2019 Assessment & Plan (04/04/2020 8:10 AM EST): Balance rest and activity. Proper hydration. Well-balanced nutritionally diet. Sleep hygiene. Keep up-to-date with age-appropriate screenings and preventive strategies. Regular hobbies/favorite activities. Assessment & Plan (02/05/2020 8:50 PM EDT): Balance rest and activity. Proper hydration. Well-balanced nutritionally diet. Sleep hygiene. Keep up-to-date with age-appropriate screenings and preventive strategies. Regular hobbies/favorite activities. Assessment & Plan (07/02/2019 6:29 PM EDT): Balance rest and activity. Proper hydration. Well-balanced nutritionally diet. Sleep hygiene. Keep up-to-date with age-appropriate screenings and preventive strategies. Regular hobbies/favorite activities. Assessment & Plan (03/05/2019 5:57 PM EST): Balance rest and activity. Proper hydration. Well-balanced nutritionally diet. Sleep hygiene. Keep up-to-date with age-appropriate screenings and preventive strategies. Regular hobbies/favorite activities. Mild intermittent asthma 03/05/2019 Assessment & Plan (04/07/2020 11:20 PM EST): Avoid known triggers. Renew albuterol and Symbicort as prescribed. Assessment & Plan (03/05/2019 5:58 PM EST): Continue Maddy, Symbicort as prescribed. Avoid known allergens. Arthralgia of multiple sites 03/05/2019 Assessment & Plan (10/16/2023 8:28 PM EDT): To make sure that she did not progress to any major systemic rheumatic diseases I took the liberty of new set of lab work today and have reassured her that she has little to support diagnosis of hypermobile Kevin-Danlos syndrome- 3/9 Beighton score. Continue regular topical Arnica, warm packs and avoid falls, injuries, overuse. Gentle, regular stretching, ROM, and muscle strengthening exercises preceded by warm packs. Call if worse or with questions. Keep diary of dizzy spells and modifying factors. Take pictures of swollen joints if persist for longer than 48 hours call the office for evaluation. Due to diffuse exquisite tenderness in all fibromyalgia tender points I diagnosed her with fibromayalgia and provided her with literature on it. She is asked to read book written by Dr Doug phillips addressing management strategies for patients with fibromyalgia utilizing mindfulness approach. Due to her young age and sensitivity to medications I suggested her to focus on nonpharmacologic measures first. In case her efforts are insufficient we may need to consider low-dose prescription medication such as gabapentin or carefully amitriptyline versus Lyrica. We discussed the diagnosis of fibromyalgia, its natural history, and treatment. Specifically, we discussed that treatment requires many interventions and recognition that we are often unable to get patients completely pain free. Management of fibromyalgia requires patient engagement to address any underlying depression, anxiety, or sleep disorder. Further, patients are encouraged to engage in regular physical activity. Some studies have suggested that Hong Chi is effective. Other physical activity may including water-based aerobics, regular walking, biking, yoga, Pilates etc. I have encouraged her to continue working hard to achieve optimal body weight that is very important in developing optimal bone density and brain function. Assessment & Plan (06/12/2023 7:03 PM EST): To make sure that she did not progress to any major systemic rheumatic diseases I took the liberty of new set of lab work today and have reassured her that she has little to support diagnosis of hypermobile Kevin-Danlos syndrome- 3/9 Beighton score. Continue regular topical Arnica, warm packs and avoid falls, injuries, overuse. Gentle, regular stretching, ROM, and muscle strengthening exercises preceded by warm packs. Call if worse or with questions. Keep diary of dizzy spells and modifying factors. Take pictures of swollen joints if persist for longer than 48 hours call the office for evaluation. Due to diffuse exquisite tenderness in all fibromyalgia tender points I diagnosed her with fibromayalgia and provided her with literature on it. She is asked to read book written by Dr Doug phillips addressing management strategies for patients with fibromyalgia utilizing mindfulness approach. Due to her young age and sensitivity to medications I suggested her to focus on nonpharmacologic measures first. In case her efforts are insufficient we may need to consider low-dose prescription medication such as gabapentin or carefully amitriptyline versus Lyrica. We discussed the diagnosis of fibromyalgia, its natural history, and treatment. Specifically, we discussed that treatment requires many interventions and recognition that we are often unable to get patients completely pain free. Management of fibromyalgia requires patient engagement to address any underlying depression, anxiety, or sleep disorder. Further, patients are encouraged to engage in regular physical activity. Some studies have suggested that Hong Chi is effective. Other physical activity may including water-based aerobics, regular walking, biking, yoga, Pilates etc. I have encouraged her to continue working hard to achieve optimal body weight that is very important in developing optimal bone density and brain function. Assessment & Plan (08/10/2020 8:25 PM EDT): Continue regular topical Arnica, warm packs and avoid falls, injuries, overuse. Gentle, regular stretching, ROM, and muscle strengthening exercises preceded by warm packs. Call if worse or with questions. Keep diary of dizzy spells and modifying factors. Take pictures of swollen joints if persist for longer than 48 hours call the office for evaluation. Due to diffuse exquisite tenderness in all fibromyalgia tender points I diagnosed her with fibromayalgia and provided her with literature on it. She is asked to read book written by Dr Doug Silverio [employer] [facility] addressing management strategies for patients with fibromyalgia utilizing mindfulness approach. Due to her young age and sensitivity to medications I suggested her to focus on nonpharmacologic measures first. In case her efforts are insufficient we may need to consider low-dose prescription medication such as gabapentin or carefully amitriptyline versus Lyrica. We discussed the diagnosis of fibromyalgia, its natural history, and treatment. Specifically, we discussed that treatment requires many interventions and recognition that we are often unable to get patients completely pain free. Management of fibromyalgia requires patient engagement to address any underlying depression, anxiety, or sleep disorder. Further, patients are encouraged to engage in regular physical activity. Some studies have suggested that Hong Chi is effective. Other physical activity may including water-based aerobics, regular walking, biking, yoga, Pilates etc. I have encouraged her to continue working hard to achieve optimal body weight that is very important in developing optimal bone density and brain function. Assessment & Plan (04/04/2020 8:09 AM EST): Continue regular topical Arnica, warm packs and avoid falls, injuries, overuse. Gentle, regular stretching, ROM, and muscle strengthening exercises preceded by warm packs. Call if worse or with questions. Keep diary of dizzy spells and modifying factors. Take pictures of swollen joints if persist for longer than 48 hours call the office for evaluation. Due to diffuse exquisite tenderness in all 18/18 fibromyalgia tender points I diagnosed her with fibromayalgia and provided her with literature on it. She is asked to read book written by Dr Doug phillips addressing management strategies for patients with fibromyalgia utilizing mindfulness approach. Due to her young age and sensitivity to medications I suggested her to focus on nonpharmacologic measures first. In case her efforts are insufficient we may need to consider low-dose prescription medication such as gabapentin or carefully amitriptyline versus Lyrica. We discussed the diagnosis of fibromyalgia, its natural history, and treatment. Specifically, we discussed that treatment requires many interventions and recognition that we are often unable to get patients completely pain free. Management of fibromyalgia requires patient engagement to address any underlying depression, anxiety, or sleep disorder. Further, patients are encouraged to engage in regular physical activity. Some studies have suggested that Hong Chi is effective. Other physical activity may including water-based aerobics, regular walking, biking, yoga, Pilates etc. I congratulated her on working hard to achieve optimal body weight that is very important in developing optimal bone density and brain function. Assessment & Plan (02/05/2020 8:49 PM EDT): Continue regular topical Arnica, warm packs and avoid falls, injuries, overuse. Gentle, regular stretching, ROM, and muscle strengthening exercises preceded by warm packs. Call if worse or with questions. Keep diary of dizzy spells and modifying factors. Take pictures of swollen joints if persist for longer than 48 hours call the office for evaluation. Due to diffuse exquisite tenderness in all 18/18 fibromyalgia tender points I diagnosed her with fibromayalgia and provided her with literature on it. She is asked to read book written by Dr Doug phillips addressing management strategies for patients with fibromyalgia utilizing mindfulness approach. Due to her young age and sensitivity to medications I suggested her to focus on nonpharmacologic measures first. In case her efforts are insufficient we may need to consider low-dose prescription medication such as gabapentin or carefully amitriptyline versus Lyrica. We discussed the diagnosis of fibromyalgia, its natural history, and treatment. Specifically, we discussed that treatment requires many interventions and recognition that we are often unable to get patients completely pain free. Management of fibromyalgia requires patient engagement to address any underlying depression, anxiety, or sleep disorder. Further, patients are encouraged to engage in regular physical activity. Some studies have suggested that Hong Chi is effective. Other physical activity may including water-based aerobics, regular walking, biking, yoga, Pilates etc. I congratulated her on working hard to achieve optimal body weight that is very important in developing optimal bone density and brain function. Assessment & Plan (07/02/2019 6:29 PM EDT): Continue regular topical Arnica, warm packs and avoid falls, injuries, overuse. Gentle, regular stretching, ROM, and muscle strengthening exercises preceded by warm packs. Call if worse or with questions. Keep diary and take pictures of swollen joints if persist for longer than 48 hours call the office for evaluation. Due to diffuse exquisite tenderness in all fibromyalgia tender points I diagnosed her with fibromayalgia and provided her with literature on it. She is asked to read book written by Dr Doug Silverio [employer] [facility] addressing management strategies for patients with fibromyalgia utilizing mindfulness approach. Due to her young age and sensitivity to medications I suggested her to focus on nonpharmacologic measures first. In case her efforts are insufficient we may need to consider low-dose prescription medication such as gabapentin or carefully amitriptyline versus Lyrica. We discussed the diagnosis of fibromyalgia, its natural history, and treatment. Specifically, we discussed that treatment requires many interventions and recognition that we are often unable to get patients completely pain free. Management of fibromyalgia requires patient engagement to address any underlying depression, anxiety, or sleep disorder. Further, patients are encouraged to engage in regular physical activity. Some studies have suggested that Hong Chi is effective. Other physical activity may including water-based aerobics, regular walking, biking, yoga, Pilates etc. Assessment & Plan (03/05/2019 6:03 PM EST): Continue regular topical Arnica, warm packs and avoid falls, injuries, overuse. Gentle, regular stretching, ROM, and muscle strengthening exercises preceded by warm packs. Call if worse or with questions. Keep diary and take pictures of swollen joints if persist for longer than 48 hours call the office for evaluation. Due to diffuse exquisite tenderness in all fibromyalgia tender points I diagnosed her with fibromayalgia and provided her with literature on it. She is asked to read book written by Dr Doug Silverio [employer] [facility] addressing management strategies for patients with fibromyalgia utilizing mindfulness approach. Due to her young age and sensitivity to medications I suggested her to focus on nonpharmacologic measures first. In case her efforts are insufficient we may need to consider low-dose prescription medication such as gabapentin or carefully amitriptyline versus Lyrica. We discussed the diagnosis of fibromyalgia, its natural history, and treatment. Specifically, we discussed that treatment requires many interventions and recognition that we are often unable to get patients completely pain free. Management of fibromyalgia requires patient engagement to address any underlying depression, anxiety, or sleep disorder. Further, patients are encouraged to engage in regular physical activity. Some studies have suggested that Hong Chi is effective. Other physical activity may including water-based aerobics, regular walking, biking, yoga, Pilates etc. Fever 03/05/2019 Assessment & Plan (03/05/2019 5:58 PM EST): Keep a diary of fevers with accompanying symptoms and modifiers and bring it for review at next office visit. May consider getting blood work if symptoms persist over 48-72 hours. Anxiety 03/05/2019 Assessment & Plan (08/10/2020 8:24 PM EDT): Continue anxiety management strategies as educated by psychotherapist. Deep breathing techniques, regular meditation. Avoid triggering situations. Assessment & Plan (04/04/2020 8:08 AM EST): Continue anxiety management strategies as educated by psychotherapist. Deep breathing techniques, regular meditation. Avoid triggering situations. Assessment & Plan (07/02/2019 6:29 PM EDT): Continue anxiety management strategies as educated by psychotherapist. Deep breathing techniques, regular meditation. Avoid triggering situations. Assessment & Plan (03/05/2019 5:55 PM EST): Continue anxiety management strategies as educated by psychotherapist. Deep breathing techniques, regular meditation. Avoid triggering situations. PTSD (post-traumatic stress disorder) 03/05/2019 Assessment & Plan (06/12/2023 7:09 PM EST): Continue strategies as educated in personal psychotherapy and avoid triggering events. Assessment & Plan (02/05/2020 8:46 PM EDT): Continue strategies as educated in personal psychotherapy and avoid triggering events. Assessment & Plan (06/06/2019 12:47 PM EST): Continue strategies as educated in personal psychotherapy and avoid triggering events. Assessment & Plan (03/05/2019 5:59 PM EST): Continue strategies as educated in personal psychotherapy and avoid triggering events. Other acne 03/05/2019 Assessment & Plan (02/05/2020 8:50 PM EDT): See armoured corps officer for exploring other therapeutic options both oral and topical. Assessment & Plan (07/02/2019 6:29 PM EDT): See armoured corps officer for exploring other therapeutic options both oral and topical. Assessment & Plan (03/05/2019 5:58 PM EST): See armoured corps officer for exploring other therapeutic options both oral and topical. Immunizations Immunization Administration Dates Next Due COVID-19 (Pre-02/14) Pfizer Vaccine, mRNA, PF ,06/11/2020 Influenza Quadrivalent Preservative Free IM 01/23 Social History Tobacco Use Types Packs/Day Years Used Date Smoking Tobacco: Former Smokeless Tobacco: Never Comments:rarely in the past, vaped tobacco and CDB in the past Alcohol Use Standard Drinks/Week Comments Never 0 (1 standard drink = 0.6 oz pur e alcohol) Education Answer Date Recorded Are you interested in more education? Not on chichi e 08/20/2022 Are you concerned about learning? Not on file 08/20/2022 No 08/20/2022 No 08/20/2022 Digital Access Answer Date Recorded No 09/21/2022 No 09/21/2022 Reliable internet access at home? Not on file 09/21/2022 Device with a working camera? Not on file Intimate Partner Violence Answer Date R ecorded Are you denied basic needs s uch as food, clothing, or medical care? No 02/29/2024 In the past 12 months have y ou been in a relationship with a person who hurts, threatens, or tries to control you? No 02/29/2024 Are you denied basic needs s uch as food, clothing, or medical care? No 02/29/2024 In the past 12 months have y ou been in a relationship with a person who hurts, threatens, or tries to control you? No 02/29/2024 Comments Unknown Sex and Gender Information Value Date Recorded Sex Assigned at Female 05/01/2022 4:14 PM EST Legal Sex Female 11:10 AM EDT Gender Identity Female 05/01/2022 4:14 PM EST Sexual Orientation Bisexual 05/01/2022 4: 14 PM EST Last Filed Vital Signs Vital Sign Reading Time Taken Comments Blood Pressure 105/68 02/29/2024 9:10 PM EST Pulse 71 02/29/2024 9:10 PM EST Temperature 36.6 C (97.9 F) 02/29/2024 9:10 PM EST Respiratory Rate 18 02/29/2024 9:10 PM EST Oxygen Saturation 97% 02/29/2024 9:10 PM EST Inhaled Oxygen Concentration - - Weight 55.3 kg (122 lb) 02/29/2024 7:41 PM EST Height 165.1 cm (5' 5 ) 02/29/2024 7:41 PM EST Body Mass Index 20.3 02/29/2024 7:41 PM EST Plan of Treatment Health Maintenance Due Date Last Done Comments Adult Td,Tdap Booster 2000 DEPRESSION SCREENING 2012 SMOKING Hx and SMOKELESS TOBACCO SCREENING 2013 CHLAMYDIA SCREENING 2016 HEPATITIS C SCREENING 2018 HIV ONE-TIME SCREENING (18-6 5 YEARS) 2018 PNEUMOCOCCAL VACCINES (0-49 years) (1 of 2 - PCV) 12/26/2019 PAP SMEAR 2021 COVID-19 VACCINE (4 - 2023-2 5 season) 2023 04/04/2021, 07/03/2020, 06/11/2020 MENINGOCOCCAL VACCINES (ACWY) Completed 01/02/2018 MENINGOCOCCAL VACCINES (B) Completed 03/14, 01/02/2018 HPV VACCINES Completed 09/15/2018, 03/14/2018, 01/02/2018 HEPATITIS A VACCINES Aged Out No long er eligible based on patient's age to complete this topic HIB VACCINES Aged Out No longer eligi ble based on patient's age to complete this topic Medical Devices Not on file Insurance [employer] [address] [place], [place] [address] Care Teams Sales Contracts Analyst Relationship Specialty Start Date End Date Sandra Guadalupe NP [address] [place] [address] [email or web address] medical [email or web address] PCP - General Nurse Practitioner 02/29/24 Additional Source Comments The information contained in this document represents components of the legal health record. It is not the complete legal health record.[facility]
--- OUTSIDE RECORDS SUMMARY | 2024-11-09 10:37 | XMS_ITS | Patient Health Record ---
Author Organization [facility] Address [address] [place] [address] Care Team Providers Care Environmental Science Technician Name Role Phone SCOTT BRONSON Unavailable [phone] Allergies Allergen (clinical drug ingredient) Drug/Non Drug Allergy documented on EMR Reaction Allergy Type Onset Date Status amoxicillin / clavulanate Augmentin anaphylaxis Drug Allergy Active Bees Wax shortness of breath Drug Allergy Active Honey anaphylaxis Drug Allergy Activ e Bee Sting anaphylaxis Allergy Active Reason For Referral Reason eval and treat Diagnosis 1 Medication refill (Z 76.0) Referral Organization [facility] Referring Provider First [...] Temperature Encounters Encounter Location Date Provider Diagnosis [facility] [address] [place] [address] 12/01/2023 SCOTT BRONSON Prediabetes R73.03 and Medication [...] of [place] [address] [place] [address] [id number] Abby Alves Self - patient is the insured Medical (General) History Medical History History ICD Code Postural orthostatic tachycardia syndrom e 2020 Chronic fatigue syndrome 2018 Hypermobile 2018 Fibromyalgia 2019 Asthma 2006 Depression 2012 Generalized anxiety disorder 2012 Borderline Personality disorder 2017
--- OUTSIDE RECORDS SUMMARY | 2024-11-09 10:37 | XMS_ITS | Clinical Summary ---
Author Organization [address] [facility] Address [address] [place] [address] Phone Care Team Providers Care Scientific Photographer Name Role Phone Sandra Ridley Primary Care Provider [phone] Allergies Active Allergy Reactions Criticality Noted Date [...] EDT Consult Gastroenterology - [address] [facility] [address] [place] [id number] Lizzette Padgett PA [address] [place] [address] Health Maintenance Due Date Last Done Comments [...] patient's age to complete this topic Insurance [facility] Care Teams Scientific Photographer Relationship Specialty Start Date End Date [place]-S[place] Lim [address] [place] [address] PCP - General Family Medicine 03/05/24
--- OUTSIDE RECORDS SUMMARY | 2024-11-09 10:38 | XMS_ITS | Patient Health Record ---
Author Organization [facility] Address [address] [facility] [facility] [address] [place] [address] Care Team Providers Care Cardiac Technician Name Role Phone JEANCARLOS STILES Unavailable [phone] Allergies No Known Allergies Reason For Referral No Information Medications Medication SIG (Take, Route, Frequency, Duration) Notes Start Date End Date Status Simethicone 80 MG 1 tablet after meals and at bedtime as needed Orally Four times a day Active Vitamin D3 1.25 MG (53289 UT) 1 capsule Orally; Duration: 30 day(s) [...] severe cramping (at [facility]) 02/25/2020 Not-Taking [place] 3 1000 MG 1 capsule Orally Once [...] Risk Notes Problem Major depression, single episode (02602615) Major depressive disorder, single episode, unspecified (F32.9) Active confirmed Problem Anxiety disorder (661680391) Anxiety disorder, unspecified (F41.9) Active confirmed Problem Posttraumatic stress disorder (03430953) Post-traumatic stress disorder, chronic (F43.12) Active confirmed Problem Migraine with aura (7501042) Migraine with aura, not intractable, with status migrainosus (G43.101) Active confirmed Problem Uncomplicated asthma (disorder) (389364714) Unspecified asthma, uncomplicated (J45.909) Active confirmed Problem Fibromyalgia (280013921) Fibromyalgia (M79.7) Active confirmed Problem Abnormal uterine bleeding (17461142833281) Abnormal uterine and vaginal bleeding, unspecified (N93.9) Active confirmed Problem Chronic fatigue syndrome (disorder) (83482470) Chronic fatigue, unspecified (R53.82) Active confirmed Plan Of Treatment Pending Test Test Name Order Date Test, Urine 02/25/2020 Test, Urine 09/15/2021 ULTRASOUND: PELVIC W/TRANSVAGINAL 2019 Insurance Providers Payer Name Payer Address Payer Phone Subscriber Number Group Number Insured Name Patient Relationship to Insured Coverage Start Date Coverage End Date [facility] [address] [address] [place] [id number] CHRIS AGARWAL Self - patient is the insured Medical (General) History Medical History History ICD Code Unspecified asthma, uncomplicated J45.90 9 Encounter for screening for depression Z 13.31 Anxiety disorder, unspecified F41.9 Migraine with aura, not intractable, wit h status migrainosus G43.101 Surgical History Surgery Date(Month/Year) Tonsils and Adenoids 2007
== END 2024-11-09 10:25 | disposition home or self-care (01) ==
PROVIDERS: Emergency Provider Emergency Medicine
DX: M79.645 Pain in left finger(s) (principal); S63.502D Unspecified sprain of left wrist, subsequent encounter; S66.912D Strain of unspecified muscle, fascia and tendon at wrist and hand level, left hand, subsequent encounter; X58.XXXD Exposure to other specified factors, subsequent encounter
CPT/HCPCS: 99282

== ENCOUNTER 2024-11-15 17:54 | Emergency (ER) | payer OTHER, SELFPAY ==
--- NOTE | 2024-11-15 | ECG_ITS ---
Test Reason : cp Blood Pressure : */* mmHG Vent. Rate : 89 BPM Atrial Rate : 89 BPM P-R Int : 124 ms QRS Dur : 80 ms QT Int : 328 ms P-R-T Axes : 74 94 4 degrees QTcB Int : 399 ms Normal sinus rhythm Possible Left atrial enlargement Rightward axis Low voltage QRS Nonspecific ST and T wave abnormality Abnormal ECG When compared with ECG of 20-Oct-2024 19:38, Incomplete right bundle branch block is no longer Present Referred By: Generic ED Physician Electronically Signed By: Alberto Amezcua
--- NOTE | ~2024-11-15 | XR_ITS ---
CLINICAL HISTORY: CP 2 view chest x-ray Comparison: CR - XR CHEST 1V - 10/14/24 21:14 EDT Findings: The lungs are clear. Heart size is normal. No acute fracture. IMPRESSION: 1. No acute findings. This document has been electronically signed by: Rafael Ruiz MD on 11/15/2024 19:01:08
[2024-11-15 18:12] VITALS: BP 112/68; PULSE 99; RESP 16; TEMP 36.7; O2SAT 97; BMI 18.6
--- NOTE | 2024-11-15 18:15 | ED_ITS ---
HPI - Chest Pain General Chief Complaint: Chest Pain Stated Complaint: Chest pain / sharp pain into left shoulder Time Seen by Provider: 11/15/24 20:09 Source: patient Mode of arrival: ambulatory Limitations: no limitations History of Present Illness ED Provider: DR. Lozada HPI narrative: 23-year-old female came in for evaluation of chest pain that is started 2 weeks ago pain was intermittent now is becoming constant pain localized to the left side chest pain, radiates toward the left shoulder and left side of the neck. Pain described as constant sharp pain localized to the left chest wall, increased with movement and taking a deep breath, no recent travel, recent prolonged immobilization, no lower extremity swelling or tenderness, no fever no chills, no family history of coronary artery disease at young ages. Patient has smoked vape and trying to quit, smokes marijuana daily. Related Data Previous Rx's ?Medication ?Instructions ?Recorded cyclobenzaprine 5 mg tablet 5 mg PO BEDTIME PRN muscle spasm 12/23/22 #4 tabs ketorolac 10 mg tablet 10 mg PO Q6H PRN pain 5 days #20 12/23/22 tabs ondansetron 4 mg disintegrating 4 mg PO Q8H 3 days #9 tabs 02/25/23 tablet ondansetron 4 mg disintegrating 4 mg PO Q6-8H PRN naus ea and 05/23/23 tablet vomiting #14 tabs levetiracetam 500 mg tablet 500 mg PO BID #60 tabs (Keppra) metronidazole 500 mg tablet 500 mg PO BID 7 days #14 t abs 07/06/24 sulfamethoxazole 800 1 tab PO Q12H 7 days #14 tab s 07/06/24 mg-trimethoprim 160 mg tablet (Bactrim DS) acetaminophen 325 mg capsule 650 mg (2 x 325 mg) PO Q6 H PRN 10/07/24 pain #14 caps cyclobenzaprine 5 mg tablet 5 mg PO TID PRN muscle spa sm #12 10/07/24 tabs ibuprofen 400 mg tablet 400 mg PO Q6H PRN pain #14 t abs 10/07/24 albuterol sulfate 0.63 mg/3 mL 0.63 mg (3 mL) inhalati on Q8H PRN 10/14/24 solution for nebulization shortness of breath or wheez ing #90 mL ketorolac 10 mg tablet 10 mg PO Q6H PRN pain #20 ta bs 10/27/24 ibuprofen 400 mg tablet 400 mg PO Q8H PRN pain #30 t abs 11/08/24 Allergies Allergy/AdvReac Type Severity Reaction Status Date / Time beeswax Allergy Unknown Verified 11/15/24 18:14 haloperidol (From Haldol) Allergy Unknown Verified 11/15/24 18:14 honey Allergy Unknown Verified 11/15/24 18:14 montelukast Allergy Unknown Verified 11/15/24 18:14 Penicillins Allergy Difficulty Verified 11/15/24 18:14 Swallowing Review of Systems 2 Review of Systems: All other systems are reviewed and are negative Constitutional: Reports as per HPI and Reports no additional constitutional complaints Eyes: Reports as per HPI and Reports no additional eye complaints Reports system reviewed and no additional complaints, except as documented Cardiovascular: Reports as per HPI and Reports no additional cardiovascular complaints Respiratory: Reports as per HPI and Reports no additional respiratory complaints Gastrointestinal: Reports as per HPI and Reports no additional gastrointestinal complaints Genitourinary: Reports no additional female genitourinary complaints Musculoskeletal: Reports no additional musculoskeletal complaints Skin/Breast: Reports system reviewed and no additional complaints, except as docu Psychiatric: Reports no additional psychiatric complaints Endocrine: Reports no additional endocrine complaints Hematologic/Lymphatic: Reports no additional hematologic/lymphatic complaints Allergic/Immunologic: Reports no additional allergic/immunologic complaints Reports system reviewed and no additional complaints, except as documented and Reports Abnormal speech present [facility] Social History Social History Alcohol intake: never Substance Use Type: Marijuana Advance Directives: No Advance Directives Information Provided: Yes Do you have a plan to hurt others: No Plan Physical Exam 2 Vital Signs: Vital Signs: Last Vital Signs Temp 98.1 F 11/15/24 18:12 Pulse 99 11/15/24 18:12 Resp 16 11/15/24 18:12 BP 112/68 11/15/24 18:12 Pulse Ox 97 11/15/24 18:12 O2 Del Method Room Air 11/15/24 18:12 BMI result Body Mass Index 18.6 Vital signs have been reviewed and appear to be correct. Blood pressure elevated. Heart rate normal. Respiratory rate normal. Temperature normal. Oxygen saturation normal. Appearance: Alert. Oriented X3. No acute distress. Head: Normal external exam. Normocephalic. Atraumatic. No Marques signs noted. No raccoon eyes noted Eyes: PERRLA. EOMI. Conjunctiva and sclera normal. Eyelids normal. ENT: TM's Normal. Pharynx normal. Uvula midline. Moist mucous membranes. No trismus noted. No drooling noted. No muffled voice noted. Neck: Normal inspection. Neck supple. FROM. No adenopathy. Thyroid Normal. No meningeal signs. No neck mass noted. CVS: Normal heart rate and rhythm. Heart sound normal. No murmurs noted. Pulses normal throughout. Respiratory: No respiratory distress. Painless inspiration. Breath sounds normal. No wheezes/rales/rhonchi noted. Reproducible tenderness to the left costophrenic area, no swelling, no redness, no step-off. No accessory muscle usage noted or decreased air movement noted. Abdomen: Soft and nontender. Bowel sounds normal in all 4 quadrants. No distention noted. No organomegaly noted. No visible injury noted. Back: No CVA tenderness. Full range of motion noted. Skin: Skin warm and dry. Normal skin color. Normal skin turgor. No rashes/lesions/lacerations noted. Extremities: No lower extremity edema. Extremities exhibit normal range of motion. Extremities nontender. Neuro: Oriented X 3. Cranial nerve exam: II-XII are grossly intact No motor deficit. No sensory deficit. Reflexes normal. Course Course Course Narrative: This is an RME: Additional HPI, ROS, PE not included below will be deferred to primary provider. RME assessment and note performed by: Jessica Simms PA-C This is a 80-ad[age]-pgm-female, with a history of POTS, who presents emergency department with concerns of sided chest pain, and left shoulder pain for the last 2 weeks. This has been intermittent up until today. Pain worsens with deep inspiration. Plan: Labs, EKG, chest x-ray, further ER evaluation needed. Reevaluation(s) Reevaluation #1: 23-year-old female with chest pain, low risk for ACS with negative troponin, no risk for pulmonary embolism with negative D-dimer. In light of left chest wall no reproducible tenderness. The most likely diagnosis is costochondritis, patient was instructed to apply heating pad to the tender area, NSAIDs if needed. Time: 20:33 Medical Decision Making Differential Diagnosis Differential Diagnoses: The differential diagnosis associated with the presentation includes (ACS, pulmonary embolism, pneumonia, pneumothorax, pleural effusion, electrolyte derangement, severe anemia, chest wall pain, costochondritis.) Admission/Observation Consideration of admission/observation: Escalation of care including admission/observation considered Lab Data MDM Lab Attestation statement: I reviewed the patient's lab results. 11/15/24 19:06 11/15/24 19:06 Labs: Lab Results 11/15/24 11/15/24 Range/Units 19:06 19:07 WBC 6.9 (4.8-10.8) X10*3/uL RBC 4.10 L (4.20-5.50) X10*6/uL Hgb 12.7 (12.0-16.0) g/dl Hct 37.4 (37.0-47.0) % MCV 91.2 (80.0-98.0) fL MCH 31.0 (27.0-33.0) pg MCHC 34.0 (31.0-35.0) g/dl RDW 12.8 (11.0-16.0) % Plt Count 342 D (160-400) X10*3/uL MPV 9.5 (9.4-12.3) fL Immature Gran % (Auto) 0.7 H (0.0-0.4) % Neut % (Auto) 51.0 (45-73) % Lymph % (Auto) 34.7 (20-40) % [place] % (Auto) 6.1 (2-11) % Eos % (Auto) 7.2 H (0-4) % Baso % (Auto) 0.3 (0-2) % Lymph # (Auto) 2.4 (1.2-4.9) X10*3/uL [place] # (Auto) 0.4 (0.1-1.2) X10*3/uL Eos # (Auto) 0.5 H (0.0-0.4) X10*3/uL Baso # (Auto) 0.0 (0.0-0.2) X10*3/uL Abs Immat Gran (auto) 0.05 H (0.00-0.03) X10*3/uL Absolute Neuts (auto) 3.5 (2.0-8.3) x10*3/uL Absolute Nucleated RBC 0.000 (0.0-0.012) X10*3/uL Nucleated RBC % (auto) 0.0 (0.0-0.2) /100WBC PT 10.7 L (10.9-12.4) SEC INR 0.9 (0.9-1.1) D-Dimer High Sensitivty < 150 NG/ML Sodium 142 (135-145) mmol/L Potassium 4.1 (3.3-5.1) mmol/L Chloride 107 (96-108) mmol/L Carbon Dioxide 24 (22-29) mmol/L Anion Gap 15 (12-20) BUN 21 H (9-16) mg/dL Creatinine 0.83 (0.5-1.4) mg/dL Estim Creat Clear Calc 84.3 Estimated GFR > 60 Random Glucose 82 (60-115) mg/dL Calcium 8.9 (8.4-10.2) mg/dL Total Bilirubin 0.2 (0.0-1.0) mg/dL Direct Bilirubin < 0.2 (0.0-0.5) mg/dL AST 23 (5-31) U/L ALT 16 (0-31) U/L Alkaline Phosphatase 70 (39-117) U/L Troponin I High Sens < 2.7 (<3.5-17.0) ng/L Total Protein 7.0 (6.5-8.0) g/dL Albumin 4.5 (3.5-5.0) g/dL Beta HCG, Quant < 2 mIU/mL Influenza Type A (PCR) NEGATIVE (Negative) Influenza Type B (PCR) NEGATIVE (Negative) RSV RNA Qual (PCR) NEGATIVE (Negative) SARS-CoV-2 RNA (RT-PCR) NEGATIVE (Negative) Independent Interpretation I performed an independent interpretation of an: EKG (Normal sinus rhythm at 89 beats per minutes with normal intervals, no ST-T changes.) and Plain X-Ray (Chest: No acute intrathoracic pathology.) Radiology Impression Discussion of test interpretation with radiology: I have reviewed the radiologist's reading. Discharge Plan Discharge Clinical Impression: Costalchondritis Patient Disposition: Home, Self-Care Instructions: Costochondritis (ED) Prescriptions: No Action sulfamethoxazole-trimethoprim [Bactrim DS] 800-160 mg tablet 1 tab PO Q12H 7 Days Qty: 14 0RF metronidazole 500 mg tablet 500 mg PO BID 7 Days Qty: 14 0RF ibuprofen 400 mg tablet 400 mg PO Q6H PRN (Reason: pain) Qty: 14 0RF cyclobenzaprine 5 mg tablet 5 mg PO TID PRN (Reason: muscle spasm) Qty: 12 0RF acetaminophen 325 mg capsule 650 mg PO Q6H PRN (Reason: pain) Qty: 14 0RF albuterol sulfate 0.63 mg/3 mL solution for nebulization 0.63 mg inhalation Q8H PRN (Reason: shortness of breath or wheezing) Qty: 90 0RF ketorolac 10 mg tablet 10 mg PO Q6H PRN (Reason: pain) Qty: 20 0RF Rx Instructions: maximum total duration of 5 days from all oral, intranasal, or parenteral formulations. The patient received an intramuscular dose of Toradol here in the emergency room cyclobenzaprine 5 mg tablet 5 mg PO BEDTIME PRN (Reason: muscle spasm) Qty: 4 0RF ketorolac 10 mg tablet 10 mg PO Q6H PRN (Reason: pain) 5 Days Qty: 20 0RF Rx Instructions: Patient received Toradol in the emergency room. ondansetron 4 mg tablet,disintegrating 4 mg PO Q8H 3 Days Qty: 9 0RF ondansetron 4 mg tablet,disintegrating 4 mg PO Q6-8H PRN (Reason: nausea and vomiting) Qty: 14 0RF levetiracetam [Keppra] 500 mg tablet 500 mg PO BID Qty: 60 2RF ibuprofen 400 mg tablet 400 mg PO Q8H PRN (Reason: pain) Qty: 30 0RF Referrals: Ed Mejía MD [Primary Care Provider, Primary Care] Print Language: [place]ican
[2024-11-15 19:11] LABS: MANUAL DIFF FLAG NO
[2024-11-15 19:13] LABS: Hematocrit 37.4 % (37.0-47.0); Hemoglobin 12.7 g/dl (12.0-16.0); Imm Gran Abs Auto 0.05 X10*3/uL (0.00-0.03); Imm Gran Pct Auto 0.7 % (0.0-0.4); Lymphocytes Absolute Auto 2.4 X10*3/uL (1.2-4.9); Mean Corpuscular HGB Conc 34.0 g/dl (31.0-35.0); Mean Corpuscular Hemoglobin 31.0 pg (27.0-33.0); Mean Corpuscular Volume 91.2 fL (80.0-98.0); NRBC Abs Auto 0.000 X10*3/uL (0.0-0.012); NRBC Pct Auto 0.0 /100WBC (0.0-0.2); Platelet Count 342 X10*3/uL (160-400); Red Blood Count 4.10 X10*6/uL (4.20-5.50); White Blood Count 6.9 X10*3/uL (4.8-10.8)
[2024-11-15 19:20] LABS: INTERNATIONAL NORM RATIO 0.9 (0.9-1.1); Prothrombin Time 10.7 SEC (10.9-12.4)
[2024-11-15 19:25] LABS: Alanine Aminotransferase 16 U/L (0-31); Albumin Level 4.5 g/dL (3.5-5.0); Alkaline Phosphatase 70 U/L (39-117); Anion Gap 15 (12-20); Aspartate Amino Transferase 23 U/L (5-31); Blood Urea Nitrogen 21 mg/dL (9-16); Calcium 8.9 mg/dL (8.4-10.2); Carbon Dioxide 24 mmol/L (22-29); Chloride 107 mmol/L (96-108); Creatinine Clr Calc Pharmacy 84.3; Estimated Glomerular Filt Rate > 60; Potassium 4.1 mmol/L (3.3-5.1); Sodium 142 mmol/L (135-145); Total Protein 7.0 g/dL (6.5-8.0)
[2024-11-15 19:31] LABS: Troponin-I High Sensitivity < 2.7 ng/L (<3.5-17.0)
[2024-11-15 19:48] LABS: Resp Syncy Virus RNA Qual PCR NEGATIVE (Negative); SARS COV2 PCR INHOUSE NEGATIVE (Negative)
--- OUTSIDE RECORDS SUMMARY | 2024-11-15 20:09 | XMS_ITS | Clinical Summary ---
Author Organization 175 [facility] Address [address] [place] [address] Phone Care Team Providers Care Golf Cart Assembler Name Role Phone Sandra Ridley Primary Care Provider [phone] Allergies Active Allergy Reactions Criticality Noted Date [...] EDT Consult Gastroenterology - [address] [facility] [address] [place] [id number] Lizzette Padgett PA [address] [place] [address] Health Maintenance Due Date Last Done Comments [...] patient's age to complete this topic Insurance [facility] Care Teams Golf Cart Assembler Relationship Specialty Start Date End Date [place] Lim [address] [place] [address] PCP - General Family Medicine 03/05/24
--- OUTSIDE RECORDS SUMMARY | 2024-11-15 20:09 | XMS_ITS | Data Portability ---
Author Organization [facility], [address] [place] [address] Assessment No assessment recorded. Plan of Treatment Reminders Order Date Submit Date Provider Last Modified By Organization Details Last Modified Time Details Appointments None recorded. Lab None recorded. Referral emergency medicine referral 2022 023 [email or web address] [facility] Emergency Department, [address] [place], [address], 18:59:30 Procedures None recorded. Surgeries None recorded. Imaging None recorded. Medication Orders None recorded. Patient TargetsNo targets recorded. Patient Instructions Encounter Date Encounter Id Patient Instructions Last Modified By Organization Details Last Modified Time 02/15/2023 [id number] Your history and physical exam suggests that you may have a fracture in your hand and or wrist. Since xrays are not available today at [facility] you are being referred to the Emergency Department for xrays and potential splinting. [facility] ER has been advised of your impending arrival. Go directly to [facility] ER after leaving [facility]. [email or web address] Not available 02/15/2023 18:53:49 Reason for Referral Emergency Medicine Referral for Pain of right wrist r/o right hand/wrist fracture Referring Physician: Nuvia Wellington, Urgent Care, Encounter Date: 02/15/2023 Problems Name Problem SNOMED Code Status Onset Date Resolution Date Notes Provider Name and Address Organization Details Recorded Time Anxiety 40476078 Active Katty Mabel null, [place] - [facility] 17:57:02 Asthma 707271351 Active Katty Mabel null, PA - [facility] 10/24/202 3 17:57:15 Postural orthostatic tachycardia syndrome 264197672 Active Katty Mabel null, PA - [facility] 3 17:58:07 Chronic fatigue syndrome 77087180 Active Katty Mabel null, PA - [facility] 3 17:58:24 Fibromyalgia 013195237 Active Katty Mabel null, [facility] - [facility] [...] Last Updated DateTime 165.1 cm 21.3 kg/m2 93040.8 2 g 99 % 99 % 6 77 /min 15 /min 98.8 [degF] 117/65 mm[Hg] Katty Monroe PA - [facility] 18:57:00 Social History Question Answer Notes LastModified by Organizat ion Details LastModified Time Tobacco Smoking Status Never Smoker Kattykamla cee, [place] - [facility] 02/15/2023 18:00:44 Which [...] SNOMED-CT Code Diagnosis ICD10 Code Diagnosis Note [id number] Nuvia Wellington [place] [address] [place] [address] 02/15/2023 17:31:38 02/15/2023 18:59:30 Pain of right wrist 4872601860 13159 M25.531 Pain in right hand 67020 11701 94829 M79.641 Health Concerns Section Related Observation LastModified by Organization Detai ls LastModified Time None Recorded Concern Status LastModified by Organization Details LastModified Time None Recorded Advance Directives Directive None Recorded Payers Insurance Date Sequence Insurance Name Policy Number Policy Duffy Covered Member ID Duffy Member ID Guarantor Name 11/14/2023 1 [facility] (O) [id number] Abby Alves [id number] Abby Alves Notes Date Note Type Note Provider Name and Address Organization Details Recorded Time 02/15/2023 text/html Wrist / Hand InjuryReported by PatientHPIFor associated symptoms, patient reportspain,swelling, andecchymosisbut reportsno rednessandno fever. For source of patient information, patient reportspatient arrived at urgent care ambulatory. For location, patient reportsright,hand, andwrist. For severity, patient reportsmoderate. For duration, patient reports4 days. For aggravating factors, patient reportslifting,carryin g,gripping, androm. For previous injury, patient reportsno prior injury to affected body part. For prior imaging, patient reportsnone. For context, (struck wall with hand.). For assistive devices, (tape.). For previous treatment, (saw chiropractor who told her that her hand was broken.).22 year old female presenting for evaluation of [...] taped for support. Nuvia Wellington MD [address] [place], [address], [place] - [facility] 02/15/2023 19:16:43 OBGyn Episode No OBEpisode recorded.
--- OUTSIDE RECORDS SUMMARY | 2024-11-15 20:09 | XMS_ITS | Patient Health Record ---
Author Organization [facility] Address [address] [place] [address] Care Team Providers Care Yeast Fermentation Attendant Name Role Phone SCOTT BRONSON Unavailable [phone] Allergies Allergen (clinical drug ingredient) Drug/Non Drug Allergy documented on EMR Reaction Allergy Type Onset Date Status amoxicillin / clavulanate Augmentin anaphylaxis Drug Allergy Active Bees Wax shortness of breath Drug Allergy Active Honey anaphylaxis Drug Allergy Activ e Bee Sting anaphylaxis Allergy Active Reason For Referral Reason eval and treat Diagnosis 1 Medication refill (Z 76.0) Referral Organization [facility] Referring Provider First [...] Temperature Encounters Encounter Location Date Provider Diagnosis [facility] [address] [place] [address] 12/01/2023 SCOTT BRONSON Prediabetes R73.03 and Medication [...] of [place] [address] [place] [address] [phone] [id number] Abby Alves Self - patient is the insured Medical (General) History Medical History History ICD Code Postural orthostatic tachycardia syndrom e 2020 Chronic fatigue syndrome 2018 Hypermobile 2018 Fibromyalgia 2019 Asthma 2006 Depression 2012 Generalized anxiety disorder 2012 Borderline Personality disorder 2017
--- OUTSIDE RECORDS SUMMARY | 2024-11-15 20:09 | XMS_ITS | Patient Health Record ---
Author Organization [facility] Address [address] [place] [address] Care Team Providers Care Human Resource Assistant Name Role Phone JEANCARLOS STILES Unavailable [phone] Allergies No Known Allergies Reason For Referral No Information Medications Medication SIG (Take, Route, Frequency, Duration) Notes Start Date End Date Status Simethicone 80 MG 1 tablet after meals and at bedtime as needed Orally Four times a day Active Vitamin D3 1.25 MG (19425 UT) 1 capsule Orally; Duration: 30 day(s) [...] severe cramping (at [facility]) 02/25/2020 Not-Taking [place] 3 1000 MG 1 capsule Orally Once [...] Risk Notes Problem Major depression, single episode (54964082) Major depressive disorder, single episode, unspecified (F32.9) Active confirmed Problem Anxiety disorder (978849462) Anxiety disorder, unspecified (F41.9) Active confirmed Problem Posttraumatic stress disorder (56984901) Post-traumatic stress disorder, chronic (F43.12) Active confirmed Problem Migraine with aura (9024644) Migraine with aura, not intractable, with status migrainosus (G43.101) Active confirmed Problem Uncomplicated asthma (disorder) (425718366) Unspecified asthma, uncomplicated (J45.909) Active confirmed Problem Fibromyalgia (051640014) Fibromyalgia (M79.7) Active confirmed Problem Abnormal uterine and vaginal bleeding, unspecified (N93.9) Active confirmed Problem Chronic fatigue syndrome (disorder) (66805396) Chronic fatigue, unspecified (R53.82) Active confirmed Plan Of Treatment Pending Test Test Name Order Date Test, Urine 02/25/2020 Test, Urine 09/15/2021 ULTRASOUND: PELVIC W/TRANSVAGINAL 2019 Insurance Providers Payer Name Payer Address Payer Phone Subscriber Number Group Number Insured Name Patient Relationship to Insured Coverage Start Date Coverage End Date [facility] [address] [address] [place] [id number] CHRIS AGARWAL Self - patient is the insured Medical (General) History Medical History History ICD Code Unspecified asthma, uncomplicated J45.90 9 Encounter for screening for depression Z 13.31 Anxiety disorder, unspecified F41.9 Migraine with aura, not intractable, wit h status migrainosus G43.101 Surgical History Surgery Date(Month/Year) Tonsils and Adenoids 2007
[2024-11-15 20:32] LABS: D Dimer High Sensitivity < 150 NG/ML
--- NOTE | 2024-11-15 20:35 | PC.NURSE ---
assumed care of pt, states chest pain has subsided, she took naproxen before coming in which she thinks took care of the pain.
[2024-11-15 20:44] VITALS: BP 112/68; PULSE 99; RESP 16; TEMP 36.7; O2SAT 97
== END 2024-11-15 20:47 | disposition home or self-care (01) ==
PROVIDERS: Physician Assistant Medical; Emergency Provider Emergency Medicine; PCP Hospitalist
DX: M94.0 Chondrocostal junction syndrome [Tietze] (principal)
CPT/HCPCS: 36415; 71046; 80048; 80076; 84484; 84702; 85025; 85379; 85610; 87637; 93005; 99283; 99284

== ENCOUNTER → 2024-11-15 18:07 | Outpatient (BNV) | payer OTHER, SELFPAY | PROVIDERS: Emergency Provider Emergency Medicine; PCP Hospitalist; Visit Provider Internal Medicine Cardiovascular Disease | DX: R94.31 Abnormal electrocardiogram [ECG] [EKG] (principal); R07.89 Other chest pain | CPT/HCPCS: 93010 ==

== ENCOUNTER → 2024-11-15 18:18 | Outpatient (BNV) | payer OTHER, SELFPAY | PROVIDERS: Visit Provider Radiology Diagnostic Radiology | DX: R07.9 Chest pain, unspecified (principal) | CPT/HCPCS: 71046 ==

== ENCOUNTER 2024-12-01 14:20 | Emergency (ER) | payer OTHER, SELFPAY ==
--- NOTE | ~2024-12-01 | XR_ITS ---
CLINICAL HISTORY: pain Radiographs of the left knee, 4 views Comparison: None available Findings: There is no fracture or dislocation. No joint space narrowing or osteophytosis. Bone mineralization is normal. No knee joint effusion. No radiographically apparent soft tissue swelling. Impression: Normal study. This document has been electronically signed by: Heavenly Huerta MD on 12/01/2024 15:37:36
--- NOTE | 2024-12-01 14:31 | ED.LOWEXIN ---
HPI - Extremity Injury (Lower) General Chief Complaint: Extremity Injury, Lower Stated Complaint: pt states had a drop seizure and injured her knee Time Seen by Provider: 12/01/24 16:41 Source: patient and RN notes reviewed Mode of arrival: ambulatory Limitations: no limitations History of Present Illness ED Provider: Jessica Simms PA-C HPI Narrative: This is a 54-klkj-pmm-female, with a hx of seizure disorder on keppra who presents to the ED with concerns of right knee pain which occurred whiile hiking this morrning. Pt states that she forgot to take her seizure medication and felt as though she was going to seize and fell, landing into the arms of her partner. Partner reports she did not strike her head. She was lowered to the ground. Since this, she has been unable to bear full weight on her right leg due to pain in her right knee. No previous knee surgeries. She took the Keppra dose when she returned [facility], prior to ED arrival. She reports she is otherwise feeling well. No CP/SOB or palpitations. No other complaints or concerns at this time. MD complaint: knee injury Place: street/outdoors Relieving factors: immobilization and rest Exacerbating factors: weight bearing and movement Context: fall Associated symptoms: able to partially bear weight Other symptoms: none Related Data Previous Rx's ?Medication ?Instructions ?Recorded cyclobenzaprine 5 mg tablet 5 mg PO BEDTIME PRN muscle spasm 12/23/22 #4 tabs ketorolac 10 mg tablet 10 mg PO Q6H PRN pain 5 days #20 12/23/22 tabs ondansetron 4 mg disintegrating 4 mg PO Q8H 3 days #9 tabs 02/25/23 tablet ondansetron 4 mg disintegrating 4 mg PO Q6-8H PRN nausea and 05/23/23 tablet vomiting #14 tabs levetiracetam 500 mg tablet 500 mg PO BID #60 tabs 05/07/24 (Keppra) metronidazole 500 mg tablet 500 mg PO BID 7 days #14 tabs 07/06/24 sulfamethoxazole 800 1 tab PO Q12H 7 days #14 tabs 07/06/24 mg-trimethoprim 160 mg tablet (Bactrim DS) acetaminophen 325 mg capsule 650 mg (2 x 325 mg) PO Q6H PRN 10/07/24 pain #14 caps cyclobenzaprine 5 mg tablet 5 mg PO TID PRN muscle spasm #12 10/07/24 tabs ibuprofen 400 mg tablet 400 mg PO Q6H PRN pain #14 tabs 10/07/24 albuterol sulfate 0.63 mg/3 mL 0.63 mg (3 mL) inhalation Q8H PRN 10/14/24 solution for nebulization shortness of breath or wheezing #90 mL ketorolac 10 mg tablet 10 mg PO Q6H PRN pain #20 tabs 10/27/24 ibuprofen 400 mg tablet 400 mg PO Q8H PRN pain #30 tabs 11/08/24 Allergies Allergy/AdvReac Type Severity Reaction Status Date / Time beeswax Allergy Unknown Verified 12/01/24 14:34 haloperidol (From Haldol) Allergy Unknown Verified 12/01/24 14:34 honey Allergy Unknown Verified 12/01/24 14:34 montelukast Allergy Unknown Verified 12/01/24 14:34 Penicillins Allergy Difficulty Verified 12/01/24 14:34 Swallowing Review of Systems Review of Systems: Yes all other systems are reviewed and are negative Constitutional: Constitutional: Reports as per [facility] Social History Social History Alcohol intake: never Substance Use Type: Marijuana Advance Directives: No Advance Directives Information Provided: No Physical Exam Vital Signs: Vital Signs: Last Vital Signs Temp 98.8 F 12/01/24 16:48 Pulse 72 12/01/24 16:48 Resp 18 12/01/24 16:48 BP 106/59 L 12/01/24 16:48 Pulse Ox 98 12/01/24 16:48 O2 Del Method Room Air 12/01/24 16:48 BMI result Body Mass Index 17.5 General: Awake, alert, and oriented X3. No acute distress. HEENT: Normal inspection CVS: Normal heart rate and rhythm. Pulses normal. Respiratory: No respiratory distress Skin: Warm, dry, no rashes noted to exposed skin. Normal skin color. Normal skin turgor. Extremities: R knee with no obvious bony deformity or swelling. She has TTP overlying the medial and lateral joint line. No joint laxity. sensation intact. No wounds. ROM is full, however pain with flexion and extension. Neuro: Oriented X 3. No motor deficit. No sensory deficit. Medical Decision Making Medical Decision Making [facility] Narrative: This is a 7-kgxm-vtv-female, with a hx of POTs and eplipsey on Keppra and lamictal (missed am dose but took afterwards) who presents to the ER with complaints of left knee pain since today. Reports that while she was on a hike this afternoon she had a drop seizure 3-4 hours ago and injured her left knee in the process. Male bullet swaging machine adjuster was present at the time and caught patient, unsure if she twisted her knee or hyperextended. xrays were obtained revealing no acute findings. Discussed with patient. Given steven wrap and crutches. Given return precautions. Given referral to ortho should she wish to f.u. Given return precautions. Pt stable for d.c. Differential Diagnosis Differential Diagnoses: The differential diagnosis associated with the presentation includes fx, contusion, sprain, strain, dislocation Radiology Impression Discussion of test interpretation with radiology: I have reviewed the radiologist's reading. Radiologist Impression: CLINICAL HISTORY: pain Radiographs of the left knee, 4 views Comparison: None available Findings: There is no fracture or dislocation. No joint space narrowing or osteophytosis. Bone mineralization is normal. No knee joint effusion. No radiographically apparent soft tissue swelling. Impression: Normal study. This document has been electronically signed by: Heavenly Huerta MD on 12/01/2024 15:37:36 Dictated By: Heavenly English MD Discharge Plan Discharge Clinical Impression: Left knee sprain Patient Disposition: Home, Self-Care Instructions: Knee Sprain (ED), Crutch Instructions (ED), How to Use an Elastic Bandage (ED) Additional Instructions: You were seen in the emergency department after injuring your left knee. Your x-rays do not show any bony abnormalities. Rest, ice, elevate, and use Steven wrap. Use crutches with weight-bearing. Follow-up with the orthopedics, you may follow-up with the [facility], call to make an appointment. If any new or worsening symptoms occur including but not limited to worsening pain, swelling, please seek emergent care. Prescriptions: No Action sulfamethoxazole-trimethoprim [Bactrim DS] 800-160 mg tablet 1 tab PO Q12H 7 Days Qty: 14 0RF metronidazole 500 mg tablet 500 mg PO BID 7 Days Qty: 14 0RF ibuprofen 400 mg tablet 400 mg PO Q6H PRN (Reason: pain) Qty: 14 0RF cyclobenzaprine 5 mg tablet 5 mg PO TID PRN (Reason: muscle spasm) Qty: 12 0RF acetaminophen 325 mg capsule 650 mg PO Q6H PRN (Reason: pain) Qty: 14 0RF albuterol sulfate 0.63 mg/3 mL solution for nebulization 0.63 mg inhalation Q8H PRN (Reason: shortness of breath or wheezing) Qty: 90 0RF ketorolac 10 mg tablet 10 mg PO Q6H PRN (Reason: pain) Qty: 20 0RF Rx Instructions: maximum total duration of 5 days from all oral, intranasal, or parenteral formulations. The patient received an intramuscular dose of Toradol here in the emergency room cyclobenzaprine 5 mg tablet 5 mg PO BEDTIME PRN (Reason: muscle spasm) Qty: 4 0RF ketorolac 10 mg tablet 10 mg PO Q6H PRN (Reason: pain) 5 Days Qty: 20 0RF Rx Instructions: Patient received Toradol in the emergency room. ondansetron 4 mg tablet,disintegrating 4 mg PO Q8H 3 Days Qty: 9 0RF ondansetron 4 mg tablet,disintegrating 4 mg PO Q6-8H PRN (Reason: nausea and vomiting) Qty: 14 0RF levetiracetam [Keppra] 500 mg tablet 500 mg PO BID Qty: 60 2RF ibuprofen 400 mg tablet 400 mg PO Q8H PRN (Reason: pain) Qty: 30 0RF Referrals: [facility] Orthopedic Surgeons [Provider Group] Interventions: ED Discharge Assessment Last Done: 12/01/24 16:48 Discharge Date/Time: 12/01/24 16:51 Print Language: Vietnamese
[2024-12-01 14:32] VITALS: BP 106/59; PULSE 72; RESP 18; TEMP 37.1; O2SAT 98; BMI 17.5
[2024-12-01 16:48] VITALS: BP 106/59; PULSE 72; RESP 18; TEMP 37.1; O2SAT 98
== END 2024-12-01 16:51 | disposition home or self-care (01) ==
PROVIDERS: Emergency Provider Emergency Medicine
DX: S83.92XA Sprain of unspecified site of left knee, initial encounter (principal); W18.39XA Other fall on same level, initial encounter; M25.562 Pain in left knee; Y93.01 Activity, walking, marching and hiking; Y92.828 Other wilderness area as the place of occurrence of the external cause; Y99.9 Unspecified external cause status
CPT/HCPCS: 73564; 99282; 99283

== ENCOUNTER → 2024-12-01 14:37 | Outpatient (BNV) | payer OTHER, SELFPAY | PROVIDERS: Visit Provider Radiology Diagnostic Radiology | DX: M25.562 Pain in left knee (principal) | CPT/HCPCS: 73564 ==

== ENCOUNTER 2024-12-11 12:32 | Emergency (ER) | payer OTHER, SELFPAY ==
--- NOTE | ~2024-12-11 | CT_ITS ---
EXAMINATION: CT HEAD WITHOUT CONTRAST CLINICAL INFORMATION: Increased seizures, headache COMPARISON: May 07, 2024 TECHNIQUE: Contiguous axial imaging was performed from the skull base to vertex without intravenous administration of contrast. This CT examination was performed using dose optimization techniques as appropriate, variously including the following: *Automated exposure control *Adjustment of mA and/or kV according to patient size (this includes techniques or standardized protocols for targeted exams where dose is matched to indication/reason for exam; i.e. extremities or head) *Use of iterative reconstruction technique DLP: 651 mGY*cm FINDINGS: There is no acute ischemic change. There is no intracranial hemorrhage. There is no mass-effect or midline shift. Basal cisterns and ventricles are within normal limits for age/cerebral volume. Orbits are symmetrical and unremarkable. Paranasal sinuses and mastoid air cells are pneumatized. There are no bony abnormalities. CT/CT head/brain wo IV con IMPRESSION: No acute intracranial abnormality. Electronically signed by: Demarcus Lopez MD 12/11/2024 03:32 PM EDT
--- NOTE | ~2024-12-11 | CT_ITS ---
EXAMINATION: CT CERVICAL SPINE WITHOUT CONTRAST CLINICAL INFORMATION: Increased seizures, headache COMPARISON: None available. TECHNIQUE: Axial imaging was performed from the base of the skull through T2 without IV contrast. Coronal and sagittal reformatted images were generated from the original axial data set. ALARA: The examination used one or more of the following radiation dose reduction techniques: Automated exposure control, iterative reconstruction, and/or adjustment of mA and/or KV. DLP: 851 mGY*cm FINDINGS: There is mild reversal of the normal cervical lordosis. No fractures are identified. There is no prevertebral soft tissue swelling. C2-3 demonstrates subtle anterolisthesis. C4-5 demonstrates mild disc space narrowing and small endplate and uncovertebral osteophytes. C6-7 demonstrates small posterior endplate osteophytes. Other levels are unremarkable. Lung apexes are clear. CT/CT cervical spine wo IV con IMPRESSION: There is mild reversal of cervical lordosis. This can be related to degenerative changes, positioning, muscle spasm, or posterior soft tissue injury. Electronically signed by: Demarcus Lopez MD 12/11/2024 03:36 PM EDT
[2024-12-11 12:40] VITALS: BP 106/59; PULSE 84; RESP 18; TEMP 36.6; O2SAT 98; BMI 19.1
--- NOTE | 2024-12-11 12:41 | ED_ITS ---
HPI - General Adult General Chief complaint: Headache Stated complaint: Neck pain 3 days, migraine Related Data Previous Rx's ?Medication ?Instructions ?Recorded cyclobenzaprine 5 mg tablet 5 mg PO BEDTIME PRN muscle spasm 12/23/22 #4 tabs ketorolac 10 mg tablet 10 mg PO Q6H PRN pain 5 days #20 12/23/22 tabs ondansetron 4 mg disintegrating 4 mg PO Q8H 3 days #9 tabs 02/25/23 tablet ondansetron 4 mg disintegrating 4 mg PO Q6-8H PRN naus ea and 05/23/23 tablet vomiting #14 tabs levetiracetam 500 mg tablet 500 mg PO BID #60 tabs (Keppra) metronidazole 500 mg tablet 500 mg PO BID 7 days #14 t abs 07/06/24 sulfamethoxazole 800 1 tab PO Q12H 7 days #14 tab s 07/06/24 mg-trimethoprim 160 mg tablet (Bactrim DS) acetaminophen 325 mg capsule 650 mg (2 x 325 mg) PO Q6 H PRN 10/07/24 pain #14 caps cyclobenzaprine 5 mg tablet 5 mg PO TID PRN muscle spa sm #12 10/07/24 tabs ibuprofen 400 mg tablet 400 mg PO Q6H PRN pain #14 t abs 10/07/24 albuterol sulfate 0.63 mg/3 mL 0.63 mg (3 mL) inhalati on Q8H PRN 10/14/24 solution for nebulization shortness of breath or wheez ing #90 mL ketorolac 10 mg tablet 10 mg PO Q6H PRN pain #20 ta bs 10/27/24 ibuprofen 400 mg tablet 400 mg PO Q8H PRN pain #30 t abs 11/08/24 Allergies Allergy/AdvReac Type Severity Reaction Status Date / Time beeswax Allergy Unknown Verified 12/11/24 12:42 haloperidol (From Haldol) Allergy Unknown Verified 12/11/24 12:42 honey Allergy Unknown Verified 12/11/24 12:42 montelukast Allergy Unknown Verified 12/11/24 12:42 Penicillins Allergy Difficulty Verified 12/11/24 12:42 Swallowing PMFSH Social History Social History Alcohol intake: never Substance Use Type: Marijuana Advance Directives: No Advance Directives Information Provided: No Do you have a plan to hurt others: No Plan Physical Exam ED Vital Signs: BMI result Body Mass Index 19.1 Course Course Course Narrative: This is a Rapid Medical Examination (RME) performed by Naman Joseph PA-C in triage. Full HPI, ROS, assessment and treatment plan per primary provider in the Main ED. Hx: 23 yo F hx of epilepsy here for eval of posterior neck pain and associated headache x3 days following a bout of seizures. she was not evaluated at that time. trialed naproxen without improvement. flexeril seemed to temporarily relieve her pain. recently started a new epilepsy med, Lamictal 3 weeks ago. Plan: labs, ekg, imaging Reevaluation(s) Reevaluation #1: Patient left the emergency department before myself or any of the other clinicians could review or explain physical exam findings, test results, need or lack there of for additional testing, treatment options, or a treatment plan. Medical Decision Making Lab Data 12/11/24 13:07 12/11/24 13:07 Labs: Lab Results 12/11/24 Range/Units 13:07 WBC 6.0 (4.8-10.8) X10*3/uL RBC 3.90 L (4.20-5.50) X10*6/uL Hgb 11.8 L (12.0-16.0) g/dl Hct 36.4 L (37.0-47.0) % MCV 93.3 (80.0-98.0) fL MCH 30.3 (27.0-33.0) pg MCHC 32.4 (31.0-35.0) g/dl RDW 12.7 (11.0-16.0) % Plt Count 308 (160-400) X10*3/uL MPV 9.5 (9.4-12.3) fL Immature Gran % (Auto) 0.5 H (0.0-0.4) % Neut % (Auto) 52.0 (45-73) % Lymph % (Auto) 33.4 (20-40) % Cascade % (Auto) 5.5 (2-11) % Eos % (Auto) 8.1 H (0-4) % Baso % (Auto) 0.5 (0-2) % Lymph # (Auto) 2.0 (1.2-4.9) X10*3/uL [place] # (Auto) 0.3 (0.1-1.2) X10*3/uL Eos # (Auto) 0.5 H (0.0-0.4) X10*3/uL Baso # (Auto) 0.0 (0.0-0.2) X10*3/uL Abs Immat Gran (auto) 0.03 (0.00-0.03) X10*3/uL Absolute Neuts (auto) 3.1 (2.0-8.3) x10*3/uL Absolute Nucleated RBC 0.000 (0.0-0.012) X10*3/uL Nucleated RBC % (auto) 0.0 (0.0-0.2) /100WBC Sodium 143 (135-145) mmol/L Potassium 4.2 (3.3-5.1) mmol/L Chloride 110 H (96-108) mmol/L Carbon Dioxide 26 (22-29) mmol/L Anion Gap 11 L (12-20) BUN 18 H (9-16) mg/dL Creatinine 0.81 (0.5-1.4) mg/dL Estim Creat Clear Calc 88.9 Estimated GFR > 60 Random Glucose 89 (60-115) mg/dL Calcium 8.6 (8.4-10.2) mg/dL Magnesium 2.3 (1.6-2.6) mg/dL Total Bilirubin 0.3 (0.0-1.0) mg/dL AST 25 (5-31) U/L ALT 19 (0-31) U/L Alkaline Phosphatase 57 (39-117) U/L Total Protein 6.5 (6.5-8.0) g/dL Albumin 4.2 (3.5-5.0) g/dL Beta HCG, Quant < 2 mIU/mL Discharge Plan Discharge Clinical Impression: Neck pain Patient Disposition: Left W/O Completing Treatment Prescriptions: No Action sulfamethoxazole-trimethoprim [Bactrim DS] 800-160 mg tablet 1 tab PO Q12H 7 Days Qty: 14 0RF metronidazole 500 mg tablet 500 mg PO BID 7 Days Qty: 14 0RF ibuprofen 400 mg tablet 400 mg PO Q6H PRN (Reason: pain) Qty: 14 0RF cyclobenzaprine 5 mg tablet 5 mg PO TID PRN (Reason: muscle spasm) Qty: 12 0RF acetaminophen 325 mg capsule 650 mg PO Q6H PRN (Reason: pain) Qty: 14 0RF albuterol sulfate 0.63 mg/3 mL solution for nebulization 0.63 mg inhalation Q8H PRN (Reason: shortness of breath or wheezing) Qty: 90 0RF ketorolac 10 mg tablet 10 mg PO Q6H PRN (Reason: pain) Qty: 20 0RF Rx Instructions: maximum total duration of 5 days from all oral, intranasal, or parenteral formulations. The patient received an intramuscular dose of Toradol here in the emergency room cyclobenzaprine 5 mg tablet 5 mg PO BEDTIME PRN (Reason: muscle spasm) Qty: 4 0RF ketorolac 10 mg tablet 10 mg PO Q6H PRN (Reason: pain) 5 Days Qty: 20 0RF Rx Instructions: Patient received Toradol in the emergency room. ondansetron 4 mg tablet,disintegrating 4 mg PO Q8H 3 Days Qty: 9 0RF ondansetron 4 mg tablet,disintegrating 4 mg PO Q6-8H PRN (Reason: nausea and vomiting) Qty: 14 0RF levetiracetam [Keppra] 500 mg tablet 500 mg PO BID Qty: 60 2RF ibuprofen 400 mg tablet 400 mg PO Q8H PRN (Reason: pain) Qty: 30 0RF Discharge Date/Time: 12/11/24 20:02
--- NOTE | 2024-12-11 12:44 | ECG_ITS ---
Test Reason : headache Blood Pressure : */* mmHG Vent. Rate : 63 BPM Atrial Rate : 63 BPM P-R Int : 122 ms QRS Dur : 84 ms QT Int : 422 ms P-R-T Axes : 70 76 42 degrees QTcB Int : 431 ms Normal sinus rhythm Normal ECG When compared with ECG of 15-Nov-2024 18:07, Nonspecific T wave abnormality has replaced inverted T waves in Inferior leads Nonspecific T wave abnormality, improved in Anterolateral leads Referred By: Malgorzata Joseph Electronically Signed By: ELVI SANDOVAL MD
[2024-12-11 13:22] LABS: MANUAL DIFF FLAG NO
[2024-12-11 13:25] LABS: Hematocrit 36.4 % (37.0-47.0); Hemoglobin 11.8 g/dl (12.0-16.0); Imm Gran Abs Auto 0.03 X10*3/uL (0.00-0.03); Imm Gran Pct Auto 0.5 % (0.0-0.4); Lymphocytes Absolute Auto 2.0 X10*3/uL (1.2-4.9); Mean Corpuscular HGB Conc 32.4 g/dl (31.0-35.0); Mean Corpuscular Hemoglobin 30.3 pg (27.0-33.0); Mean Corpuscular Volume 93.3 fL (80.0-98.0); NRBC Abs Auto 0.000 X10*3/uL (0.0-0.012); NRBC Pct Auto 0.0 /100WBC (0.0-0.2); Platelet Count 308 X10*3/uL (160-400); Red Blood Count 3.90 X10*6/uL (4.20-5.50); White Blood Count 6.0 X10*3/uL (4.8-10.8)
[2024-12-11 13:43] LABS: Alanine Aminotransferase 19 U/L (0-31); Albumin Level 4.2 g/dL (3.5-5.0); Alkaline Phosphatase 57 U/L (39-117); Anion Gap 11 (12-20); Aspartate Amino Transferase 25 U/L (5-31); Blood Urea Nitrogen 18 mg/dL (9-16); Calcium 8.6 mg/dL (8.4-10.2); Carbon Dioxide 26 mmol/L (22-29); Chloride 110 mmol/L (96-108); Creatinine Clr Calc Pharmacy 88.9; Estimated Glomerular Filt Rate > 60; Magnesium 2.3 mg/dL (1.6-2.6); Potassium 4.2 mmol/L (3.3-5.1); Sodium 143 mmol/L (135-145); Total Protein 6.5 g/dL (6.5-8.0)
--- OUTSIDE RECORDS SUMMARY | 2024-12-11 19:59 | XMS_ITS | Patient Health Record ---
Author Organization [facility] Address [address] [place] [address] Care Team Providers Care Bean Dumper Name Role Phone JEANCARLOS STILES Unavailable [phone] Allergies No Known Allergies Reason For Referral No Information Medications Medication SIG (Take, Route, Frequency, Duration) Notes Start Date End Date Status Simethicone 80 MG 1 tablet after meals and at bedtime as needed Orally Four times a day Active Vitamin D3 1.25 MG (80131 UT) 1 capsule Orally; Duration: 30 day(s) [...] severe cramping (at [facility]) 02/25/2020 Not-Taking [place] 3 1000 MG 1 capsule Orally Once [...] Risk Notes Problem Major depression, single episode (41287407) Major depressive disorder, single episode, unspecified (F32.9) Active confirmed Problem Anxiety disorder (952776055) Anxiety disorder, unspecified (F41.9) Active confirmed Problem Posttraumatic stress disorder (69351316) Post-traumatic stress disorder, chronic (F43.12) Active confirmed Problem Migraine with aura (0573302) Migraine with aura, not intractable, with status migrainosus (G43.101) Active confirmed Problem Uncomplicated asthma (disorder) (651074620) Unspecified asthma, uncomplicated (J45.909) Active confirmed Problem Fibromyalgia (893163362) Fibromyalgia (M79.7) Active confirmed Problem Abnormal uterine bleeding (42285533651639) Abnormal uterine and vaginal bleeding, unspecified (N93.9) Active confirmed Problem Chronic fatigue syndrome (disorder) (70985493) Chronic fatigue, unspecified (R53.82) Active confirmed Plan Of Treatment Pending Test Test Name Order Date Test, Urine 02/25/2020 Test, Urine 09/15/2021 ULTRASOUND: PELVIC W/TRANSVAGINAL 2019 Insurance Providers Payer Name Payer Address Payer Phone Subscriber Number Group Number Insured Name Patient Relationship to Insured Coverage Start Date Coverage End Date [facility] [address] [address] [place] [id number] CHRIS AGARWAL Self - patient is the insured Medical (General) History Medical History History ICD Code Unspecified asthma, uncomplicated J45.90 9 Encounter for screening for depression Z 13.31 Anxiety disorder, unspecified F41.9 Migraine with aura, not intractable, wit h status migrainosus G43.101 Surgical History Surgery Date(Month/Year) Tonsils and Adenoids 2007
--- OUTSIDE RECORDS SUMMARY | 2024-12-11 19:59 | XMS_ITS | Clinical Summary ---
Author Organization 175 [facility] Address [address] [place] [address] Phone Care Team Providers Care Telecom Assistant Name Role Phone MadisonEricNachoandrew Sandra Primary Care Provider [phone] Allergies Active Allergy Reactions Criticality Noted Date [...] (one) time each day. with food Active midodrine (PROAMATINE) 2.5 mg tablet TAKE [...] 1 tablet (5 mg total) by mouth 2 (two) times a day. Active metoclopramide (REGLAN) 5 mg tablet TAKE 1 TABLET BY MOUTH AT BEDTIME FOR NAUSEA AND VOMITING 024 2024 Discontinued metoclopramide (REGLAN) 5 mg tablet Take 1 tablet (5 mg total) by mouth 4 (four) times a day. 120 each 11 025 2024 Discontinued Active Problems Problem Noted Date Diagnosed Date Abnormal uterine bleeding 12/07/2024 Major depression, single episode 12/07/2024 Migraine with aura 12/07/2024 Post-acute COVID-19 syndrome 01/31/2024 Postural orthostatic tachycardia syndrome 2023 Vitamin D insufficiency 10/10/2023 Overview (12/07/2024): Last Assessment & Plan: Continue daily supplementation to keep it in optimal range: 40-45 ng/ml. Nausea 06/09/2023 Overview (12/07/2024): Last Assessment & Plan: Keep diary of symptoms and modifiers to look for patterns and triggers. Eat well-balanced nutritionally diet in 4-6 smaller meals daily no longer than 3 hours apart. Follow-up with PCP and franchise broker if not better or worse Underweight 06/09/2023 Overview (12/07/2024): Last Assessment & Plan: I have explained to her importance of achieving optimal body weight for her height in reducing the risk of infection (s) and achieving maximal bone density by the age of 30. Cigarette nicotine dependence, uncomplicated Fibromyalgia 06/16/2022 Moderate persistent asthma, uncomplicated 2022 Carpal tunnel syndrome of left wrist 08/04/2020 Overview (12/07/2024): Last Assessment & Plan: Avoid prolonged work particularly repetitive motion. Use supportive wrist for nighttime and extended activities. SSRI (selective serotonin re uptake inhibitor) causing adverse effect in therapeutic use 08/04/2020 Overview (12/07/2024): Last Assessment & Plan: Monitor for mood swings, increased muscle rigidity and temperature intolerance. Raynaud's disease without gangrene 02/04/2020 Overview (12/07/2024): Last Assessment & Plan: Keep warm, dress in layers. Optimize stress management strategies. Avoid vasoconstrictors in OTC products for cold/flu and sinus. Other insomnia 06/06/2019 Overview (12/07/2024): Last Assessment & Plan: Due to ongoing problems with getting asleep & keeping asleep despite using melatonin 1- 5 mg nightly & following sleep hygiene Listen to relaxation tapes nightly and every time she wakes up x 3-4 mths. Consider formal sleep study particularly if waking up gasping for air. Weight loss 06/06/2019 Overview (12/07/2024): Last Assessment & Plan: Despite regular , well balanced nutritionally meals Abby lost 18 lbs since last visit on 03/05/19. Consider GI/ post framer/ dietitian consult Anxiety disorder 03/05/2019 Overview (12/07/2024): Last Assessment & Plan: Continue anxiety management strategies as educated by psychotherapist. Deep breathing techniques, regular meditation. Avoid triggering situations. Arthralgia of multiple sites 03/05/2019 Overview (12/07/2024): Last Assessment & Plan: To make sure that she did not [...] developing optimal bone density and brain function. Chronic fatigue syndrome 03/05/2019 Fever 03/05/2019 Overview (12/07/2024): Last Assessment & Plan: Keep a diary of fevers with accompanying symptoms and modifiers and bring it for review at next office visit. May consider getting blood work if symptoms persist over 48-72 hours. Mild intermittent asthma 03/05/2019 Overview (12/07/2024): Last Assessment & Plan: Avoid known triggers. Renew albuterol and Symbicort as prescribed. Other acne 03/05/2019 Overview (12/07/2024): Last Assessment & Plan: See stock ranch supervisor for exploring other therapeutic options both oral and topical. Encounters Date Type Department Care Team Description 12/10/2024 2:40 PM EDT Consult Gastroenterology - [address] [address] Lizzette Padgett PA Nausea and vomiting, unspecified vomiting type (Primary Dx) 12/10/2024 Telephone Gastroenterology - [address] [address] Bowen Lo MD from Last 3 Months Family History Medical History Relation Name Comments Esophageal cancer Father's Brother Relation Name Status Comments Father's Brother Alive Social History Tobacco Use Types Packs/Day Years Used Date Smoking Tobacco: Every Day Cigarettes Smokeless Tobacco: Current Tobacco Cessation:Ready to Q uit: Not Asked; Counseling Given: Not Answered Alcohol Use Standard Drinks/Week [...] - Inhaled Oxygen Concentration - - Weight 52.2 kg (115 lb) 12/10/2024 2:34 PM EDT Height 165.1 cm (5' 5 ) 12/10/2024 2:34 PM EDT Body Mass Index 19.14 12/10/2024 2:34 PM EDT Plan of Treatment Health Maintenance Due [...] patient's age to complete this topic Insurance [facility] [place] [address] Care Teams Telecom Assistant Relationship Specialty Start Date End Date o-Sandra Lim [address] [facility] [address] [place] [address] PCP - General Family Medicine 03/05/24
--- OUTSIDE RECORDS SUMMARY | 2024-12-11 19:59 | XMS_ITS | Patient Health Record ---
Author Organization [facility] Address [address] [place] [address] Support Name Relationship Address Phone Rudystan Abby Guarantor Unknown Unavailabl e Allergies Allergen (clinical drug ingredient) Drug/Non Drug Allergy documented on EMR Reaction Allergy Type Onset Date Status amoxicillin / clavulanate Augmentin anaphylaxis Drug Allergy Active Bees Wax shortness of breath Drug Allergy Active Honey anaphylaxis Drug Allergy Activ e Bee Sting anaphylaxis Allergy Active Reason For Referral No Information Social History Tobacco Use: Social History Observation Description Date Details (start date - stop date) Current Smoker NA - NA Tobacco Control (Standard) Question Answer Notes Tobacco use: Current smoker How many cigarettes a day do you smoke? 6-10 Plan Of Treatment No Information Insurance Providers Payer Name Payer Address Payer Phone Subscriber Number Group Number Insured Name Patient Relationship to Insured Coverage Start Date Coverage End Date Medicaid of [place] [address] [place] [phone] [id number] Abby Alves Self - patient is the insured Medical (General) History Medical History History ICD Code Postural orthostatic tachycardia syndrom e 2020 Chronic fatigue syndrome 2018 Hypermobile 2018 Fibromyalgia 2019 Asthma 2006 Depression 2012 Generalized anxiety disorder 2012 Borderline Personality disorder 2017
== END 2024-12-11 20:02 | disposition left against medical advice (07) ==
PROVIDERS: Physician Assistant Medical; Emergency Provider Emergency Medicine
DX: M54.2 Cervicalgia (principal); R51.9 Headache, unspecified
CPT/HCPCS: 36415; 70450; 72125; 80053; 83735; 84702; 85025; 93005; 99283; 99284

== ENCOUNTER → 2024-12-11 12:44 | Outpatient (BNV) | payer OTHER, SELFPAY | PROVIDERS: Emergency Provider Emergency Medicine; Visit Provider Internal Medicine Cardiovascular Disease | DX: R51.9 Headache, unspecified (principal) | CPT/HCPCS: 93010 ==

== ENCOUNTER → 2024-12-11 12:44 | Outpatient (BNV) | payer OTHER, SELFPAY | PROVIDERS: Visit Provider Radiology Diagnostic Radiology | DX: M50.321 Other cervical disc degeneration at C4-C5 level (principal); R51.9 Headache, unspecified | CPT/HCPCS: 70450; 72125 ==

== ENCOUNTER 2024-12-22 21:40 | Emergency (ER) | payer OTHER, SELFPAY ==
--- NOTE | ~2024-12-22 | CT_ITS ---
CLINICAL HISTORY: Sharri CT abdomen and pelvis with contrast Comparison: None provided Findings: The lung bases are clear. The gallbladder is contracted. There is nonspecific periportal edema. There is no focal hepatic lesion or biliary duct dilation. The pancreas, spleen, adrenal glands, and kidneys are unremarkable. The appendix is normal. There is a moderate amount of stool in the colon. The gastrointestinal tract is otherwise unremarkable. There is no free fluid or free air. There are no enlarged lymph nodes. The aorta and IVC are normal. Uterus and adnexa are unremarkable. The bladder is unremarkable. There is no fracture or suspicious lytic or sclerotic lesion. There is an incidental bone island in the right side of the sacrum. IMPRESSION: 1. Nonspecific periportal edema. 2. Otherwise unremarkable CT. This document has been electronically signed by: Jarrod Joshi MD on 12/23/2024 02:05:30
[2024-12-22 21:52] VITALS: BP 115/57; PULSE 66; RESP 16; TEMP 36.5; O2SAT 97; BMI 20.9
[2024-12-22 22:40] LABS: MANUAL DIFF FLAG NO
[2024-12-22 22:41] LABS: Hematocrit 35.1 % (37.0-47.0); Hemoglobin 12.1 g/dl (12.0-16.0); Imm Gran Abs Auto 0.02 X10*3/uL (0.00-0.03); Imm Gran Pct Auto 0.2 % (0.0-0.4); Lymphocytes Absolute Auto 3.6 X10*3/uL (1.2-4.9); Mean Corpuscular HGB Conc 34.5 g/dl (31.0-35.0); Mean Corpuscular Hemoglobin 30.8 pg (27.0-33.0); Mean Corpuscular Volume 89.3 fL (80.0-98.0); NRBC Abs Auto 0.000 X10*3/uL (0.0-0.012); NRBC Pct Auto 0.0 /100WBC (0.0-0.2); Platelet Count 283 X10*3/uL (160-400); Red Blood Count 3.93 X10*6/uL (4.20-5.50); White Blood Count 8.3 X10*3/uL (4.8-10.8)
[2024-12-22 22:45] LABS: Appearance Urine Clear; Glucose Urine UA Negative (Negative); PH 5.5 (5.0-9.0); Specific Gravity - Urine 1.015 (1.005-1.025)
--- OUTSIDE RECORDS SUMMARY | 2024-12-22 22:50 | XMS_ITS | Patient Health Record ---
Author Organization [facility] Address [address] [place] [address] Support Name Relationship Address Phone RudyAbby pierce Guarantor Unknown Unavailabl e Allergies Allergen (clinical drug ingredient) Drug/Non Drug Allergy documented on EMR Reaction Allergy Type Onset Date Status Information temporarily unavailable Augmentin anaphylaxis Drug Allergy Active Information temporarily unavailable Bees Wax shortness of breath Drug Allergy Active Information temporarily unavailable Honey anaphylaxis Drug Allergy Active Information temporarily unavailable Bee Sting anaphylaxis Allergy Active Reason For [...] of [place] [address] [place] [phone] [id number] LongAbby Self - patient is the insured Medical (General) History Medical History History ICD Code Postural orthostatic tachycardia syndrom e 2020 Chronic fatigue syndrome 2018 Hypermobile 2018 Fibromyalgia 2019 Asthma 2006 Depression 2012 Generalized anxiety disorder 2012 Borderline Personality disorder 2017
--- OUTSIDE RECORDS SUMMARY | 2024-12-22 22:50 | XMS_ITS | Clinical Summary ---
Author Organization [facility] Address [address] [facility] [address] [place] [address] Phone Care Team Providers Care Application Programmer Analyst Name Role Phone Sandra Guadalupe TITLE SUPERVISOR Primary Care Provider [phone] Allergies Active Allergy Reactions Criticality Noted Date [...] mg by mouth daily. 4 Active omega 6-zep-rth-fish oil 1,000 mg (250 mg-750 mg)/5 mL [...] 3 hours apart. Follow-up with PCP and reservoir engineering consultant if not better or worse Underweight 06/09/2023 Assessment & Plan (06/12/2023 7:10 PM EST): I have explained to her importance of achieving optimal body weight for her height in reducing the risk of infection (s) and achieving maximal bone density by the age of 30. intermediate current use of non -steroidal anti-inflammatories (NSAID) [...] since last visit on 03/05/19. Consider GI/ machine veneer repairer/ dietitian consult Other insomnia 06/06/2019 Assessment & [...] to 30 mg if no contraindications by lead software tester Consider formal sleep study Assessment & Plan (06/06/2019 1:03 PM EST): Due to ongoing problems with getting asleep & keeping asleep despite using melatonin 1- 5 mg nightly & following sleep hygiene Suggest carefully increasing nightly dose of fluoxetine from 20 mg to 30 mg if no contraindications by lead software tester Consider formal sleep study Chronic fatigue 03/05/2019 [...] & Plan (02/05/2020 8:50 PM EDT): See county extension agent for exploring other therapeutic options both oral and topical. Assessment & Plan (07/02/2019 6:29 PM EDT): See county extension agent for exploring other therapeutic options both oral and topical. Assessment & Plan (03/05/2019 5:58 PM EST): See county extension agent for exploring other therapeutic options both oral [...] topic Medical Devices Not on file Insurance [employer] [address] [place], [place] [address]oph[employer] [facility] [employer] [facility] Cases[facility] CasesFAYET[facility] [employer] Care Teams Application Programmer Analyst Relationship Specialty Start Date End Date Sandra Guadalupe NP [address] [facility] [address] [place] [address] [email or web address] PCP - General Nurse Practitioner 02/29/24 Additional Source Comments The information contained in this document represents components of the legal health record. It is not the complete legal health record.[facility]
--- OUTSIDE RECORDS SUMMARY | 2024-12-22 22:50 | XMS_ITS | Encounter Summary ---
Author Organization [facility] Address [address] [place] [address] Care Team Providers Care Family Services Specialist Name Role Phone ValerianadrewSandra Primary Care Provider [phone] Encounter Details Date Type Department Care Team (Late st Contact Info) Description 12/10/2024 Telephone Gastroenterology - [address] [place] [address] Bowen Lo MD [address] [place] [phone] Social History Tobacco Use Types Packs/Day Years Used Date Smoking Tobacco: Every Day Cigarettes Smokeless Tobacco: Current Alcohol Use Standard Drinks/Week Comments Not Currently 0 (1 standard drink = 0.6 oz pur e alcohol) Comments Unknown Sex and Gender Information Value Date Recorded Sex Assigned at Not on file Legal Sex Female 10:32 PM EST Gender Identity Not on file Sexual Orientation Not on file documented as of this encounter Progress Notes * Evelyn Doyle - 12/17/2024 8:30 AM EDT 3rd attempt to reach patient to schedule appointment. Mailed letter. * Evelyn Doyle - 12/13/2024 9:20 AM EDT 2nd attempt to reach patient to schedule appointment. Left message to call back. * Florinda James MA - 12/11/2024 8:52 AM EDT 1st attempt to schedule an appointment patient left message to call back EGD-ANY * Evelyn Doyle - 12/10/2024 3:48 PM EDT ----- Message from RADHA Brantley sent at 12/10/2024 3:18 PM EDT ----- Book egd Dx: nausea/vomiting, epigastric pain, h/o gastroparesis Book follow up after procedure documented in this encounter Plan of Treatment Not on file documented as of this encounter Visit Diagnoses Not on filedocumented in this encounter Care Teams Family Services Specialist Relationship Specialty Start Date End Date Sandra Ridley [address] [facility] [address] [address] PCP - General Family Medicine 03/05/24 documented as of this encounter
--- OUTSIDE RECORDS SUMMARY | 2024-12-22 22:50 | XMS_ITS | Patient Health Record ---
Author Organization [facility] Address [address] [facility] [address] [place] [address] Care Team Providers Care Lease Analyst Name Role Phone JEANCARLOS STILES Unavailable [phone] Allergies No Known Allergies Reason For Referral No Information Medications Medication SIG (Take, Route, Frequency, Duration) Notes Start Date End Date Status Simethicone 80 MG 1 tablet after meals and at bedtime as needed Orally Four times a day Active Vitamin D3 1.25 MG (92091 UT) 1 capsule Orally; Duration: 30 day(s) [...] severe cramping (at [facility]) 02/25/2020 Not-Taking Fries 3 1000 MG 1 capsule Orally Once [...] Problem Status W/U Status Risk Notes Problem Information temporarily unavailable Major depressive disorder, single episode, unspecified (F32.9) Active confirmed Problem Information temporarily unavailable Anxiety disorder, unspecified (F41.9) Active confirmed Problem Information temporarily unavailable Post-traumatic stress disorder, chronic (F43.12) Active confirmed Problem Information temporarily unavailable Migraine with aura, not intractable, with status migrainosus (G43.101) Active confirmed Problem Information temporarily unavailable Unspecified asthma, uncomplicated (J45.909) Active confirmed Problem Information temporarily unavailable Fibromyalgia (M79.7) Active confirmed Problem Information temporarily unavailable Abnormal uterine and vaginal bleeding, unspecified (N93.9) Active confirmed Problem Information temporarily unavailable Chronic fatigue, unspecified (R53.82) Active confirmed Plan Of Treatment Pending Test Test Name Order Date Test, Urine 02/25/2020 Test, Urine 09/15/2021 ULTRASOUND: PELVIC W/TRANSVAGINAL 2019 Insurance Providers Payer Name Payer Address Payer Phone Subscriber Number Group Number Insured Name Patient Relationship to Insured Coverage Start Date Coverage End Date [facility] [address] [address] [place] [id number] CHRIS AGARWAL Self - patient is the insured Medical (General) History Medical History History ICD Code Unspecified asthma, uncomplicated J45.90 9 Encounter for screening for depression Z 13.31 Anxiety disorder, unspecified F41.9 Migraine with aura, not intractable, wit h status migrainosus G43.101 Surgical History Surgery Date(Month/Year) Tonsils and Adenoids 2007
--- OUTSIDE RECORDS SUMMARY | 2024-12-22 22:50 | XMS_ITS | Clinical Summary ---
Author Organization 175 [facility] Address [address] [place] [address] Phone Care Team Providers Care Accounts Receivable Specialist Name Role Phone MadisonEricNachoandrewSandra Primary Care Provider [phone] Allergies Active Allergy Reactions Criticality Noted Date [...] 3 hours apart. Follow-up with PCP and flight control manager if not better or worse Underweight 06/09/2023 [...] since last visit on 03/05/19. Consider GI/ senior director marketing/ dietitian consult Anxiety disorder 03/05/2019 Overview (12/07/2024): [...] Overview (12/07/2024): Last Assessment & Plan: See legal entity controller for exploring other therapeutic options both oral and topical. Encounters Date Type Department Care Team Description 12/10/2024 2:40 PM EDT Consult Gastroenterology - [address] [address] Lizzette Padgett PA Nausea and vomiting, unspecified vomiting type (Primary Dx) 12/10/2024 Telephone Gastroenterology - [address] [address] Bowen Lo MD from Last [...] patient's age to complete this topic Insurance [facility] [address] Care Teams Accounts Receivable Specialist Relationship Specialty Start Date End Date o-Sandra Lim [address] [facility] [address] [address] PCP - General Family Medicine 03/05/24
[2024-12-22 23:01] LABS: Alanine Aminotransferase 19 U/L (0-31); Albumin Level 4.5 g/dL (3.5-5.0); Alkaline Phosphatase 60 U/L (39-117); Anion Gap 13 (12-20); Aspartate Amino Transferase 25 U/L (5-31); Blood Urea Nitrogen 13 mg/dL (9-16); Calcium 9.0 mg/dL (8.4-10.2); Carbon Dioxide 25 mmol/L (22-29); Chloride 108 mmol/L (96-108); Creatinine Clr Calc Pharmacy 92.7; Estimated Glomerular Filt Rate > 60; Lipase 56 U/L (8-78); Magnesium 2.0 mg/dL (1.6-2.6); Potassium 3.8 mmol/L (3.3-5.1); Sodium 142 mmol/L (135-145); Total Protein 6.7 g/dL (6.5-8.0)
--- NOTE | 2024-12-22 23:20 | ED.GENADULT ---
HPI - General Adult General Chief complaint: Abdominal Pain Stated complaint: abd pain radiating to back Time Seen by Provider: 12/22/24 23:08 Source: patient Mode of arrival: ambulatory Limitations: no limitations History of Present Illness ED Provider: Dr. 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 Patient has been having nausea and vomiting for the past 3 days as well. Patient is noted that his pain is worsening postprandial. Patient has no history of abdominal surgeries in the past. She stated this pain is in the right upper quadrant and radiates to her right back. I the pain has been worsening therefore she presents to the ER for further evaluation. Related Data Previous Rx's ?Medication ?Instructions ?Recorded cyclobenzaprine 5 mg tablet 5 mg PO BEDTIME PRN muscle spasm 12/23/22 #4 tabs ketorolac 10 mg tablet 10 mg PO Q6H PRN pain 5 days #20 12/23/22 tabs ondansetron 4 mg disintegrating 4 mg PO Q8H 3 days #9 tabs 02/25/23 tablet ondansetron 4 mg disintegrating 4 mg PO Q6-8H PRN nausea and 05/23/23 tablet vomiting #14 tabs levetiracetam 500 mg tablet 500 mg PO BID #60 tabs 05/07/24 (Keppra) metronidazole 500 mg tablet 500 mg PO BID 7 days #14 tabs 07/06/24 sulfamethoxazole 800 1 tab PO Q12H 7 days #14 tabs 07/06/24 mg-trimethoprim 160 mg tablet (Bactrim DS) acetaminophen 325 mg capsule 650 mg (2 x 325 mg) PO Q6H PRN 10/07/24 pain #14 caps cyclobenzaprine 5 mg tablet 5 mg PO TID PRN muscle spasm #12 10/07/24 tabs ibuprofen 400 mg tablet 400 mg PO Q6H PRN pain #14 tabs 10/07/24 albuterol sulfate 0.63 mg/3 mL 0.63 mg (3 mL) inhalation Q8H PRN 10/14/24 solution for nebulization shortness of breath or wheezing #90 mL ketorolac 10 mg tablet 10 mg PO Q6H PRN pain #20 tabs 10/27/24 ibuprofen 400 mg tablet 400 mg PO Q8H PRN pain #30 tabs 11/08/24 Allergies Allergy/AdvReac Type Severity Reaction Status Date / Time beeswax Allergy Unknown Verified 12/22/24 21:54 haloperidol (From Haldol) Allergy Unknown Verified 12/22/24 21:54 honey Allergy Unknown Verified 12/22/24 21:54 montelukast Allergy Unknown Verified 12/22/24 21:54 Penicillins Allergy Difficulty Verified 12/22/24 21:54 Swallowing Review of Systems Review of Systems: Pertinent review of systems as mentioned in HPI. All other system otherwise negative. [facility] Past Medical History [facility] Narrative: Medical history as mentioned in HPI Social History Social History Alcohol intake: never Substance Use Type: Marijuana Advance Directives: No Advance Directives Information Provided: No Do you have a plan to hurt others: No Plan Physical Exam ED Exam Exam: General: Pleasant, no distress, interacting appropriately Head: Normacephalic, atraumatic ENT: oral mucosa moist, neck supple, no tracheal deviation Gastrointestinal: Soft, non distended,right upper quadrant tenderness on palpation, positive Anne's sign Skin: Warm and dry Psychiatric: Appropriate mood and thoughts Vital Signs: Vital Signs - 24 hr 12/22/24 21:52 12/23/24 00:00 Temperature 97.7 F 97.6 F Pulse Rate 66 56 Respiratory Rate 16 16 Blood Pressure 115/57 L 107/65 Pulse Oximetry 97 100 Oxygen Delivery Method Room Air Room Air BMI result Body Mass Index 20.9 Medications Administered Discontinued Medications Generic Name Dose Route Start Last Admin Trade Name Freq PRN Reason Stop Dose Admin Ceftriaxone Sodium 2 gm 12/22/24 23:56 12/23/24 00:31 Ceftriaxone Sodium 2 Gm Vial IVPUSH 12/22/24 23:57 2 gm ONCE ONE Administration Sodium Chloride 1,000 mls @ 999 mls/hr 12/22/24 23:45 12/23/24 00:14 Ns IV 12/23/24 00:45 999 mls/hr .Q1H1M JANIYA Administration Iohexol 85 ml 12/23/24 00:44 12/23/24 00:49 Iohexol 350 Mg/Ml 100 Ml Infus..Btl IV 12/23/24 00:45 85 ml ONCE ONE Administration Ketorolac Tromethamine 15 mg 12/23/24 00:19 12/23/24 00:31 Ketorolac Tromethamine 15 Mg/Ml Vial IVPUSH 12/23/24 00:20 15 mg ONCE ONE Administration Ondansetron HCl 4 mg 12/22/24 23:57 12/23/24 00:32 Ondansetron Hcl 4 Mg/2 Ml Vial IVPUSH 12/22/24 23:58 4 mg ONCE ONE Administration Medical Decision Making Medical Decision Making [facility] Narrative: 23-year-old female presented hospital today for right upper quadrant pain for the past 3 days nausea vomiting. Worsened postprandial. Abdominal lab work were obtained. I did perform a bedside ultrasound. Perform focused. Patient does have anterior gallbladder wall larger than 3 mm. Unfortunately we do not have ultrasound overnight here. We will plan to obtain a CT abdomen and pelvis for the patient at this time. IV morphine will be given IV Zofran IV fluid. I will also plan to cover patient with IV ceftriaxone and IV Flagyl. If the patient does have a penicillin allergy however she states she has urticaria from an no signs of anaphylaxis. She told me she has tolerated ceftriaxone in the past. Informed by the patient's boyfriend that she wants to leave. When I arrive in the room patient appears to be tearful and anxious. Requesting to leave at this time. I discussed with her that I am very concerned that she has cholecystitis on CT imaging and ultrasound. I discussed with her that if she does leave there is risk of sepsis, rupture of the gallbladder and . Patient understands the risk. Still requesting to be discharged at this time. We will plan to sign out patient's AMA. She does understand that she can come back at any time. Differential Diagnosis Differential Diagnoses: The differential diagnosis associated with the presentation includes Cholecystitis, gastritis, UTI, pyelonephritis Lab Data [facility] Lab Attestation statement: I reviewed the patient's lab results. 12/22/24 22:36 12/22/24 22:36 Labs: Lab Results 12/22/24 12/22/24 Range/Units 22:36 22:39 WBC 8.3 (4.8-10.8) X10*3/uL RBC 3.93 L (4.20-5.50) X10*6/uL Hgb 12.1 (12.0-16.0) g/dl Hct 35.1 L (37.0-47.0) % MCV 89.3 (80.0-98.0) fL MCH 30.8 (27.0-33.0) pg MCHC 34.5 (31.0-35.0) g/dl RDW 12.2 (11.0-16.0) % Plt Count 283 (160-400) X10*3/uL MPV 9.3 L (9.4-12.3) fL Immature Gran % (Auto) 0.2 (0.0-0.4) % Neut % (Auto) 45.1 (45-73) % Lymph % (Auto) 44.0 H (20-40) % [place] % (Auto) 5.9 (2-11) % Eos % (Auto) 4.4 H (0-4) % Baso % (Auto) 0.4 (0-2) % Lymph # (Auto) 3.6 (1.2-4.9) X10*3/uL [place] # (Auto) 0.5 (0.1-1.2) X10*3/uL Eos # (Auto) 0.4 (0.0-0.4) X10*3/uL Baso # (Auto) 0.0 (0.0-0.2) X10*3/uL Abs Immat Gran (auto) 0.02 (0.00-0.03) X10*3/uL Absolute Neuts (auto) 3.7 (2.0-8.3) x10*3/uL Absolute Nucleated RBC 0.000 (0.0-0.012) X10*3/uL Nucleated RBC % (auto) 0.0 (0.0-0.2) /100WBC Sodium 142 (135-145) mmol/L Potassium 3.8 (3.3-5.1) mmol/L Chloride 108 (96-108) mmol/L Carbon Dioxide 25 (22-29) mmol/L Anion Gap 13 (12-20) BUN 13 (9-16) mg/dL Creatinine 0.78 (0.5-1.4) mg/dL Estim Creat Clear Calc 92.7 Estimated GFR > 60 Random Glucose 85 (60-115) mg/dL Calcium 9.0 (8.4-10.2) mg/dL Magnesium 2.0 (1.6-2.6) mg/dL Total Bilirubin 0.1 (0.0-1.0) mg/dL AST 25 (5-31) U/L ALT 19 (0-31) U/L Alkaline Phosphatase 60 (39-117) U/L Total Protein 6.7 (6.5-8.0) g/dL Albumin 4.5 (3.5-5.0) g/dL Lipase 56 (8-78) U/L Beta HCG, Quant < 2 mIU/mL Urine Color Yellow Urine Appearance Clear Urine pH 5.5 (5.0-9.0) Ur Specific [place] 1.015 (1.005-1.025) Urine Protein Negative (Neg-Trace) mg/dL Urine Glucose (UA) Negative (Negative) mg/dL Urine Ketones Negative (Negative) mg/dL Urine Blood Negative (Negative) Urine Nitrite Negative (Negative) Ur Leukocyte Esterase Negative (Negative) Urine RBC 0-2 (0-2) /HPF Urine WBC 0-5 (0-5) /HPF Ur Squamous Epith Cells 0-2 (0-2) /HPF Urine Bacteria Trace (None Seen) Hyaline Casts 0-2 (0-2) /LPF Influenza Type A (PCR) NEGATIVE (Negative) Influenza Type B (PCR) NEGATIVE (Negative) RSV RNA Qual (PCR) NEGATIVE (Negative) SARS-CoV-2 RNA (RT-PCR) NEGATIVE (Negative) Independent Interpretation I performed an independent interpretation of an: CT Scan Interpretation: Concerns for cholecystitis Discharge Plan Discharge Clinical Impression: Acute cholecystitis Patient Disposition: Left Against Medical Advice Additional Instructions: I suspect you have cholecystitis. I recommend you return to ED whenever you feel it is okay to do so. Risk of untreated cholecystitis is sepsis and rupture of the gallbladder. Prescriptions: No Action sulfamethoxazole-trimethoprim [Bactrim DS] 800-160 mg tablet 1 tab PO Q12H 7 Days Qty: 14 0RF metronidazole 500 mg tablet 500 mg PO BID 7 Days Qty: 14 0RF ibuprofen 400 mg tablet 400 mg PO Q6H PRN (Reason: pain) Qty: 14 0RF cyclobenzaprine 5 mg tablet 5 mg PO TID PRN (Reason: muscle spasm) Qty: 12 0RF acetaminophen 325 mg capsule 650 mg PO Q6H PRN (Reason: pain) Qty: 14 0RF albuterol sulfate 0.63 mg/3 mL solution for nebulization 0.63 mg inhalation Q8H PRN (Reason: shortness of breath or wheezing) Qty: 90 0RF ketorolac 10 mg tablet 10 mg PO Q6H PRN (Reason: pain) Qty: 20 0RF Rx Instructions: maximum total duration of 5 days from all oral, intranasal, or parenteral formulations. The patient received an intramuscular dose of Toradol here in the emergency room cyclobenzaprine 5 mg tablet 5 mg PO BEDTIME PRN (Reason: muscle spasm) Qty: 4 0RF ketorolac 10 mg tablet 10 mg PO Q6H PRN (Reason: pain) 5 Days Qty: 20 0RF Rx Instructions: Patient received Toradol in the emergency room. ondansetron 4 mg tablet,disintegrating 4 mg PO Q8H 3 Days Qty: 9 0RF ondansetron 4 mg tablet,disintegrating 4 mg PO Q6-8H PRN (Reason: nausea and vomiting) Qty: 14 0RF levetiracetam [Keppra] 500 mg tablet 500 mg PO BID Qty: 60 2RF ibuprofen 400 mg tablet 400 mg PO Q8H PRN (Reason: pain) Qty: 30 0RF Stand Alone Forms: Against Medical Advice Print Language: Kiswahili
[2024-12-22 23:41] LABS: Resp Syncy Virus RNA Qual PCR NEGATIVE (Negative); SARS COV2 PCR INHOUSE NEGATIVE (Negative)
[2024-12-23] VITALS: BP 107/65; PULSE 56; RESP 16; TEMP 36.4; O2SAT 100
[2024-12-23] MEDS: iohexoL 350 MG/ML 100 ML INFUS..BTL 85 ML IV (00:49)
[2024-12-23 02:29] VITALS: BP 107/65; PULSE 56; RESP 16; TEMP 36.4; O2SAT 100
== END 2024-12-23 02:38 | disposition left against medical advice (07) ==
PROVIDERS: Emergency Provider Student in an Organized Health Care Education/Training Program
DX: K81.0 Acute cholecystitis (principal); R10.2 Pelvic and perineal pain; M54.50 Low back pain, unspecified; R11.2 Nausea with vomiting, unspecified; R10.11 Right upper quadrant pain; Z03.818 Encounter for observation for suspected exposure to other biological agents ruled out
CPT/HCPCS: 36415; 74177; 80053; 81001; 83690; 83735; 84702; 85025; 87637; 96374; 96375; 99285; J0696; J1885; J2405; Q9967

== ENCOUNTER → 2024-12-23 00:02 | Outpatient (BNV) | payer OTHER, SELFPAY | PROVIDERS: Emergency Provider Student in an Organized Health Care Education/Training Program; Visit Provider Radiology Diagnostic Radiology | DX: K82.8 Other specified diseases of gallbladder (principal) | CPT/HCPCS: 74177 ==

== ENCOUNTER 2025-01-21 12:51 | Outpatient (AMB) | payer OTHER, SELFPAY ==
--- NOTE | 2025-01-21 13:03 | A.OFFVIS_ITS ---
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 Required: No Accompanied by: Spouse Allergies amoxicillin Allergy (Unknown, Verified 01/21/25 13:12) Hives bee pollen Allergy (Unknown, Verified 01/21/25 13:12) Unknown bee venom protein (honey bee) Allergy (Unknown, Verified 01/21/25 13:12) Unknown grape Allergy (Unknown, Verified 01/21/25 13:12) Unknown beeswax Allergy (Verified 01/21/25 13:12) Unknown haloperidol (From Haldol) Allergy (Verified 01/21/25 13:12) Unknown honey Allergy (Verified 01/21/25 13:12) Unknown montelukast Allergy (Verified 01/21/25 13:12) Unknown Penicillins Allergy (Verified 01/21/25 13:12) Difficulty Swallowing HPI Comments Details: This is a 24-year-old female patient with a past history of seizure disorder, pots, headaches, anemia, asthma, depression, high cholesterol, and sleep difficulties who is referred to the clinic for evaluation of her seizure disorder. She was sent by primary care whos notes from November of 2024 state that she has been hiking somewhat recently when she had seizure and sprained her ankle. She is on Keppra 500mg twice daily and according to documentation has had EEG confirmation of seizure in the past. She tells me today that she was initially diagnosed with seizure activity approximately 1 year ago here at our emergency department. She was subsequently placed on levetiracetam 500 mg twice daily though unfortunately her seizure activity continued without any improvement on the levetiracetam. She reported that she was having an approximate 12 seizures per day including episodes of lip-smacking, eye fluttering, staring, and tonic-clonic events lasting anywhere from 30 seconds to 3-4 minutes at a time. He has been generally occur back-to- back over the course of an hour. Despite compliance with the levetiracetam, her seizures continued at this frequency. She was subsequently placed on lamotrigine 100 mg daily by Psychiatry which she feels has made some difference. She is now averaging approximately 10 seizure episodes per day that can include episodes of lip-smacking, eye fluttering, staring, drop episodes, or tonic-clonic events. They are still lasting no more than 3 or 4 minutes at a time but generally last around 30 seconds. She has been compliant with both her lamotrigine 100 mg daily and levetiracetam 500 mg twice daily. Seizure background information: Onset of seizures: Approximately 1 year ago Date of last seizure: Today Seizure type: Variable Aura/warning signs:Smell of gasoline and feeling of ants in brain before onset Postictal period: Some somnolence Triggers:Lights especially flashing Last brain imagin11/2024 Last EEG: Unknown but possibly 1 year ago Current medications: Levetiracetam 500 mg twice daily and lamotrigine 100 mg daily Compliance with medications: Reports good compliance History of brain infection: No History of significant illness or hospitalization: Failure to thrive as a child. Hx chronic lyme History of stroke of brain bleed:Not that she is aware of History of pre-term :No History of learning disability:ADHD and autism History of developmental delay:Yes History of IEP in school:No Years of schooling completed:11 with GED Family history of seizure: Father with a history of epilepsy- late onset Driving status:No Family/social support: Yes- lives with significant other Social/medical services within the home:No Social: Sleep: Better with trazodone. Alcohol: None Tobacco: Yes- daily Other substancae use:Marijuana Occupation: Currently unemployed Prior workup: 12/11/24 CT HEAD WITHOUT CONTRAST FINDINGS: There is no acute ischemic change. There is no intracranial hemorrhage. There is no mass-effect or midline shift. Basal cisterns and ventricles are within normal limits for age/cerebral volume. Orbits are symmetrical and unremarkable. Paranasal sinuses and mastoid air cells are pneumatized. There are no bony abnormalities. CT/CT head/brain wo IV con IMPRESSION: No acute intracranial abnormality. 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 Gastroparesis Depression with anxiety POTS (postural orthostatic tachycardia syndrome) Seizure Social History Alcohol intake: never Substance Use Type: Marijuana Review of Systems Const All systems reviewed & are unremarkable except as noted in HPI and below Physical Exam Vital Signs: Last Vital Signs Pulse 73 01/21/25 13:04 Resp 16 01/21/25 13:04 BP 98/68 01/21/25 13:04 Pulse Ox 98 01/21/25 13:04 BMI result Body Mass Index 18.3 Const General: cooperative, healthy appearing, comfortable and no acute distress Nutritional Appearance: well nourished Orientation/consciousness: patient oriented x3 Limitations: no limitations HEENT Head: Yes normal to inspection and Yes normocephalic Eyes General: appearance normal, both eyes and all related structures Visual Breaux: normal visual breaux by confrontation Alignment and Position: alignment normal Periorbital: periorbital findings normal Eyelids: Yes eyelids normal Conjunctivae: conjunctivae normal Sclerae: sclerae normal Neck Neck: Yes normal visual inspection and Yes full ROM General: Yes no CVA tenderness Back/Spine/Pelvis Back: no CVA tenderness Cervical Spine: normal cervical lordosis Thoracic/Lumbar Spine: thoracic and lumbar spine normal to inspection Neuro General: patient oriented x3, tone normal and other (Bilateral giles and bilateral ankle clonus 1-2 beats) Cranial nerves: Yes CN's II-XII intact bilaterally and Yes Facial sensation intact/muscles of mastication intact Cognition (Neuro): normal cognition Gait exam (Neuro): Normal gait present Motor exam (neuro): 5/5 motor strength present throughout and no tremor noted Sensory Exam: double simultaneous stimulation for sensation normal Deep tendon reflexes (DTR's): Right triceps reflex intensity grade: 3+, Left triceps reflex intensity grade: 3+, Rt Biceps (C5, C6): 3+, Left biceps reflex intensity grade: 3+, Right brachioradialis reflex intensity grade: 3+, Left brachioradialis reflex intensity grade: 3+, Right patellar reflex intensity grade: 3+, Left patellar reflex intensity grade: 3+, Right ankle reflex intensity grade: 3+ and Left ankle reflex intensity grade: 3+ Plantar Reflex Responses: equivocal: bilateral Romberg Test: Negative Pupils: Normal pupillary reactivity/response: bilateral Psych Appearance: grossly normal Mental Status: mental status grossly normal Speech and movement: Normal speech and movement present and Clear speech present Affect: normal affect Attitude: cooperative Thought process: Normal thought process present Thought content: Normal thought content present Insight: Good insight present (Psych) Judgement: Good judgement present (Psych) Assessment & Plan Assessment & Plan (1) Seizure disorder: Code(s): G40.909 - Epilepsy, unspecified, not intractable, without status epilepticus Category: Medical Plan: . Plan This is a 24-year-old female patient with a past history of seizure disorder, pots, headaches, anemia, asthma, depression, high cholesterol, and sleep difficulties who is referred to the clinic for evaluation of her seizure disorder. She was initially diagnosed at the [facility] Emergency room approximately 1 year ago. Her imaging was nonacute however her presentation was such that they placed her on lamotrigine 500 mg twice daily. Her father does have a history of epilepsy. The patient believes that she had an EEG performed during her ER visit though I do not see any EEG reports available for review. I would however like to obtain a 48 hour ambulatory EEG to evaluate these episodes. She also needs an MRI of the brain with and without contrast to rule out structural abnormalities/seizure foci. For now, I will have her continue on her current medications and we can make changes to her medications if needed based on findings of these studies. -MRI of the brain with and without contrast -24 hour ambulatory EEG -continue current medication regimen for now -follow up after testing Orders: Orders MR head/brain wo/w con Today G40.909 - Epilepsy, unspecified, not intractable, without status epilepticus EEG ambulatory Today G40.909 - Epilepsy, unspecified, not intractable, without status epilepticus Coding Level of Care Code New Pt Level 4 (17936) Diagnoses Seizure disorder G40.909
[2025-01-21 13:04] VITALS: BP 98/68; PULSE 73; RESP 16; O2SAT 98; BMI 18.3
--- OUTSIDE RECORDS SUMMARY | 2025-01-21 13:59 | XMS_ITS | Patient Health Record ---
Author Organization [facility] Address 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 Name Role Phone JEANCARLOS STILES Unavailable [phone] Allergies No Known Allergies Reason For Referral No Information Medications Medication SIG (Take, Route, Frequency, Duration) Notes Start Date End Date Status Simethicone 80 MG 1 tablet after meals and at bedtime as needed Orally Four times a day Active Vitamin D3 1.25 MG (15960 UT) 1 capsule Orally; Duration: 30 day(s) [...] severe cramping (at [facility]) 02/25/2020 Not-Taking [place] 3 1000 MG 1 capsule Orally Once [...] Risk Notes Problem Major depression, single episode (15288972) Major depressive disorder, single episode, unspecified (F32.9) Active confirmed Problem Anxiety disorder (899108240) Anxiety disorder, unspecified (F41.9) Active confirmed Problem Posttraumatic stress disorder (74662866) Post-traumatic stress disorder, chronic (F43.12) Active confirmed Problem Migraine with aura (6875853) Migraine with aura, not intractable, with status migrainosus (G43.101) Active confirmed Problem Uncomplicated asthma (disorder) (967890368) Unspecified asthma, uncomplicated (J45.909) Active confirmed Problem Fibromyalgia (679733967) Fibromyalgia (M79.7) Active confirmed Problem Abnormal uterine bleeding (45301740451925) Abnormal uterine and vaginal bleeding, unspecified (N93.9) Active confirmed Problem Chronic fatigue syndrome (disorder) (96443656) Chronic fatigue, unspecified (R53.82) Active confirmed Plan Of Treatment Pending Test Test Name Order Date Test, Urine 02/25/2020 Test, Urine 09/15/2021 ULTRASOUND: PELVIC W/TRANSVAGINAL 2019 Insurance Providers Payer Name Payer Address Payer Phone Subscriber Number Group Number Insured Name Patient Relationship to Insured Coverage Start Date Coverage End Date [facility] [address] [address] [place] [id number] CHRIS AGARWAL Self - patient is the insured Medical (General) History Medical History History ICD Code Unspecified asthma, uncomplicated J45.90 9 Encounter for screening for depression Z 13.31 Anxiety disorder, unspecified F41.9 Migraine with aura, not intractable, wit h status migrainosus G43.101 Surgical History Surgery Date(Month/Year) Tonsils and Adenoids 2007
--- OUTSIDE RECORDS SUMMARY | 2025-01-21 13:59 | XMS_ITS | Patient Health Record ---
Author Organization [facility] Address [address] [place] [address] Support Name Relationship Address Phone Rudystan Abby [...] of [place] [address] [place] [address] [phone] [id number] Long Abby Self - patient is the insured Medical (General) History Medical History History ICD Code Postural orthostatic tachycardia syndrom e 2020 Chronic fatigue syndrome 2018 Hypermobile 2018 Fibromyalgia 2019 Asthma 2006 Depression 2012 Generalized anxiety disorder 2012 Borderline Personality disorder 2017
--- OUTSIDE RECORDS SUMMARY | 2025-01-21 13:59 | XMS_ITS | Patient Health Record ---
Author Organization [facility] Address [address] [facility] [place] [address] Care Team Providers Care Tester Equipment Name Role Phone FAVIOLA MEZA Primary Care Provider Gricelda Haley Unavailable [phone] Allergies Allergen (clinical drug ingredient) Drug/Non Drug Allergy documented on EMR Reaction Allergy Type Onset Date Status ENVIRONMENTAL (uncoded) Unknown Allergy Active RED GRAPES (uncoded) Unknown Allergy Active tomato allergenic extract TOMATOES (uncoded) Unknown Allergy Active Haldol Unknown Drug Allergy Active montelukast Singulair Unknown Drug Allergy Activ e Honey Unknown Drug Allergy Active Penicillin Unknown Drug Allergy Active Results Component Value Reference Range Notes Comp. Metabolic Panel [id number] Reviewed date:01/04/2025 08:44:49 AM Interpretation: Performing Lab:[facility], [address] [place] [address], [place], Phone - [phone], Director - Jovan Notes/Report: Glucose 80 70-99 mg/dL BUN 13 6-20 mg/dL Creatinine 0.75 0.57-1.00 mg/dL eGFR 114 >59 mL/min/1.73 BUN/Creatinine Ratio 17 9-23 Sodium 140 134-144 mmol/L Potassium 4.5 3.5-5.2 mmol/L Chloride 103 96-106 mmol/L Carbon Dioxide, Total 22 20-29 mmol/L Calcium 9.2 8.7-10.2 mg/dL Protein, Total 6.7 6.0-8.5 g/dL Albumin 4.4 4.0-5.0 g/dL Globulin, Total 2.3 1.5-4.5 g/dL Bilirubin, Total 0.3 0.0-1.2 mg/dL Alkaline Phosphatase 66 44-121 IU/L Effective January 07, 2025 Alkaline Phosphatase reference interval will be changing to: Age Male Female 0 - 5 days 47 - 127 47 - 127 6 - 10 days 29 - 242 29 - 242 11 - 20 days 109 - 357 109 - 357 21 - 30 days 94 - 494 94 - 494 1 - 2 months 149 - 539 149 - 539 3 - 6 months 131 - 452 131 - 452 7 - 11 months 117 - 401 117 - 401 12 months - 6 years 158 - 369 158 - 369 7 - 12 years 150 - 409 150 - 409 13 years 156 - 435 78 - 227 14 years 114 - 375 64 - 161 15 years 88 - 279 56 - 134 16 years 74 - 207 51 - 121 17 years 63 - 161 47 - 113 18 - 20 years 51 - 125 42 - 106 21 - 50 years 47 - 123 41 - 116 51 - 80 years 49 - 135 51 - 125 >80 years 48 - 129 48 - 129 AST (SGOT) 22 0-40 IU/L CBC with Diff, Platelet, NLR [id number] Reviewed date:01/04/2025 08:44:42 AM Interpretation: Performing Lab:[facility], [address] [place] [address], [place], Phone - [phone], Director - Jovan Notes/Report: WBC 5.8 3.4-10.8 x10E3/uL RBC 4.38 3.77-5.28 x10E6/uL Hemoglobin 13.4 11.1-15.9 g/dL Hematocrit 40.6 34.0-46.6 % MCV 93 79-97 fL MCH 30.6 26.6-33.0 pg MCHC 33.0 31.5-35.7 g/dL RDW 11.8 11.7-15.4 % Platelets 306 150-450 x10E3/uL Neutrophils 49 Not Estab. % Lymphs 38 Not Estab. % Monocytes 8 Not Estab. % Eos 5 Not Estab. % Basos 0 Not Estab. % Neutrophils (Absolute) 2.8 1.4-7.0 x10E3/uL Lymphs (Absolute) 2.2 0.7-3.1 x10E3/uL Neut/Lymph Ratio 1.3 0.0-2.9 ratio Published COVID-19 studies suggest: Low likelihood of severe COVID-19 disease progression 0.0-2.9 High likelihood of severe COVID-19 disease progression >4.9 Monocytes(Absolute) 0.4 0.1-0.9 x10E3/uL Eos (Absolute) 0.3 0.0-0.4 x10E3/uL Baso (Absolute) 0.0 0.0-0.2 x10E3/uL Immature Granulocytes 0 Not Estab. % Immature Grans (Abs) 0.0 0.0-0.1 x10E3/uL Lipid Panel With LDL/HDL Rat [id number] Reviewed date:01/04/2025 08:44:34 AM Interpretation: Performing Lab:[facility], [address], [place], Phone - [phone], Director - Jovan Notes/Report: Cholesterol, Total 188 100-199 mg/dL Triglycerides 151 0-149 mg/dL HDL Cholesterol 67 >39 mg/dL VLDL Cholesterol Isaac 26 5-40 mg/dL LDL Chol Calc ([facility]) 95 0-99 mg/dL LDL/HDL Ratio 1.4 0.0-3.2 ratio LDL/HDL Ratio Men Women 1/2 Avg.Risk 1.0 1.5 Avg.Risk 3.6 3.2 2X Avg.Risk 6.2 5.0 3X Avg.Risk 8.0 6.1 Reason For Referral Reason severe recurrent mas t cell activation with allergic reaction Please evaluate and treat Diagnosis 1 Mast cell activation , unspecified (D89.40) Referral Organization [facility] Referring Provider First Name Gricelda Referring Provider Last Name Radha Referring Provider Speciality Internal edicine Referred Provider Specialty Allergy/Immu nology General Notes Please call the usama ent to schedule the appointment, Encounter created and SMS sent to the pt., Allegra Duran 01/03/2025 04:17:43 PM > Referral Priority Routine Reason postural orthostatic tachycardia severe hypotension Please evaluate and treat Diagnosis 1 Postural orthostatic tachycardia syndrome [POTS] (G90.A) Referral Organization [facility] Referring Provider First Name Gricelda Referring Provider Last Name Radha Referring Provider Speciality Internal edicine Referred Provider Specialty Cardiology General Notes Please call the usama ent to schedule the appointment, Encounter created and SMS sent to the pt.Roger Charmain 01/03/2025 04:11:36 PM > Referral Priority Routine Medications Medication SIG (Take, Route, Frequency, Duration) Notes Start Date End Date Status traZODone HCl 50 MG 1/2 TABLET Orally On ce a day Unknown LaMICtal XR 50 MG 1 tablet Orally Once a day Unknown Folic Acid Unknown ZyrTEC 5 MG 1 tablet Orally Once a day; Duration: 30 days Active Cetirizine HCl 5 MG TAKE 1 TABLET DAILY; Duration: 30 Active Keppra 500 MG 1 tablet Orally ever y 12 hrs; Duration: 30 days Active Lexapro 20 MG 1 tablet Orally Once a day Unknown Multivitamin - 1 tablet Orally Once a day Unknown Metoclopramide HCl 10 MG 1 tablet before meals Orally 3 times a day; Duration: 30 days Active Midodrine HCl 2.5 MG 1 tablet Orally Twi ce a day; Duration: 30 days Active EPINEPHrine 0.3 MG/0.3ML as directed Injection daily; Duration: 30 days As needed 01/15/2025 Active Immunizations Vaccine Route Administration Date Status Comme nts COVID 19 Pfizer Unknown 06/11/2020 Administered COVID 19 Pfizer Unknown 07/03/2020 Administered COVID 19 Pfizer Unknown 04/04/2021 Administered Fluzone QD Unknown 02/04/2020 Administered Fluzone QD IM Intramuscular 01/02/2025 Administered Problems Problem Type SNOMED Code ICD Code Onset Dates Problem Status W/U Status Risk Notes Problem Hyperlipidemia (47578867) Hyperlipidemia, unspecified (E78.5) Active confirmed Problem Recurrent major depression in remission (22462290) Major depressive disorder, recurrent, in partial remission (F33.41) Active confirmed Problem Generalized anxiety disorder (09471032) Generalized anxiety disorder (F41.1) Active confirmed Problem 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, intractable, 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) Active confirmed Problem Gastroparesis (929244558) Gastroparesis (K31.84) Active confirmed Problem Fibromyalgia (097591431) Fibromyalgia (M79.7) Active confirmed Problem Mast cell disorder (277260074) Mast cell activation, unspecified (D89.40) Active confirmed Problem Idiopathic mast cell activation syndrome (87719063427362040 ) 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) Active confirmed Problem 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 Problem Postural orthostatic tachycardia syndrome (disorder) (261285991) Postural orthostatic tachycardia syndrome [POTS] (G90.A) Active confirmed Vital Signs Heart Rate 88 /min 01/02/2025 Temperature 97.1 degrees Fahrenheit 01/02/2025 Blood pressure diastolic 74 mm Hg 01/02/2025 Oximetry 96 % 01/02/2025 Height 5'5 in 01/02/2025 Blood pressure systolic 108 mm Hg 01/02/2025 Weight 119.1 lbs 01/02/2025 BMI 19.82 kg/m2 01/02/2025 Encounters Encounter Location Date Provider Diagnosis [facility] [address] [place] [address] 01/02/2025 [place] [facility] Hypotension, unspecified I95.9 ; Postural orthostatic tachycardia syndrome [POTS] G90.A ; Fibromyalgia M79.7 ; Alcohol abuse counseling and surveillance of alcoholic Z71.41 ; Hyperlipidemia, unspecified E78.5 ; Idiopathic mast cell activation syndrome D89.42 ; Major depressive disorder, recurrent, in partial remission F33.41 ; Generalized anxiety disorder F41.1 ; Localization-related (focal) (partial) idiopathic epilepsy and epileptic syndromes with seizures of localized onset, intractable, without status epilepticus G40.019 ; Hypermobile Kevin-Danlos syndrome Q79.62 ; Gastroparesis K31.84 and Encounter for immunization Z23 [facility] [address] [place] [address] 01/03/[address] [place] [address] 01/21/2025 [facility] [address] [place] [address] 01/04/2025 [facility] [address] [place] [address] 01/05/2025 [facility] [address] [place] [address] 01/05/[address] [place] [address] 01/05/2025 [facility] [address] [place] [address] 01/14/2025 [facility] [address] [place] [address] 01/19/2025 [facility] [address] [place] [address] 01/21/2025 [facility] [address] [place] [address] 01/21/2025 [facility] [address] [place] [address] 01/21/2025 [facility] Assessments Encounter Date Diagnosis (ICD Code) Assessment Notes Treatment Notes Treatment Clinical Notes Section Notes 01/02/2025 Hypotension, unspecified (ICD-10 - I95.9) 24-year-old lady with complicated past medical history including postural orthostatic tachycardia syndrome mast cell activation syndrome depression in partial remission anxiety disorder fibromyalgia is here today for a new PCP visit plan as following Postural orthostatic tachycardia blood pressure today is 108/74. Heart rate is 88, patient reports she is still having significant dizziness and postural hypotension she is on midodrine 2.5 mg which she takes half a tablet at lunch and half at night., She is requesting a cardiology referral, she also reports she has previous tilt table tests which were positive. Generalized anxiety disorder depression and fibromyalgia, she was diagnosed with fibromyalgia by a vp ancillary in the past. She is currently on trazodone 50 mg at night and take Lexapro 20 milligrams daily, she also follows up with online therapist and a psychiatrist from [place] to behavioral instituted. Borderline personality disorder followed by a therapist Ke[place] and psychiatrist on [facility] from [place] [facility] Idiopathic mast cell activation syndrome, patient is getting multiple flares with rashes and allergic to food dyes and multiple unknown things. She has an EpiPen in place. She takes Zyrtec as well. 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 History of seizure disorder she states that she was seen in [place] and was told that due to previous history of Lyme's disease that could have triggered a seizure activity she had an EEG done at [place] in 2024 which was positive for epileptic activity. She is currently on Lamictal 50 mg daily. She has an appointment with the neurologist on January 21. Patient still is having 5-10 seizures a day, she gets atonic seizures and drops to the floor. She also gets absence of seizure with a stare. Gastroparesis, she takes Reglan regularly. 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 flu vaccine was given today screening lab work slip was given today 01/02/2025 Postural orthostatic tachycardia syndrome [POTS] (ICD-10 - G90.A) 24-year-old lady with complicated past medical history including postural orthostatic tachycardia syndrome mast cell activation syndrome depression in partial remission anxiety disorder fibromyalgia is here today for a new PCP visit plan as following Postural orthostatic tachycardia blood pressure today is 108/74. Heart rate is 88, patient reports she is still having significant dizziness and postural hypotension she is on midodrine 2.5 mg which she takes half a tablet at lunch and half at night., She is requesting a cardiology referral, she also reports she has previous tilt table tests which were positive. Generalized anxiety disorder depression and fibromyalgia, she was diagnosed with fibromyalgia by a vp ancillary in the past. She is currently on trazodone 50 mg at night and take Lexapro 20 milligrams daily, she also follows up with online therapist and a psychiatrist from [place] to behavioral instituted. Borderline personality disorder followed by a therapist Ke[facility] and psychiatrist on [facility] from [place] [facility] Idiopathic mast cell activation syndrome, patient is getting multiple flares with rashes and allergic to food dyes and multiple unknown things. She has an EpiPen in place. She takes Zyrtec as well. 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 History of seizure disorder she states that she was seen in [place] and was told that due to previous history of Lyme's disease that could have triggered a seizure activity she had an EEG done at [place] in 2024 which was positive for epileptic activity. She is currently on Lamictal 50 mg daily. She has an appointment with the neurologist on January 21. Patient still is having 5-10 seizures a day, she gets atonic seizures and drops to the floor. She also gets absence of seizure with a stare. Gastroparesis, she takes Reglan regularly. 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 flu vaccine was given today screening lab work slip was given today 01/02/2025 Fibromyalgia (ICD-10 - M79.7) 24-year-old lady with complicated past medical history including postural orthostatic tachycardia syndrome mast cell activation syndrome depression in partial remission anxiety disorder fibromyalgia is here today for a new PCP visit plan as following Postural orthostatic tachycardia blood pressure today is 108/74. Heart rate is 88, patient reports she is still having significant dizziness and postural hypotension she is on midodrine 2.5 mg which she takes half a tablet at lunch and half at night., She is requesting a cardiology referral, she also reports she has previous tilt table tests which were positive. Generalized anxiety disorder depression and fibromyalgia, she was diagnosed with fibromyalgia by a vp ancillary in the past. She is currently on trazodone 50 mg at night and take Lexapro 20 milligrams daily, she also follows up with online therapist and a psychiatrist from [place] to behavioral instituted. Borderline personality disorder followed by a therapist Ke[facility] and psychiatrist on [facility] from [place] [facility] Idiopathic mast cell activation syndrome, patient is getting multiple flares with rashes and allergic to food dyes and multiple unknown things. She has an EpiPen in place. She takes Zyrtec as well. 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 History of seizure disorder she states that she was seen in [place] and was told that due to previous history of Lyme's disease that could have triggered a seizure activity she had an EEG done at [place] in 2024 which was positive for epileptic activity. She is currently on Lamictal 50 mg daily. She has an appointment with the neurologist on January 21. Patient still is having 5-10 seizures a day, she gets atonic seizures and drops to the floor. She also gets absence of seizure with a stare. Gastroparesis, she takes Reglan regularly. 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 flu vaccine was given today screening lab work slip was given today 01/02/2025 Alcohol abuse counseling and surveillance of alcoholic (ICD-10 - Z71.41) 24-year-old lady with complicated past medical history including postural orthostatic tachycardia syndrome mast cell activation syndrome depression in partial remission anxiety disorder fibromyalgia is here today for a new PCP visit plan as following Postural orthostatic tachycardia blood pressure today is 108/74. Heart rate is 88, patient reports she is still having significant dizziness and postural hypotension she is on midodrine 2.5 mg which she takes half a tablet at lunch and half at night., She is requesting a cardiology referral, she also reports she has previous tilt table tests which were positive. Generalized anxiety disorder depression and fibromyalgia, she was diagnosed with fibromyalgia by a vp ancillary in the past. She is currently on trazodone 50 mg at night and take Lexapro 20 milligrams daily, she also follows up with online therapist and a psychiatrist from [place] to behavioral instituted. Borderline personality disorder followed by a therapist Keren and psychiatrist on [facility] from [place] [facility] Idiopathic mast cell activation syndrome, patient is getting multiple flares with rashes and allergic to food dyes and multiple unknown things. She has an EpiPen in place. She takes Zyrtec as well. 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 History of seizure disorder she states that she was seen in [place] and was told that due to previous history of Lyme's disease that could have triggered a seizure activity she had an EEG done at [place] in 2024 which was positive for epileptic activity. She is currently on Lamictal 50 mg daily. She has an appointment with the neurologist on January 21. Patient still is having 5-10 seizures a day, she gets atonic seizures and drops to the floor. She also gets absence of seizure with a stare. Gastroparesis, she takes Reglan regularly. 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 flu vaccine was given today screening lab work slip was given today 01/02/2025 Hyperlipidemia, unspecified (ICD-10 - E78.5) 24-year-old lady with complicated past medical history including postural orthostatic tachycardia syndrome mast cell activation syndrome depression in partial remission anxiety disorder fibromyalgia is here today for a new PCP visit plan as following Postural orthostatic tachycardia blood pressure today is 108/74. Heart rate is 88, patient reports she is still having significant dizziness and postural hypotension she is on midodrine 2.5 mg which she takes half a tablet at lunch and half at night., She is requesting a cardiology referral, she also reports she has previous tilt table tests which were positive. Generalized anxiety disorder depression and fibromyalgia, she was diagnosed with fibromyalgia by a vp ancillary in the past. She is currently on trazodone 50 mg at night and take Lexapro 20 milligrams daily, she also follows up with online therapist and a psychiatrist from [place] to behavioral instituted. Borderline personality disorder followed by a therapist Ke[facility] and psychiatrist on [facility] from [place] [facility] Idiopathic mast cell activation syndrome, patient is getting multiple flares with rashes and allergic to food dyes and multiple unknown things. She has an EpiPen in place. She takes Zyrtec as well. 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 History of seizure disorder she states that she was seen in [place] and was told that due to previous history of Lyme's disease that could have triggered a seizure activity she had an EEG done at [place] in 2024 which was positive for epileptic activity. She is currently on Lamictal 50 mg daily. She has an appointment with the neurologist on January 21. Patient still is having 5-10 seizures a day, she gets atonic seizures and drops to the floor. She also gets absence of seizure with a stare. Gastroparesis, she takes Reglan regularly. 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 flu vaccine was given today screening lab work slip was given today 01/02/2025 Idiopathic mast cell activation syndrome (ICD-10 - D89.42) 24-year-old lady with complicated past medical history including postural orthostatic tachycardia syndrome mast cell activation syndrome depression in partial remission anxiety disorder fibromyalgia is here today for a new PCP visit plan as following Postural orthostatic tachycardia blood pressure today is 108/74. Heart rate is 88, patient reports she is still having significant dizziness and postural hypotension she is on midodrine 2.5 mg which she takes half a tablet at lunch and half at night., She is requesting a cardiology referral, she also reports she has previous tilt table tests which were positive. Generalized anxiety disorder depression and fibromyalgia, she was diagnosed with fibromyalgia by a vp ancillary in the past. She is currently on trazodone 50 mg at night and take Lexapro 20 milligrams daily, she also follows up with online therapist and a psychiatrist from [place] to behavioral instituted. Borderline personality disorder followed by a therapist Keren and psychiatrist on [facility] from [place] [facility] Idiopathic mast cell activation syndrome, patient is getting multiple flares with rashes and allergic to food dyes and multiple unknown things. She has an EpiPen in place. She takes Zyrtec as well. 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 History of seizure disorder she states that she was seen in [place] and was told that due to previous history of Lyme's disease that could have triggered a seizure activity she had an EEG done at [place] in 2024 which was positive for epileptic activity. She is currently on Lamictal 50 mg daily. She has an appointment with the neurologist on January 21. Patient still is having 5-10 seizures a day, she gets atonic seizures and drops to the floor. She also gets absence of seizure with a stare. Gastroparesis, she takes Reglan regularly. 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 flu vaccine was given today screening lab work slip was given today 01/02/2025 Major depressive disorder, recurrent, in partial remission (ICD-10 - F33.41) 24-year-old lady with complicated past medical history including postural orthostatic tachycardia syndrome mast cell activation syndrome depression in partial remission anxiety disorder fibromyalgia is here today for a new PCP visit plan as following Postural orthostatic tachycardia blood pressure today is 108/74. Heart rate is 88, patient reports she is still having significant dizziness and postural hypotension she is on midodrine 2.5 mg which she takes half a tablet at lunch and half at night., She is requesting a cardiology referral, she also reports she has previous tilt table tests which were positive. Generalized anxiety disorder depression and fibromyalgia, she was diagnosed with fibromyalgia by a vp ancillary in the past. She is currently on trazodone 50 mg at night and take Lexapro 20 milligrams daily, she also follows up with online therapist and a psychiatrist from [place] to behavioral instituted. Borderline personality disorder followed by a therapist Keren and psychiatrist on [facility] from [facility] Idiopathic mast cell activation syndrome, patient is getting multiple flares with rashes and allergic to food dyes and multiple unknown things. She has an EpiPen in place. She takes Zyrtec as well. 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 History of seizure disorder she states that she was seen in [place] and was told that due to previous history of Lyme's disease that could have triggered a seizure activity she had an EEG done at [place] in 2024 which was positive for epileptic activity. She is currently on Lamictal 50 mg daily. She has an appointment with the neurologist on January 21. Patient still is having 5-10 seizures a day, she gets atonic seizures and drops to the floor. She also gets absence of seizure with a stare. Gastroparesis, she takes Reglan regularly. 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 Heart rate is 88, patient reports she is still having significant dizziness and postural hypotension she is on midodrine 2.5 mg which she takes half a tablet at lunch and half at night., She is requesting a cardiology referral, she also reports she has previous tilt table tests which were positive. Generalized anxiety disorder depression and fibromyalgia, she was diagnosed with fibromyalgia by a vp ancillary in the past. She is currently on trazodone 50 mg at night and take Lexapro 20 milligrams daily, she also follows up with online therapist and a psychiatrist from [place] to [facility]. Borderline personality disorder followed by a therapist Keren and psychiatrist on [facility] from [facility] Idiopathic mast cell activation syndrome, patient is getting multiple flares with rashes and allergic to food dyes and multiple unknown things. She has an EpiPen in place. She takes Zyrtec as well. 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 History of seizure disorder she states that she was seen in [place] and was told that due to previous history of Lyme's disease that could have triggered a seizure activity she had an EEG done at [place] in 2024 which was positive for epileptic activity. She is currently on Lamictal 50 mg daily. She has an appointment with the neurologist on January 21. Patient still is having 5-10 seizures a day, she gets atonic seizures and drops to the floor. She also gets absence of seizure with a stare. Gastroparesis, she takes Reglan regularly. 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 Heart rate is 88, patient reports she is still having significant dizziness and postural hypotension she is on midodrine 2.5 mg which she takes half a tablet at lunch and half at night., She is requesting a cardiology referral, she also reports she has previous tilt table tests which were positive. Generalized anxiety disorder depression and fibromyalgia, she was diagnosed with fibromyalgia by a vp ancillary in the past. She is currently on trazodone 50 mg at night and take Lexapro 20 milligrams daily, she also follows up with online therapist and a psychiatrist from [place] to [facility]. Borderline personality disorder followed by a therapist Keren and psychiatrist on [facility] from [place] [facility] Idiopathic mast cell activation syndrome, patient is getting multiple flares with rashes and allergic to food dyes and multiple unknown things. She has an EpiPen in place. She takes Zyrtec as well. 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 History of seizure disorder she states that she was seen in [place] and was told that due to previous history of Lyme's disease that could have triggered a seizure activity she had an EEG done at [place] in 2024 which was positive for epileptic activity. She is currently on Lamictal 50 mg daily. She has an appointment with the neurologist on January 21. Patient still is having 5-10 seizures a day, she gets atonic seizures and drops to the floor. She also gets absence of seizure with a stare. Gastroparesis, she takes Reglan regularly. 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 Heart rate is 88, patient reports she is still having significant dizziness and postural hypotension she is on midodrine 2.5 mg which she takes half a tablet at lunch and half at night., She is requesting a cardiology referral, she also reports she has previous tilt table tests which were positive. Generalized anxiety disorder depression and fibromyalgia, she was diagnosed with fibromyalgia by a vp ancillary in the past. She is currently on trazodone 50 mg at night and take Lexapro 20 milligrams daily, she also follows up with online therapist and a psychiatrist from [place] to behavioral instituted. Borderline personality disorder followed by a therapist Keren and psychiatrist on [facility] from [place] [facility] Idiopathic mast cell activation syndrome, patient is getting multiple flares with rashes and allergic to food dyes and multiple unknown things. She has an EpiPen in place. She takes Zyrtec as well. 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 History of seizure disorder she states that she was seen in [place] and was told that due to previous history of Lyme's disease that could have triggered a seizure activity she had an EEG done at [place] in 2024 which was positive for epileptic activity. She is currently on Lamictal 50 mg daily. She has an appointment with the neurologist on January 21. Patient still is having 5-10 seizures a day, she gets atonic seizures and drops to the floor. She also gets absence of seizure with a stare. Gastroparesis, she takes Reglan regularly. 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 Heart rate is 88, patient reports she is still having significant dizziness and postural hypotension she is on midodrine 2.5 mg which she takes half a tablet at lunch and half at night., She is requesting a cardiology referral, she also reports she has previous tilt table tests which were positive. Generalized anxiety disorder depression and fibromyalgia, she was diagnosed with fibromyalgia by a vp ancillary in the past. She is currently on trazodone 50 mg at night and take Lexapro 20 milligrams daily, she also follows up with online therapist and a psychiatrist from [place] to behavioral instituted. Borderline personality disorder followed by a therapist Ke[place] and psychiatrist on [facility] from [place] [facility] Idiopathic mast cell activation syndrome, patient is getting multiple flares with rashes and allergic to food dyes and multiple unknown things. She has an EpiPen in place. She takes Zyrtec as well. 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 History of seizure disorder she states that she was seen in [place] and was told that due to previous history of Lyme's disease that could have triggered a seizure activity she had an EEG done at [place] in 2024 which was positive for epileptic activity. She is currently on Lamictal 50 mg daily. She has an appointment with the neurologist on January 21. Patient still is having 5-10 seizures a day, she gets atonic seizures and drops to the floor. She also gets absence of seizure with a stare. Gastroparesis, she takes Reglan regularly. 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 Heart rate is 88, patient reports she is still having significant dizziness and postural hypotension she is on midodrine 2.5 mg which she takes half a tablet at lunch and half at night., She is requesting a cardiology referral, she also reports she has previous tilt table tests which were positive. Generalized anxiety disorder depression and fibromyalgia, she was diagnosed with fibromyalgia by a vp ancillary in the past. She is currently on trazodone 50 mg at night and take Lexapro 20 milligrams daily, she also follows up with online therapist and a psychiatrist from [place] to behavioral instituted. Borderline personality disorder followed by a therapist Keren and psychiatrist on [facility] from [place] [facility] Idiopathic mast cell activation syndrome, patient is getting multiple flares with rashes and allergic to food dyes and multiple unknown things. She has an EpiPen in place. She takes Zyrtec as well. 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 History of seizure disorder she states that she was seen in [place] and was told that due to previous history of Lyme's disease that could have triggered a seizure activity she had an EEG done at [place] in 2024 which was positive for epileptic activity. She is currently on Lamictal 50 mg daily. She has an appointment with the neurologist on January 21. Patient still is having 5-10 seizures a day, she gets atonic seizures and drops to the floor. She also gets absence of seizure with a stare. Gastroparesis, she takes Reglan regularly. 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 flu vaccine was given today screening lab work slip was given today Plan Of Treatment Next Appt Details Provider Name:Gricelda Haley, 0 07/02/2025 03:30:00 PM, [address] [place] [address], [phone], Insurance Providers Payer Name Payer Address Payer Phone Subscriber Number Group Number Insured Name Patient Relationship to Insured Coverage Start Date Coverage End Date [facility] [address] [address] [place] [address] [phone] [id number] ApjamaalAbby pierce Self - patient is the insured [facility]([employer] [employer]) [address] [address] [place] [address] [phone] [id number] ApjamaalAbby pierce Self - patient is the insured Medical (General) History Medical History History ICD Code postural orthostatic tachycardia POTS Mast cell activation syndrome Gastroparesis Post Lyme's disease fatigue and pain Fibromyalgia Generalized anxiety disorder Depression Hypermobile Kevin-Danlos syndrome Borderline personality disorder Surgical History Surgery Date(Month/Year) tonsillectomy and adenoid removal as a c javierd
--- OUTSIDE RECORDS SUMMARY | 2025-01-21 13:59 | XMS_ITS | Clinical Summary ---
Author Organization [facility] Address [address] [facility] [address] [place] [id number] Phone Care Team Providers Care Headmaster/Mistress Name Role Phone Sandra Guadalupe SKILLED NURSING PROFESSIONAL Primary Care Provider [phone] Allergies Active Allergy Reactions Criticality Noted Date [...] mg by mouth daily. 4 Active omega 1-qij-jrj-fish oil 1,000 mg (250 mg-750 mg)/5 mL [...] 3 hours apart. 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 Consider GI/ product safety coordinator/ dietitian consult Other insomnia 06/06/2019 Assessment & [...] to 30 mg if no contraindications by investment strategist Consider formal sleep study Assessment & Plan (06/06/2019 1:03 PM EST): Due to ongoing problems with getting asleep & keeping asleep despite using melatonin 1- 5 mg nightly & following sleep hygiene Suggest carefully increasing nightly dose of fluoxetine from 20 mg to 30 mg if no contraindications by investment strategist Consider formal sleep study Chronic fatigue 03/05/2019 [...] & Plan (02/05/2020 8:50 PM EDT): See application developer for exploring other therapeutic options both oral and topical. Assessment & Plan (07/02/2019 6:29 PM EDT): See application developer for exploring other therapeutic options both oral and topical. Assessment & Plan (03/05/2019 5:58 PM EST): See application developer for exploring other therapeutic options both oral [...] HEPATITIS C SCREENING 2018 HIV ONE-TIME SCREENING (18-65 YEARS) 2018 PNEUMOCOCCAL VACCINES (0-49 years) (1 of 2 - PCV) 12/26/2019 PAP SMEAR 2021 INFLUENZA VACCINE (#1) 2024 3, 02/10/2021, 03/05/2020, Additional history exists COVID-19 VACCINE ( season) 2024 04/04/2021, 07/03/2020, 06/11/2020 MENINGOCOCCAL VACCINES (ACWY) Completed 01/02/2018 MENINGOCOCCAL VACCINES (B) Completed 03/14/2018, HPV VACCINES Completed 09/15/2018, 02/24, 01/02/2018 HEPATITIS A VACCINES Aged Out No long er eligible based on patient's age to complete this topic HIB VACCINES Aged Out No longer eligi ble based on patient's age to complete this topic Medical Devices Not on file Insurance Night Zookeeper O Night Zookeeper [facility] [employer] [place] [address] [address] [facility] [place] [facility] [place] [address] [address] [facility] Care Teams Headmaster/Mistress Relationship Specialty Start Date End Date Sandra Guadalupe NP [address] [place] [address] [address] [place] [address] [email or web address] PCP - General Nurse Practitioner 02/29/24 Additional Source Comments The information contained in this document represents components of the legal health record. It is not the complete legal health record.[facility]
== END 2025-01-21 13:33 | disposition home or self-care (01) ==
LOC: HO.HSM 12:52
PROVIDERS: PCP Nurse Practitioner Family; Visit Provider Nurse Practitioner
DX: G40.909 Epilepsy, unspecified, not intractable, without status epilepticus (principal)
CPT/HCPCS: 99204

== ENCOUNTER → 2025-01-21 12:51 | Outpatient (BNVA) | payer OTHER, SELFPAY | PROVIDERS: PCP Nurse Practitioner Family; Visit Provider Nurse Practitioner | DX: G40.909 Epilepsy, unspecified, not intractable, without status epilepticus (principal) | CPT/HCPCS: 99202 ==

== ENCOUNTER → 2025-02-17 15:53 | Outpatient (BNV) | payer OTHER, SELFPAY | PROVIDERS: Visit Provider Radiology Diagnostic Radiology | DX: G40.909 Epilepsy, unspecified, not intractable, without status epilepticus (principal); I78.8 Other diseases of capillaries | CPT/HCPCS: 70553 ==

== ENCOUNTER 2025-02-17 15:57 | Outpatient (REF) | payer OTHER, SELFPAY ==
--- OUTSIDE RECORDS SUMMARY | 2025-02-12 19:32 | XMS_ITS | Encounter Summary ---
Author Organization [facility] Address [address] [place] [address] Care Team Providers Care Embedded Software Design Engineer Name Role Phone Gricelda Haley MD Primary Care Provider [phone] Reason for Referral * Consultation (Routine) - Authorized Specialty Diagnoses / Procedures Referred By Contac t Referred To Contact Orthopedic Surgery / Orthopaedic Surgery Diagnoses Pain in right elbow Recurrent dislocation of right elbow Violetta Mayes PA [address] [place] [address] Phone: tel: fax: Chadwick Shen MD [address] [place] [address] Phone: tel: fax: Referral ID Status Reason Start Date Expiration Date Visits Requested Visits Authorized [id number] Authorized Specialty Services Required 02/12/2026 1 1 Reason for Visit * Reason Comments Arm Injury Encounter Details Date Type Department Care Team (Late st Contact Info) Description 02/12/2025 7:32 PM EDT - 02/12/2025 8:07 PM EDT Emergency [facility] Emergency [address] [place] [id number] Right elbow pain (Primary Dx); Recurrent dislocation of right elbow Discharge Disposition: Home or Self Care Social History Tobacco Use Types Packs/Day Years [...] Sign Reading Time Taken Comments Blood Pressure 103/68 02/12/2025 5:16 PM EDT Pulse 99 02/12/2025 5:16 PM EDT Temperature 36.6 C (97.9 F) 02/12/2025 5:16 PM EDT Respiratory Rate 16 02/12/2025 5:16 PM EDT Oxygen Saturation 98% 02/12/2025 5:16 PM EDT Inhaled Oxygen Concentration - - Weight 52.2 kg (115 lb) 02/12/2025 5:16 PM EDT Height 165.1 cm (5' 5 ) 02/12/2025 5:16 PM EDT Body Mass Index 19.14 02/12/2025 5:16 PM EDT documented in this encounter Functional Status * Calculated C-SSRS Risk Score (Lifetime/Recent) Answer Date of Assessment Author No Risk Indicated 02/12/2025 5:17 PM EDT Rene Brasher RN * [place] Suicide Severity Rating Scale (Screener/Recent Self-Report) Question Answer Date of Assessment Author 1. Wish to be (Past 1 Month) No 025 5:17 PM EDT Rene Brasher RN 2. Non-Specific Active Suici rony Thoughts (Past 1 Month) No 02/12/2025 5:17 PM EDT Rene Brasher RN 6. Suicidal Behavior (Lifetime) No 5:17 PM EDT Rene Brasher RN documented as of this encounter Discharge Instructions * Discharge Instructions* RADHA Kenyon - 02/12/2025 7:49 PM EDT You were seen for your muscle/skeletal concern. Your initial interpretation of x-ray today was negative for fracture dislocation. If you still have pain in 7 days then please get repeat x-rays done to rule out fracture. Follow up with your primary care provider who may order advanced imaging such as CT ultrasound or MRI. May refer you to physical therapy or to extension service specialist. Apply over the counter NSAID topical cream to the area 4 times a day, use ice for 30 minutes 3-5 times daily. If given, then use splint/brace and elevate. You may choose to buy an over the counter brace or compression sleeve for comfort. Follow up with your primary provider for re-evaluation within 3 days. Return to the Emergency Department sooner if you have numbness/tingling, coolness to extremity. * Attachments The following attachments cannot be sent through Care Everywhere. * Musculoskeletal Pain (Guatemalan) documented in this encounter Medications at Time of Discharge albuterol 0.63 mg/3 mL nebulizer solution Take 3 mL (0.63 mg total) by nebulization every 8 (eight) hours if needed for wheezing or shortness of breath. 5 calcium carbonate 1,500 mg (600 mg elemental calcium) tablet 1 tablet with meals Orally Twice a day for 30 day(s) cetirizine (ZyrTEC) 5 mg tablet Take 1 tablet (5 mg total) by mouth 2 (two) times a day. 4 cholecalciferol (VITAMIN D-3) 125 mcg (5,000 unit) capsule Take 1 capsule (5,000 Units total) by mouth daily. 4 EPINEPHrine (EPIPEN) 0.3 mg/0.3 mL injection INJECT 1 PEN INTRAMUSCULARLY ONCE IF NEEDED escitalopram (LEXAPRO) 20 mg tablet Take 1 tablet (20 mg total) by mouth 1 (one) time each day. 5 fluticasone propionate (FLONASE) 50 mcg/actuation nasal spray USE 2 SPRAYS IN NOSTRILS DAILY X1 WEEK THEN 1-2 SPRAYS DAILY. USE LOWEST POSSIBLE DOSE AFTER WEEK 1 folic acid (FOLVITE) 1 mg tablet Take 1 tablet (1,000 mcg total) by mouth 1 (one) time each day. 5 hydrOXYzine pamoate (VISTARIL) 50 mg capsule TAKE 1 CAPSULE BY MOUTH THREE TIMES A DAY FOR 30 DAYS NEEDED FOR ANXIETY lamoTRIgine (LaMICtal) 100 mg tablet Take 1 tablet (100 mg total) by mouth 1 (one) time each day. 5 levETIRAcetam (KEPPRA) 500 mg tablet Take 1 tablet (500 mg total) by mouth 1 (one) time each day. 5 magnesium, amino acid chelate, 133 mg tablet Take 1 tablet (133 mg total) by mouth 2 (two) times a day. meloxicam (MOBIC) 15 mg tablet Take 1 tablet (15 mg total) by mouth 1 (one) time each day. with food 4 metoclopramide (REGLAN) 10 mg tablet Take 1 tablet (10 mg total) by mouth 3 (three) times a day before meals. 5 midodrine (PROAMATINE) 2.5 mg tablet Take 1 tablet (2.5 mg total) by mouth 1 (one) time each day. 4 multivitamin tablet Take 1 tablet by mouth 1 (one) time each day. 4 naproxen (NAPROSYN) 500 mg tablet Take 1 tablet (500 mg total) by mouth every 12 (twelve) hours if needed. for pain 5 naproxen sodium (ANAPROX) 220 mg tablet Take 1 tablet (220 mg total) by mouth 2 (two) times a day if needed for mild pain. omeprazole (PriLOSEC) [address] capsule Take 1 capsule (20 mg total) by mouth 1 (one) time each day. 5 ondansetron ODT (ZOFRAN-ODT) 8 mg disintegrating tablet Dissolve 1 tablet (8 mg total) on top of the tongue every 8 (eight) hours if needed for nausea or vomiting. 60 tablet 6 5 traZODone (DESYREL) 50 mg tablet Take 0.5 tablets (25 mg total) by mouth at bedtime. 5 Vitamins B Complex tablet Take 1 tablet by mouth 1 (one) time each day. 4 zinc gluconate 30 mg tablet 1 tablet (30 mg total) 1 (one) time each day at the same time. documented as of this encounter Discharge Disposition Disposition Code Departure Means Destination Comment s Home or Self Care documented in this encounter Progress Notes * Amanda Graham RN - 02/12/2025 5:14 PM EDT Patient states that kevin danlos and states that her right elbow popped out of place. states that she popped it back into place but is still sending shooting pain down her right arm. 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 There is no other trauma to the area. No distal paresthesias or coolness. No fevers or chills no swelling. Now with full range of motion. 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 Physical Exam ED Triage Vitals [02/12/25 1716] Temp Heart Rate Resp BP 36.6 ??C (97.9 ??F) 99 16 103/68 SpO2 Temp src Heart Rate Source Patient Position 98 % -- -- -- BP Location FiO2 (%) -- -- Physical Exam Vitals and nursing note reviewed. Constitutional: Appearance: Normal appearance. HENT: Head: Normocephalic and atraumatic. Cardiovascular: Rate and Rhythm: Normal rate and regular rhythm. Pulmonary: Effort: Pulmonary effort is normal. Breath sounds: Normal breath sounds. Musculoskeletal: General: No swelling, tenderness, deformity or signs of injury. Normal range of motion. Cervical back: Normal range of motion and neck supple. Comments: Patient without obvious deformity, nontender palpation bony processes of the upper extremity, full range of motion including flexion extension supination pronation at the elbow, patient with 2+ radial pulses present. Skin: General: Skin is warm and dry. Capillary Refill: Capillary refill takes less than 2 seconds. Neurological: General: No focal deficit present. Mental Status: She is alert. ED Course & MDM Clinical Impressions as of 02/12/251950 Right elbow pain Recurrent dislocation of right elbow Medical Decision Making Differential diagnosis includes dislocation relocation, subluxation, fracture dislocation musculoskeletal strain sprain. No evidence suggestive of skin soft tissue infection, neurovascular injury. X-rays interpreted by me negative fracture sail sign. No dislocation. Patient placed in sling by nursing neurovascular intact prior to after. Recommended Voltaren. Will refer to Ortho given recurrentdislocation relocation of elbow. 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 No pertinent surgical history. [3] Family History Problem Relation Name Age of Onset Esophageal cancer Father's Brother RADHA Kenyon [birth year] Cosigned by Jolene Batista MD at 02/12/2025 9:54 PM EDT documented in this encounter Plan of Treatment Upcoming Encounters Date Type Department Care Team (Late st Contact Info) Description 02/22/2025 2:00 PM EDT Consult Orthopedic Surgery - [place] [address] [facility] [address] [place] [phone] Chadwick Shen MD [address] [place] [address] 04/04/2025 2:00 PM EST Appointment [facility] Endoscopy [address] [place] [phone] Bowen Lo MD [address] [facility] [address] [place] [address] Scheduled Referrals Name Type Priority Associated Diagnoses Order Schedule Ambulatory referral to Orthopedic Outpatient Referral Routine 1 Occurrence s starting 02/12/2025 until 02/12/2026 documented as of this encounter Goals Goal Patient Goal Type Associated Problems Recent Progress Patient-Stated? Author Autogenera chris Goal Care Plan Autogenerated Problem No Radha Dior documented as of this encounter Procedures Procedure Name Priority Date/Time Associated Diagnosis Comments XR ELBOW 3+ VIEWS RIGHT STAT 02/12/2025 5:26 PM EDT documented in this encounter Results * XR Elbow 3+ Views Right (02/12/2025 5:26 PM EDT) Anatomical Region Laterality Modality Upper Extremities, Elbow Right Radiogr aphic Imaging 02/13/2025 8:41 AM EDT Impressions 02/13/2025 8:43 AM EDT FINDINGS/IMPRESSION: No acute fracture or dislocation. Joint spaces are maintained. No joint effusion or focal soft tissue swelling. -------- FINAL REPORT -------- Dictated By: JESSICA MUNIZ Dictated Date: 02/13/2025 08:41 ET Assigned Physician: JESSICA MUNIZ Reviewed and Electronically Signed By: JESSICA MUNIZ Signed Date: 02/13/2025 08:43 ET Workstation ID: [id number] Transcribed By: Self Edit Transcribed Date: 02/13/2025 08:41 ET Narrative 02/13/2025 8:43 AM EDT XR ELBOW 3+ VIEWS RIGHT INDICATION: Pain TECHNIQUE: XR ELBOW 3+ VIEWS RIGHT COMPARISON: No priors available. Procedure Note Jessica Muniz MD - 02/13/2025 XR ELBOW 3+ VIEWS RIGHT INDICATION: Pain TECHNIQUE: XR ELBOW 3+ VIEWS RIGHT COMPARISON: No priors available. IMPRESSION: FINDINGS/IMPRESSION: No acute fracture or dislocation. Joint spaces aremaintained. No joint effusion or focal soft tissue swelling. -------- FINAL REPORT -------- Dictated By: JESSICA MUNIZ Dictated Date: 02/13/2025 08:41 ET Assigned Physician: JESSICA MUNIZ Reviewed and Electronically Signed By: JESSICA MUNIZ Signed Date: 02/13/2025 08:43 ET Workstation ID: [id number] Transcribed By: Self Edit Transcribed Date: 02/13/2025 08:41 ET Jolene Batista MD IMG XR PROCEDURES Final Result documented in this encounter Visit Diagnoses Diagnosis Right elbow pain- Primary Pain in joint, upper arm Recurrent dislocation of right elbow documented in this encounter Additional Health Concerns Active Problems Noted Date Diagnosed Date Autogenerated Problem 02/01/2025 documented as of this encounter Care Teams Embedded Software Design Engineer Relationship Specialty Start Date End Date Gricelda Haley MD [address] [facility] [address] [place] [address] PCP - General Internal Medicine 01/28/25 documented as of this encounter
--- NOTE | ~2025-02-17 | MR_ITS ---
EXAMINATION: MR BRAIN WITHOUT AND WITH CONTRAST CLINICAL INFORMATION: G 40.909. Epilepsy. COMPARISON: None available. TECHNIQUE: Multiplanar, multisequence MRI of the brain was obtained before and after the intravenous administration of 5.0 mL gadolinium based (Gadavist) without reported immediate complications.. FINDINGS: No restricted diffusion. No acute intracranial hemorrhage, mass effect, midline shift, hydrocephalus or herniation. Norman-white matter differentiation is normal. No signal abnormality or volume loss in the hippocampi. There is a focal, 7 mm slight hyperintense T2 FLAIR linear and branching enhancing signal within the left dorsal midpons and associated susceptibility. Sellar/suprasellar region is normal. Craniocervical junction is normal with normal position of the cerebellar tonsils. No other abnormal enhancement within the intra-axial or the extra-axial compartment of the cranium. Flow-void signal within the main cerebral vessels is normal. 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 Electronically signed by: Heriberto Zhang MD 02/18/2025 07:14 AM EDT
--- OUTSIDE RECORDS SUMMARY | 2025-02-17 16:00 | XMS_ITS | Clinical Summary ---
Author Organization [facility] Address [address] [place] [address] [place] [address] Phone Care Team Providers Care Database Marketing Analyst Name Role Phone Sandra Guadalupe LEARNING TECHNOLOGIST Primary Care Provider [phone] Allergies Active Allergy Reactions Criticality Noted Date [...] mg by mouth daily. 4 Active omega 8-hvj-whm-fish oil 1,000 mg (250 mg-750 mg)/5 mL [...] 3 hours apart. Follow-up with PCP and skein dyer if not better or worse Underweight 06/09/2023 Assessment & Plan (06/12/2023 7:10 PM EST): I have explained to her importance of achieving optimal body weight for her height in reducing the risk of infection (s) and achieving maximal bone density by the age of 30. long-term current use of non -steroidal anti-inflammatories (NSAID) [...] since last visit on 03/05/19. Consider GI/ director of math/ dietitian consult Other insomnia 06/06/2019 Assessment & [...] to 30 mg if no contraindications by furniture installer Consider formal sleep study Assessment & Plan (06/06/2019 1:03 PM EST): Due to ongoing problems with getting asleep & keeping asleep despite using melatonin 1- 5 mg nightly & following sleep hygiene Suggest carefully increasing nightly dose of fluoxetine from 20 mg to 30 mg if no contraindications by furniture installer Consider formal sleep study Chronic fatigue 03/05/2019 [...] & Plan (02/05/2020 8:50 PM EDT): See custom protection officer for exploring other therapeutic options both oral and topical. Assessment & Plan (07/02/2019 6:29 PM EDT): See custom protection officer for exploring other therapeutic options both oral and topical. Assessment & Plan (03/05/2019 5:58 PM EST): See custom protection officer for exploring other therapeutic options both [...] topic Medical Devices Not on file Insurance [facility] [place] [facility] [address] [place] [address] [facility] [place] [facility] [place] [place] [address] [facility] Care Teams Database Marketing Analyst Relationship Specialty Start Date End Date Sandra Guadalupe NP [address] [place] [address] [address] [place] [address] [email or web address] PCP - General Nurse Practitioner 02/29/24 Additional Source Comments The information contained in this document represents components of the legal health record. It is not the complete legal health record.[facility]
--- OUTSIDE RECORDS SUMMARY | 2025-02-17 16:00 | XMS_ITS | Patient Health Record ---
Author Organization [facility] Address [address] [place] [address] Support Name Relationship Address Phone Rudystan Abby [...] of [place] [address] [place] [address] [phone] [id number] Long Abby Self - patient is the insured Medical (General) History Medical History History ICD Code Postural orthostatic tachycardia syndrom e 2020 Chronic fatigue syndrome 2018 Hypermobile 2018 Fibromyalgia 2019 Asthma 2006 Depression 2012 Generalized anxiety disorder 2012 Borderline Personality disorder 2017
--- OUTSIDE RECORDS SUMMARY | 2025-02-17 16:00 | XMS_ITS | Data Portability ---
Author Organization [place] [facility] [address] Address [address] [place] [address] Assessment No assessment recorded. Plan of Treatment Reminders Order Date Submit Date Provider Last Modified By Organization Details Last Modified Time Details Appointments None recorded. Lab None recorded. Referral emergency medicine referral 2022 023 [email or web address] [facility] Emergency Department, [address] [place], [address], 18:59:30 Procedures None recorded. Surgeries None recorded. Imaging None recorded. Medication Orders None recorded. Patient TargetsNo targets recorded. Patient Instructions Encounter Date Encounter Id Patient Instructions Last Modified By Organization Details Last Modified Time 02/15/2023 [id number] Your history and physical exam suggests that you may have a fracture in your hand and or wrist. Since xrays are not available today at [facility] you are being referred to the Emergency Department for xrays and potential splinting. [facility] ER has been advised of your impending arrival. Go directly to [facility] ER after leaving [facility]. [email or web address] Not available 02/15/2023 18:53:49 Reason for Referral Emergency Medicine Referral for Pain of right wrist r/o right hand/wrist fracture Referring Physician: Nuvia Wellington, Urgent Care, Encounter Date: 02/15/2023 Problems Name Problem SNOMED Code Status Onset Date Resolution Date Notes Provider Name and Address Organization Details Recorded Time Anxiety 28095956 Active Katty Mabel null, [place] - [facility] 17:57:02 Asthma 667057040 Active Katty Mabel null, [place] - [facility] 10/24/202 3 17:57:15 Postural orthostatic tachycardia syndrome 058085849 Active Katty Mabel null, PA - [facility] 3 17:58:07 Chronic fatigue syndrome 43582777 Active Katty Mabel null, [place] - [facility] 3 17:58:24 Fibromyalgia 867251912 Active Katty Mabel null, [facility] - [facility] [...] Last Updated DateTime 165.1 cm 21.3 kg/m2 69374.8 2 g 99 % 99 % 6 [...] Diagnosis SNOMED-CT Code Diagnosis ICD10 Code Diagnosis IMO Codes Diagnosis Note [id number] [place] [address] [place] [address] 02/15/2023 17:31:38 02/15/2023 18:59:30 Pain of right wrist 3342948231 25593 M25.531 Pain of right hand 15280 41190 17199 M79.641 Health Concerns Section Related Observation LastModified by Organization Detai ls LastModified Time None Recorded Concern Status LastModified by Organization Details LastModified Time None Recorded Advance Directives Directive None Recorded Payers Insurance Date Sequence Insurance Name Policy Number Policy Duffy Covered Member ID Duffy Member ID Guarantor Name 11/14/2023 1 [facility] (O) [id number] Abby Alves [id number] Abby Alves Notes Date Note Type [...] taped for support. Nuvia Wellington MD [address] [facility] [place], [address], [place] - [facility] 02/15/2023 19:16:43 OBGyn Episode No OBEpisode recorded.
--- OUTSIDE RECORDS SUMMARY | 2025-02-17 16:01 | XMS_ITS | Patient Health Record ---
Author Organization [facility] Address [address] [facility] [address] [place] [address] Care Team Providers Care Academic Affairs Specialist Name Role Phone JEANCARLOS STILES Unavailable [phone] Allergies No Known Allergies Reason For Referral No Information Medications Medication SIG (Take, Route, Frequency, Duration) Notes Start Date End Date Status Simethicone 80 MG 1 tablet after meals and at bedtime as needed Orally Four times a day Active Vitamin D3 1.25 MG (32173 UT) 1 capsule Orally; Duration: 30 day(s) [...] severe cramping (at [facility]) 02/25/2020 Not-Taking Crofton 3 1000 MG 1 capsule Orally Once [...] Risk Notes Problem Major depression, single episode (50291930) Major depressive disorder, single episode, unspecified (F32.9) Active confirmed Problem Anxiety disorder (732254460) Anxiety disorder, unspecified (F41.9) Active confirmed Problem Posttraumatic stress disorder (71801345) Post-traumatic stress disorder, chronic (F43.12) Active confirmed Problem Migraine with aura (1272345) Migraine with aura, not intractable, with status migrainosus (G43.101) Active confirmed Problem Uncomplicated asthma (disorder) (788027008) Unspecified asthma, uncomplicated (J45.909) Active confirmed Problem Fibromyalgia (046309242) Fibromyalgia (M79.7) Active confirmed Problem Abnormal uterine bleeding (54723975291028) Abnormal uterine and vaginal bleeding, unspecified (N93.9) Active confirmed Problem Chronic fatigue syndrome (disorder) (70009954) Chronic fatigue, unspecified (R53.82) Active confirmed Plan Of Treatment Pending Test Test Name Order Date Test, Urine 02/25/2020 Test, Urine 09/15/2021 ULTRASOUND: PELVIC W/TRANSVAGINAL 2019 Insurance Providers Payer Name Payer Address Payer Phone Subscriber Number Group Number Insured Name Patient Relationship to Insured Coverage Start Date Coverage End Date [facility] [address] [address] [place] [id number] CHRIS AGARWAL Self - patient is the insured Medical (General) History Medical History History ICD Code Unspecified asthma, uncomplicated J45.90 9 Encounter for screening for depression Z 13.31 Anxiety disorder, unspecified F41.9 Migraine with aura, not intractable, wit h status migrainosus G43.101 Surgical History Surgery Date(Month/Year) Tonsils and Adenoids 2007
--- OUTSIDE RECORDS SUMMARY | 2025-02-17 16:01 | XMS_ITS | Clinical Summary ---
Author Organization [facility] Address [address] [place] [address] Phone Care Team Providers Care Security Police Officer Name Role Phone Gricelda Haley MD Primary Care Provider Allergies Active Allergy Reactions Criticality Noted Date Comments Bee Venom Protein (Honey Bee) 07/04/2024 Grape Anaphylaxis,Hives,It chin g,Dermatitis,Rash High 09/10/2022 Red only Haloperidol Unknown High 06/09/2022 Honey Anaphylaxis,Hives High 03/05/2019 Montelukast 06/09/2022 Penicillins Hives,Shortness of breath High 10/10/2023 Medications calcium carbonate 1,500 mg (600 mg elemental calcium) tablet 1 tablet with meals Orally Twice a day for 30 day(s) Active cetirizine (ZyrTEC) 5 mg tablet Take 1 tablet (5 mg total) by mouth 2 (two) times a day. 06/12/19 24 Active cholecalciferol (VITAMIN D-3) 125 mcg (5,000 unit) capsule Take 1 capsule (5,000 Units total) by mouth daily. 11/16/19 24 Active EPINEPHrine (EPIPEN) 0.3 mg/0.3 mL injection INJECT 1 PEN INTRAMUSCULARLY ONCE IF NEEDED Active escitalopram (LEXAPRO) 20 mg tablet Take 1 tablet (20 mg total) by mouth 1 (one) time each day. 06/12/19 25 Active fluticasone propionate (FLONASE) 50 mcg/actuation nasal spray USE 2 SPRAYS IN NOSTRILS DAILY X1 WEEK THEN 1-2 SPRAYS DAILY. USE LOWEST POSSIBLE DOSE AFTER WEEK 1 Active hydrOXYzine pamoate (VISTARIL) 50 mg capsule TAKE 1 CAPSULE BY MOUTH THREE TIMES A DAY FOR 30 DAYS NEEDED FOR ANXIETY Active levETIRAcetam (KEPPRA) 500 mg tablet Take 1 tablet (500 mg total) by mouth 1 (one) time each day. 06/05/19 25 Active meloxicam (MOBIC) 15 mg tablet Take 1 tablet (15 mg total) by mouth 1 (one) time each day. with food 07/12/19 24 Active midodrine (PROAMATINE) 2.5 mg tablet Take 1 tablet (2.5 mg total) by mouth 1 (one) time each day. 03/30/20 24 Active multivitamin tablet Take 1 tablet by mouth 1 (one) time each day. 04/14/20 24 Active naproxen (NAPROSYN) 500 mg tablet Take 1 tablet (500 mg total) by mouth every 12 (twelve) hours if needed. for pain 06/17/19 25 Active traZODone (DESYREL) 50 mg tablet Take 0.5 tablets (25 mg total) by mouth at bedtime. 06/13/19 25 Active Vitamins B Complex tablet [...] vomiting. 60 tablet 6 07/05/19 25 Active Additional Information Patient not taking.Reported on 01/28/2025 albuterol 0.63 mg/3 mL nebulizer solution Take 3 mL (0.63 mg total) by nebulization every 8 (eight) hours if needed for wheezing or shortness of breath. 01/08/20 25 Active metoclopramide (REGLAN) 10 mg tablet Take 1 tablet (10 mg total) by mouth 3 (three) times a day before meals. 01/08/20 25 Active folic acid (FOLVITE) 1 mg tablet Take 1 tablet (1,000 mcg total) by mouth 1 (one) time each day. 10/18/19 Active omeprazole (PriLOSEC) [address] capsule Take 1 capsule (20 mg total) by mouth 1 (one) time each day. 12/16/19 Active lamoTRIgine (LaMICtal) 100 mg tablet Take 1 tablet (100 mg total) by mouth 1 (one) time each day. 01/11/20 Active naproxen sodium (ANAPROX) 220 mg tablet Take 1 tablet (220 mg total) by mouth 2 (two) times a day if needed for mild pain. Active albuterol 1.25 mg/3 mL nebulizer solution PLEASE SEE ATTACHED FOR DETAILED DIRECTIONS 01/18/202024 Disconti nued(Alt ernate therapy) Ventolin HFA 90 mcg/actuation inhaler TAKE 2 PUFFS BY MOUTH EVERY 6 HOURS NEEDED 01/18/202024 Disconti nued(Alt ernate therapy) folic acid (FOLVITE) 400 mcg tablet Take 1 tablet (0.4 mg total) by mouth 1 (one) time each day. 04/14/202024 Disconti nued(Alt ernate therapy) metoclopramide (REGLAN) 5 mg tablet Take 1 tablet (5 mg total) by mouth 2 (two) times a day. 12/11/192024 Disconti nued(Alt ernate therapy) Active Problems Problem Noted Date Diagnosed Date [...] 3 hours apart. Follow-up with PCP and food services manager if not better or worse Underweight [...] Despite regular , well balanced nutritionally meals Chris lost 18 lbs since last visit on 03/05/19. Consider GI/ senior risk analyst/ dietitian consult Anxiety disorder 03/05/2019 Overview (12/07/2024): [...] read book written by Dr Doug Silverio [facility] addressing management strategies for patients with fibromyalgia [...] Overview (12/07/2024): Last Assessment & Plan: See deck molder for exploring other therapeutic options both oral and topical. Encounters Date Type Department Care Team Description 02/12/2025 7:32 PM EDT - 02/12/2025 8:07 PM EDT Emergency [facility] Emergency [address] [place] [phone] Right elbow pain (Primary Dx); Recurrent dislocation of right elbow Discharge Disposition: Home or Self Care 01/28/2025 2:15 PM EDT - 01/28/2025 5:15 PM EDT Emergency [facility] Emergency [address] [place] [phone] POTS (postural orthostatic tachycardia syndrome) (Primary Dx); EDS (Kevin-Danlos syndrome) Discharge Disposition: Home or Self Care 12/10/2024 2:40 PM EDT Consult Gastroenterology - [address] [phone] Lizzette Padgett PA Nausea and vomiting, unspecified vomiting type (Primary Dx) 12/10/2024 Telephone Gastroenterology - [address] [phone] Bowen Lo MD from Last 3 Months Medical History Medical History Date Comments POTS (postural orthostatic tachycardia syndrome) 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) Family History Medical History Relation Name Comments [...] Mass Index 19.14 02/12/2025 5:16 PM EDT Plan of Treatment Upcoming Encounters Date Type Department Care Team (Late st Contact Info) Description 02/22/2025 2:00 PM EDT Consult Orthopedic Surgery - [place] [address] [facility] [address] [place] [address] Chadwick Shen MD [address] [place] [address] 04/04/2025 2:00 PM EST Appointment [facility] Endoscopy [address] [place] [phone] Bowen Lo MD [address] [facility] [address] [place] [address] Health Maintenance Due Date Last Done Comments Gonorrhea/Chlamydia Screening 2000 DTaP,Tdap,and Td Vaccines (1 - Tdap) 12/26/2019 Hepatitis B Vaccines (1 of 3 - 19+ 3-dose series) 12/26/2019 Pneumococcal Vaccine: Pediatrics (0 to 5 Years) and At-Risk Patients (6 to 49 Years) (1 of 2 - PCV) 12/26/2019 Cervical Cancer Screening: Pap Smear 2021 Cholesterol Screening (Lipid Panel) 05/24/2023 HIV Screening 05/24/2023 Hepatitis C Screening 05/24/2023 Social Influencers of Health Screening 05/24/2023 Depression Screening 04/25/2024 COVID-19 Vaccine ( season) 2024 04/04/2021, 07/03/2020, 06/11/2020 RSV Immunization Adult Patients (1 - 1-dose 75+ series) 12/26/2075 Meningococcal ACWY Vaccine Completed 01/02/2018 Meningococcal B Vaccine Completed 03/14/2018, 01/02 HPV Vaccines Completed 09/15/2018, 02/24, 01/02/2018 Influenza Vaccine Completed 01/02/2025, , 03/05/2020, Additional history exists HIB Vaccines Aged Out No longer eligi [...] on patient's age to complete this topic Goals Goal Patient Goal Type Associated Problems Recent Progress Patient-Stated? Author Autogenera chris Goal Care Plan Autogenerated Problem No Radha Dior Procedures Procedure Name Priority Date/Time Associated Diagnosis Comments XR ELBOW 3+ VIEWS RIGHT STAT 02/12/2025 5:26 PM EDT ECG ANNOTATED 01/29/2025 THYROID STIMULATING HORMONE STAT Add-on 01/28/2025 2:20 PM EDT CBC WITH AUTO DIFFERENTIAL STAT 01/28/2025 2:20 PM EDT MAGNESIUM STAT 01/28/2025 2:20 PM EDT LIPASE STAT 01/28/2025 2:20 PM EDT COMPREHENSIVE METABOLIC PANEL STAT 01/28/2025 2:20 PM EDT CBC AND DIFFERENTIAL STAT 01/28/2025 2:20 PM EDT TROPONIN I HIGH SENSITIVITY Timed 01/28/2025 2:20 PM EDT ECG 12-LEAD STAT 01/28/2025 1:44 PM EDT from Last 3 Months Results * XR Elbow 3+ Views Right (02/12/2025 5:26 PM EDT) Anatomical Region Laterality Modality Upper Extremities, Elbow Right Radiogr aphic Imaging 02/13/2025 8:41 AM EDT Impressions 02/13/2025 8:43 AM EDT FINDINGS/IMPRESSION: No acute fracture or dislocation. Joint spaces are maintained. No joint effusion or focal soft tissue swelling. -------- FINAL REPORT -------- Dictated By: FILEMON MUNIZ Dictated Date: 02/13/2025 08:41 ET Assigned Physician: FILEMON MUNIZ Reviewed and Electronically Signed By: FILEMON MUNIZ Signed Date: 02/13/2025 08:43 ET Workstation ID: [id number] Transcribed By: Self Edit Transcribed Date: 02/13/2025 08:41 ET Narrative 02/13/2025 8:43 AM EDT XR ELBOW 3+ VIEWS RIGHT INDICATION: Pain TECHNIQUE: XR ELBOW 3+ VIEWS RIGHT COMPARISON: No priors available. Procedure Note Filemon Muniz MD - 02/13/2025 XR ELBOW 3+ VIEWS RIGHT INDICATION: Pain TECHNIQUE: XR ELBOW 3+ VIEWS RIGHT COMPARISON: No priors available. IMPRESSION: FINDINGS/IMPRESSION: No acute fracture or dislocation. Joint spaces aremaintained. No joint effusion or focal soft tissue swelling. -------- FINAL REPORT -------- Dictated By: FILEMON MUNIZ Dictated Date: 02/13/2025 08:41 ET Assigned Physician: FILEMON MUNIZ Reviewed and Electronically Signed By: FILEMON MUNIZ Signed Date: 02/13/2025 08:43 ET Workstation ID: [id number] Transcribed By: Self Edit Transcribed Date: 02/13/2025 08:41 ET Jolene Batista MD IMG XR PROCEDURES Final Result * ECG-Annotated (01/29/2025) Provider Onbase ECG ORDERABLES Final Result * Troponin I high sensitivity (01/28/2025 2:20 PM EDT) [facility] High Sensitivity Troponin I <3 <=54 ng/L LAB CHEMISTRY METHOD 01/28/2025 3:30 PM EDT [facility] Blood Venous blood specimen / Unknown Venipuncture / Unknown 01/28/2025 2:20 PM EDT 01/28/2025 3:02 PM EDT Narrative [facility] - 01/28/2025 3:30 PM EDT High levels of biotin in samples may falsely decrease hsTroponin values. Use caution when interpreting hsTroponin results in patients taking biotin who exhibit renal impairment (eGFR <60) or in patients taking more than 20 mg/day of biotin. Elisabeth GARCIA LAB BLOOD ORDERABLES Fin al Result [facility] [address] [place] [address], [place] [phone] * CBC auto differential (01/28/2025 2:20 PM EDT) [facility] WBC 7.8 4.8 - 10.8 K/mcL LAB HEMETOLOGY METHOD 01/28/2025 3:12 PM EDT [facility] RBC 4.10 3.80 - 4.80 M/mcL LAB HEMETOLOGY METHOD 01/28/2025 3:12 PM EDT [facility] Hemoglobin 12.0 11.5 - 16.0 g/dL LAB HEMETOLOGY METHOD 01/28/2025 3:12 PM EDT [facility] Hematocrit 36.9 35.0 - 47.0 % LAB HEMETOLOGY METHOD 01/28/2025 3:12 PM EDT [facility] MCV 90.0 79.0 - 98.0 FL LAB HEMETOLOGY METHOD 01/28/2025 3:12 PM EDT [facility] MCH 29.3 27.0 - 32.0 pcg LAB HEMETOLOGY METHOD 01/28/2025 3:12 PM EDT [facility] MCHC 32.5 32.0 - 37.0 g/dL LAB HEMETOLOGY METHOD 01/28/2025 3:12 PM EDT [facility] RDW 12.4 11.0 - 15.0 % LAB HEMETOLOGY METHOD 01/28/2025 3:12 PM [facility] Platelets 295 130 - 400 K/mcL LAB HEMETOLOGY METHOD 01/28/2025 3:12 PM [facility] MPV 10.0 7.0 - 11.0 FL LAB HEMETOLOGY METHOD 01/28/2025 3:12 PM EDT [facility] NRBC 0.0 <1.0 % LAB HEMETOLOGY METHOD 01/28/2025 3:12 PM [facility] NRBC Absolute 0.00 <0.10 K/mcL LAB HEMETOLOGY METHOD 01/28/2025 3:12 PM [facility] Neutrophils Relative 56.0 % LAB HEMETOLOGY METHOD 01/28/2025 3:12 PM [facility] Lymphocytes Relative 30.9 % LAB HEMETOLOGY METHOD 01/28/2025 3:12 PM EDT [facility] Monocytes Relative 9.3 % LAB HEMETOLOGY METHOD 01/28/2025 3:12 PM [facility] Eosinophils Relative 3.2 % LAB HEMETOLOGY METHOD 01/28/2025 3:12 PM T [facility] Basophils Relative 0.5 % LAB HEMETOLOGY METHOD 01/28/2025 3:12 PM EDT [facility] Immature Granulocytes Relative 0.1 % LAB HEMETOLOGY METHOD 01/28/2025 3:12 PM EDT [facility] Neutrophils Absolute 4.34 1.50 - 7.00 K/mcL LAB HEMETOLOGY METHOD 01/28/2025 3:12 PM EDT [facility] Lymphocytes Absolute 2.40 1.00 - 5.00 K/mcL LAB HEMETOLOGY METHOD 01/28/2025 3:12 PM EDT [facility] Monocytes Absolute 0.72 0.20 - 1.00 K/mcL LAB HEMETOLOGY METHOD 01/28/2025 3:12 PM EDT [facility] Eosinophils Absolute 0.25 0.00 - 0.50 K/mcL LAB HEMETOLOGY METHOD 01/28/2025 3:12 PM EDT [facility] Basophils Absolute 0.04 0.00 - 0.20 K/mcL LAB HEMETOLOGY METHOD 01/28/2025 3:12 PM EDT [facility] Immature Granulocytes Absolute 0.01 0.00 - 0.03 K/mcL LAB HEMETOLOGY METHOD 01/28/2025 3:12 PM EDT [facility] Blood Venous blood specimen / Unknown Venipuncture / Unknown 01/28/2025 2:20 PM EDT 01/28/2025 3:02 PM EDT us Elisabeth GARCIA LAB BLOOD ORDERABLES Fin al Result [facility] [address] [place] [address], * Thyroid Stimulating Hormone (TSH) (01/28/2025 2:20 PM EDT) TSH 0.95 0.40 - 4.00 mcIU/mL LAB CHEMISTRY METHOD 01/28/2025 4:27 PM EDT [facility] Blood Venous blood specimen / Unknown Venipuncture / Unknown 01/28/2025 2:20 PM EDT 01/28/2025 3:02 PM EDT Shemar GARCIA LAB BLOOD ORDERABLES Final Result Performing Organization Address [facility]/ZIP Md de Phone Number [facility] [address] [place] [address], [place] [phone] * Magnesium (01/28/2025 2:20 PM EDT) Magnesium 2.1 1.9 - 2.6 mg/dL LAB CHEMISTRY METHOD 01/28/2025 3:36 PM EDT [facility] Blood Venous blood specimen / Unknown Venipuncture / Unknown 01/28/2025 2:20 PM EDT 01/28/2025 3:02 PM EDT us Elisabeth GARCIA LAB BLOOD ORDERABLES Fin al Result Performing Organization Address [facility] de Phone Number [facility] [address] [place] [address], [place] [phone] * Lipase (01/28/2025 2:20 PM EDT) Lipase 44 13 - 75 unit/L LAB CHEMISTRY METHOD 01/28/2025 3:36 PM EDT [facility] Blood Venous blood specimen / Unknown Venipuncture / Unknown 01/28/2025 2:20 PM EDT 01/28/2025 3:02 PM EDT us Elisabeth GARCIA LAB BLOOD ORDERABLES Fin al Result Performing Organization Address [facility]/ZIP Co de Phone Number [facility] [address] [place] [address], [place] [phone] * Comprehensive metabolic panel (01/28/2025 2:20 PM EDT) Sodium 139 133 - 145 mmol/L LAB CHEMISTRY METHOD 01/28/2025 3:36 PM [facility] Potassium 4.0 3.5 - 5.5 mmol/L LAB CHEMISTRY METHOD 01/28/2025 3:36 PM [facility] Chloride 106 96 - 110 mmol/L LAB CHEMISTRY METHOD 01/28/2025 3:36 PM [facility] CO2 26 21 - 32 mmol/L LAB CHEMISTRY METHOD 01/28/2025 3:36 PM [facility] Anion Gap 7 3 - 11 LAB CHEMISTRY METHOD 01/28/2025 3:36 PM [facility] Glucose 86 70 - 100 mg/dL LAB CHEMISTRY METHOD 01/28/2025 3:36 PM [facility] BUN 14 5 - 25 mg/dL LAB CHEMISTRY METHOD 01/28/2025 3:36 PM [facility] Creatinine 0.85 0.50 - 1.10 mg/dL LAB CHEMISTRY METHOD 01/28/2025 3:36 PM [facility] eGFR 98 >=60 mL/min/1. 73m2 LAB CHEMISTRY METHOD 01/28/2025 3:36 PM [facility] Comment:Calculation based on the Chronic Kidney Disease Epidemiology Collaboration (CKD-EPI) equation refit without adjustment for race. BUN/Creatinine Ratio 16.5 LAB CHEMISTRY METHOD 01/28/2025 3:36 PM [facility] Calcium 8.8 8.5 - 10.5 mg/dL LAB CHEMISTRY METHOD 01/28/2025 3:36 PM [facility] AST (SGOT) 23 10 - 42 unit/L LAB CHEMISTRY METHOD 01/28/2025 3:36 PM [facility] ALT (SGPT) 29 10 - 60 unit/L LAB CHEMISTRY METHOD 01/28/2025 3:36 PM EDT [facility] Alkaline Phosphatase 66 42 - 121 unit/L LAB CHEMISTRY METHOD 01/28/2025 3:36 PM EDT [facility] Total Protein 6.7 6.0 - 8.0 g/dL LAB CHEMISTRY METHOD 01/28/2025 3:36 PM EDT [facility] Albumin 4.0 3.2 - 5.0 g/dL LAB CHEMISTRY METHOD 01/28/2025 3:36 PM EDT [facility] Total Bilirubin 0.3 0.0 - 1.4 mg/dL LAB CHEMISTRY METHOD 01/28/2025 3:36 PM EDT [facility] Blood Venous blood specimen / Unknown Venipuncture / Unknown 01/28/2025 2:20 PM EDT 01/28/2025 3:02 PM EDT us Elisabeth GARCIA LAB BLOOD ORDERABLES Fin al Result [facility] [address] [place] [address], * ECG 12 lead (01/28/2025 1:44 PM EDT) Ventricular Rate ECG 85 BPM GEMUSE Atrial Rate 85 BPM GEMUSE P-R Interval 130 ms GEMUSE QRS Duration 92 ms GEMUSE Q-T Interval 380 ms GEMUSE QTc 452 ms GEMUSE P Wave [place] 68 degrees GEMUSE R [place] 68 degrees GEMUSE T [place] 38 degrees GEMUSE ECG Interpretation Normal sinus rhythm RSR' or QR pattern in V1 suggests right ventricular conduction delay No previous ECGs available Confirmed by WILLIAM QUINTANA ([id number]) on 01/29/2025 8:03:23 AM GEMUSE 01/28/2025 1:44 PM EDT 01/29/2025 8:03 AM EDT us Elisabeth Claire PA ECG ORDERABLES Final Re sult GEMUSE from Last 3 Months Additional Health Concerns Active Problems Noted Date Diagnosed Date Autogenerated Problem 02/01/2025 Insurance [facility] Care Teams Security Police Officer Relationship Specialty Start Date End Date Gricelda Haley MD [address] [facility] [address] [place] [address] PCP - General Internal Medicine 01/28/25
--- OUTSIDE RECORDS SUMMARY | 2025-02-17 16:01 | XMS_ITS | Patient Health Record ---
Author Organization [facility] Address [address] [facility] [place] [address] Care Team Providers Care Slps Name Role Phone FAVIOLA MEZA Primary Care Provider [phone] Gricelda Haley Unavailable [phone] ReynaldomarielaLaura francisnitishismael Unavailable [phone] Allergies Allergen (clinical drug ingredient) Drug/Non Drug [...] Active Results Component Value Reference Range Notes Lipid Panel With LDL/HDL Rat [id number] Reviewed date:01/04/2025 08:44:34 AM Interpretation: Performing Lab:[facility], [address], Phone - [phone], Director - Jovan Notes/Report: Cholesterol, Total 188 100-199 mg/dL Triglycerides 151 0-149 mg/dL HDL Cholesterol 67 >39 mg/dL VLDL Cholesterol Isaac 26 5-40 mg/dL LDL Chol Calc ([facility] [[email or web address]]) 95 0-99 mg/dL LDL/HDL Ratio 1.4 0.0-3.2 ratio LDL/HDL Ratio Men Women 1/2 Avg.Risk 1.0 1.5 Avg.Risk 3.6 3.2 2X Avg.Risk 6.2 5.0 3X Avg.Risk 8.0 6.1 CBC with Diff, Platelet, NLR [id number] Reviewed date:01/04/2025 08:44:42 AM Interpretation: Performing Lab:[facility], [address] [facility], [place], Phone - [phone], Director - Jovan Notes/Report: WBC 5.8 3.4-10.8 [...] % Immature Grans (Abs) 0.0 0.0-0.1 x10E3/uL Comp. Metabolic Panel [id number] Reviewed date:01/04/2025 08:44:49 AM Interpretation: Performing Lab:[facility], [address] [facility], [place], Phone - [phone], Director - Jovan Notes/Report: Glucose 80 70-99 [...] - 129 AST (SGOT) 22 0-40 IU/L Reason For Referral Reason severe recurrent mas t cell activation with allergic reaction Please evaluate and treat Diagnosis 1 Mast cell activation , unspecified (D89.40) Referral Organization [facility] Referring Provider First Name [facility] Referring Provider Last Name [facility] Referred Provider Specialty Allergy/Immu nology General Notes Please call the usama ent to schedule the appointment, Encounter created and SMS sent to the pt., Allegra Duran 01/03/2025 04:17:43 PM > Referral Priority Routine Reason postural orthostatic tachycardia severe hypotension Please evaluate and treat Diagnosis 1 Postural orthostatic tachycardia syndrome [POTS] (G90.A) Referral Organization [facility] Referring Provider First Name [facility] Referring Provider Last Name [facility] Referred Provider Specialty Cardiology General Notes Please call the usama ent to schedule the appointment, Encounter created and SMS sent to the pt.Roger Charmain 01/03/2025 04:11:36 PM > Referral Priority Routine Reason please evaluate and treat Please evaluate and treat Diagnosis 1 Hypoglycemia, unspec ified (E16.2) Referral Organization [facility] Referring Provider First Name Hector Referring Provider Last Name Alfonso Referred Provider Specialty Endocrinolog y General Notes Please call the usama ent to schedule the appointment, Encounter created and SMS sent to the pt. Crystal Duranin 01/22/2025 04:12:14 PM > Referral Priority Routine Medications Medication SIG (Take, Route, Frequency, Duration) Notes Start Date End Date Status Cetirizine HCl 5 MG TAKE 1 TABLET DAILY; Duration: 30 Active EPINEPHrine 0.3 MG/0.3ML as directed Injection daily; Duration: 30 days As needed 01/15/2025 Active Metoclopramide HCl 10 MG 1 tablet before meals Orally 3 times a day; Duration: 30 days Active Folic Acid Active traZODone HCl 50 MG 1/2 TABLET Orally On ce a day Active Multivitamin - 1 tablet Orally Once a day Active Keppra 500 MG 1 tablet Orally ever y 12 hrs; Duration: 30 days Active Midodrine HCl 2.5 MG 1 tablet Orally Twi ce a day; Duration: 90 days Active ZyrTEC 5 MG 1 tablet Orally Once a day; Duration: 30 days Active LaMICtal XR 50 MG 1 tablet Orally Once a day Active Lexapro 20 MG 1 tablet Orally Once a day Active Immunizations Vaccine Route Administration Date Status Comme nts COVID 19 Pfizer Unknown 06/11/2020 Administered COVID 19 Pfizer Unknown 07/03/2020 Administered COVID 19 Pfizer Unknown 04/04/2021 Administered Fluzone QD Unknown 02/04/2020 Administered Fluzone QD IM Intramuscular 01/02/2025 Administered Problems Problem Type SNOMED Code ICD Code Onset Dates Problem Status W/U Status Risk Notes Problem Hypoglycemia (166691716) Hypoglycemia, unspecified (E16.2) Active confirmed Problem Hyperlipidemia (37731195) Hyperlipidemia, unspecified (E78.5) Active confirmed Problem Recurrent major depression in remission (24132190) Major depressive disorder, recurrent, in partial remission (F33.41) Active confirmed Problem Generalized anxiety disorder (34986402) Generalized anxiety disorder (F41.1) Active confirmed Problem 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, intractable, 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) Active confirmed Problem Gastroparesis (105208158) Gastroparesis (K31.84) Active confirmed Problem Fibromyalgia (613122349) Fibromyalgia (M79.7) Active confirmed Problem Mast cell disorder (547464567) Mast cell activation, unspecified (D89.40) Active confirmed Problem Idiopathic mast cell activation syndrome (64588509551536551 ) 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) Active confirmed Problem 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 Problem Postural orthostatic tachycardia syndrome (disorder) (902995125) Postural orthostatic tachycardia syndrome [POTS] (G90.A) Active confirmed Vital Signs Heart Rate 91 /min 01/22/2025 Temperature 97.3 degrees Fahrenheit 01/22/2025 Blood pressure diastolic 80 mm Hg 01/22/2025 Oximetry 95 % 01/22/2025 Height 5'5'' in 01/22/2025 Blood pressure systolic 120 mm Hg 01/22/2025 Weight 118.5 lbs 01/22/2025 BMI 19.72 kg/m2 01/22/2025 Encounters Encounter Location Date Provider Diagnosis [address] [place] [address] 01/02/2025 [place] Alam Hypotension, unspecified I95.9 ; [...] Gastroparesis K31.84 and Encounter for immunization Z23 [facility] [address] [place] [address] 01/22/2025 Ghadeer Mazloum Postural orthostatic tachycardia syndrome [POTS] G90.A ; Hypoglycemia, unspecified E16.2 ; Hypotension, unspecified I95.9 ; Fibromyalgia M79.7 ; Alcohol abuse counseling and surveillance of alcoholic Z71.41 ; Hyperlipidemia, unspecified E78.5 ; Idiopathic mast cell activation syndrome D89.42 ; Major depressive disorder, recurrent, in partial remission F33.41 ; Generalized anxiety disorder F41.1 ; Localization-related (focal) (partial) idiopathic epilepsy and epileptic syndromes with seizures of localized onset, intractable, without status epilepticus G40.019 ; Hypermobile Kevin-Danlos syndrome Q79.62 and Gastroparesis K31.84 [facility] [address] [place] [address] 01/03/2025 [facility] [address] [place] [address] 01/22/2025 [facility] [address] [place] [address] 01/04/2025 [facility] [address] [place] [address] 01/05/2025 [facility] [address] [place] [address] 01/05/2025 [facility] [address] [place] [address] 01/05/2025 [facility] [address] [place] [address] 01/14/2025 [facility] [address] [place] [address] 01/19/2025 [facility] [address] [place] [address] 01/21/2025 [facility] [address] [place] [address] 01/21/2025 [facility] [address] [place] [address] 01/21/2025 [facility] [address] [place] [address] 01/21/2025 [facility] [address] [place] [address] 01/23/2025 FAVIOLA MEZA Assessments Encounter Date Diagnosis (ICD Code) Assessment [...] she was diagnosed with fibromyalgia by a tactical debriefer in the past. She is currently on trazodone 50 mg at night and take Lexapro 20 milligrams daily, she also follows up with online therapist and a psychiatrist from [place] to behavioral instituted. Borderline personality disorder followed by a therapist [place] and psychiatrist on [facility] from [place] [facility] Idiopathic mast cell activation syndrome, patient is getting multiple flares with rashes and allergic to food dyes and multiple unknown things. She has an EpiPen in place. She takes Zyrtec as well. We will refer her to an x ray equipment servicer. History of seizure disorder she states that she was seen in [place] and was told that due to previous history of Lyme's disease that could have triggered a seizure activity she had an EEG done at [place] in 2024 which was positive for epileptic [...] she was diagnosed with fibromyalgia by a tactical debriefer in the past. She is currently on trazodone 50 mg at night and take Lexapro 20 milligrams daily, she also follows up with online therapist and a psychiatrist from [place] to behavioral instituted. Borderline personality disorder followed by a therapist [place] and psychiatrist on [facility] from [place] [facility] Idiopathic mast cell activation syndrome, patient is getting multiple flares with rashes and allergic to food dyes and multiple unknown things. She has an EpiPen in place. She takes Zyrtec as well. We will refer her to an x ray equipment servicer. History of seizure disorder she states that she was seen in [place] and was told that due to previous history of Lyme's disease that could have triggered a seizure activity she had an EEG done at [place] in 2024 which was positive for epileptic [...] screening lab work slip was given today 01/22/2025 Hypoglycemia, unspecified (ICD-10 - E16.2) Abby is a 24-year-old lady with complicated past medical history including postural orthostatic tachycardia syndrome mast cell activation syndrome depression in partial remission anxiety disorder fibromyalgia is here today for Hypoglycemia. Plan as follows Hypoglycemia. She admits that he has been ongoing for the past 1 year, she did discuss this issue with her previous PCP and patient was supposed to be sent 2 endocrinologists, However thereferral never made it through. She had basic blood work done by her PCP and [place] office which it is unremarkable. She does experience hypoglycemic symptoms of feeling shaky, fatigue, and sweaty which she does check her glucose and it is usually in the 480s which improves with taking glucose tabs, mentions that his random and nonspecific timing. I would refer patient principal process engineer for further workup Postural orthostatic tachycardia. Stable continue on midodrine 2.5 mg which she takes half a tablet at lunch and half at night. JUSTINE/MDD/ BPD/ fibromyalgia: Stable at this point, She is currently on trazodone 50 mg at night and take Lexapro 20 milligrams daily, she also follows up with online therapist and a psychiatrist from [place] to behavioral instituted. 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 She has an EpiPen in place. She takes Zyrtec as well. Seizure disorder. She is currently on Keppra 500 mg twice a day and Lamictal 50 milligram. She does follow with neurologist, she has an upcoming EEG and MRI of the brain Gastroparesis. Stable. 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 General concerns have been discussed I have rendered the services for this patient under direct supervision of Dr. Meza, who did not see the patient but was available upon request 01/22/2025 Postural orthostatic tachycardia syndrome [POTS] (ICD-10 - G90.A) Abby is a 24-year-old lady with complicated past medical history including postural orthostatic tachycardia syndrome mast cell activation syndrome depression in partial remission anxiety disorder fibromyalgia is here today for Hypoglycemia. Plan as follows Hypoglycemia. She admits that he has been ongoing for the past 1 year, she did discuss this issue with her previous PCP and patient was supposed to be sent 2 endocrinologists, However thereferral never made it through. She had basic blood work done by her PCP and [place] office which it is unremarkable. She does experience hypoglycemic symptoms of feeling shaky, fatigue, and sweaty which she does check her glucose and it is usually in the 480s which improves with taking glucose tabs, mentions that his random and nonspecific timing. I would refer patient principal process engineer for further workup Postural orthostatic tachycardia. Stable continue on midodrine 2.5 mg which she takes half a tablet at lunch and half at night. JUSTINE/MDD/ BPD/ fibromyalgia: Stable at this point, She is currently on trazodone 50 mg at night and take Lexapro 20 milligrams daily, she also follows up with online therapist and a psychiatrist from [place] to behavioral instituted. Borderline personality disorder followed by a therapist [place] and psychiatrist on [facility] from [place] [facility] Idiopathic mast cell activation syndrome. Stable at this point, she will follow up with an x ray equipment servicer. She has an EpiPen in place. She takes Zyrtec as well. Seizure disorder. She is currently on Keppra 500 mg twice a day and Lamictal 50 milligram. She does follow with neurologist, she has an upcoming EEG and MRI of the brain Gastroparesis. Stable. 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 General concerns have been discussed I have rendered the services for this patient under direct supervision of Dr. Meza, who did not see the patient but was available upon request 01/22/2025 Hypotension, unspecified (ICD-10 - I95.9) Abby is a 24-year-old lady with complicated past medical history including postural orthostatic tachycardia syndrome mast cell activation syndrome depression in partial remission anxiety disorder fibromyalgia is here today for Hypoglycemia. Plan as follows Hypoglycemia. She admits that he has been ongoing for the past 1 year, she did discuss this issue with her previous PCP and patient was supposed to be sent 2 endocrinologists, However thereferral never made it through. She had basic blood work done by her PCP and [place] office which it is unremarkable. She does experience hypoglycemic symptoms of feeling shaky, fatigue, and sweaty which she does check her glucose and it is usually in the 480s which improves with taking glucose tabs, mentions that his random and nonspecific timing. I would refer patient principal process engineer for further workup Postural orthostatic tachycardia. Stable continue on midodrine 2.5 mg which she takes half a tablet at lunch and half at night. JUSTINE/MDD/ BPD/ fibromyalgia: Stable at this point, She is currently on trazodone 50 mg at night and take Lexapro 20 milligrams daily, she also follows up with online therapist and a psychiatrist from [place] to [facility]. 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 She has an EpiPen in place. She takes Zyrtec as well. Seizure disorder. She is currently on Keppra 500 mg twice a day and Lamictal 50 milligram. She does follow with neurologist, she has an upcoming EEG and MRI of the brain Gastroparesis. Stable. 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 General concerns have been discussed I have rendered the services for this patient under direct supervision of Dr. Meza, who did not see the patient but was available upon request 01/02/2025 Fibromyalgia (ICD-10 - M79.7) 24-year-old lady [...] she was diagnosed with fibromyalgia by a tactical debriefer in the past. She is currently on trazodone 50 mg at night and take Lexapro 20 milligrams daily, she also follows up with online therapist and a psychiatrist from [place] to [facility]. Borderline personality disorder followed by a therapist Ke[place] and psychiatrist on [facility] from [facility] Idiopathic mast cell activation syndrome, patient is getting multiple flares with rashes and allergic to food dyes and multiple unknown things. She has an EpiPen in place. She takes Zyrtec as well. We will refer her to an x ray equipment servicer. History of seizure disorder she states that she was seen in [place] and was told that due to previous history of Lyme's disease that could have triggered a seizure activity she had an EEG done at [place] in 2024 which was positive for epileptic [...] she was diagnosed with fibromyalgia by a tactical debriefer in the past. She is currently on trazodone 50 mg at night and take Lexapro 20 milligrams daily, she also follows up with online therapist and a psychiatrist from [place] to behavioral instituted. Borderline personality disorder followed by a therapist Ke[place] and psychiatrist on [facility] from [place] [facility] Idiopathic mast cell activation syndrome, patient is getting multiple flares with rashes and allergic to food dyes and multiple unknown things. She has an EpiPen in place. She takes Zyrtec as well. We will refer her to an x ray equipment servicer. History of seizure disorder she states that she was seen in [place] and was told that due to previous history of Lyme's disease that could have triggered a seizure activity she had an EEG done at [place] in 2024 which was positive for epileptic [...] screening lab work slip was given today 01/22/2025 Fibromyalgia (ICD-10 - M79.7) Abby is a 24-year-old lady with complicated past medical history including postural orthostatic tachycardia syndrome mast cell activation syndrome depression in partial remission anxiety disorder fibromyalgia is here today for Hypoglycemia. Plan as follows Hypoglycemia. She admits that he has been ongoing for the past 1 year, she did discuss this issue with her previous PCP and patient was supposed to be sent 2 endocrinologists, However thereferral never made it through. She had basic blood work done by her PCP and [place] office which it is unremarkable. She does experience hypoglycemic symptoms of feeling shaky, fatigue, and sweaty which she does check her glucose and it is usually in the 480s which improves with taking glucose tabs, mentions that his random and nonspecific timing. I would refer patient principal process engineer for further workup Postural orthostatic tachycardia. Stable continue on midodrine 2.5 mg which she takes half a tablet at lunch and half at night. JUSTINE/MDD/ BPD/ fibromyalgia: Stable at this point, She is currently on trazodone 50 mg at night and take Lexapro 20 milligrams daily, she also follows up with online therapist and a psychiatrist from [place] to behavioral instituted. 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 She has an EpiPen in place. She takes Zyrtec as well. Seizure disorder. She is currently on Keppra 500 mg twice a day and Lamictal 50 milligram. She does follow with neurologist, she has an upcoming EEG and MRI of the brain Gastroparesis. Stable. 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 General concerns have been discussed I have rendered the services for this patient under direct supervision of Dr. Meza, who did not see the patient but was available upon request 01/22/2025 Alcohol abuse counseling and surveillance of alcoholic (ICD-10 - Z71.41) Abby is a 24-year-old lady with complicated past medical history including postural orthostatic tachycardia syndrome mast cell activation syndrome depression in partial remission anxiety disorder fibromyalgia is here today for Hypoglycemia. Plan as follows Hypoglycemia. She admits that he has been ongoing for the past 1 year, she did discuss this issue with her previous PCP and patient was supposed to be sent 2 endocrinologists, However thereferral never made it through. She had basic blood work done by her PCP and [place] office which it is unremarkable. She does experience hypoglycemic symptoms of feeling shaky, fatigue, and sweaty which she does check her glucose and it is usually in the 480s which improves with taking glucose tabs, mentions that his random and nonspecific timing. I would refer patient principal process engineer for further workup Postural orthostatic tachycardia. Stable continue on midodrine 2.5 mg which she takes half a tablet at lunch and half at night. JUSTINE/MDD/ BPD/ fibromyalgia: Stable at this point, She is currently on trazodone 50 mg at night and take Lexapro 20 milligrams daily, she also follows up with online therapist and a psychiatrist from [place] to behavioral instituted. 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 She has an EpiPen in place. She takes Zyrtec as well. Seizure disorder. She is currently on Keppra 500 mg twice a day and Lamictal 50 milligram. She does follow with neurologist, she has an upcoming EEG and MRI of the brain Gastroparesis. Stable. 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 General concerns have been discussed I have rendered the services for this patient under direct supervision of Dr. Meza, who did not see the patient but was available upon request 01/02/2025 Hyperlipidemia, unspecified (ICD-10 - E78.5) 24-year-old [...] she was diagnosed with fibromyalgia by a tactical debriefer in the past. She is currently on trazodone 50 mg at night and take Lexapro 20 milligrams daily, she also follows up with online therapist and a psychiatrist from [place] to behavioral instituted. Borderline personality disorder followed by a therapist Keren and psychiatrist on [facility] from [place] [facility] Idiopathic mast cell activation syndrome, patient is getting multiple flares with rashes and allergic to food dyes and multiple unknown things. She has an EpiPen in place. She takes Zyrtec as well. We will refer her to an x ray equipment servicer. History of seizure disorder she states that she was seen in [place] and was told that due to previous history of Lyme's disease that could have triggered a seizure activity she had an EEG done at [facility] in 2024 which was positive for epileptic [...] she was diagnosed with fibromyalgia by a tactical debriefer in the past. She is currently on trazodone 50 mg at night and take Lexapro 20 milligrams daily, she also follows up with online therapist and a psychiatrist from [place] to behavioral instituted. Borderline personality disorder followed by a therapist Ke[place] and psychiatrist on [facility] from [place] [facility] Idiopathic mast cell activation syndrome, patient is getting multiple flares with rashes and allergic to food dyes and multiple unknown things. She has an EpiPen in place. She takes Zyrtec as well. We will refer her to an x ray equipment servicer. History of seizure disorder she states that she was seen in [place] and was told that due to previous history of Lyme's disease that could have triggered a seizure activity she had an EEG done at [facility] in 2024 which was positive for epileptic [...] screening lab work slip was given today 01/22/2025 Hyperlipidemia, unspecified (ICD-10 - E78.5) Abby is a 24-year-old lady with complicated past medical history including postural orthostatic tachycardia syndrome mast cell activation syndrome depression in partial remission anxiety disorder fibromyalgia is here today for Hypoglycemia. Plan as follows Hypoglycemia. She admits that he has been ongoing for the past 1 year, she did discuss this issue with her previous PCP and patient was supposed to be sent 2 endocrinologists, However thereferral never made it through. She had basic blood work done by her PCP and [place] office which it is unremarkable. She does experience hypoglycemic symptoms of feeling shaky, fatigue, and sweaty which she does check her glucose and it is usually in the 480s which improves with taking glucose tabs, mentions that his random and nonspecific timing. I would refer patient principal process engineer for further workup Postural orthostatic tachycardia. Stable continue on midodrine 2.5 mg which she takes half a tablet at lunch and half at night. JUSTINE/MDD/ BPD/ fibromyalgia: Stable at this point, She is currently on trazodone 50 mg at night and take Lexapro 20 milligrams daily, she also follows up with online therapist and a psychiatrist from [place] to behavioral instituted. 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 She has an EpiPen in place. She takes Zyrtec as well. Seizure disorder. She is currently on Keppra 500 mg twice a day and Lamictal 50 milligram. She does follow with neurologist, she has an upcoming EEG and MRI of the brain Gastroparesis. Stable. 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 General concerns have been discussed I have rendered the services for this patient under direct supervision of Dr. Meza, who did not see the patient but was available upon request 01/02/2025 Major depressive disorder, recurrent, in partial [...] she was diagnosed with fibromyalgia by a tactical debriefer in the past. She is currently on trazodone 50 mg at night and take Lexapro 20 milligrams daily, she also follows up with online therapist and a psychiatrist from [place] to behavioral instituted. Borderline personality disorder followed by a therapist Ke[place] and psychiatrist on [facility] from [place] [facility] Idiopathic mast cell activation syndrome, patient is getting multiple flares with rashes and allergic to food dyes and multiple unknown things. She has an EpiPen in place. She takes Zyrtec as well. We will refer her to an x ray equipment servicer. History of seizure disorder she states that she was seen in [place] and was told that due to previous history of Lyme's disease that could have triggered a seizure activity she had an EEG done at [facility] in 2024 which was positive for epileptic [...] screening lab work slip was given today 01/22/2025 Idiopathic mast cell activation syndrome (ICD-10 - D89.42) Abby is a 24-year-old lady with complicated past medical history including postural orthostatic tachycardia syndrome mast cell activation syndrome depression in partial remission anxiety disorder fibromyalgia is here today for Hypoglycemia. Plan as follows Hypoglycemia. She admits that he has been ongoing for the past 1 year, she did discuss this issue with her previous PCP and patient was supposed to be sent 2 endocrinologists, However thereferral never made it through. She had basic blood work done by her PCP and [place] office which it is unremarkable. She does experience hypoglycemic symptoms of feeling shaky, fatigue, and sweaty which she does check her glucose and it is usually in the 480s which improves with taking glucose tabs, mentions that his random and nonspecific timing. I would refer patient principal process engineer for further workup Postural orthostatic tachycardia. Stable continue on midodrine 2.5 mg which she takes half a tablet at lunch and half at night. JUSTINE/MDD/ BPD/ fibromyalgia: Stable at this point, She is currently on trazodone 50 mg at night and take Lexapro 20 milligrams daily, she also follows up with online therapist and a psychiatrist from [place] [facility]. 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 She has an EpiPen in place. She takes Zyrtec as well. Seizure disorder. She is currently on Keppra 500 mg twice a day and Lamictal 50 milligram. She does follow with neurologist, she has an upcoming EEG and MRI of the brain Gastroparesis. Stable. 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 General concerns have been discussed I have rendered the services for this patient under direct supervision of Dr. Meza, who did not see the patient but was available upon request 01/02/2025 Generalized anxiety disorder (ICD-10 - F41.1) [...] she was diagnosed with fibromyalgia by a tactical debriefer in the past. She is currently on trazodone 50 mg at night and take Lexapro 20 milligrams daily, she also follows up with online therapist and a psychiatrist from [place] [facility]. Borderline personality disorder followed by a therapist Ke[place] and psychiatrist on [facility] from [facility] Idiopathic mast cell activation syndrome, patient is getting multiple flares with rashes and allergic to food dyes and multiple unknown things. She has an EpiPen in place. She takes Zyrtec as well. We will refer her to an x ray equipment servicer. History of seizure disorder she states that she was seen in [place] and was told that due to previous history of Lyme's disease that could have triggered a seizure activity she had an EEG done at [facility] in 2024 which was positive for epileptic [...] screening lab work slip was given today 01/22/2025 Major depressive disorder, recurrent, in partial remission (ICD-10 - F33.41) Abby is a 24-year-old lady with complicated past medical history including postural orthostatic tachycardia syndrome mast cell activation syndrome depression in partial remission anxiety disorder fibromyalgia is here today for Hypoglycemia. Plan as follows Hypoglycemia. She admits that he has been ongoing for the past 1 year, she did discuss this issue with her previous PCP and patient was supposed to be sent 2 endocrinologists, However thereferral never made it through. She had basic blood work done by her PCP and [place] office which it is unremarkable. She does experience hypoglycemic symptoms of feeling shaky, fatigue, and sweaty which she does check her glucose and it is usually in the 480s which improves with taking glucose tabs, mentions that his random and nonspecific timing. I would refer patient principal process engineer for further workup Postural orthostatic tachycardia. Stable continue on midodrine 2.5 mg which she takes half a tablet at lunch and half at night. JUSTINE/MDD/ BPD/ fibromyalgia: Stable at this point, She is currently on trazodone 50 mg at night and take Lexapro 20 milligrams daily, she also follows up with online therapist and a psychiatrist from [place] to behavioral instituted. 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 She has an EpiPen in place. She takes Zyrtec as well. Seizure disorder. She is currently on Keppra 500 mg twice a day and Lamictal 50 milligram. She does follow with neurologist, she has an upcoming EEG and MRI of the brain Gastroparesis. Stable. 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 General concerns have been discussed I have rendered the services for this patient under direct supervision of Dr. Meza, who did not see the patient but was available upon request 01/22/2025 Generalized anxiety disorder (ICD-10 - F41.1) Abby is a 24-year-old lady with complicated past medical history including postural orthostatic tachycardia syndrome mast cell activation syndrome depression in partial remission anxiety disorder fibromyalgia is here today for Hypoglycemia. Plan as follows Hypoglycemia. She admits that he has been ongoing for the past 1 year, she did discuss this issue with her previous PCP and patient was supposed to be sent 2 endocrinologists, However thereferral never made it through. She had basic blood work done by her PCP and [place] office which it is unremarkable. She does experience hypoglycemic symptoms of feeling shaky, fatigue, and sweaty which she does check her glucose and it is usually in the 480s which improves with taking glucose tabs, mentions that his random and nonspecific timing. I would refer patient principal process engineer for further workup Postural orthostatic tachycardia. Stable continue on midodrine 2.5 mg which she takes half a tablet at lunch and half at night. JUSTINE/MDD/ BPD/ fibromyalgia: Stable at this point, She is currently on trazodone 50 mg at night and take Lexapro 20 milligrams daily, she also follows up with online therapist and a psychiatrist from [place] to behavioral instituted. 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 She has an EpiPen in place. She takes Zyrtec as well. Seizure disorder. She is currently on Keppra 500 mg twice a day and Lamictal 50 milligram. She does follow with neurologist, she has an upcoming EEG and MRI of the brain Gastroparesis. Stable. 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 General concerns have been discussed I have rendered the services for this patient under direct supervision of Dr. Meza, who did not see the patient but was available upon request 01/02/2025 Localization-rela chris (focal) (partial) idiopathic epilepsy [...] she was diagnosed with fibromyalgia by a tactical debriefer in the past. She is currently on trazodone 50 mg at night and take Lexapro 20 milligrams daily, she also follows up with online therapist and a psychiatrist from [place] to behavioral instituted. Borderline personality disorder followed by a therapist Ke[place] and psychiatrist on [facility] from [place] [facility] Idiopathic mast cell activation syndrome, patient is getting multiple flares with rashes and allergic to food dyes and multiple unknown things. She has an EpiPen in place. She takes Zyrtec as well. We will refer her to an x ray equipment servicer. 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 Plan as follows Hypoglycemia. She admits that he has been ongoing for the past 1 year, she did discuss this issue with her previous PCP and patient was supposed to be sent 2 endocrinologists, However thereferral never made it through. She had basic blood work done by her PCP and [place] office which it is unremarkable. She does experience hypoglycemic symptoms of feeling shaky, fatigue, and sweaty which she does check her glucose and it is usually in the 480s which improves with taking glucose tabs, mentions that his random and nonspecific timing. I would refer patient principal process engineer for further workup Postural orthostatic tachycardia. Stable continue on midodrine 2.5 mg which she takes half a tablet at lunch and half at night. JUSTINE/MDD/ BPD/ fibromyalgia: Stable at this point, She is currently on trazodone 50 mg at night and take Lexapro 20 milligrams daily, she also follows up with online therapist and a psychiatrist from [place] to behavioral instituted. 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 She has an EpiPen in place. She takes Zyrtec as well. Seizure disorder. She is currently on Keppra 500 mg twice a day and Lamictal 50 milligram. She does follow with neurologist, she has an upcoming EEG and MRI of the brain Gastroparesis. Stable. 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 General concerns have been discussed I have rendered the services for this patient under direct supervision of Dr. 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 She is currently on trazodone 50 mg at night and take Lexapro 20 milligrams daily, she also follows up with online therapist and a psychiatrist from [place] to behavioral instituted. Borderline personality disorder followed by a therapist Keren and psychiatrist on [facility] from [place] [facility] Idiopathic mast cell activation syndrome, patient is getting multiple flares with rashes and allergic to food dyes and multiple unknown things. She has an EpiPen in place. She takes Zyrtec as well. We will refer her to an x ray equipment servicer. History of seizure disorder she states that she was seen in [place] and was told that due to previous history of Lyme's disease that could have triggered a seizure activity she had an EEG done at [facility] in 2024 which was positive for epileptic [...] she was diagnosed with fibromyalgia by a tactical debriefer in the past. She is currently on trazodone 50 mg at night and take Lexapro 20 milligrams daily, she also follows up with online therapist and a psychiatrist from [place] to behavioral instituted. Borderline personality disorder followed by a therapist Ke[place] and psychiatrist on [facility] from [place] [facility] Idiopathic mast cell activation syndrome, patient is getting multiple flares with rashes and allergic to food dyes and multiple unknown things. She has an EpiPen in place. She takes Zyrtec as well. We will refer her to an x ray equipment servicer. 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 Plan as follows Hypoglycemia. She admits that he has been ongoing for the past 1 year, she did discuss this issue with her previous PCP and patient was supposed to be sent 2 endocrinologists, However thereferral never made it through. She had basic blood work done by her PCP and [place] office which it is unremarkable. She does experience hypoglycemic symptoms of feeling shaky, fatigue, and sweaty which she does check her glucose and it is usually in the 480s which improves with taking glucose tabs, mentions that his random and nonspecific timing. I would refer patient principal process engineer for further workup Postural orthostatic tachycardia. Stable continue on midodrine 2.5 mg which she takes half a tablet at lunch and half at night. JUSTINE/MDD/ BPD/ fibromyalgia: Stable at this point, She is currently on trazodone 50 mg at night and take Lexapro 20 milligrams daily, she also follows up with online therapist and a psychiatrist from [place] [facility]. 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 She has an EpiPen in place. She takes Zyrtec as well. Seizure disorder. She is currently on Keppra 500 mg twice a day and Lamictal 50 milligram. She does follow with neurologist, she has an upcoming EEG and MRI of the brain Gastroparesis. Stable. 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 General concerns have been discussed I have rendered the services for this patient under direct supervision of Dr. Meza, who did not see the patient but was available upon request 01/02/2025 Encounter for immunization (ICD-10 - Z23) [...] she was diagnosed with fibromyalgia by a tactical debriefer in the past. She is currently on trazodone 50 mg at night and take Lexapro 20 milligrams daily, she also follows up with online therapist and a psychiatrist from [place] [facility]. Borderline personality disorder followed by a therapist Keren and psychiatrist on [facility] from [facility] Idiopathic mast cell activation syndrome, patient is getting multiple flares with rashes and allergic to food dyes and multiple unknown things. She has an EpiPen in place. She takes Zyrtec as well. We will refer her to an x ray equipment servicer. History of seizure disorder she states that she was seen in [place] and was told that due to previous history of Lyme's disease that could have triggered a seizure activity she had an EEG done at [place] in 2024 which was positive for epileptic [...] screening lab work slip was given today 01/22/2025 Gastroparesis (ICD-10 - K31.84) Abby is a 24-year-old lady with complicated past medical history including postural orthostatic tachycardia syndrome mast cell activation syndrome depression in partial remission anxiety disorder fibromyalgia is here today for Hypoglycemia. Plan as follows Hypoglycemia. She admits that he has been ongoing for the past 1 year, she did discuss this issue with her previous PCP and patient was supposed to be sent 2 endocrinologists, However thereferral never made it through. She had basic blood work done by her PCP and [place] office which it is unremarkable. She does experience hypoglycemic symptoms of feeling shaky, fatigue, and sweaty which she does check her glucose and it is usually in the 480s which improves with taking glucose tabs, mentions that his random and nonspecific timing. I would refer patient principal process engineer for further workup Postural orthostatic tachycardia. Stable continue on midodrine 2.5 mg which she takes half a tablet at lunch and half at night. JUSTINE/MDD/ BPD/ fibromyalgia: Stable at this point, She is currently on trazodone 50 mg at night and take Lexapro 20 milligrams daily, she also follows up with online therapist and a psychiatrist from [place] to behavioral instituted. 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 She has an EpiPen in place. She takes Zyrtec as well. Seizure disorder. She is currently on Keppra 500 mg twice a day and Lamictal 50 milligram. She does follow with neurologist, she has an upcoming EEG and MRI of the brain Gastroparesis. Stable. 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 General concerns have been discussed I have rendered the services for this patient under direct supervision of Dr. Meza, who did not see the patient but was available upon request Plan Of Treatment Next Appt Details Provider Name:Gricelda Haley, Anatoliy 07/02/2025 03:30:00 PM, [address] [place] [address], [id number], Insurance Providers Payer Name Payer Address Payer Phone Subscriber Number Group Number Insured Name Patient Relationship to Insured Coverage Start Date Coverage End Date [facility]) [address] [address] [place] [phone] [id number] Abby lAves Self - patient is the insured Medical (General) History Medical History History ICD Code postural orthostatic tachycardia POTS Mast cell activation syndrome Gastroparesis Post Lyme's disease fatigue and pain Fibromyalgia Generalized anxiety disorder Depression Hypermobile Kevin-Danlos syndrome Borderline personality disorder Surgical History Surgery Date(Month/Year) tonsillectomy and adenoid removal as a c hild
== END 2025-02-17 15:58 | disposition home or self-care (01) ==
LOC: HO.MRI 15:57
PROVIDERS: Visit Provider Nurse Practitioner
DX: G40.909 Epilepsy, unspecified, not intractable, without status epilepticus (principal)
CPT/HCPCS: 70553; A9585

== ENCOUNTER 2025-03-15 12:44 | Outpatient (AMB) | payer OTHER, SELFPAY ==
--- OUTSIDE RECORDS SUMMARY | 2025-03-12 20:06 | XMS_ITS | Encounter Summary ---
Author Organization [facility] Address [address] [place] [address] Care Team Providers Care Timber Surveyor Name Role Phone Gricelda Haley MD Primary Care Provider [phone] Reason for Visit * Reason Comments Seizures Encounter Details Date Type Department Care Team (Late st Contact Info) Description 03/12/2025 8:06 PM EST - 03/12/2025 10:15 PM EST Emergency [facility] Emergency [address] [place] [address] Zhou Rdz MD [address] [place] [address] Breakthrough seizure (CMS/HCC V24, CMS/HCC V28) (Primary Dx) Discharge Disposition: Home or Self Care Social [...] Sign Reading Time Taken Comments Blood Pressure 130/80 03/12/2025 10:14 PM EST Pulse 73 03/12/2025 10:14 PM EST Temperature 36.7 C (98.1 F) 03/12/2025 10:14 PM EST Respiratory Rate 16 03/12/2025 10:14 PM EST Oxygen Saturation 99% 03/12/2025 10:14 PM EST Inhaled Oxygen Concentration - - Weight 54.4 kg (120 lb) 03/12/2025 8:01 PM EST Height 165.1 cm (5' 5 ) 03/12/2025 8:01 PM EST Body Mass Index 19.97 03/12/2025 8:01 PM EST documented in this encounter Functional Status * Calculated C-SSRS Risk Score (Lifetime/Recent) Answer Date of Assessment Author No Risk Indicated 03/12/2025 8:01 PM EST Brandi Villagran RN * Glen Daniel Suicide Severity Rating Scale (Screener/Recent Self-Report) Question Answer Date of Assessment Author 1. Wish to be (Past 1 Month) No 03/12/2025 8:01 PM EST Brandi Callahan RN 2. Non-Specific Active Suicidal Thoughts (Past 1 Month) No 03/12/2025 8:01 PM EST Brandi Callahan RN 6. Suicidal Behavior (Lifetime) No 03/12/2025 8:01 PM EST Brandi Callahan RN documented as of this encounter Discharge Instructions * Discharge Instructions* Zhou Rdz MD - 03/12/2025 9:42 PM EST Your work-up in the emergency department showed no findings concerning enough to require admission to the hospital. You should still follow-up with a primary care physician as soon as possible to review your labs/imaging and discuss any non-emergent findings from your visit today that may require further testing as an outpatient. If you have been referred to see a specialist, contact information is provided above. Call as soon as possible to schedule follow up. If you were prescribed any medications, please take as directed. * Attachments The following attachments cannot be sent through Care Everywhere. * Epilepsy (Yi) documented in this encounter Medications at Time [...] Destination Comment s Home or Self Care Pt verbalized understanding of discharge instructions, agreed to plan of care. Denies any questions at this time. Advised to return to ED if symptoms worsen. documented in this encounter Progress Notes * Brandi Gil RN - 03/12/2025 7:58 PM EST Pt to ED after having 2 witnessed seizures. Pt states she usually has focal/aware seizures with little to no post ictal period. Today her boyfriend witnessed the seizure and stated she was having convulsions, which she does not normally have and was gasping for air with a post ictal period. Pt is on Keppra. Pt states she still feels groggy. Seizures were apx 30 minutes ago and lasted 1 to 2 minutes each * Zhou Rdz MD - 03/12/2025 7:55 PM EST Patient Name: Abby Alves Date and Time of Assessment: 9:39 PM EST 03/12/25 Patient : 2000 Patient's PMD: Gricelda Haley MD Chief Complaint Patient presents with ??? Seizures HPI: 24 yo female with PMH of Seizure disorder on Keppra and Lamictal presents after two seizure episodes today. She denies any falls or injuries. No tongue biting, no incontinence. Follows closely with aneurologist and has plan for a 24 hour EEG. She is compliant with her medication regimen, last breakthrough seizure was over 3 months ago. She denies any current complaints. No fever, no chills, no na usea, no vomiting, no abdominal pain, no chest pain, no neck pain, no body aches. PHYSICAL EXAM: Visit Vitals BP 130/80 (BP Location: Right arm, Patient Position: Sitting) Pulse 68 Temp 36.7 ??C (98.1 ??F) (Oral) Resp 16 Ht 1.651 m (65 ) Wt 54.4 kg (120 lb) SpO2 99% BMI 19.97 kg/m?? Smoking Status Every Day BSA 1.59 m?? General: calm, cooperative HEENT: NC/AT Cardio: RRR, no MRG Resp: no respiratory distress, lungs CTAB Abd: Soft, non-tender, non-distended Ext: No edema, warm, well perfused Neuro: AAOx3, no focal deficits, No altered mental status, speech is fluent. Gait is within normal limits. No cerebellar deficits. No motor deficits. No sensory deficits. MEDICAL DECISION MAKING: Patient presents today for seizure Vital signs reviewed On initial evaluation, patient is in nad Physical exam notable for no acute findings. Differential diagnosis: Breakthrough seizure Electrolyte or metabolic abnormality, medication noncompliance Initial Plan: Based on the patient's presentation today, we will obtain basic labs, give IV keppra. She has a plan for follow up with her neurologist for medication adjustments. Will discharge with plan for outpatient follow up. Social determinants of health considered including housing follow-up social and financial support Please see ED course for my interpretation of lab results and imaging which I independently reviewed. Updates in patient care also noted accordingly. EMERGENCY DEPARTMENT COURSE AND TREATMENT: Available prior records were reviewed. Patient history and allergies reviewed. Nursing note reviewed. The diagnostic results contained in this document reflect the information available to the physician at the time of the patient encounter. Final results, when completed, will be found in the patient's hospital chart. I have discussed the lab results, imaging and any incidental/abnormal imaging and/or lab abnormalities with the patient and have instructed them the need for further evaluation and workup with their primary care doctor. I have provided the patient with a paper copy of their results. Medications - No data to display ED Course as of 03/13/252055e Mar 12, [id number] Magnesium(!): 1.8 [BM] ED Course User Index [BM] Zhou Rdz MD Clinical Impressions as of 03/13/252055 Breakthrough seizure (CMS/HCC V24, CMS/HCC V28) Procedures CLINICAL IMPRESSION: Final diagnoses: None DISPOSITION: Data Unavailable Zhou Rdz MD 03/12/252141 Zhou Rdz MD 03/13/252055 documented in this encounter Plan of Treatment Upcoming Encounters Date Type Department Care Team (Late st Contact Info) Description 04/04/2025 2:00 PM EST Appointment [facility] [address] [place] [address] Bowen Lo MD [address] [facility] [address] [place] [address] documented as of this encounter Goals Goal Patient Goal Type Associated Problems Recent Progress Patient-Stated? Author Autogenera chris Goal Care Plan Autogenerated Problem No Radha Dior documented as of this encounter Procedures Procedure Name Priority Date/Time Associated Diagnosis Comments POC GLUCOSE STAT 03/12/2025 10:10 PM EST POCT GLUCOSE BLOOD Routine 03/12/2025 9: 04 PM EST CBC WITH AUTO DIFFERENTIAL STAT 03/12/2025 8:20 PM EST PROLACTIN STAT 03/12/2025 8:20 PM EST CBC AND DIFFERENTIAL STAT 03/12/2025 8:20 PM EST MAGNESIUM STAT 03/12/2025 8:20 PM EST BASIC METABOLIC PANEL STAT 03/12/2025 8:20 PM EST documented in this encounter Results * POC glucose manually resulted (03/12/2025 10:10 PM EST) [facility] Glucose POC 87 70 - 110 mg/dL Blood Capillary blood specimen / Unknown 03/12/2025 10:10 PM EST Zhou Rdz MD POINT OF CARE TEST ENTER/EDIT ORDERABLES Final Result * POCT Glucose, blood (03/12/2025 9:04 PM EST) [facility] Glucose POCT 87 70 - 100 mg/dL 03/12/2025 9:04 PM EST [facility] Blood Capillary blood specimen / Unknown 03/12/2025 9:04 PM EST 03/12/2025 9:06 PM EST Generic Provider Poct LAB POINT OF CARE TEST DOCKED DEVICE UNSOLICITED RESULTS Final Result [facility] [address] [place] [address], [place] [phone] * CBC auto differential (03/12/2025 8:20 PM EST) [facility] WBC 6.8 4.8 - 10.8 K/mcL LAB HEMETOLOGY METHOD 03/12/2025 8:35 PM EST [facility] RBC 4.20 3.80 - 4.80 M/mcL LAB HEMETOLOGY METHOD 03/12/2025 8:35 PM EST [facility] Hemoglobin 12.6 11.5 - 16.0 g/dL LAB HEMETOLOGY METHOD 03/12/2025 8:35 PM [facility] Hematocrit 37.8 35.0 - 47.0 % LAB HEMETOLOGY METHOD 03/12/2025 8:35 PM [facility] MCV 90.9 79.0 - 98.0 FL LAB HEMETOLOGY METHOD 03/12/2025 8:35 PM [facility] MCH 30.3 27.0 - 32.0 pcg LAB HEMETOLOGY METHOD 03/12/2025 8:35 PM [facility] MCHC 33.3 32.0 - 37.0 g/dL LAB HEMETOLOGY METHOD 03/12/2025 8:35 PM [facility] RDW 12.9 11.0 - 15.0 % LAB HEMETOLOGY METHOD 03/12/2025 8:35 PM [facility] Platelets 326 130 - 400 K/mcL LAB HEMETOLOGY METHOD 03/12/2025 8:35 PM [facility] MPV 9.6 7.0 - 11.0 FL LAB HEMETOLOGY METHOD 03/12/2025 8:35 PM [facility] NRBC 0.0 <1.0 % LAB HEMETOLOGY METHOD 03/12/2025 8:35 PM [facility] NRBC Absolute 0.00 <0.10 K/mcL LAB HEMETOLOGY METHOD 03/12/2025 8:35 PM [facility] Neutrophils Relative 46.4 % LAB HEMETOLOGY METHOD 03/12/2025 8:35 PM [facility] Lymphocytes Relative 42.5 % LAB HEMETOLOGY METHOD 03/12/2025 8:35 PM [facility] Monocytes Relative 6.7 % LAB HEMETOLOGY METHOD 03/12/2025 8:35 PM [facility] Eosinophils Relative 3.7 % LAB HEMETOLOGY METHOD 03/12/2025 8:35 PM EST [facility] Basophils Relative 0.6 % LAB HEMETOLOGY METHOD 03/12/2025 8:35 PM EST [facility] Immature Granulocytes Relative 0.1 % LAB HEMETOLOGY METHOD 03/12/2025 8:35 PM EST [facility] Neutrophils Absolute 3.17 1.50 - 7.00 K/mcL LAB HEMETOLOGY METHOD 03/12/2025 8:35 PM EST [facility] Lymphocytes Absolute 2.91 1.00 - 5.00 K/mcL LAB HEMETOLOGY METHOD 03/12/2025 8:35 PM EST [facility] Monocytes Absolute 0.46 0.20 - 1.00 K/mcL LAB HEMETOLOGY METHOD 03/12/2025 8:35 PM EST [facility] Eosinophils Absolute 0.25 0.00 - 0.50 K/mcL LAB HEMETOLOGY METHOD 03/12/2025 8:35 PM EST [facility] Basophils Absolute 0.04 0.00 - 0.20 K/mcL LAB HEMETOLOGY METHOD 03/12/2025 8:35 PM EST [facility] Immature Granulocytes Absolute 0.01 0.00 - 0.03 K/mcL LAB HEMETOLOGY METHOD 03/12/2025 8:35 PM EST [facility] Blood Venous blood specimen / Unknown Venipuncture / Unknown 03/12/2025 8:20 PM EST 03/12/2025 8:29 PM EST us Zhou Rdz MD LAB BLOOD ORDERABLES Final Res ult [facility] [address] [place] [address], * Prolactin (03/12/2025 8:20 PM EST) Prolactin 22.40 See Comment ng/mL 03/12/2025 9:13 PM EST [facility] Blood Venous blood specimen / Unknown Venipuncture / Unknown 03/12/2025 8:20 PM EST 03/12/2025 8:29 PM EST Narrative [facility] - 03/12/2025 9:13 PM EST Prolactin Female Reference Ranges (ng/mL): Non: 2.8 - 29.2 : 9.7 - >200.0 Postmenopausal: 1.8 - 20.3 Zhou Rdz MD LAB BLOOD ORDERABLES Final Res ult [facility] [address] [place] [address], [place] [phone] * (ABNORMAL) Magnesium (03/12/2025 8:20 PM EST) Magnesium 1.8(L) 1.9 - 2.6 mg/dL 03/12/2025 9:11 PM EST [facility] Blood Venous blood specimen / Unknown Venipuncture / Unknown 03/12/2025 8:20 PM EST 03/12/2025 8:29 PM EST us Zhou Rdz MD LAB BLOOD ORDERABLES Final Res ult [facility] [address] [place] [address], [place] [phone] * (ABNORMAL) Basic metabolic panel (03/12/2025 8:20 PM EST) Sodium 138 133 - 145 mmol/L 03/12/2025 9:23 PM EST [facility] Potassium 4.4 3.5 - 5.5 mmol/L 03/12/2025 9:23 PM EST [facility] Chloride 103 96 - 110 mmol/L 03/12/2025 9:23 PM [facility] CO2 26 21 - 32 mmol/L 03/12/2025 9:23 PM [facility] Anion Gap 9 3 - 11 03/12/2025 9:23 PM [facility] Glucose 73 70 - 100 mg/dL 03/12/2025 9:23 PM [facility] BUN 13 5 - 25 mg/dL 03/12/2025 9:23 PM [facility] Creatinine 0.83 0.50 - 1.10 mg/dL 03/12/2025 9:23 PM [facility] eGFR 101 >=60 mL/min/1. 73m2 03/12/2025 9:23 PM [facility] Comment:Calculation based on the Chronic Kidney Disease Epidemiology Collaboration (CKD-EPI) equation refit without adjustment for race. BUN/Creatinine Ratio 15.7 03/12/2025 9:23 PM [facility] Calcium 8.2(L) 8.5 - 10.5 mg/dL 03/12/2025 9:23 PM [facility] Blood Venous blood specimen / Unknown Venipuncture / Unknown 03/12/2025 8:20 PM EST 03/12/2025 8:29 PM EST us Zhou Rdz MD LAB BLOOD ORDERABLES Final Res ult [facility] [address] [place] [address], documented in this encounter Visit Diagnoses Diagnosis Breakthrough seizure (CMS/HCC V24, CMS/HCC V28)- Primary documented in this encounter Administered Medications Inactive Administered Medications - up to 3 most recent administrations Medication Order MAR Action Action Date Dose Rate Site levETIRAcetam (KEPPRA) injection 1,000 mg 1,000 mg, intravenous, Administer over 5 Minutes, 2 times daily, First dose on Tue03/12/25 at 2142, IV push over 5 minutes for doses up to 1500 mg. Given 03/12/2025 9:58 PM EST 1,000 mg documented in this encounter Active and Recently Administered Medications Times are shown in EST. Scheduled Medication Order 03/10/2025 03/11/2025 03/12/2025 levETIRAcetam (KEPPRA) injection 1,000 mg 1,000 mg, intravenous, Administer over 5 Minutes, 2 times daily, First dose on Tue03/12/25 at 2142, IV push over 5 minutes for doses up to 1500 mg. 215 (Given - Provid er: Shayy Lomas RN) documented in this encounter Orders Precaution Count Last Ordered Date First Orde red Date SEIZURE PRECAUTIONS 1 03/12/2025 documented in this encounter Additional Health Concerns Active Problems Noted Date Diagnosed Date Autogenerated Problem 02/01/2025 documented as of this encounter Care Teams Timber Surveyor Relationship Specialty Start Date End Date Gricelda Haley MD [address] [facility] [address] [place] [address] PCP - General Internal Medicine 01/28/25 documented as of this encounter
--- NOTE | 2025-03-15 12:46 | A.OFFVIS_ITS ---
Vital Signs 03/15/25 12:50 Height 5 ft 5 in Weight 120 lb BMI 20.0 BP 102/60 Blood Pressure Location Lt brachial Position Sitting Respiration 16 Pulse 64 Pulse Oximetry (%) 99 Oxygen Delivery Method Room Air Intake Visit Reasons: Sz Machine Packer Required: No Allergies amoxicillin Allergy (Unknown, Verified 01/21/25 13:12) Hives bee pollen Allergy (Unknown, Verified 01/21/25 13:12) Unknown bee venom protein (honey bee) Allergy (Unknown, Verified 01/21/25 13:12) Unknown grape Allergy (Unknown, Verified 01/21/25 13:12) Unknown beeswax Allergy (Verified 01/21/25 13:12) Unknown haloperidol (From Haldol) Allergy (Verified 01/21/25 13:12) Unknown honey Allergy (Verified 01/21/25 13:12) Unknown montelukast Allergy (Verified 01/21/25 13:12) Unknown Penicillins Allergy (Verified 01/21/25 13:12) Difficulty Swallowing HPI Comments Details: This is a 24-year-old female patient with a past history of seizure disorder, pots, headaches, anemia, asthma, depression, high cholesterol, and sleep difficulties who is here today for a seizure follow-up. At the time of our last visit it was reported that she has a known seizure disorder for which she has been placed on Keppra 500 mg twice daily and in the past had EEGs confirming seizure though at last visit did not have access to these records. She explain that she was diagnosed with seizure activity proximally 1 year ago here in our emergency department. She has been placed on levetiracetam 500 mg twice daily though seizures have continued after initiation of this medication. She was subsequently placed on lamotrigine by Psychiatry. She reported continuation of seizures on a daily basis including staring episodes at approximately 10 times per day including lip-smacking, eye fluttering, staring, and she was rarely having tonic-clonic events lasting 30 seconds up to 3-4 minutes at a time. She did however report that the lamotrigine made some difference going from 12 are more staring episodes per day down to 10 per day. During our last visit, I recommended an MRI of the brain with and contrast and an EEG. 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 She does tell me today that she has a family history of tanglectasias including her mom and grandmother. Since our last visit, she has had continuation of daily staring events including lip-smacking, and eye fluttering. She also had 1 tonic-clonic event for which she went to the emergency room. This was witnessed by her boyfriend and she was noted to be gasping during event. She did bite her cheek and broken tooth during the event but denies any urinary incontinence. She was given Keppra IV during her emergency room visit which was [facility]. Seizure background information: Onset of seizures: Approximately 1 year ago Date of last seizure: Today Seizure type: Variable Aura/warning signs:Smell of gasoline and feeling of ants in brain before onset Postictal period: Some somnolence Triggers:Lights especially flashing Last brain imagin11/2024 Last EEG: Unknown but possibly 1 year ago Current medications: Levetiracetam 500 mg twice daily and lamotrigine 100 mg daily Compliance with medications: Reports good compliance History of brain infection: No History of significant illness or hospitalization: Failure to thrive as a child. Hx chronic lyme History of stroke of brain bleed:Not that she is aware of History of pre-term :No History of learning disability:ADHD and autism History of developmental delay:Yes History of IEP in school:No Years of schooling completed:11 with GED Family history of seizure: Father with a history of epilepsy- late onset Driving status:No Family/social support: Yes- lives with significant other Social/medical services within the home:No Social: Sleep: Better with trazodone. Alcohol: None Tobacco: Yes- daily Other substancae use:Marijuana Occupation: Currently unemployed Prior workup: 12/11/24 CT HEAD WITHOUT CONTRAST FINDINGS: There is no acute ischemic change. There is no intracranial hemorrhage. There is no mass-effect or midline shift. Basal cisterns and ventricles are within normal limits for age/cerebral volume. Orbits are symmetrical and unremarkable. Paranasal sinuses and mastoid air cells are pneumatized. There are no bony abnormalities. CT/CT head/brain wo IV con IMPRESSION: No acute intracranial abnormality. 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 Plan This is a 24-year-old female patient with a past history of seizure disorder, pots, headaches, anemia, asthma, depression, high cholesterol, and sleep difficulties who is here today for seizure follow-up. Despite lamotrigine 100 mg nightly and levetiracetam 500 mg twice daily, she continues to have daily staring episodes and occasional tonic-clonic breakthrough events. I am still at this point waiting on an EEG. 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 She does have a strong family history of such. While we await the EEG, I will increase her lamotrigine slightly to include a 50 mg dose in the morning and keep the 100 mg at bedtime. I will keep Keppra the same at 500 twice daily. -24 hour ambulatory EEG -increase lamotrigine from 100 mg nightly to 50 mg in the morning and 100 mg at night -continue current dose of levetiracetam 500 mg twice daily -follow up after testing Orders: Orders EEG 24hr Ambulatory Today G40.909 - Epilepsy, unspecified, not intractable, without status epilepticus Medications: Changed From lamotrigine (Lamictal) 100 mg PO DAILY To lamotrigine (Lamictal) Take 1/2 tablet by mouth in the mornign and 1 tablet by mouth at night; 135 tabs 3RF 90 days Coding Level of Care Code Est Pt Level 4 (62253) Diagnoses Seizure disorder G40.909
[2025-03-15 12:50] VITALS: BP 102/60; PULSE 64; RESP 16; O2SAT 99
--- OUTSIDE RECORDS SUMMARY | 2025-03-15 13:07 | XMS_ITS | Clinical Summary ---
Author Organization [address] [facility] Address [address] [place] [address] Phone Care Team Providers Care Drive Worker Name Role Phone Gricelda Haley MD Primary Care Provider [phone] Allergies Active Allergy Reactions Criticality Noted Date [...] mouth 1 (one) time each day. 10/18/19 25 Active omeprazole (PriLOSEC) [address] capsule Take 1 capsule (20 mg total) by mouth 1 (one) time each day. 12/16/19 25 Active lamoTRIgine (LaMICtal) 100 mg tablet Take 1 tablet (100 mg total) by mouth 1 (one) time each day. 01/11/20 25 Active naproxen sodium (ANAPROX) 220 mg tablet Take 1 tablet (220 mg total) by mouth 2 (two) times a day if needed for mild pain. Active Active Problems Problem Noted Date Diagnosed [...] 3 hours apart. Follow-up with PCP and industrial accountant if not better or worse Underweight 06/09/2023 [...] since last visit on 03/05/19. Consider GI/ coat operator/ dietitian consult Anxiety disorder 03/05/2019 Overview (12/07/2024): [...] Overview (12/07/2024): Last Assessment & Plan: See hand slitter for exploring other therapeutic options both oral and topical. Encounters Date Type Department Care Team Description 03/12/2025 8:06 PM EST - 03/12/2025 10:15 PM EST Emergency Emergency [address] [place] [address] Zhou Rdz MD Breakthrough seizure (CMS/HCC V24, CMS/HCC V28) (Primary Dx) Discharge Disposition: Home or Self Care 02/12/2025 7:32 PM EDT - 02/12/2025 8:07 PM EDT Emergency Emergency [address] [place] [address] Right elbow pain (Primary Dx); Recurrent dislocation of right elbow Discharge Disposition: Home or Self Care 01/28/2025 2:15 PM EDT - 01/28/2025 5:15 PM EDT Emergency Emergency [address] [place] [address] POTS (postural orthostatic tachycardia syndrome) (Primary Dx); EDS (Kevin-Danlos syndrome) Discharge Disposition: Home or Self Care from Last 3 Months Medical History Medical History Date Comments POTS (postural orthostatic tachycardia syndrome) 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) Epilepsy (CMS/HCC V24, CMS/HCC V28) Family History Medical History Relation Name Comments [...] Mass Index 19.97 03/12/2025 8:01 PM EST Plan of Treatment Upcoming Encounters Date Type Department Care Team ([facility] st Contact Info) Description 04/04/2025 2:00 PM EST Appointment Endoscopy [address] [place] [address] Bowen Lo MD [address] [facility] [address] [place] [address] Health Maintenance Due Date Last Done Comments [...] EST PROLACTIN STAT 03/12/2025 8:20 PM EST MAGNESIUM STAT 03/12/2025 8:20 PM EST BASIC METABOLIC PANEL STAT 03/12/2025 8:20 PM EST CBC AND DIFFERENTIAL STAT 03/12/2025 8:20 PM EST XR ELBOW 3+ VIEWS RIGHT STAT 02/12/2025 [...] EDT from Last 3 Months Results * POC glucose manually resulted (03/12/2025 10:10 PM EST) [facility] Glucose POC 87 70 - 110 mg/dL Blood Capillary blood specimen / Unknown 03/12/2025 10:10 PM EST Zhou Rdz MD POINT OF CARE TEST ENTER/EDIT ORDERABLES Final Result * POCT Glucose, blood (03/12/2025 9:04 PM EST) [facility] Glucose POCT 87 70 - 100 mg/dL 03/12/2025 9:04 PM EST [facility] Blood Capillary blood specimen / Unknown 03/12/2025 9:04 PM EST 03/12/2025 9:06 PM EST Generic Provider Poct LAB POINT OF CARE TEST DOCKED DEVICE UNSOLICITED RESULTS Final Result [facility] [address] [place] [address], [place] [phone] * CBC auto differential (03/12/2025 8:20 PM EST) Only the most recent of2 resultswithin the time period is included. [facility] WBC 6.8 4.8 - 10.8 K/mcL LAB HEMETOLOGY METHOD 03/12/2025 8:35 PM [facility] RBC 4.20 3.80 - 4.80 M/mcL LAB HEMETOLOGY METHOD 03/12/2025 8:35 PM [facility] Hemoglobin 12.6 11.5 - 16.0 g/dL LAB HEMETOLOGY METHOD 03/12/2025 8:35 PM [facility] Hematocrit 37.8 35.0 - 47.0 % LAB HEMETOLOGY METHOD 03/12/2025 8:35 PM [facility] MCV 90.9 79.0 - 98.0 FL LAB HEMETOLOGY METHOD 03/12/2025 8:35 PM [facility] MCH 30.3 27.0 - 32.0 pcg LAB HEMETOLOGY METHOD 03/12/2025 8:35 PM [facility] MCHC 33.3 32.0 - 37.0 g/dL LAB HEMETOLOGY METHOD 03/12/2025 8:35 PM [facility] RDW 12.9 11.0 - 15.0 % LAB HEMETOLOGY METHOD 03/12/2025 8:35 PM [facility] Platelets 326 130 - 400 K/mcL LAB HEMETOLOGY METHOD 03/12/2025 8:35 PM [facility] MPV 9.6 7.0 - 11.0 FL LAB HEMETOLOGY METHOD 03/12/2025 8:35 PM [facility] NRBC 0.0 <1.0 % LAB HEMETOLOGY METHOD 03/12/2025 8:35 PM [facility] NRBC Absolute 0.00 <0.10 K/mcL LAB HEMETOLOGY METHOD 03/12/2025 8:35 PM [facility] Neutrophils Relative 46.4 % LAB HEMETOLOGY METHOD 03/12/2025 8:35 PM [facility] Lymphocytes Relative 42.5 % LAB HEMETOLOGY METHOD 03/12/2025 8:35 PM [facility] Monocytes Relative 6.7 % LAB HEMETOLOGY METHOD 03/12/2025 8:35 PM [facility] Eosinophils Relative 3.7 % LAB HEMETOLOGY METHOD 03/12/2025 8:35 PM [facility] Basophils Relative 0.6 % LAB HEMETOLOGY METHOD 03/12/2025 8:35 PM [facility] Immature Granulocytes Relative 0.1 % LAB HEMETOLOGY METHOD 03/12/2025 8:35 PM [facility] Neutrophils Absolute 3.17 1.50 - 7.00 K/[facility] LAB HEMETOLOGY METHOD 03/12/2025 8:35 PM EST [facility] Lymphocytes Absolute 2.91 1.00 - 5.00 K/[facility] LAB HEMETOLOGY METHOD 03/12/2025 8:35 PM EST [facility] Monocytes Absolute 0.46 0.20 - 1.00 K/[facility] LAB HEMETOLOGY METHOD 03/12/2025 8:35 PM EST [facility] Eosinophils Absolute 0.25 0.00 - 0.50 K/[facility] LAB HEMETOLOGY METHOD 03/12/2025 8:35 PM EST [facility] Basophils Absolute 0.04 0.00 - 0.20 K/[facility] LAB HEMETOLOGY METHOD 03/12/2025 8:35 PM EST [facility] Immature Granulocytes Absolute 0.01 0.00 - 0.03 K/[facility] LAB HEMETOLOGY METHOD 03/12/2025 8:35 PM EST [facility] Blood Venous blood specimen / Unknown Venipuncture / Unknown 03/12/2025 8:20 PM EST 03/12/2025 8:29 PM EST us Zhou Rdz MD LAB BLOOD ORDERABLES Final Res ult [facility] [address] [place] [address], * Prolactin (03/12/2025 8:20 PM EST) Prolactin 22.40 See Comment ng/mL 03/12/2025 9:13 PM EST [facility] Blood Venous blood specimen / Unknown Venipuncture / Unknown 03/12/2025 8:20 PM EST 03/12/2025 8:29 PM EST Narrative [facility] - 03/12/2025 9:13 PM EST Prolactin Female Reference Ranges (ng/mL): Non: 2.8 - 29.2 : 9.7 - >200.0 Postmenopausal: 1.8 - 20.3 us Zhou Rdz MD LAB BLOOD ORDERABLES Final Res ult Performing Organization Address [facility]/ZIP Co de Phone Number [facility] [address] [place] [address], [place] [phone] * (ABNORMAL) Magnesium (03/12/2025 8:20 PM EST) Only the most recent of2 resultswithin the time period is included. Magnesium 1.8(L) 1.9 - 2.6 mg/dL 03/12/2025 9:11 PM EST [facility] Blood Venous blood specimen / Unknown Venipuncture / Unknown 03/12/2025 8:20 PM EST 03/12/2025 8:29 PM EST Zhou Rdz MD LAB BLOOD ORDERABLES Final Res ult Performing Organization Address [facility]/ZIP Co de Phone Number [facility] [address] [place] [address], [place] [phone] * (ABNORMAL) Basic metabolic panel (03/12/2025 8:20 PM EST) Sodium 138 133 - 145 mmol/L 03/12/2025 9:23 PM EST [facility] Potassium 4.4 3.5 - 5.5 mmol/L 03/12/2025 9:23 PM EST [facility] Chloride 103 96 - 110 mmol/L 03/12/2025 9:23 PM EST [facility] CO2 26 21 - 32 mmol/L 03/12/2025 9:23 PM [facility] Anion Gap 9 3 - 11 03/12/2025 9:23 PM [facility] Glucose 73 70 - 100 mg/dL 03/12/2025 9:23 PM [facility] BUN 13 5 - 25 mg/dL 03/12/2025 9:23 PM [facility] Creatinine 0.83 0.50 - 1.10 mg/dL 03/12/2025 9:23 PM [facility] eGFR 101 >=60 mL/min/1. 73m2 03/12/2025 9:23 PM [facility] Comment:Calculation based on the Chronic Kidney Disease Epidemiology Collaboration (CKD-EPI) equation refit without adjustment for race. BUN/Creatinine Ratio 15.7 03/12/2025 9:23 PM [facility] Calcium 8.2(L) 8.5 - 10.5 mg/dL 03/12/2025 9:23 PM [facility] Blood Venous blood specimen / Unknown Venipuncture / Unknown 03/12/2025 8:20 PM EST 03/12/2025 8:29 PM EST us Zhou Rdz MD LAB BLOOD ORDERABLES Final Res ult [facility] [address] [place] [address], * XR Elbow 3+ Views Right (02/12/2025 [...] Signed Date: 02/13/2025 08:43 ET Workstation ID: [id number] Transcribed By: Self Edit Transcribed Date: 02/13/2025 [...] Signed Date: 02/13/2025 08:43 ET Workstation ID: [id number] Transcribed By: Self Edit Transcribed Date: 02/13/2025 08:41 ET Jolene Batista MD IMG XR PROCEDURES Final Result * ECG-Annotated (01/29/2025) us Provider Onbase ECG ORDERABLES Final Result * Troponin I high sensitivity (01/28/2025 2:20 PM EDT) [facility] High Sensitivity Troponin I <3 <=54 ng/L LAB CHEMISTRY METHOD 01/28/2025 3:30 PM EDT [facility] Blood Venous blood specimen / Unknown Venipuncture / Unknown 01/28/2025 2:20 PM EDT 01/28/2025 3:02 PM EDT Narrative [facility] - 01/28/2025 3:30 PM EDT High levels of biotin in samples may falsely decrease hsTroponin values. Use caution when interpreting hsTroponin results in patients taking biotin who exhibit renal impairment (eGFR <60) or in patients taking more than 20 mg/day of biotin. us Elisabeth GARCIA LAB BLOOD ORDERABLES Fin al Result Performing Organization Address [facility] Co de Phone Number [facility] [address] [place] [address], [place] [phone] * Thyroid Stimulating Hormone (TSH) (01/28/2025 2:20 PM EDT) TSH 0.95 0.40 - 4.00 mcIU/mL LAB CHEMISTRY METHOD 01/28/2025 4:27 PM EDT [facility] Blood Venous blood specimen / Unknown Venipuncture / Unknown 01/28/2025 2:20 PM EDT 01/28/2025 3:02 PM EDT Shemar GARCIA LAB BLOOD ORDERABLES Final Result Performing Organization Address [facility] Co de Phone Number [facility] [address] [place] [address], [place] [phone] * Lipase (01/28/2025 2:20 PM EDT) [facility] Lipase 44 13 - 75 unit/L LAB CHEMISTRY METHOD 01/28/2025 3:36 PM EDT [facility] Blood Venous blood specimen / Unknown Venipuncture / Unknown 01/28/2025 2:20 PM EDT 01/28/2025 3:02 PM EDT Elisabeth GARCIA LAB BLOOD ORDERABLES Fin al Result Performing Organization Address [facility]/ZIP Co de Phone Number [facility] [address] [place] [address], [place] [phone] * Comprehensive metabolic panel (01/28/2025 2:20 PM EDT) Sodium 139 133 - 145 mmol/L LAB CHEMISTRY METHOD 01/28/2025 3:36 PM [facility] Potassium 4.0 3.5 - 5.5 mmol/L LAB CHEMISTRY METHOD 01/28/2025 3:36 PM [facility] Chloride 106 96 - 110 mmol/L LAB CHEMISTRY METHOD 01/28/2025 3:36 PM [facility] CO2 26 21 - 32 mmol/L LAB CHEMISTRY METHOD 01/28/2025 3:36 PM [facility] Anion Gap 7 3 - 11 LAB CHEMISTRY METHOD 01/28/2025 3:36 PM [facility] Glucose 86 70 - 100 mg/dL LAB CHEMISTRY METHOD 01/28/2025 3:36 PM [facility] BUN 14 5 - 25 mg/dL LAB CHEMISTRY METHOD 01/28/2025 3:36 PM [facility] Creatinine 0.85 0.50 - 1.10 mg/dL LAB CHEMISTRY METHOD 01/28/2025 3:36 PM [facility] eGFR 98 >=60 mL/min/1. 73m2 LAB CHEMISTRY METHOD 01/28/2025 3:36 PM [facility] Comment:Calculation based on the Chronic Kidney Disease Epidemiology Collaboration (CKD-EPI) equation refit without adjustment for race. BUN/Creatinine Ratio 16.5 LAB CHEMISTRY METHOD 01/28/2025 3:36 PM [facility] Calcium 8.8 8.5 - 10.5 mg/dL LAB CHEMISTRY METHOD 01/28/2025 3:36 PM [facility] AST (SGOT) 23 10 - 42 unit/L LAB CHEMISTRY METHOD 01/28/2025 3:36 PM [facility] ALT (SGPT) 29 10 - 60 unit/L LAB CHEMISTRY METHOD 01/28/2025 3:36 PM [facility] Alkaline Phosphatase 66 42 - 121 unit/L LAB CHEMISTRY METHOD 01/28/2025 3:36 PM [facility] Total Protein 6.7 6.0 - 8.0 g/dL LAB CHEMISTRY METHOD 01/28/2025 3:36 PM EDT [facility] Albumin 4.0 3.2 - 5.0 g/dL LAB CHEMISTRY METHOD 01/28/2025 3:36 PM EDT [facility] Total Bilirubin 0.3 0.0 - 1.4 mg/dL LAB CHEMISTRY METHOD 01/28/2025 3:36 PM EDT [facility] Blood Venous blood specimen / Unknown Venipuncture / Unknown 01/28/2025 2:20 PM EDT 01/28/2025 3:02 PM EDT Elisabeth GARCIA LAB BLOOD ORDERABLES Fin al Result Performing Organization Address City/[facility]/ZIP Co de Phone Number [facility] [address] [place] [address], [place] [phone] * ECG 12 lead (01/28/2025 1:44 PM EDT) Ventricular Rate ECG 85 BPM GEMUSE Atrial Rate 85 BPM GEMUSE P-R Interval 130 ms GEMUSE QRS Duration 92 ms GEMUSE Q-T Interval 380 ms GEMUSE QTc 452 ms GEMUSE P Wave [place] 68 degrees GEMUSE R [place] 68 degrees GEMUSE T [place] 38 degrees GEMUSE ECG Interpretation Normal sinus rhythm RSR' or QR pattern in V1 suggests right ventricular conduction delay No previous ECGs available Confirmed by WILLIAM QUINTANA ([id number]) on 01/29/2025 8:03:23 AM GEMUSE 01/28/2025 1:44 PM EDT 01/29/2025 8:03 AM EDT Elisabeth GARCIA ECG ORDERABLES Final Re sult GEMUSE from Last 3 Months Additional Health Concerns Active Problems Noted Date Diagnosed Date Autogenerated Problem 02/01/2025 Insurance [facility] PLAN Care Teams Drive Worker Relationship Specialty Start Date End Date Gricelda Haley MD [address] [facility] [address] [place] [address] PCP - General Internal Medicine 01/28/25
--- OUTSIDE RECORDS SUMMARY | 2025-03-15 13:07 | XMS_ITS | Patient Health Record ---
Author Organization [employer] Address [address] [facility] [place] [address] Care Team Providers Care Sanitary Inspector Name Role Phone FAVIOLA MEZA Primary Care Provider Gricelda Haley Unavailable [phone] ReynaldocarlosLauranitishismael Unavailable [phone] Allergies Allergen (clinical drug ingredient) Drug/Non Drug [...] Range Notes Lipid Panel With LDL/HDL Rat [id number] Reviewed date:01/04/2025 08:44:34 AM Interpretation: Performing Lab:[facility], [address] [facility], Phone - [phone], Director - Jovan Notes/Report: Cholesterol, Total 188 100-199 mg/dL Triglycerides 151 0-149 mg/dL HDL Cholesterol 67 >39 mg/dL VLDL Cholesterol Isaac 26 5-40 mg/dL LDL Chol Calc ([facility]) 95 0-99 mg/dL LDL/HDL Ratio 1.4 0.0-3.2 ratio LDL/HDL Ratio Men Women 1/2 Avg.Risk 1.0 1.5 Avg.Risk 3.6 3.2 2X Avg.Risk 6.2 5.0 3X Avg.Risk 8.0 6.1 CBC with Diff, Platelet, NLR [id number] Reviewed date:01/04/2025 08:44:42 AM Interpretation: Performing Lab:[facility], [address] [facility], [place], Phone - [phone], Director - Jovan Notes/Report: WBC 5.8 3.4-10.8 [...] 0.0 0.0-0.1 x10E3/uL Comp. Metabolic Panel [id number] Reviewed date:01/04/2025 08:44:49 AM Interpretation: Performing Lab:[facility], [address] [facility], [place], Phone - [phone], Director - Jovan Notes/Report: Glucose 80 70-99 [...] cell activation , unspecified (D89.40) Referral Organization [facility] Referring Provider First Name [facility] Referring Provider Last Name [facility] Referred Provider Specialty Allergy/Immu nology General Notes Please call the usama ent to schedule the appointment, Encounter created and SMS sent to the pt., Allegra Duran 01/03/2025 04:17:43 PM > Referral Priority Routine Reason postural orthostatic tachycardia severe hypotension Please evaluate and treat Diagnosis 1 Postural orthostatic tachycardia syndrome [POTS] (G90.A) Referral Organization [facility] Referring Provider First Name [facility] Referring Provider Last Name [facility] Referred Provider Specialty Cardiology General Notes Please call the usama ent to schedule the appointment, Encounter created and SMS sent to the pt.Roger Charmain 01/03/2025 04:11:36 PM > Referral Priority Routine Reason please evaluate and treat Please evaluate and treat Diagnosis 1 Hypoglycemia, unspec ified (E16.2) Referral Organization [facility] ter Referring Provider First Name Hector Referring [...] Status W/U Status Risk Notes Problem Hypoglycemia (015759780) Hypoglycemia, unspecified (E16.2) Active confirmed Problem Hyperlipidemia (89433163) Hyperlipidemia, unspecified (E78.5) Active confirmed Problem Recurrent major depression in remission (89246654) Major depressive disorder, recurrent, in partial remission (F33.41) Active confirmed Problem Generalized anxiety disorder (28813440) Generalized anxiety disorder (F41.1) Active confirmed Problem 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, intractable, 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) Active confirmed Problem Gastroparesis (854726618) Gastroparesis (K31.84) Active confirmed Problem Fibromyalgia (425447313) Fibromyalgia (M79.7) Active confirmed Problem Mast cell disorder (484056286) Mast cell activation, unspecified (D89.40) Active confirmed Problem Idiopathic mast cell activation syndrome (90015477986514549 ) 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) Active confirmed Problem 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 Problem Postural orthostatic tachycardia syndrome (disorder) (204698594) Postural orthostatic tachycardia syndrome [POTS] (G90.A) Active confirmed Vital Signs Heart Rate 91 /min 01/22/2025 Temperature 97.3 degrees Fahrenheit 01/22/2025 Oximetry 95 % 01/22/2025 Blood pressure diastolic 80 mm Hg 01/22/2025 Height 5'5'' in 01/22/2025 Blood pressure systolic 120 mm Hg 01/22/2025 Weight 118.5 lbs 01/22/2025 BMI 19.72 kg/m2 01/22/2025 Encounters Encounter Location Date Provider Diagnosis [address] [place] [address] 01/02/2025 Aroosa Alam Hypotension, unspecified I95.9 ; [...] Gastroparesis K31.84 and Encounter for immunization Z23 [facility] [address] [place] [address] 01/22/2025 Ghadeer Mazloum Postural orthostatic tachycardia syndrome [...] Hypermobile Kevin-Danlos syndrome Q79.62 and Gastroparesis K31.84 [facility] [address] [place] [address] 01/03/2025 [facility] [address] [place] [address] 01/22/2025 [facility] [address] [place] [address] 01/04/2025 [facility] [address] [place] [address] 01/05/2025 [facility] [address] [place] [address] 01/05/2025 [facility] [address] [place] [address] 01/05/2025 [facility] [address] [place] [address] 01/14/2025 [facility] [address] [place] [address] 01/19/2025 [facility] [address] [place] [address] 01/21/2025 [facility] [address] [place] [address] 01/21/2025 [facility] [address] [place] [address] 01/21/2025 [facility] [address] [place] [address] 01/21/2025 [facility] [address] [place] [address] 01/23/2025 FAVIOLA MEZA Assessments Encounter Date Diagnosis [...] she was diagnosed with fibromyalgia by a boring machine operator horizontal in the past. She is currently on trazodone 50 mg at night and take Lexapro 20 milligrams daily, she also follows up with online therapist and a psychiatrist from [place] to behavioral instituted. Borderline personality disorder followed by a therapist Keren and psychiatrist on [facility] from [place] neuro behavioral department Idiopathic mast cell activation syndrome, patient is getting multiple flares with rashes and allergic to food dyes and multiple unknown things. She has an EpiPen in place. She takes Zyrtec as well. We will refer her to an classified copy control clerk. 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 She is currently on trazodone 50 mg at night and take Lexapro 20 milligrams daily, she also follows up with online therapist and a psychiatrist from [place] to behavioral instituted. Borderline personality disorder followed by a therapist Keren and psychiatrist on [facility] from [place] neuro behavioral department Idiopathic mast cell activation syndrome, patient is getting multiple flares with rashes and allergic to food dyes and multiple unknown things. She has an EpiPen in place. She takes Zyrtec as well. We will refer her to an classified copy control clerk. History of seizure disorder she states that she was seen in [place] and was told that due to previous history of Lyme's disease that could have triggered a seizure activity she had an EEG done at [place] in 2024 which was positive for epileptic [...] blood work done by her PCP and [place] office which it is unremarkable. She does experience hypoglycemic symptoms of feeling shaky, fatigue, and sweaty which she does check her glucose and it is usually in the 480s which improves with taking glucose tabs, mentions that his random and nonspecific timing. I would refer patient mechanical maintenance foreman for further workup Postural orthostatic tachycardia. Stable continue on midodrine 2.5 mg which she takes half a tablet at lunch and half at night. JUSTINE/MDD/ BPD/ fibromyalgia: Stable at this point, She is currently on trazodone 50 mg at night and take Lexapro 20 milligrams daily, she also follows up with online therapist and a psychiatrist from [place] to behavioral instituted. Borderline personality disorder followed by a therapist Keren and psychiatrist on [facility] from [place] neuro behavioral department Idiopathic mast cell activation syndrome. Stable at this point, she will follow up with an classified copy control clerk. She has an EpiPen in place. She [...] and nonspecific timing. I would refer patient mechanical maintenance foreman for further workup Postural orthostatic tachycardia. Stable continue on midodrine 2.5 mg which she takes half a tablet at lunch and half at night. JUSTINE/MDD/ BPD/ fibromyalgia: Stable at this point, She is currently on trazodone 50 mg at night and take Lexapro 20 milligrams daily, she also follows up with online therapist and a psychiatrist from [place] to behavioral instituted. Borderline personality disorder followed by a therapist Keren and psychiatrist on [facility] from [place] neuro [facility] department Idiopathic mast cell activation syndrome. Stable at this point, she will follow up with an classified copy control clerk. She has an EpiPen in place. She [...] and nonspecific timing. I would refer patient mechanical maintenance foreman for further workup Postural orthostatic tachycardia. Stable continue on midodrine 2.5 mg which she takes half a tablet at lunch and half at night. JUSTINE/MDD/ BPD/ fibromyalgia: Stable at this point, She is currently on trazodone 50 mg at night and take Lexapro 20 milligrams daily, she also follows up with online therapist and a psychiatrist from [place] to [facility]. Borderline personality disorder followed by a therapist Keren and psychiatrist on [facility] from [facility] Idiopathic mast cell activation syndrome. Stable at this point, she will follow up with an classified copy control clerk. She has an EpiPen in place. 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 She is currently on trazodone 50 mg at night and take Lexapro 20 milligrams daily, she also follows up with online therapist and a psychiatrist from [place] to [facility]. Borderline personality disorder followed by a therapist Keren and psychiatrist on [facility] from [facility] Idiopathic mast cell activation syndrome, patient is getting multiple flares with rashes and allergic to food dyes and multiple unknown things. She has an EpiPen in place. She takes Zyrtec as well. We will refer her to an classified copy control clerk. 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 She is currently on trazodone 50 mg at night and take Lexapro 20 milligrams daily, she also follows up with online therapist and a psychiatrist from [place] to behavioral instituted. Borderline personality disorder followed by a therapist Keren and psychiatrist on [facility] from [place] neuro behavioral department Idiopathic mast cell activation syndrome, patient is getting multiple flares with rashes and allergic to food dyes and multiple unknown things. She has an EpiPen in place. She takes Zyrtec as well. We will refer her to an classified copy control clerk. History of seizure disorder she states that she was seen in [place] and was told that due to previous history of Lyme's disease that could have triggered a seizure activity she had an EEG done at [place] in 2024 which was positive for epileptic [...] blood work done by her PCP and [place] office which it is unremarkable. She does experience hypoglycemic symptoms of feeling shaky, fatigue, and sweaty which she does check her glucose and it is usually in the 480s which improves with taking glucose tabs, mentions that his random and nonspecific timing. I would refer patient mechanical maintenance foreman for further workup Postural orthostatic tachycardia. Stable continue on midodrine 2.5 mg which she takes half a tablet at lunch and half at night. JUSTINE/MDD/ BPD/ fibromyalgia: Stable at this point, She is currently on trazodone 50 mg at night and take Lexapro 20 milligrams daily, she also follows up with online therapist and a psychiatrist from [place] to behavioral instituted. Borderline personality disorder followed by a therapist Keren and psychiatrist on [facility] from [place] neuro behavioral department Idiopathic mast cell activation syndrome. Stable at this point, she will follow up with an classified copy control clerk. She has an EpiPen in place. She [...] blood work done by her PCP and [place] office which it is unremarkable. She does experience hypoglycemic symptoms of feeling shaky, fatigue, and sweaty which she does check her glucose and it is usually in the 480s which improves with taking glucose tabs, mentions that his random and nonspecific timing. I would refer patient mechanical maintenance foreman for further workup Postural orthostatic tachycardia. Stable continue on midodrine 2.5 mg which she takes half a tablet at lunch and half at night. JUSTINE/MDD/ BPD/ fibromyalgia: Stable at this point, She is currently on trazodone 50 mg at night and take Lexapro 20 milligrams daily, she also follows up with online therapist and a psychiatrist from [place] to behavioral instituted. Borderline personality disorder followed by a therapist Keren and psychiatrist on [facility] from [place] neuro behavioral department Idiopathic mast cell activation syndrome. Stable at this point, she will follow up with an classified copy control clerk. She has an EpiPen in place. 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 She is currently on trazodone 50 mg at night and take Lexapro 20 milligrams daily, she also follows up with online therapist and a psychiatrist from [place] to behavioral instituted. Borderline personality disorder followed by a therapist Keren and psychiatrist on [facility] from [place] neuro behavioral department Idiopathic mast cell activation syndrome, patient is getting multiple flares with rashes and allergic to food dyes and multiple unknown things. She has an EpiPen in place. She takes Zyrtec as well. We will refer her to an classified copy control clerk. 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 She is currently on trazodone 50 mg at night and take Lexapro 20 milligrams daily, she also follows up with online therapist and a psychiatrist from [place] to behavioral instituted. Borderline personality disorder followed by a therapist Keren and psychiatrist on [facility] from [place] neuro behavioral department Idiopathic mast cell activation syndrome, patient is getting multiple flares with rashes and allergic to food dyes and multiple unknown things. She has an EpiPen in place. She takes Zyrtec as well. We will refer her to an classified copy control clerk. History of seizure disorder she states that she was seen in [place] and was told that due to previous history of Lyme's disease that could have triggered a seizure activity she had an EEG done at [place] in 2024 which was positive for epileptic [...] blood work done by her PCP and [place] office which it is unremarkable. She does experience hypoglycemic symptoms of feeling shaky, fatigue, and sweaty which she does check her glucose and it is usually in the 480s which improves with taking glucose tabs, mentions that his random and nonspecific timing. I would refer patient mechanical maintenance foreman for further workup Postural orthostatic tachycardia. Stable continue on midodrine 2.5 mg which she takes half a tablet at lunch and half at night. JUSTINE/MDD/ BPD/ fibromyalgia: Stable at this point, She is currently on trazodone 50 mg at night and take Lexapro 20 milligrams daily, she also follows up with online therapist and a psychiatrist from [place] to behavioral instituted. Borderline personality disorder followed by a therapist Keren and psychiatrist on [facility] from [place] neuro behavioral department Idiopathic mast cell activation syndrome. Stable at this point, she will follow up with an classified copy control clerk. She has an EpiPen in place. 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 She is currently on trazodone 50 mg at night and take Lexapro 20 milligrams daily, she also follows up with online therapist and a psychiatrist from [place] to behavioral instituted. Borderline personality disorder followed by a therapist Keren and psychiatrist on [facility] from [place] neuro behavioral department Idiopathic mast cell activation syndrome, patient is getting multiple flares with rashes and allergic to food dyes and multiple unknown things. She has an EpiPen in place. She takes Zyrtec as well. We will refer her to an classified copy control clerk. History of seizure disorder she states that she was seen in [place] and was told that due to previous history of Lyme's disease that could have triggered a seizure activity she had an EEG done at [place] in 2024 which was positive for epileptic [...] and nonspecific timing. I would refer patient mechanical maintenance foreman for further workup Postural orthostatic tachycardia. Stable continue on midodrine 2.5 mg which she takes half a tablet at lunch and half at night. JUSTINE/MDD/ BPD/ fibromyalgia: Stable at this point, She is currently on trazodone 50 mg at night and take Lexapro 20 milligrams daily, she also follows up with online therapist and a psychiatrist from [place] to [facility]. Borderline personality disorder followed by a therapist Keren and psychiatrist on [facility] from [facility] Idiopathic mast cell activation syndrome. Stable at this point, she will follow up with an classified copy control clerk. She has an EpiPen in place. 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 She is currently on trazodone 50 mg at night and take Lexapro 20 milligrams daily, she also follows up with online therapist and a psychiatrist from [place] to [facility]. Borderline personality disorder followed by a therapist Keren and psychiatrist on [facility] from [facility] Idiopathic mast cell activation syndrome, patient is getting multiple flares with rashes and allergic to food dyes and multiple unknown things. She has an EpiPen in place. She takes Zyrtec as well. We will refer her to an classified copy control clerk. History of seizure disorder she states that she was seen in [place] and was told that due to previous history of Lyme's disease that could have triggered a seizure activity she had an EEG done at [place] in 2024 which was positive for epileptic [...] blood work done by her PCP and [place] office which it is unremarkable. She does experience hypoglycemic symptoms of feeling shaky, fatigue, and sweaty which she does check her glucose and it is usually in the 480s which improves with taking glucose tabs, mentions that his random and nonspecific timing. I would refer patient mechanical maintenance foreman for further workup Postural orthostatic tachycardia. Stable continue on midodrine 2.5 mg which she takes half a tablet at lunch and half at night. JUSTINE/MDD/ BPD/ fibromyalgia: Stable at this point, She is currently on trazodone 50 mg at night and take Lexapro 20 milligrams daily, she also follows up with online therapist and a psychiatrist from [place] to behavioral instituted. Borderline personality disorder followed by a therapist Keren and psychiatrist on [facility] from [place] neuro behavioral department Idiopathic mast cell activation syndrome. Stable at this point, she will follow up with an classified copy control clerk. She has an EpiPen in place. She [...] blood work done by her PCP and [place] office which it is unremarkable. She does experience hypoglycemic symptoms of feeling shaky, fatigue, and sweaty which she does check her glucose and it is usually in the 480s which improves with taking glucose tabs, mentions that his random and nonspecific timing. I would refer patient mechanical maintenance foreman for further workup Postural orthostatic tachycardia. Stable continue on midodrine 2.5 mg which she takes half a tablet at lunch and half at night. JUSTINE/MDD/ BPD/ fibromyalgia: Stable at this point, She is currently on trazodone 50 mg at night and take Lexapro 20 milligrams daily, she also follows up with online therapist and a psychiatrist from [place] to behavioral instituted. Borderline personality disorder followed by a therapist Keren and psychiatrist on [facility] from [place] neuro behavioral department Idiopathic mast cell activation syndrome. Stable at this point, she will follow up with an classified copy control clerk. She has an EpiPen in place. 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 She is currently on trazodone 50 mg at night and take Lexapro 20 milligrams daily, she also follows up with online therapist and a psychiatrist from [place] to behavioral instituted. Borderline personality disorder followed by a therapist Keren and psychiatrist on [facility] from [place] neuro behavioral department Idiopathic mast cell activation syndrome, patient is getting multiple flares with rashes and allergic to food dyes and multiple unknown things. She has an EpiPen in place. She takes Zyrtec as well. We will refer her to an classified copy control clerk. History of seizure disorder she states that she was seen in [place] and was told that due to previous history of Lyme's disease that could have triggered a seizure activity she had an EEG done at [place] in 2024 which was positive for epileptic [...] blood work done by her PCP and [place] office which it is unremarkable. She does experience hypoglycemic symptoms of feeling shaky, fatigue, and sweaty which she does check her glucose and it is usually in the 480s which improves with taking glucose tabs, mentions that his random and nonspecific timing. I would refer patient mechanical maintenance foreman for further workup Postural orthostatic tachycardia. Stable continue on midodrine 2.5 mg which she takes half a tablet at lunch and half at night. JUSTINE/MDD/ BPD/ fibromyalgia: Stable at this point, She is currently on trazodone 50 mg at night and take Lexapro 20 milligrams daily, she also follows up with online therapist and a psychiatrist from [place] to behavioral instituted. Borderline personality disorder followed by a therapist Ke[place] and psychiatrist on [facility] from [place] neuro behavioral department Idiopathic mast cell activation syndrome. Stable at this point, she will follow up with an classified copy control clerk. She has an EpiPen in place. 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 She is currently on trazodone 50 mg at night and take Lexapro 20 milligrams daily, she also follows up with online therapist and a psychiatrist from [place] to behavioral instituted. Borderline personality disorder followed by a therapist Keren and psychiatrist on [facility] from [place] neuro behavioral department Idiopathic mast cell activation syndrome, patient is getting multiple flares with rashes and allergic to food dyes and multiple unknown things. She has an EpiPen in place. She takes Zyrtec as well. We will refer her to an classified copy control clerk. 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 She is currently on trazodone 50 mg at night and take Lexapro 20 milligrams daily, she also follows up with online therapist and a psychiatrist from [place] to behavioral instituted. Borderline personality disorder followed by a therapist Keren and psychiatrist on [facility] from [place] neuro behavioral department Idiopathic mast cell activation syndrome, patient is getting multiple flares with rashes and allergic to food dyes and multiple unknown things. She has an EpiPen in place. She takes Zyrtec as well. We will refer her to an classified copy control clerk. History of seizure disorder she states that she was seen in [place] and was told that due to previous history of Lyme's disease that could have triggered a seizure activity she had an EEG done at [place] in 2024 which was positive for epileptic [...] blood work done by her PCP and [place] office which it is unremarkable. She does experience hypoglycemic symptoms of feeling shaky, fatigue, and sweaty which she does check her glucose and it is usually in the 480s which improves with taking glucose tabs, mentions that his random and nonspecific timing. I would refer patient mechanical maintenance foreman for further workup Postural orthostatic tachycardia. Stable continue on midodrine 2.5 mg which she takes half a tablet at lunch and half at night. JUSTINE/MDD/ BPD/ fibromyalgia: Stable at this point, She is currently on trazodone 50 mg at night and take Lexapro 20 milligrams daily, she also follows up with online therapist and a psychiatrist from [place] to [facility]. Borderline personality disorder followed by a therapist Keren and psychiatrist on [facility] from [facility] Idiopathic mast cell activation syndrome. Stable at this point, she will follow up with an classified copy control clerk. She has an EpiPen in place. 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 She is currently on trazodone 50 mg at night and take Lexapro 20 milligrams daily, she also follows up with online therapist and a psychiatrist from [place] to [facility]. Borderline personality disorder followed by a therapist Keren and psychiatrist on [facility] from [facility] Idiopathic mast cell activation syndrome, patient is getting multiple flares with rashes and allergic to food dyes and multiple unknown things. She has an EpiPen in place. She takes Zyrtec as well. We will refer her to an classified copy control clerk. History of seizure disorder she states that she was seen in [place] and was told that due to previous history of Lyme's disease that could have triggered a seizure activity she had an EEG done at [place] in 2024 which was positive for epileptic [...] blood work done by her PCP and [place] office which it is unremarkable. She does experience hypoglycemic symptoms of feeling shaky, fatigue, and sweaty which she does check her glucose and it is usually in the 480s which improves with taking glucose tabs, mentions that his random and nonspecific timing. I would refer patient mechanical maintenance foreman for further workup Postural orthostatic tachycardia. Stable continue on midodrine 2.5 mg which she takes half a tablet at lunch and half at night. JUSTINE/MDD/ BPD/ fibromyalgia: Stable at this point, She is currently on trazodone 50 mg at night and take Lexapro 20 milligrams daily, she also follows up with online therapist and a psychiatrist from [place] to behavioral instituted. Borderline personality disorder followed by a therapist Keren and psychiatrist on [facility] from [place] neuro behavioral department Idiopathic mast cell activation syndrome. Stable at this point, she will follow up with an classified copy control clerk. She has an EpiPen in place. She [...] Provider Name:Gricelda Haley, Anatoliy 07/02/2025 03:30:00 PM, [address] [place] [address], [id number], Insurance Providers Payer Name Payer Address Payer Phone Subscriber Number Group Number Insured Name Patient Relationship to Insured Coverage Start Date Coverage End Date [facility] [address] [address] [place] [address] [id number] Abby Alves Self - patient is the insured Medical (General) History Medical History History ICD Code postural orthostatic tachycardia POTS Mast cell activation syndrome Gastroparesis Post Lyme's disease fatigue and pain Fibromyalgia Generalized anxiety disorder Depression Hypermobile Kevin-Danlos syndrome Borderline personality disorder Surgical History Surgery Date(Month/Year) tonsillectomy and adenoid removal as a c hild
--- OUTSIDE RECORDS SUMMARY | 2025-03-15 13:07 | XMS_ITS | Clinical Summary ---
Author Organization [facility] Address [address] [facility] [address] [place] [address] Phone Care Team Providers Care Electrician Technician Name Role Phone Sandra Guadalupe LINEN SUPPLY LOAD BUILDER Primary Care Provider [phone] Allergies Active Allergy Reactions Criticality Noted Date [...] mg by mouth daily. 4 Active omega 2-jvw-vat-fish oil 1,000 mg (250 mg-750 mg)/5 mL [...] 3 hours apart. Follow-up with PCP and md pediatric allergist if not better or worse Underweight 06/09/2023 Assessment & Plan (06/12/2023 7:10 PM EST): I have explained to her importance of achieving optimal body weight for her height in reducing the risk of infection (s) and achieving maximal bone density by the age of 30. longterm current use of non -steroidal anti-inflammatories (NSAID) [...] since last visit on 03/05/19. Consider GI/ commissioning agent/ dietitian consult Other insomnia 06/06/2019 Assessment & [...] to 30 mg if no contraindications by sap data architect Consider formal sleep study Assessment & Plan (06/06/2019 1:03 PM EST): Due to ongoing problems with getting asleep & keeping asleep despite using melatonin 1- 5 mg nightly & following sleep hygiene Suggest carefully increasing nightly dose of fluoxetine from 20 mg to 30 mg if no contraindications by sap data architect Consider formal sleep study Chronic fatigue 03/05/2019 [...] & Plan (02/05/2020 8:50 PM EDT): See pipeline dispatch operator for exploring other therapeutic options both oral and topical. Assessment & Plan (07/02/2019 6:29 PM EDT): See pipeline dispatch operator for exploring other therapeutic options both oral and topical. Assessment & Plan (03/05/2019 5:58 PM EST): See pipeline dispatch operator for exploring other therapeutic options both oral [...] topic Medical Devices Not on file Insurance Weddingful O Weddingful [facility] [place] [address] [place] [facility] [place] [place] [address] [facility] Care Teams Electrician Technician Relationship Specialty Start Date End Date Sandra Guadalupe NP [address] [place] [address] [address] [place] [address] [email or web address] PCP - General Nurse Practitioner 02/29/24 Additional Source Comments The information contained in this document represents components of the legal health record. It is not the complete legal health record.[facility]
--- OUTSIDE RECORDS SUMMARY | 2025-03-15 13:07 | XMS_ITS | Data Portability ---
Author Organization [place] [facility], [address] Address [address] [place] [address] Assessment No assessment recorded. Plan of Treatment Reminders Order Date Submit Date Provider Last Modified By Organization Details Last Modified Time Details Appointments None recorded. Lab None recorded. Referral emergency medicine referral 2022 023 [email or web address] [facility] Emergency Department, [address] [place], [address], 18:59:30 Procedures None recorded. Surgeries None recorded. Imaging None recorded. Medication Orders None recorded. Patient TargetsNo targets recorded. Patient Instructions Encounter Date Encounter Id Patient Instructions Last Modified By Organization Details Last Modified Time 02/15/2023 [id number] Your history and physical exam suggests that you may have a fracture in your hand and or wrist. Since xrays are not available today at [facility] you are being referred to the Emergency Department for xrays and potential splinting. [facility] ER has been advised of your impending arrival. Go directly to [facility] ER after leaving [facility]. [email or web address] Not available 02/15/2023 18:53:49 Reason for Referral Emergency Medicine Referral for Pain of right wrist r/o right hand/wrist fracture Referring Physician: Nuvia Wellington, Urgent Care, Encounter Date: 02/15/2023 Problems Name Problem SNOMED Code Status Onset Date Resolution Date Notes Provider Name and Address Organization Details Recorded Time Anxiety 12546726 Active Katty Mabel null, [place] - [facility] 17:57:02 Asthma 833461502 Active Katty Mabel null, [place] - [facility] 10/24/202 3 17:57:15 Postural orthostatic tachycardia syndrome 811166999 Active Katty Mabel null, [place] - [facility] 3 17:58:07 Chronic fatigue syndrome 86329970 Active Katty Mabel null, [place] - [facility] 3 17:58:24 Fibromyalgia 453063556 Active Katty Mabel null, [place] - [facility] [...] mass index (BMI) Body weight Oxygen saturation Pain severity - 0-10 verbal numeric rating [Score] - Reported Heart rate Respiratory rate Body temperature Systolic And Diastolic Provider Name and Address Organization Details Last Updated DateTime 165.1 cm 21.3 kg/m2 22836.8 2 g 99 % 6 77 /min 15 /min [...] ICD10 Code Diagnosis IMO Codes Diagnosis Note [id number] [place] [address] [place] [address] 02/15/2023 17:31:38 02/15/2023 18:59:30 Pain of right wrist 3473635828 97025 M25.531 Pain of right hand 52412 18843 74613 M79.641 Health Concerns Section Related Observation LastModified by Organization Detai ls LastModified Time None Recorded Concern Status LastModified by Organization Details LastModified Time None Recorded Advance Directives Directive None Recorded Payers Insurance Date Sequence Insurance Name Policy Number Policy Duffy Covered Member ID Duffy Member ID Guarantor Name 11/14/2023 1 [facility] (O) [id number] Abby Alves [id number] Abby Alves Notes Date Note Type [...] taped for support. Nuvia Wellington MD [address], [address], [place] - [facility] 02/15/2023 19:16:43 OBGyn Episode No OBEpisode recorded.
--- OUTSIDE RECORDS SUMMARY | 2025-03-15 13:07 | XMS_ITS | Patient Health Record ---
Author Organization [facility] Address [address] [place] [address] Support Name Relationship Address Phone Rudystan Abby [...] of [place] [address] [place] [phone] [id number] Abby Alves Self - patient is the insured Medical (General) History Medical History History ICD Code Postural orthostatic tachycardia syndrom e 2020 Chronic fatigue syndrome 2018 Hypermobile 2018 Fibromyalgia 2019 Asthma 2006 Depression 2012 Generalized anxiety disorder 2012 Borderline Personality disorder 2017
--- OUTSIDE RECORDS SUMMARY | 2025-03-15 13:07 | XMS_ITS | Patient Health Record ---
Author Organization [facility] Address [address] [facility] [address] [place] [address] Care Team Providers Care Instrument Processing Tech Name Role Phone JEANCARLOS STILES Unavailable [phone] Allergies No Known Allergies Reason For Referral No Information Medications Medication SIG (Take, Route, Frequency, Duration) Notes Start Date End Date Status Simethicone 80 MG 1 tablet after meals and at bedtime as needed Orally Four times a day Active Vitamin D3 1.25 MG (81813 UT) 1 capsule Orally; Duration: 30 day(s) [...] severe cramping (at [facility]) 02/25/2020 Not-Taking [place] 3 1000 MG 1 capsule Orally Once [...] Risk Notes Problem Major depression, single episode (06910066) Major depressive disorder, single episode, unspecified (F32.9) Active confirmed Problem Anxiety disorder (641757080) Anxiety disorder, unspecified (F41.9) Active confirmed Problem Posttraumatic stress disorder (17363531) Post-traumatic stress disorder, chronic (F43.12) Active confirmed Problem Migraine with aura (0153433) Migraine with aura, not intractable, with status migrainosus (G43.101) Active confirmed Problem Uncomplicated asthma (disorder) (574582118) Unspecified asthma, uncomplicated (J45.909) Active confirmed Problem Fibromyalgia (744164662) Fibromyalgia (M79.7) Active confirmed Problem Abnormal uterine bleeding (26982282435295) Abnormal uterine and vaginal bleeding, unspecified (N93.9) Active confirmed Problem Chronic fatigue syndrome (disorder) (87742522) Chronic fatigue, unspecified (R53.82) Active confirmed Plan Of Treatment Pending Test Test Name Order Date Test, Urine 02/25/2020 Test, Urine 09/15/2021 ULTRASOUND: PELVIC W/TRANSVAGINAL 2019 Insurance Providers Payer Name Payer Address Payer Phone Subscriber Number Group Number Insured Name Patient Relationship to Insured Coverage Start Date Coverage End Date [facility] [address] [address] [place] [id number] CHRIS AGARWAL Self - patient is the insured Medical (General) History Medical History History ICD Code Unspecified asthma, uncomplicated J45.90 9 Encounter for screening for depression Z 13.31 Anxiety disorder, unspecified F41.9 Migraine with aura, not intractable, wit h status migrainosus G43.101 Surgical History Surgery Date(Month/Year) Tonsils and Adenoids 2007
== END 2025-03-15 13:13 | disposition home or self-care (01) ==
LOC: HO.HSM 12:45
PROVIDERS: Visit Provider Nurse Practitioner
DX: G40.909 Epilepsy, unspecified, not intractable, without status epilepticus (principal)
CPT/HCPCS: 99214

== ENCOUNTER → 2025-03-15 12:44 | Outpatient (BNVA) | payer OTHER, SELFPAY | PROVIDERS: Visit Provider Nurse Practitioner | DX: G40.909 Epilepsy, unspecified, not intractable, without status epilepticus (principal) | CPT/HCPCS: 99212 ==

== ENCOUNTER 2025-03-28 08:17 | Outpatient (REF) | payer OTHER, SELFPAY ==
--- NOTE | 2025-03-28 08:19 | EEG_ITS ---
24 Hour Ambulatory EEG History: H/O seizure disorder, pots, headaches, anemia, asthma, depression, high cholesterol, and sleep difficulties - Patient states she was diagnosed with seizure activity proximally 1 year ago. She reports continuation of seizures on a daily basis including staring episodes at approximately 10 times per day including lip-smacking, eye fluttering, staring, and she was rarely having tonic-clonic events lasting 30 seconds up to 3-4 minutes at a time. Medication: cyclobenzaprine, ketorolac, ondansetron, ondansetron, levetiracetam, metronidazole, sulfamethoxazole, mg-trimethoprim, acetaminophen, cyclobenzaprine, ibuprofen, albuterol sulfate, ketorolac, ibuprofen Technical description Behavioral state: pleasant State of Consciousness: awake and sleep Skull defect: none Sedation: none Handedness: right Duration of study: 24 hours Last Event: 03/29/25 9:30 AM Diary entries / Symptoms: Patient reported multiple episodes during tracing that included: 2 episodes of symptoms of ringing in ears and tunnel seeing one episode of tingles in head one episode of light headedness and ears ringing one episode of extremely dizzy and felt like going to pass out one episode of smelled car gas one episode of space out unresponsive ? Description: This is a 24 hour ambulatory EEG. Patient kept a diary and repeated multiple episodes of symptom such as tingling, headache, ear ringing in a feeling of passing out. EEG included wakefulness in different stages of sleep. During wakefulness background EEG rhythm was 10 hertz symmetric alpha posteriorly lower amplitude past fast anteriorly. Patient transitioned into different stages of sleep. No significant EEG abnormality was noted during this EEG tracing. Impression: Unremarkable 24 I ambulatory EEG with patient reporting multiple symptoms described in the body of the report. PURA
--- OUTSIDE RECORDS SUMMARY | 2025-03-28 08:32 | XMS_ITS | Patient Health Record ---
Author Organization [facility] Address [address] [place] [address] Support Name Relationship Address Phone Rudystan Abby [...] of [place] [address] [place] [phone] [id number] Long Abby Self - patient is the insured Medical (General) History Medical History History ICD Code Postural orthostatic tachycardia syndrom e 2020 Chronic fatigue syndrome 2018 Hypermobile 2018 Fibromyalgia 2019 Asthma 2006 Depression 2012 Generalized anxiety disorder 2012 Borderline Personality disorder 2017
--- OUTSIDE RECORDS SUMMARY | 2025-03-28 08:32 | XMS_ITS | Clinical Summary ---
Author Organization [facility] Address [address] [facility] [address] [place] [address] Phone Care Team Providers Care Natural Sciences Professor Name Role Phone Sandra Guadalupe SERICULTURE TEACHER Primary Care Provider [phone] Allergies Active Allergy Reactions Criticality Noted Date [...] mg by mouth daily. 4 Active omega 7-gdi-fde-fish oil 1,000 mg (250 mg-750 mg)/5 mL [...] 3 hours apart. Follow-up with PCP and crown blocker if not better or worse Underweight 06/09/2023 Assessment & Plan (06/12/2023 7:10 PM EST): I have explained to her importance of achieving optimal body weight for her height in reducing the risk of infection (s) and achieving maximal bone density by the age of 30. detention current use of non -steroidal anti-inflammatories (NSAID) [...] since last visit on 03/05/19. Consider GI/ stonecutter hand/ dietitian consult Other insomnia 06/06/2019 Assessment & [...] to 30 mg if no contraindications by masonry teacher Consider formal sleep study Assessment & Plan (06/06/2019 1:03 PM EST): Due to ongoing problems with getting asleep & keeping asleep despite using melatonin 1- 5 mg nightly & following sleep hygiene Suggest carefully increasing nightly dose of fluoxetine from 20 mg to 30 mg if no contraindications by masonry teacher Consider formal sleep study Chronic fatigue 03/05/2019 [...] & Plan (02/05/2020 8:50 PM EDT): See body corporate manager for exploring other therapeutic options both oral and topical. Assessment & Plan (07/02/2019 6:29 PM EDT): See body corporate manager for exploring other therapeutic options both oral and topical. Assessment & Plan (03/05/2019 5:58 PM EST): See body corporate manager for exploring other therapeutic options both oral [...] topic Medical Devices Not on file Insurance [employer] O [employer] [facility] [place] [address] [place] [address] [place] [facility] [place] [address] [place] [address] [facility] Care Teams Natural Sciences Professor Relationship Specialty Start Date End Date Sandra Guadalupe NP [address] [place] [address] [address] [place] [address] [email or web address] PCP - General Nurse Practitioner 02/29/24 Additional Source Comments The information contained in this document represents components of the legal health record. It is not the complete legal health record.[facility]
--- OUTSIDE RECORDS SUMMARY | 2025-03-28 08:32 | XMS_ITS | Patient Health Record ---
Author Organization [facility] Address [address] [facility] [facility] [address] [place] [address] Care Team Providers Care Hvac Engineer Name Role Phone JEANCARLOS STILES Unavailable [phone] Allergies No Known Allergies Reason For Referral No Information Medications Medication SIG (Take, Route, Frequency, Duration) Notes Start Date End Date Status Simethicone 80 MG 1 tablet after meals and at bedtime as needed Orally Four times a day Active Vitamin D3 1.25 MG (69155 UT) 1 capsule Orally; Duration: 30 day(s) [...] severe cramping (at [facility]) 02/25/2020 Not-Taking [place] 3 1000 MG 1 capsule Orally Once [...] Risk Notes Problem Major depression, single episode (81531269) Major depressive disorder, single episode, unspecified (F32.9) Active confirmed Problem Anxiety disorder (521613669) Anxiety disorder, unspecified (F41.9) Active confirmed Problem Posttraumatic stress disorder (48203986) Post-traumatic stress disorder, chronic (F43.12) Active confirmed Problem Migraine with aura (5926974) Migraine with aura, not intractable, with status migrainosus (G43.101) Active confirmed Problem Uncomplicated asthma (disorder) (351315965) Unspecified asthma, uncomplicated (J45.909) Active confirmed Problem Fibromyalgia (009469562) Fibromyalgia (M79.7) Active confirmed Problem Abnormal uterine bleeding (73056307036023) Abnormal uterine and vaginal bleeding, unspecified (N93.9) Active confirmed Problem Chronic fatigue syndrome (disorder) (63021791) Chronic fatigue, unspecified (R53.82) Active confirmed Plan Of Treatment Pending Test Test Name Order Date Test, Urine 02/25/2020 Test, Urine 09/15/2021 ULTRASOUND: PELVIC W/TRANSVAGINAL 2019 Insurance Providers Payer Name Payer Address Payer Phone Subscriber Number Group Number Insured Name Patient Relationship to Insured Coverage Start Date Coverage End Date [facility] [address] [address] [place] [id number] CHRIS AGARWAL Self - patient is the insured Medical (General) History Medical History History ICD Code Unspecified asthma, uncomplicated J45.90 9 Encounter for screening for depression Z 13.31 Anxiety disorder, unspecified F41.9 Migraine with aura, not intractable, wit h status migrainosus G43.101 Surgical History Surgery Date(Month/Year) Tonsils and Adenoids 2007
--- OUTSIDE RECORDS SUMMARY | 2025-03-28 08:32 | XMS_ITS | Patient Health Record ---
Author Organization [facility] Address [address] [facility] [place] [address] Care Team Providers Care [employer] Professor Name Role Phone FAVIOLA MEZA Primary Care Provider [phone] RadhaAvril hensleykadi Unavailable [phone] Hector Hamilton Unavailable [phone] Allergies Allergen (clinical drug ingredient) Drug/Non Drug [...] Reference Range Notes Comp. Metabolic Panel [id number] Reviewed date:01/04/2025 08:44:49 AM Interpretation: Performing Lab:[facility], [address] [place] [address], Phone - [phone], Director - Jovan Notes/Report: Glucose 80 70-99 [...] - 129 AST (SGOT) 22 0-40 IU/L Lipid Panel With LDL/HDL Rat [id number] Reviewed date:01/04/2025 08:44:34 AM Interpretation: Performing Lab:[facility], [address] [facility], Phone - [phone], Director - MDJodry Notes/Report: Cholesterol, Total 188 100-199 mg/dL Triglycerides 151 0-149 mg/dL HDL Cholesterol 67 >39 mg/dL VLDL Cholesterol Isaac 26 5-40 mg/dL LDL Chol Calc (NIH) 95 0-99 mg/dL LDL/HDL Ratio 1.4 0.0-3.2 ratio LDL/HDL Ratio Men Women 1/2 Avg.Risk 1.0 1.5 Avg.Risk 3.6 3.2 2X Avg.Risk 6.2 5.0 3X Avg.Risk 8.0 6.1 CBC with Diff, Platelet, NLR [id number] Reviewed date:01/04/2025 08:44:42 AM Interpretation: Performing Lab:[facility], [address] [facility], [place], Phone - [phone], Director - MDJoy Notes/Report: WBC 5.8 3.4-10.8 x10E3/uL RBC 4.38 [...] % Immature Grans (Abs) 0.0 0.0-0.1 x10E3/uL Reason For Referral Reason severe recurrent mas t cell activation with allergic reaction Please evaluate and treat Diagnosis 1 Mast cell activation , unspecified (D89.40) Referral Organization [facility] Referring Provider First Name [facility] Referring Provider Last Name [facility] [place] Referring Provider [facility] Referred Provider Specialty Allergy/Immu nology General Notes Please call the usama ent to schedule the appointment, Encounter created and SMS sent to the pt., Allegra Duran 01/03/2025 04:17:43 PM > Referral Priority Routine Reason postural orthostatic tachycardia severe hypotension Please evaluate and treat Diagnosis 1 Postural orthostatic tachycardia syndrome [POTS] (G90.A) Referral Organization [facility] Referring Provider First Name [facility] Referring Provider Last Name [facility] [place] Referring Provider [facility] Referred Provider Specialty Cardiology General Notes Please call the usama ent to schedule the appointment, Encounter created and SMS sent to the pt.Roger Charmain 01/03/2025 04:11:36 PM > Referral Priority Routine Reason please evaluate and treat Please evaluate and treat Diagnosis 1 Hypoglycemia, unspec ified (E16.2) Referral Organization [facility] Referring Provider First Name Hector [...] Status W/U Status Risk Notes Problem Hypoglycemia (126379481) Hypoglycemia, unspecified (E16.2) Active confirmed Problem Hyperlipidemia (55280307) Hyperlipidemia, unspecified (E78.5) Active confirmed Problem Recurrent major depression in remission (13467621) Major depressive disorder, recurrent, in partial remission (F33.41) Active confirmed Problem Generalized anxiety disorder (07410394) Generalized anxiety disorder (F41.1) Active confirmed Problem 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, intractable, 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) Active confirmed Problem Gastroparesis (003062391) Gastroparesis (K31.84) Active confirmed Problem Fibromyalgia (728065110) Fibromyalgia (M79.7) Active confirmed Problem Mast cell disorder (956538577) Mast cell activation, unspecified (D89.40) Active confirmed Problem Idiopathic mast cell activation syndrome (51933771606282847 ) 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) Active confirmed Problem 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 Problem Postural orthostatic tachycardia syndrome (disorder) (414461169) Postural orthostatic tachycardia syndrome [POTS] (G90.A) Active confirmed Vital Signs Heart Rate 91 /min 01/22/2025 Temperature 97.3 degrees Fahrenheit 01/22/2025 Oximetry 95 % 01/22/2025 Blood pressure diastolic 80 mm Hg 01/22/2025 Height 5'5'' in 01/22/2025 Blood pressure systolic 120 mm Hg 01/22/2025 Weight 118.5 lbs 01/22/2025 BMI 19.72 kg/m2 01/22/2025 Encounters Encounter Location Date Provider Diagnosis [address] [place] [address] 01/02/2025 [facility] Alam Hypotension, unspecified I95.9 ; [...] Gastroparesis K31.84 and Encounter for immunization Z23 [facility] [address] [facility] [address] [place] [address] 01/22/2025 Ghadeer Mazloum Postural orthostatic tachycardia syndrome [...] Hypermobile Kevin-Danlos syndrome Q79.62 and Gastroparesis K31.84 [facility] [address] [facility] [address] [place] [address] 01/03/2025 [facility] [address] [facility] [address] [place] [address] 01/22/2025 [facility] [address] [facility] [address] [place] [address] 01/04/2025 [facility] [address] [address] [place] [address] 01/05/2025 [facility] [address] [facility] [address] [place] [address] 01/05/2025 [facility] [address] [facility] [address] [place] [address] 01/05/2025 [facility] [address] [facility] [address] [place] [address] 01/14/2025 [facility] [address] [address] [facility] [address] [place] [address] 01/19/2025 [facility] [address] [address] [place] [address] 01/21/2025 [facility] [address] [address] [place] [address] 01/21/2025 [facility] [address] [facility] [address] [place] [address] 01/21/2025 [facility] [address] [facility] [address] [place] [address] 01/21/2025 [facility] [address] [address] [facility] [address] [place] [address] 01/23/2025 FAVIOLA MEZA [facility] [address] [facility] [address] [place] [address] 03/19/2025 [facility] [address] [facility] [address] [place] [address] 03/20/2025 [facility] [address] [facility] [address] [place] [address] 03/25/2025 [facility] Assessments Encounter Date Diagnosis (ICD Code) Assessment [...] she was diagnosed with fibromyalgia by a direct marketing representative in the past. She is currently on trazodone 50 mg at night and take Lexapro 20 milligrams daily, she also follows up with online therapist and a psychiatrist from [facility] to [facility] instituted. Borderline personality disorder followed by a therapist Keren and psychiatrist on [facility] from [facility] Idiopathic mast cell activation syndrome, patient is getting multiple flares with rashes and allergic to food dyes and multiple unknown things. She has an EpiPen in place. She takes Zyrtec as well. We will refer her to an practice clinician. 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 She is currently on trazodone 50 mg at night and take Lexapro 20 milligrams daily, she also follows up with online therapist and a psychiatrist from [facility]. Borderline personality disorder followed by a therapist Keren and psychiatrist on [facility] from [facility] Idiopathic mast cell activation syndrome, patient is getting multiple flares with rashes and allergic to food dyes and multiple unknown things. She has an EpiPen in place. She takes Zyrtec as well. We will refer her to an practice clinician. History of seizure disorder she states that she was seen in [place] and was told that due to previous history of Lyme's disease that could have triggered a seizure activity she had an EEG done at [place] in 2024 which was positive for epileptic [...] blood work done by her PCP and [place] office which it is unremarkable. She does experience hypoglycemic symptoms of feeling shaky, fatigue, and sweaty which she does check her glucose and it is usually in the 480s which improves with taking glucose tabs, mentions that his random and nonspecific timing. I would refer patient machine baster for further workup Postural orthostatic tachycardia. Stable continue on midodrine 2.5 mg which she takes half a tablet at lunch and half at night. JUSTINE/MDD/ BPD/ fibromyalgia: Stable at this point, She is currently on trazodone 50 mg at night and take Lexapro 20 milligrams daily, she also follows up with online therapist and a psychiatrist from [facility] to behavioral instituted. Borderline personality disorder followed by a therapist Keren and psychiatrist on [facility] from [facility] Idiopathic mast cell activation syndrome. Stable at this point, she will follow up with an practice clinician. She has an EpiPen in place. She [...] blood work done by her PCP and [place] office which it is unremarkable. She does experience hypoglycemic symptoms of feeling shaky, fatigue, and sweaty which she does check her glucose and it is usually in the 480s which improves with taking glucose tabs, mentions that his random and nonspecific timing. I would refer patient machine baster for further workup Postural orthostatic tachycardia. Stable continue on midodrine 2.5 mg which she takes half a tablet at lunch and half at night. JUSTINE/MDD/ BPD/ fibromyalgia: Stable at this point, She is currently on trazodone 50 mg at night and take Lexapro 20 milligrams daily, she also follows up with online therapist and a psychiatrist from [facility] to behavioral instituted. Borderline personality disorder followed by a therapist Keren and psychiatrist on [facility] from [facility] Idiopathic mast cell activation syndrome. Stable at this point, she will follow up with an practice clinician. She has an EpiPen in place. She [...] supposed to be [facility], [facility] She had basic blood work done by her PCP and [place] office which it is unremarkable. She does experience hypoglycemic symptoms of feeling shaky, fatigue, and sweaty which she does check her glucose and it is usually in the 480s which improves with taking glucose tabs, mentions that his random and nonspecific timing. I would refer patient machine baster for further workup Postural orthostatic tachycardia. Stable continue on midodrine 2.5 mg which she takes half a tablet at lunch and half at night. JUSTINE/MDD/ BPD/ fibromyalgia: Stable at this point, She is currently on trazodone 50 mg at night and take Lexapro 20 milligrams daily, she also follows up with online therapist and a psychiatrist from [facility] to behavioral instituted. Borderline personality disorder followed by a therapist Keren and psychiatrist on [facility] from [facility] Idiopathic mast cell activation syndrome. Stable at this point, she will follow up with an practice clinician. She has an EpiPen in place. She [...] she was diagnosed with fibromyalgia by a direct marketing representative in the past. She is currently on trazodone 50 mg at night and take Lexapro 20 milligrams daily, she also follows up with online therapist and a psychiatrist from [facility] to behavioral instituted. Borderline personality disorder followed by a therapist Keren and psychiatrist on [facility] from [facility] Idiopathic mast cell activation syndrome, patient is getting multiple flares with rashes and allergic to food dyes and multiple unknown things. She has an EpiPen in place. She takes Zyrtec as well. We will refer her to an practice clinician. 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 She is currently on trazodone 50 mg at night and take Lexapro 20 milligrams daily, she also follows up with online therapist and a psychiatrist from [facility] to behavioral instituted. Borderline personality disorder followed by a therapist Keren and psychiatrist on [facility] from [facility] Idiopathic mast cell activation syndrome, patient is getting multiple flares with rashes and allergic to food dyes and multiple unknown things. She has an EpiPen in place. She takes Zyrtec as well. We will refer her to an practice clinician. History of seizure disorder she states that she was seen in [place] and was told that due to previous history of Lyme's disease that could have triggered a seizure activity she had an EEG done at [place] in 2024 which was positive for epileptic [...] blood work done by her PCP and [place] office which it is unremarkable. She does experience hypoglycemic symptoms of feeling shaky, fatigue, and sweaty which she does check her glucose and it is usually in the 480s which improves with taking glucose tabs, mentions that his random and nonspecific timing. I would refer patient machine baster for further workup Postural orthostatic tachycardia. Stable continue on midodrine 2.5 mg which she takes half a tablet at lunch and half at night. JUSTINE/MDD/ BPD/ fibromyalgia: Stable at this point, She is currently on trazodone 50 mg at night and take Lexapro 20 milligrams daily, she also follows up with online therapist and a psychiatrist from [facility] to behavioral instituted. Borderline personality disorder followed by a therapist Keren and psychiatrist on [facility] from [facility] department Idiopathic mast cell activation syndrome. Stable at this point, she will follow up with an practice clinician. She has an EpiPen in place. She [...] blood work done by her PCP and [place] office which it is unremarkable. She does experience hypoglycemic symptoms of feeling shaky, fatigue, and sweaty which she does check her glucose and it is usually in the 480s which improves with taking glucose tabs, mentions that his random and nonspecific timing. I would refer patient machine baster for further workup Postural orthostatic tachycardia. Stable continue on midodrine 2.5 mg which she takes half a tablet at lunch and half at night. JUSTINE/MDD/ BPD/ fibromyalgia: Stable at this point, She is currently on trazodone 50 mg at night and take Lexapro 20 milligrams daily, she also follows up with online therapist and a psychiatrist from [facility] to behavioral instituted. Borderline personality disorder followed by a therapist Keren and psychiatrist on [facility] from [facility] Idiopathic mast cell activation syndrome. Stable at this point, she will follow up with an practice clinician. She has an EpiPen in place. She [...] she was diagnosed with fibromyalgia by a direct marketing representative in the past. She is currently on trazodone 50 mg at night and take Lexapro 20 milligrams daily, she also follows up with online therapist and a psychiatrist from [facility] to behavioral instituted. Borderline personality disorder followed by a therapist Keren and psychiatrist on [facility] from [facility] Idiopathic mast cell activation syndrome, patient is getting multiple flares with rashes and allergic to food dyes and multiple unknown things. She has an EpiPen in place. She takes Zyrtec as well. We will refer her to an practice clinician. 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 She is currently on trazodone 50 mg at night and take Lexapro 20 milligrams daily, she also follows up with online therapist and a psychiatrist from [facility] to behavioral instituted. Borderline personality disorder followed by a therapist Keren and psychiatrist on [facility] from [facility] Idiopathic mast cell activation syndrome, patient is getting multiple flares with rashes and allergic to food dyes and multiple unknown things. She has an EpiPen in place. She takes Zyrtec as well. We will refer her to an practice clinician. History of seizure disorder she states that she was seen in [place] and was told that due to previous history of Lyme's disease that could have triggered a seizure activity she had an EEG done at [place] in 2024 which was positive for epileptic [...] blood work done by her PCP and [place] office which it is unremarkable. She does experience hypoglycemic symptoms of feeling shaky, fatigue, and sweaty which she does check her glucose and it is usually in the 480s which improves with taking glucose tabs, mentions that his random and nonspecific timing. I would refer patient machine baster for further workup Postural orthostatic tachycardia. Stable continue on midodrine 2.5 mg which she takes half a tablet at lunch and half at night. JUSTINE/MDD/ BPD/ fibromyalgia: Stable at this point, She is currently on trazodone 50 mg at night and take Lexapro 20 milligrams daily, she also follows up with online therapist and a psychiatrist from [facility] to behavioral instituted. Borderline personality disorder followed by a therapist Keren and psychiatrist on [facility] from [facility] Idiopathic mast cell activation syndrome. Stable at this point, she will follow up with an practice clinician. She has an EpiPen in place. She [...] she was diagnosed with fibromyalgia by a direct marketing representative in the past. She is currently on trazodone 50 mg at night and take Lexapro 20 milligrams daily, she also follows up with online therapist and a psychiatrist from [facility] to behavioral instituted. Borderline personality disorder followed by a therapist Keren and psychiatrist on [facility] from [facility] Idiopathic mast cell activation syndrome, patient is getting multiple flares with rashes and allergic to food dyes and multiple unknown things. She has an EpiPen in place. She takes Zyrtec as well. We will refer her to an practice clinician. History of seizure disorder she states that she was seen in [place] and was told that due to previous history of Lyme's disease that could have triggered a seizure activity she had an EEG done at [place] in 2024 which was positive for epileptic [...] blood work done by her PCP and [place] office which it is unremarkable. She does experience hypoglycemic symptoms of feeling shaky, fatigue, and sweaty which she does check her glucose and it is usually in the 480s which improves with taking glucose tabs, mentions that his random and nonspecific timing. I would refer patient machine baster for further workup Postural orthostatic tachycardia. Stable continue on midodrine 2.5 mg which she takes half a tablet at lunch and half at night. JUSTINE/MDD/ BPD/ fibromyalgia: Stable at this point, She is currently on trazodone 50 mg at night and take Lexapro 20 milligrams daily, she also follows up with online therapist and a psychiatrist from [facility] to [facility]. Borderline personality disorder followed by a therapist Keren and psychiatrist on [facility] from [facility] Idiopathic mast cell activation syndrome. Stable at this point, she will follow up with an practice clinician. She has an EpiPen in place. She [...] she was diagnosed with fibromyalgia by a direct marketing representative in the past. She is currently on trazodone 50 mg at night and take Lexapro 20 milligrams daily, she also follows up with online therapist and a psychiatrist from [facility] to behavioral instituted. Borderline personality disorder followed by a therapist Keren and psychiatrist on [facility] from [facility] Idiopathic mast cell activation syndrome, patient is getting multiple flares with rashes and allergic to food dyes and multiple unknown things. She has an EpiPen in place. She takes Zyrtec as well. We will refer her to an practice clinician. History of seizure disorder she states that she was seen in [place] and was told that due to previous history of Lyme's disease that could have triggered a seizure activity she had an EEG done at [place] in 2024 which was positive for epileptic [...] and nonspecific timing. I would refer patient machine baster for further workup Postural orthostatic tachycardia. Stable continue on midodrine 2.5 mg which she takes half a tablet at lunch and half at night. JUSTINE/MDD/ BPD/ fibromyalgia: Stable at this point, She is currently on trazodone 50 mg at night and take Lexapro 20 milligrams daily, she also follows up with online therapist and a psychiatrist from [facility]. Borderline personality disorder followed by a therapist Keren and psychiatrist on [facility] from [facility] Idiopathic mast cell activation syndrome. Stable at this point, she will follow up with an practice clinician. She has an EpiPen in place. She [...] blood work done by her PCP and [place] office which it is unremarkable. She does experience hypoglycemic symptoms of feeling shaky, fatigue, and sweaty which she does check her glucose and it is usually in the 480s which improves with taking glucose tabs, mentions that his random and nonspecific timing. I would refer patient machine baster for further workup Postural orthostatic tachycardia. Stable continue on midodrine 2.5 mg which she takes half a tablet at lunch and half at night. JUSTINE/MDD/ BPD/ fibromyalgia: Stable at this point, She is currently on trazodone 50 mg at night and take Lexapro 20 milligrams daily, she also follows up with online therapist and a psychiatrist from [facility]. Borderline personality disorder followed by a therapist Keren and psychiatrist on [facility] from [facility] Idiopathic mast cell activation syndrome. Stable at this point, she will follow up with an practice clinician. She has an EpiPen in place. She [...] she was diagnosed with fibromyalgia by a direct marketing representative in the past. She is currently on trazodone 50 mg at night and take Lexapro 20 milligrams daily, she also follows up with online therapist and a psychiatrist from [facility] to behavioral instituted. Borderline personality disorder followed by a therapist Keren and psychiatrist on [facility] from [facility] Idiopathic mast cell activation syndrome, patient is getting multiple flares with rashes and allergic to food dyes and multiple unknown things. She has an EpiPen in place. She takes Zyrtec as well. We will refer her to an practice clinician. History of seizure disorder she states that she was seen in [place] and was told that due to previous history of Lyme's disease that could have triggered a seizure activity she had an EEG done at [place] in 2024 which was positive for epileptic [...] blood work done by her PCP and [place] office which it is unremarkable. She does experience hypoglycemic symptoms of feeling shaky, fatigue, and sweaty which she does check her glucose and it is usually in the 480s which improves with taking glucose tabs, mentions that his random and nonspecific timing. I would refer patient machine baster for further workup Postural orthostatic tachycardia. Stable continue on midodrine 2.5 mg which she takes half a tablet at lunch and half at night. JUSTINE/MDD/ BPD/ fibromyalgia: Stable at this point, She is currently on trazodone 50 mg at night and take Lexapro 20 milligrams daily, she also follows up with online therapist and a psychiatrist from [facility] to behavioral instituted. Borderline personality disorder followed by a therapist [place] and psychiatrist on [facility] from [facility] Idiopathic mast cell activation syndrome. Stable at this point, she will follow up with an practice clinician. She has an EpiPen in place. She [...] she was diagnosed with fibromyalgia by a direct marketing representative in the past. She is currently on trazodone 50 mg at night and take Lexapro 20 milligrams daily, she also follows up with online therapist and a psychiatrist from [facility] to behavioral instituted. Borderline personality disorder followed by a therapist [place] and psychiatrist on [facility] from [facility] Idiopathic mast cell activation syndrome, patient is getting multiple flares with rashes and allergic to food dyes and multiple unknown things. She has an EpiPen in place. She takes Zyrtec as well. We will refer her to an practice clinician. 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 She is currently on trazodone 50 mg at night and take Lexapro 20 milligrams daily, she also follows up with online therapist and a psychiatrist from [facility] to behavioral instituted. Borderline personality disorder followed by a therapist [place] and psychiatrist on [facility] from [facility] Idiopathic mast cell activation syndrome, patient is getting multiple flares with rashes and allergic to food dyes and multiple unknown things. She has an EpiPen in place. She takes Zyrtec as well. We will refer her to an practice clinician. History of seizure disorder she states that she was seen in [place] and was told that due to previous history of Lyme's disease that could have triggered a seizure activity she had an EEG done at [place] in 2024 which was positive for epileptic [...] blood work done by her PCP and [place] office which it is unremarkable. She does experience hypoglycemic symptoms of feeling shaky, fatigue, and sweaty which she does check her glucose and it is usually in the 480s which improves with taking glucose tabs, mentions that his random and nonspecific timing. I would refer patient machine baster for further workup Postural orthostatic tachycardia. Stable continue on midodrine 2.5 mg which she takes half a tablet at lunch and half at night. JUSTINE/MDD/ BPD/ fibromyalgia: Stable at this point, She is currently on trazodone 50 mg at night and take Lexapro 20 milligrams daily, she also follows up with online therapist and a psychiatrist from [facility] to behavioral instituted. Borderline personality disorder followed by a therapist [place] and psychiatrist on [facility] from [facility] Idiopathic mast cell activation syndrome. Stable at this point, she will follow up with an practice clinician. She has an EpiPen in place. She takes Zyrtec as well. Seizure disorder. She is currently on Keppra 500 mg twice a day and Lamictal 50 milligram. She does follow with neurologist, she has an upcoming EEG and MRI of the brain Gastroparesis. Stable. 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 She is currently on trazodone 50 mg at night and take Lexapro 20 milligrams daily, she also follows up with online therapist and a psychiatrist from [facility] to behavioral instituted. Borderline personality disorder followed by a therapist [place] and psychiatrist on [facility] from [facility] Idiopathic mast cell activation syndrome, patient is getting multiple flares with rashes and allergic to food dyes and multiple unknown things. She has an EpiPen in place. She takes Zyrtec as well. We will refer her to an practice clinician. History of seizure disorder she states that she was seen in [place] and was told that due to previous history of Lyme's disease that could have triggered a seizure activity she had an EEG done at [place] in 2024 which was positive for epileptic [...] blood work done by her PCP and [place] office which it is unremarkable. She does experience hypoglycemic symptoms of feeling shaky, fatigue, and sweaty which she does check her glucose and it is usually in the 480s which improves with taking glucose tabs, mentions that his random and nonspecific timing. I would refer patient machine baster for further workup Postural orthostatic tachycardia. Stable continue on midodrine 2.5 mg which she takes half a tablet at lunch and half at night. JUTSINE/MDD/ BPD/ fibromyalgia: Stable at this point, She is currently on trazodone 50 mg at night and take Lexapro 20 milligrams daily, she also follows up with online therapist and a psychiatrist from [facility] to behavioral instituted. Borderline personality disorder followed by a therapist [place] and psychiatrist on [facility] from [facility] Idiopathic mast cell activation syndrome. Stable at this point, she will follow up with an practice clinician. She has an EpiPen in place. She [...] Provider Name:Gricelda Haley, 0 07/02/2025 03:30:00 PM, [address] [place] [address], [place], [id number], Insurance Providers Payer Name Payer Address Payer Phone Subscriber Number Group Number Insured Name Patient Relationship to Insured Coverage Start Date Coverage End Date [facility]) [address] [address] [place] [address] [id number] Abby Alves Self - patient is the insured Medical (General) History Medical History History ICD Code postural orthostatic tachycardia POTS Mast cell activation syndrome Gastroparesis Post Lyme's disease fatigue and pain Fibromyalgia Generalized anxiety disorder Depression Hypermobile Kevin-Danlos syndrome Borderline personality disorder Surgical History Surgery Date(Month/Year) tonsillectomy and adenoid removal as a c hild
== END 2025-03-28 08:18 | disposition home or self-care (01) ==
LOC: HO.NEURO 08:17
PROVIDERS: Visit Provider Nurse Practitioner
DX: G40.909 Epilepsy, unspecified, not intractable, without status epilepticus (principal)
CPT/HCPCS: 95700; 95705; 95708

== ENCOUNTER → 2025-03-28 08:19 | Outpatient (BNV) | payer OTHER, SELFPAY | PROVIDERS: Visit Provider Psychiatry & Neurology Neurology | DX: G40.909 Epilepsy, unspecified, not intractable, without status epilepticus (principal) | CPT/HCPCS: 95719 ==